=== PATIENT | male | born 1965 | race African-American/Black ===

== ENCOUNTER 2017-11-06 08:54 | Inpatient (IN) | payer OTHER ==
[2017-11-06 09:41] VITALS: BMI 40.0
--- NOTE | 2017-11-06 10:19 | HP ---
CIWA Score - CIWA Score Nausea/Vomitin Muscle Tremors: 3 Anxiety: 3 Agitation: 3 Paroxysmal Sweats: 2 Orientation: 0-Oriented Tacttile Disturbances: 2-Mild Itch/Numbness/Burn Auditory Disturbances: 2-Mild Harshness/Frighten Visual Disturbances: 2-Mild Sensitivity Headache: 2-Mild CIWA-Ar Total Score: 22 Admission ROS BHS - HPI Chief Complaint: I NEED HELP FROM ALCOHOL ,MARIJUANA SEEN AT [place] LAST NIGHT Allergies/Adverse Reactions: Allergies Allergy/AdvReac Type Severity Reaction Status Date / Time No Known Allergies Allergy Verified 02/28/14 16:31 History of Present Illness: THIS 52 YEARS OLD BLACK MALE WITH ALCOHOL AND MARIJUANA DEPENDENCE,WITHDRAWAL SYMPTOM,SEEKING DETOX,LAST DETOX [facility] 02/28/14 TO 03/02/14 ASTHMA,HTN,GLAUCOMA RIGHT 1 YEAR FINGER COUNT LONGEST PERIOD OF SOBRIETY 1 YEAR Exam Limitations: No Limitations - Ebola screening Have you traveled outside of the country in the last 21 days: No Have you been sick,other than usual withdrawal symptoms: No - Review of Systems Constitutional: Loss of Appetite, Malaise, Night Sweats, Changes in sleep, Weakness EENT: reports: Nose Congestion (GLAUCOMA RIGHT EYE FINGER COUNT), Other ( GLAUCOMA RIGHT EYE FINGER COUNT) Respiratory: reports: No Symptoms reported (ASTHMA), Other Cardiac: reports: No Symptoms Reported GI: reports: Nausea, Vomiting, Abdominal cramping : reports: No Symptoms Reported Musculoskeletal: reports: Back Pain, Muscle Pain Integumentary: reports: Dryness Neuro: reports: Headache, Tremors Endocrine: reports: No Symptoms Reported Hematology: reports: No Symptoms Reported Psychiatric: reports: No Sypmtoms Reported Patient History - Patient Medical History Hx Anemia: No Hx Asthma: Yes (ON ALBUREOL INHALER AND ADVAIR 250/50) Hx Chronic Obstructive Pulmonary Disease (COPD): No Hx Cancer: No Hx Cardiac Disorders: No Hx Congestive Heart Failure: No Hx Hypertension: Yes (on meds.HYDROCHOLROTHIAZIDE 25 MGS) Hx Hypercholesterolemia: No Hx Pacemaker: No HX Cerebrovascular Accident: No Hx Seizures: No Hx Dementia: No Hx Diabetes: No Hx Gastrointestinal Disorders: No Hx Liver Disease: No Hx Genitourinary Disorders: No Hx Sexually Transmitted Disorders: No Hx Renal Disease (ESRD): No Hx Thyroid Disease: No Hx Human Immunodeficiency Virus (HIV): No (LAST 2016 NEGATIVE) Hx Hepatitis C: No Hx Depression: No Hx Suicide Attempt: No Hx Bipolar Disorder: No Hx Schizophrenia: No Other Medical History: NO SUICIDAL,NO HOMICIDAL - Patient Surgical History Past Surgical History: Yes Hx Neurologic Surgery: No Hx Cataract Extraction: No Hx Cardiac Surgery: No Hx Lung Surgery: No Hx Breast Surgery: No Hx Breast Biopsy: No Hx Abdominal Surgery: Yes (UMBILICAL HERNIA REPAIR 04/2013) Hx Appendectomy: No Hx Cholecystectomy: No Hx Genitourinary Surgery: No Hx Section: No Hx Orthopedic Surgery: Yes (fx of both legs at age of 12 years) Other Surgical History: fx of both legs at age of 12 years Anesthesia Reaction: No - PPD History Previous Implant?: Yes Documented Results: Positive w/proof Date: 04/10/12 Results: 0mm - Smoking Cessation Smoking history: Former smoker Have you smoked in the past 12 months: No Aproximately how many cigarettes per day: 0 If you are a former smoker, when did you quit?: 2016 Cigars Per Day: 0 Hx Chewing Tobacco Use: No Initiated information on smoking cessation: Yes 'Breaking Loose' booklet given: 11/07/17 - Substance & Tx. History Hx Alcohol Use: Yes Hx Substance Use: Yes Substance Use Type: Alcohol, Marijuana ([facility] ) Hx Substance Use Treatment: Yes ([facility] 02/28/14 TO 03/02/14) - Substances Abused Alcohol Route: Oral Frequency: Daily Amount used: LIQUOR- 3 PINTS VODKA, BEER- 3 SIX PACK OF 16 OZS Age of first use: 12 Date of Last Use: 11/05/17 Marijuana/Hashish Route: Smoking Frequency: Daily Amount used: 10$ Age of first use: 12 Date of Last Use: 11/05/17 Family Disease History - Family Disease History Family Disease History: Other: Father (ALCOHOLIC,), Mother (), Brother (alcohol and dsa), Sister (alcohol) Admission Physical Exam S - Vital Signs Vital Signs: Vital Signs - 24 hr 11/06/17 09:38 Temperature 97.8 F Pulse Rate 99 H Respiratory 18 Rate Blood Pressure 119/83 - Physical General Appearance: Yes: Moderate Distress, Tremorous, Irritable, Sweating, Anxious HEENTM: Yes: Pharynx Normal, Other (GLAUCOMA RIGH TEYE FINGER COUNT) Respiratory: Yes: Lungs Clear, Normal Breath Sounds, No Respiratory Distress ( ASTHMA HISTORY) Neck: Yes: Within Normal Limits, Supple, Trachea in good position Breast: Yes: Within Normal Limits Cardiology: Yes: Within Normal Limits, Regular Rhythm, Regular Rate, S1, S2 Abdominal: Yes: Normal Bowel Sounds, Non Tender, Flat, Soft, Surgical Scar (S/ PUMBILICAL HERNIA REPAIR) Genitourinary: Yes: Within Normal Limits Back: Yes: Muscle Spasm Musculoskeletal: Yes: Back pain, Muscle Pain Extremities: Yes: Tremors Neurological: Yes: skin toggler II-XII NML intact, Fully Oriented, Alert, Motor Strength 5/5 Integumentary: Yes: Dry Lymphatic: Yes: Within Normal Limits - Diagnostic (1) Alcohol dependence with uncomplicated withdrawal Current Visit: Yes Status: Acute (2) Cannabis dependence Current Visit: Yes Status: Acute (3) Glaucoma, right eye Current Visit: Yes Status: Acute (4) Asthma Current Visit: Yes Status: Acute (5) Essential hypertension Current Visit: No Status: Active (6) Nicotine dependence Current Visit: No Status: Acute Cleared for Admission [facility] - Detox or Rehab [facility] Level of Care: Medically Managed Detox Regimen/Protocol: Librium [facility] Breath Alcohol Content Breath Alcohol Content: 0 Urine Drug Screen - Results Drug Screen Negative: No Urine Drug Screen Results: BZO-Benzodiazepines
[2017-11-06] MEDS ORDERED: ALBUTEROL SO4 18 GM HFA INHALER IH PRN (10:40)
[2017-11-06] MEDS ORDERED: hydrOXYzine PAMOATE 50 MG CAPSULE (FP) PO PRN (12:27)
[2017-11-06] MEDS ORDERED: LOPERAMIDE HCL 2 MG CAPSULE PO PRN (12:27)
[2017-11-06] MEDS ORDERED: P-EPHED 60MG/TRIPROLIDI 2.5MG TABLET PO PRN (12:27)
[2017-11-06] MEDS ORDERED: MAGNESIUM HYDROX 2400MG/30ML ORAL SUSPENSION 30 ML CUP PO PRN (12:27)
[2017-11-06] MEDS ORDERED: IBUPROFEN 400 MG TABLET (FP) PO PRN (12:27)
[2017-11-06] MEDS ORDERED: guaiFENesin/D-METHORPHAN HB 10 ML UNIT-DOSE CUPS PO PRN (12:27)
[2017-11-06] MEDS ORDERED: MAG HYDROX/AL HYDROX/SIMETH 30 ML UNIT-DOSE CUP PO PRN (12:27)
[2017-11-06] MEDS ORDERED: MENTHOL/PHENOL 1 EACH UD MM PRN (12:27)
[2017-11-06] MEDS ORDERED: chlordiazePOXIDE HCL 25 MG CAPSULE PO ONE (12:27)
[2017-11-06] MEDS ORDERED: ACETAMINOPHEN 325 MG TABLET (FP) PO PRN (12:27)
[2017-11-06] MEDS ORDERED: chlordiazePOXIDE HCL 25 MG CAPSULE PO PRN (12:27)
[2017-11-06] MEDS ORDERED: MAGNESIUM CITRATE 300 ML BOTTLE PO PRN (12:27)
[2017-11-06] MEDS: BUDESONIDE/FORMETEROL FUMARATE 80/4.5 mcg INHALER IH SCH ×2 (13:37→22:39)
[2017-11-06] MEDS: chlordiazePOXIDE HCL 25 MG CAPSULE PO SCH ×2 (18:00→22:41)
[2017-11-06 19:05] LABS: URINE APPEARANCE TURBID; URINE BILIRUBIN NEGATIVE (NEGATIVE); URINE BLOOD NEGATIVE (NEGATIVE); URINE GLUCOSE (UA) NEGATIVE (NEGATIVE); URINE KETONE TRACE (NEGATIVE); URINE LEUK ESTERASE NEGATIVE (NEGATIVE); URINE NITRITE NEGATIVE (NEGATIVE); URINE PROTEIN NEGATIVE (NEGATIVE)
[2017-11-06 19:36] LABS: URINE COLOR YELLOW
[2017-11-06] MEDS ORDERED: LATANOPROST 0.005% OPHTH SOLN 2.5ML BOTTLE OU SCH (22:00)
[2017-11-06] MEDS ORDERED: TIMOLOL 0.5% OPHTHALMIC SOL 5 ML BOTTLE OU SCH (22:00)
[2017-11-06] MEDS ORDERED: PATIENT'S OWN MEDICATION (NON-FORMULARY) (Salmeterol/Fluticasone [Advair 250mcg/50mcg -] 1 PO SCH (22:00)
[2017-11-06] MEDS: THIAMINE HCL 100 MG TABLET (FP) PO SCH (22:39)
[2017-11-06] MEDS: LATANOPROST 0.005% OPHTH SOLN 2.5ML BOTTLE OU SCH (22:40)
[2017-11-06] MEDS: TIMOLOL 0.5% OPHTHALMIC SOL 5 ML BOTTLE OU SCH (22:40)
[2017-11-07] MEDS: chlordiazePOXIDE HCL 25 MG CAPSULE PO SCH ×4 (05:28→22:42)
[2017-11-07] MEDS: BUDESONIDE/FORMETEROL FUMARATE 80/4.5 mcg INHALER IH SCH ×2 (09:15→22:42)
[2017-11-07] MEDS: TIMOLOL 0.5% OPHTHALMIC SOL 5 ML BOTTLE OU SCH ×2 (09:15→22:43)
[2017-11-07] MEDS ORDERED: HYDROCHLOROTHIAZIDE 25 MG TABLET (FP) PO SCH (10:00)
[2017-11-07] MEDS ORDERED: PRENATAL VITAMINS W/ FOLIC ACID TABLET (FP) PO SCH (10:00)
[2017-11-07 10:09] LABS: HEMATOCRIT 40.8 % (35.4-49); MCH 28.2 pg (25.7-33.7); MCHC 31.7 g/dl (32.0-35.9); MEAN CELL VOLUME 88.9 fl (80-96); MEAN PLT VOLUME 8.9 fl (7.5-11.1); PLATELET COUNT 260 K/MM3 (134-434); RBC 4.59 M/mm3 (4.00-5.60); RDW 14.6 % (11.9-15.9); WHITE BLOOD COUNT 7.5 K/mm3 (4.0-10.0)
[2017-11-07 10:20] LABS: CHLORIDE 101 mmol/L (98-107); POTASSIUM 3.5 mmol/L (3.5-5.1); SODIUM 138 mmol/L (136-145)
[2017-11-07] MEDS: TOLNAFTATE 1% CREAM 15 GM TUBE TP SCH ×2 (10:31→22:43)
[2017-11-07 10:34] LABS: ALBUMIN 4.2 g/dl (3.4-5.0); ALK PHOS 64 U/L (45-117); ANION GAP 6 (8-16); BILIRUBIN,TOTAL 1.6 mg/dL (0.2-1.0); BLOOD UREA NITROGEN 12 mg/dL (7-18); CALCIUM 8.8 mg/dL (8.5-10.1); CO2 31 mmol/L (21-32); CREATININE 0.9 mg/dL (0.7-1.3); GLUCOSE,RANDOM 105 mg/dL (74-106); SGOT/AST 17 U/L (15-37); SGPT/ALT 32 U/L (12-78); TOT PROT 7.3 g/dl (6.4-8.2)
--- NOTE | 2017-11-07 12:00 | CONSULT ---
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 Substance Abuse History: Confirmed by patient in this interview. Smoking history : Former smoker. Have you smoked in the past 12 months: No. Aproximately how many cigarettes per day: 0. If you are a former smoker, when did you quit?: 2017. Cigars Per Day: 0. Hx Chewing Tobacco Use: No. Initiated information on smoking cessation: Yes. 'Breaking Loose' booklet given: 11/07/17. - Substance & Tx. History. Hx Alcohol Use: Yes. Hx Substance Use: Yes. Substance Use Type: Alcohol, Marijuana ([facility] ). Hx Substance Use Treatment: Yes ([facility] 02/28/14 TO 03/02/14). - Substances Abused. Alcohol. Route: Oral. Frequency: Daily. Amount used: LIQUOR- 3 PINTS VODKA, BEER- 3 SIX PACK OF 16 OZS. Age of first use: 12. Date of Last Use: 11/05/17. Marijuana/ Hashish. Route: Smoking. Frequency: Daily. Amount used: 10$. Age of first use: 12. Date of Last Use: 11/05/17 Medical History: Hypertension,bronchial asthma,GERD,glaucoma (right eye) and a remote history of orthosurgery (fracture of both legs at age 12). Psychiatric History: Patient denies. Physical/Sexual Abuse/Trauma History: No reported history of abuse. Additional Comment: Urine Drug Screen Results: BZO-Benzodiazepines.Noted. Mental Status Exam - Mental Status Exam Alert and Oriented to: Time, Place, Person Cognitive Function: Good Patient Appearance: Well Groomed (obese) Mood: Hopeful Affect: Appropriate, Normal Range Patient Behavior: Appropriate, Cooperative Speech Pattern: Clear, Appropriate Voice Loudness: Normal Thought Process: Intact, Goal Oriented Thought Disorder: Not Present Hallucinations: Denies Suicidal Ideation: Denies Homicidal Ideation: Denies Insight/Judgement: Poor Sleep: Poorly, Difficulty falling asleep Appetite: Good Muscle strength/Tone: Normal Gait/Station: Normal Psychiatric Findings - Problem List (Delta 1, 2,3) (1) Alcohol dependence with uncomplicated withdrawal Current Visit: Yes Status: Acute (2) Cannabis dependence Current Visit: Yes Status: Acute (3) Insomnia Current Visit: Yes Status: Acute - Initial Treatment Plan Initial Treatment Plan: Psychoeducation and support provided in this session.Sleep hygiene discussed.Detoxification protocol in effect.Patient is encouraged to attend / participate in daily therapy groups,recreational activities and community meetings.He agrees.Ambien 10 mg po hs prn.Patient is informed of potential for parasomnias.Mr Banegas consents (verbally) to this careplan.Observation.
--- NOTE | 2017-11-07 12:25 | PN ---
[facility] CIWA - CIWA Score Nausea/Vomitin-No Nausea/No Vomiting Muscle Tremors: 4-Moderate,w/Arms Extend Anxiety: 4-Mod. Anxious/Guarded Agitation: 4-Moderately Restless Paroxysmal Sweats: 1-Minimal Palms Moist Orientation: 0-Oriented Tacttile Disturbances: 3-Moderate Itch/Numb/Burn Auditory Disturbances: 0-None Visual Disturbances: 0-None Headache: 0-None Present CIWA-Ar Total Score: 16 S Progress Note (SOAP) Subjective: ANXIETY,SWEATS,INTERMITTENT SLEEP-TO F/U WITH PSYCH TODAY. Objective: 11/07/17 12:24 Vital Signs Temperature 97.5 F L 11/07/17 09:44 Pulse Rate 69 11/07/17 09:44 Respiratory Rate 18 11/07/17 09:44 Blood Pressure 122/81 11/07/17 09:44 O2 Sat by Pulse Oximetry (%) Laboratory Last Values WBC 7.5 K/mm3 (4.0-10.0) 11/07/17 07:00 RBC 4.59 M/mm3 (4.00-5.60) 11/07/17 07:00 Hgb 13.0 GM/dL (11.7-16.9) 11/07/17 07:00 Hct 40.8 % (35.4-49) 11/07/17 07:00 MCV 88.9 fl (80-96) 11/07/17 07:00 MCH 28.2 pg (25.7-33.7) 11/07/17 07:00 MCHC 31.7 g/dl (32.0-35.9) L 11/07/17 07:00 RDW 14.6 % (11.9-15.9) 11/07/17 07:00 Plt Count 260 K/MM3 (134-434) 11/07/17 07:00 MPV 8.9 fl (7.5-11.1) 11/07/17 07:00 Sodium 138 mmol/L (136-145) 11/07/17 07:00 Potassium 3.5 mmol/L (3.5-5.1) D 11/07/17 07:00 Chloride 101 mmol/L (98-107) 11/07/17 07:00 Carbon Dioxide 31 mmol/L (21-32) D 11/07/17 07:00 Anion Gap 6 (8-16) L 11/07/17 07:00 BUN 12 mg/dL (7-18) D 11/07/17 07:00 Creatinine 0.9 mg/dL (0.7-1.3) D 11/07/17 07:00 Creat Clearance w eGFR > 60 (>60) 11/07/17 07:00 Random Glucose 105 mg/dL (74-106) D 11/07/17 07:00 Calcium 8.8 mg/dL (8.5-10.1) 11/07/17 07:00 Total Bilirubin 1.6 mg/dL (0.2-1.0) H D 11/07/17 07:00 AST 17 U/L (15-37) 11/07/17 07:00 ALT 32 U/L (12-78) D 11/07/17 07:00 Alkaline Phosphatase 64 U/L (45-117) D 11/07/17 07:00 Total Protein 7.3 g/dl (6.4-8.2) 11/07/17 07:00 Albumin 4.2 g/dl (3.4-5.0) 11/07/17 07:00 Urine Color Yellow 11/06/17 12:45 Urine Appearance Turbid 11/06/17 12:45 Urine pH 5.0 (5.0-8.0) 11/06/17 12:45 Ur Specific [place] 1.024 (1.001-1.035) 11/06/17 12:45 Urine Protein Negative (NEGATIVE) 11/06/17 12:45 Urine Glucose (UA) Negative (NEGATIVE) 11/06/17 12:45 Urine Ketones Trace (NEGATIVE) H 11/06/17 12:45 Urine Blood Negative (NEGATIVE) 11/06/17 12:45 Urine Nitrite Negative (NEGATIVE) 11/06/17 12:45 Urine Bilirubin Negative (NEGATIVE) 11/06/17 12:45 Urine Urobilinogen 2.0 mg/dL (0.2-1.0) 11/06/17 12:45 Ur Leukocyte Esterase Negative (NEGATIVE) 11/06/17 12:45 RPR Titer Nonreactive (NONREACTIVE) 11/07/17 07:00 HIV 1&2 Antibody Screen Negative 11/07/17 07:00 HIV P24 Antigen Negative 11/07/17 07:00 Assessment: 02/12/18 12:24 WITHDRAWAL SX Plan: CONTINUE DETOX
[2017-11-07 18:00] VITALS: TEMP 97.6
[2017-11-07] MEDS ORDERED: ZOLPIDEM TARTRATE 10 MG TABLET (PARK CARE ONLY) PO PRN (22:00)
[2017-11-07] MEDS: THIAMINE HCL 100 MG TABLET (FP) PO SCH (22:42)
[2017-11-07] MEDS: LATANOPROST 0.005% OPHTH SOLN 2.5ML BOTTLE OU SCH (22:42)
--- NOTE | 2017-11-07 23:34 | EKG ---
Test Reason : Blood Pressure : / mmHG Vent. Rate : 082 BPM Atrial Rate : 082 BPM P-R Int : 144 ms QRS Dur : 108 ms QT Int : 374 ms P-R-T Axes : 053 -35 033 degrees QTc Int : 436 ms NORMAL SINUS RHYTHM LEFT AXIS DEVIATION NONSPECIFIC T WAVE ABNORMALITY ABNORMAL ECG NO PREVIOUS ECGS AVAILABLE Confirmed by DIPAK PEREZ, GARCÍA ([id number]) on 11/07/2017 11:33:38 PM Referred By: Daniel Copeland Confirmed By:GARCÍA QUESADA MD
[2017-11-08] MEDS: chlordiazePOXIDE HCL 25 MG CAPSULE PO SCH (05:48)
[2017-11-08 05:54] VITALS: BP 107/67; PULSE 64
--- NOTE | 2017-11-08 06:31 | DS ---
[facility] Detox Discharge Summary Admission Date: 11/06/17 Discharge Date: 11/08/17 - History Present History: Alcohol Dependence, Cannabis Dependence Additional Comments: Pt. stated he did not need refills of his medications sent to the pharmacy. Pertinent Past History: Last Vital Signs Temp Pulse Resp BP Pulse Ox 97.6 F 64 19 107/67 11/07/17 18:00 11/08/17 05:52 11/08/17 05:52 11/08/17 05:52 Laboratory Last Values - Physical Exam Results Vital Signs: Vital Signs Temperature 97.6 F 11/07/17 18:00 Pulse Rate 64 11/08/17 05:52 Respiratory Rate 19 11/08/17 05:52 Blood Pressure 107/67 11/08/17 05:52 O2 Sat by Pulse Oximetry (%) Pertinent Admission Physical Exam Findings: Laboratory Last Values WBC 7.5 K/mm3 (4.0-10.0) 11/07/17 07:00 RBC 4.59 M/mm3 (4.00-5.60) 11/07/17 07:00 Hgb 13.0 GM/dL (11.7-16.9) 11/07/17 07:00 Hct 40.8 % (35.4-49) 11/07/17 07:00 MCV 88.9 fl (80-96) 11/07/17 07:00 MCH 28.2 pg (25.7-33.7) 11/07/17 07:00 MCHC 31.7 g/dl (32.0-35.9) L 11/07/17 07:00 RDW 14.6 % (11.9-15.9) 11/07/17 07:00 Plt Count 260 K/MM3 (134-434) 11/07/17 07:00 MPV 8.9 fl (7.5-11.1) 11/07/17 07:00 Sodium 138 mmol/L (136-145) 11/07/17 07:00 Potassium 3.5 mmol/L (3.5-5.1) D 11/07/17 07:00 Chloride 101 mmol/L (98-107) 11/07/17 07:00 Carbon Dioxide 31 mmol/L (21-32) D 11/07/17 07:00 Anion Gap 6 (8-16) L 11/07/17 07:00 BUN 12 mg/dL (7-18) D 11/07/17 07:00 Creatinine 0.9 mg/dL (0.7-1.3) D 11/07/17 07:00 Creat Clearance w eGFR > 60 (>60) 11/07/17 07:00 Random Glucose 105 mg/dL (74-106) D 11/07/17 07:00 Calcium 8.8 mg/dL (8.5-10.1) 11/07/17 07:00 Total Bilirubin 1.6 mg/dL (0.2-1.0) H D 11/07/17 07:00 AST 17 U/L (15-37) 11/07/17 07:00 ALT 32 U/L (12-78) D 11/07/17 07:00 Alkaline Phosphatase 64 U/L (45-117) D 11/07/17 07:00 Total Protein 7.3 g/dl (6.4-8.2) 11/07/17 07:00 Albumin 4.2 g/dl (3.4-5.0) 11/07/17 07:00 Urine Color Yellow 11/06/17 12:45 Urine Appearance Turbid 11/06/17 12:45 Urine pH 5.0 (5.0-8.0) 11/06/17 12:45 Ur Specific [place] 1.024 (1.001-1.035) 11/06/17 12:45 Urine Protein Negative (NEGATIVE) 11/06/17 12:45 Urine Glucose (UA) Negative (NEGATIVE) 11/06/17 12:45 Urine Ketones Trace (NEGATIVE) H 11/06/17 12:45 Urine Blood Negative (NEGATIVE) 11/06/17 12:45 Urine Nitrite Negative (NEGATIVE) 11/06/17 12:45 Urine Bilirubin Negative (NEGATIVE) 11/06/17 12:45 Urine Urobilinogen 2.0 mg/dL (0.2-1.0) 11/06/17 12:45 Ur Leukocyte Esterase Negative (NEGATIVE) 11/06/17 12:45 RPR Titer Nonreactive (NONREACTIVE) 11/07/17 07:00 HIV 1&2 Antibody Screen Negative 11/07/17 07:00 HIV P24 Antigen Negative 11/07/17 07:00 - Medication Discharge Medications: Ambulatory Orders Albuterol Sulfate Inhaler - [Ventolin HFA Inhaler -] 2 inh PO Q4H PRN 02/28/14 Aspirin [Aspirin EC] 81 mg PO DAILY 02/28/14 Brimonidine Tartrate [Alphagan 0.2% -] 1 drop OU TID 02/28/14 Budesonide/Formeterol Fumarate [SYMBICORT 80/4.5mcg -] 1 inh PO DAILY PRN Hydrochlorothiazide [Hctz -] 25 mg PO DAILY 02/28/14 Latanoprost 0.005% Eye Drops [Xalatan 0.005% Eye Drops -] 1 drop OU HS 02/28/14 Salmeterol/Fluticasone [Advair 250Mcg/50Mcg] 1 inh PO BID 02/28/14 Timolol 0.5% [Timoptic 0.5%] 1 drop OU BID 02/28/14 - Diagnosis (1) Essential hypertension Current Visit: Yes Status: Chronic (2) Alcohol dependence with uncomplicated withdrawal Current Visit: Yes Status: Chronic (3) Asthma Current Visit: Yes Status: Chronic Qualifiers: Asthma severity: mild Asthma complication type: uncomplicated (4) Cannabis dependence Current Visit: Yes Status: Chronic (5) Nicotine dependence Current Visit: Yes Status: Chronic Qualifiers: Nicotine product type: cigarettes Substance use status: in withdrawal Qualified Code(s): F17.213 - Nicotine dependence, cigarettes, with withdrawal - AMA Did Patient Leave Against Medical Advice: Yes (Pt. did not give reason as to why he wanted to leave. )
[2017-11-08] MEDS ORDERED: chlordiazePOXIDE 5 MG CAPSULE PO SCH (17:00)
[2017-11-09] MEDS ORDERED: chlordiazePOXIDE HCL 10 MG CAPSULE PO SCH (17:00)
== END 2017-11-08 06:29 | disposition left against medical advice (07) | DRG 770 ==
LOC: YASAS 08:54 → Y3N 10:41
PROVIDERS: ADMIT Internal Medicine; ATTEND Internal Medicine
PROC: HZ2ZZZZ Detoxification Services for Substance Abuse Treatment (ICD-10-PCS; principal; 2017-11-06)
DX: F10.230 Alcohol dependence with withdrawal, uncomplicated (principal); F12.20 Cannabis dependence, uncomplicated; F17.213 Nicotine dependence, cigarettes, with withdrawal; I10 Essential (primary) hypertension; J45.909 Unspecified asthma, uncomplicated; B35.3 Tinea pedis; H40.9 Unspecified glaucoma; K21.9 Gastro-esophageal reflux disease without esophagitis; G47.00 Insomnia, unspecified
CPT/HCPCS: 36415; 71045-TC-FY; 80053; 81003; 85027; 86593; 87389; 93005; 93010

== ENCOUNTER 2018-07-17 08:47 | Inpatient (IN) | payer OTHER ==
[2018-07-17 09:24] VITALS: BMI 40.1
--- NOTE | 2018-07-17 10:43 | HP ---
CIWA Score - CIWA Score Nausea/Vomitin Muscle Tremors: 2 Anxiety: 2 Agitation: 2 Paroxysmal Sweats: 1-Minimal Palms Moist Orientation: 0-Oriented Tacttile Disturbances: 1-Very Mild Itch/Numbness Auditory Disturbances: 1-Very Mild Visual Disturbances: 0-None Headache: 2-Mild CIWA-Ar Total Score: 13 Admission ROS BHS - HPI Chief Complaint: i need help to stop drinking alcohol Allergies/Adverse Reactions: Allergies Allergy/AdvReac Type Severity Reaction Status Date / Time No Known Allergies Allergy Verified 07/17/18 10:02 History of Present Illness: this 53 years old male with alcohol dependence,seeking detox,seen in [place] last night,withdrawal symptom, extensive history of alcohol dependence since the age of 12 years,multiple admissions but relapsing,non compliance history of hypertension,glaucoma,asthma nicotine dependence positive ppd treated longest period of sobriety 1 year Exam Limitations: No Limitations - Ebola screening Have you traveled outside of the country in the last 21 days: No Have you had contact with anyone from an Ebola affected area: No Have you been sick,other than usual withdrawal symptoms: No Do you have a fever: No - Review of Systems Constitutional: Loss of Appetite, Malaise, Night Sweats, Changes in sleep EENT: reports: Nose Congestion, Other (glaucoma) Respiratory: reports: No Symptoms reported, Other (asthma) Cardiac: reports: No Symptoms Reported GI: reports: Nausea, Indigestion, Abdominal cramping : reports: No Symptoms Reported Musculoskeletal: reports: Back Pain, Muscle Pain Integumentary: reports: Dryness Neuro: reports: Headache, Tremors Endocrine: reports: No Symptoms Reported Hematology: reports: No Symptoms Reported Psychiatric: reports: No Sypmtoms Reported, Judgement Intact, Mood/Affect Appropiate, Orientated x3 Patient History - Patient Medical History Hx Anemia: No Hx Asthma: Yes (on albuterol and symbicort) Hx Chronic Obstructive Pulmonary Disease (COPD): No Hx Cancer: No Hx Cardiac Disorders: No Hx Congestive Heart Failure: No Hx Hypertension: Yes (on med) Hx Hypercholesterolemia: No Hx Pacemaker: No HX Cerebrovascular Accident: No Hx Seizures: No Hx Dementia: No Hx Diabetes: No Hx Gastrointestinal Disorders: Yes (acid reflux) Hx Liver Disease: No Hx Genitourinary Disorders: No Hx Sexually Transmitted Disorders: No Hx Renal Disease (ESRD): No Hx Thyroid Disease: No Hx Human Immunodeficiency Virus (HIV): No (last 2018 negative) Hx Hepatitis C: No Hx Depression: No Hx Suicide Attempt: No Hx Bipolar Disorder: No Hx Schizophrenia: No Other Medical History: no suicidal,no homicidal - Patient Surgical History Past Surgical History: Yes Hx Neurologic Surgery: No Hx Cataract Extraction: No Hx Cardiac Surgery: No Hx Lung Surgery: No Hx Breast Surgery: No Hx Breast Biopsy: No Hx Abdominal Surgery: Yes (UMBILICAL HERNIA REPAIR 04/2013) Hx Appendectomy: No Hx Cholecystectomy: No Hx Genitourinary Surgery: No Hx Section: No Hx Orthopedic Surgery: Yes (fx of both legs at age of 12 years) Other Surgical History: fx of both legs at age of 12 years Anesthesia Reaction: No - PPD History Documented Results: Positive w/proof Date: 04/10/12 Results: CXR(-)11/07/17 PPD to be Administered?: No - Smoking Cessation Smoking history: Current some day smoker Have you smoked in the past 12 months: Yes Aproximately how many cigarettes per day: 1 If you are a former smoker, when did you quit?: 2017 Cigars Per Day: 0 Hx Chewing Tobacco Use: No Initiated information on smoking cessation: Yes 'Breaking Loose' booklet given: 07/17/18 - Substance & Tx. History Hx Alcohol Use: Yes Hx Substance Use: No Substance Use Type: Alcohol Hx Substance Use Treatment: Yes ([facility]11/06/17 to 11/08/17) - Substances Abused Alcohol-vodka/beer Route: Oral Frequency: Daily Amount used: 3 pts./2-6 pks. Age of first use: 12 Date of Last Use: 07/16/18 Family Disease History - Family Disease History Family Disease History: Other: Father (ALCOHOLIC,), Mother (), Brother (alcohol and dsa), Sister (alcohol) Admission Physical Exam BHS - Vital Signs Vital Signs: Vital Signs - 24 hr 07/17/18 09:15 Temperature 97.6 F Pulse Rate 76 Respiratory 19 Rate Blood Pressure 153/99 - Physical General Appearance: Yes: Moderate Distress, Tremorous, Irritable, Sweating, Anxious HEENTM: Yes: Normal ENT Inspection, Pharynx Normal, Other (glaucoma both eyes seen own ophthalmogist) Respiratory: Yes: Within Normal Limits, Lungs Clear (hsitory of asthma) Neck: Yes: Within Normal Limits, Supple, Trachea in good position Breast: Yes: Within Normal Limits Cardiology: Yes: Within Normal Limits, Regular Rhythm, Regular Rate, S1, S2 Abdominal: Yes: Within Normal Limits, Normal Bowel Sounds, Soft Genitourinary: Yes: Within Normal Limits Back: Yes: Muscle Spasm Musculoskeletal: Yes: Back pain, Muscle Pain Extremities: Yes: Normal Range of Motion, Tremors Neurological: Yes: prune washer II-XII NML intact, Fully Oriented, Alert, Motor Strength 5/5 Integumentary: Yes: Dry Lymphatic: Yes: Within Normal Limits - Diagnostic (1) Alcohol dependence with uncomplicated withdrawal Current Visit: Yes Status: Chronic (2) Asthma Current Visit: No Status: Chronic Qualifiers: Asthma severity: mild Asthma complication type: uncomplicated (3) Essential hypertension Current Visit: No Status: Chronic (4) Nicotine dependence Current Visit: No Status: Chronic Qualifiers: Nicotine product type: cigarettes Substance use status: in withdrawal Qualified Code(s): F17.213 - Nicotine dependence, cigarettes, with withdrawal (5) Glaucoma, both eyes Current Visit: Yes Status: Acute Qualifiers: Glaucoma type: unspecified Qualified Code(s): H40.9 - Unspecified glaucoma (6) Tinea pedis Current Visit: Yes Status: Acute Qualifiers: Laterality: right Qualified Code(s): B35.3 - Tinea pedis (7) Nail deformity Current Visit: Yes Status: Acute (8) Syncope Current Visit: No Status: Active (9) Positive PPD, treated Current Visit: Yes Status: Acute Cleared for Admission [facility] - Detox or Rehab [facility] Level of Care: Medically Managed Detox Regimen/Protocol: Librium [facility] Breath Alcohol Content Breath Alcohol Content: 0 Urine Drug Screen - Results Drug Screen Negative: No Urine Drug Screen Results: BZO-Benzodiazepines
[2018-07-17] MEDS ORDERED: hydrOXYzine PAMOATE 50 MG CAPSULE (FP) PO PRN (11:03)
[2018-07-17] MEDS ORDERED: LOPERAMIDE HCL 2 MG CAPSULE PO PRN (11:03)
[2018-07-17] MEDS ORDERED: MAGNESIUM HYDROX 2400MG/30ML ORAL SUSPENSION 30 ML CUP PO PRN (11:03)
[2018-07-17] MEDS ORDERED: MAG HYDROX/AL HYDROX/SIMETH 30 ML UNIT-DOSE CUP PO PRN (11:03)
[2018-07-17] MEDS ORDERED: P-EPHED 60MG/TRIPROLIDI 2.5MG TABLET PO PRN (11:03)
[2018-07-17] MEDS ORDERED: chlordiazePOXIDE HCL 25 MG CAPSULE PO PRN (11:03)
[2018-07-17] MEDS ORDERED: IBUPROFEN 400 MG TABLET (FP) PO PRN (11:03)
[2018-07-17] MEDS ORDERED: MAGNESIUM CITRATE 300 ML BOTTLE PO PRN (11:03)
[2018-07-17] MEDS ORDERED: MENTHOL/PHENOL 1 EACH UD MM PRN (11:03)
[2018-07-17] MEDS ORDERED: ACETAMINOPHEN 325 MG TABLET (FP) PO PRN (11:03)
[2018-07-17] MEDS ORDERED: guaiFENesin/D-METHORPHAN HB 10 ML UNIT-DOSE CUPS PO PRN (11:03)
[2018-07-17] MEDS ORDERED: ALBUTEROL SO4 8 GM HFA INHALER IH PRN (11:05)
[2018-07-17] MEDS: chlordiazePOXIDE HCL 25 MG CAPSULE PO SCH ×2 (17:11→22:15)
[2018-07-17] MEDS ORDERED: MELATONIN 5 MG TABLETS PO PRN (22:00)
[2018-07-17] MEDS: TIMOLOL 0.5% OPHTHALMIC SOL 5 ML BOTTLE OU SCH (22:15)
[2018-07-17] MEDS: LATANOPROST 0.005% OPHTH SOLN 2.5ML BOTTLE OU SCH (22:15)
[2018-07-17] MEDS: THIAMINE HCL 100 MG TABLET (FP) PO SCH (22:15)
[2018-07-17] MEDS: BUDESONIDE/FORMETEROL FUMARATE 80/4.5 mcg INHALER IH SCH (22:16)
[2018-07-18] MEDS: chlordiazePOXIDE HCL 25 MG CAPSULE PO SCH ×4 (05:49→22:25)
[2018-07-18] MEDS: BRIMONIDINE TARTRATE 0.2% OPHTHALMIC 5 ML BOTTLE OU SCH ×2 (05:50→14:33)
[2018-07-18] MEDS ORDERED: HYDROCHLOROTHIAZIDE 50 MG TABLET PO SCH (10:00)
[2018-07-18 10:21] LABS: HEMATOCRIT 43.5 % (35.4-49); HEMOGLOBIN 14.2 GM/dL (11.7-16.9); MCH 29.7 pg (25.7-33.7); MCHC 32.8 g/dl (32.0-35.9); MEAN CELL VOLUME 90.6 fl (80-96); PLATELET COUNT 262 K/MM3 (134-434); RDW 13.9 % (11.9-15.9); WHITE BLOOD COUNT 7.5 K/mm3 (4.0-10.0)
[2018-07-18] MEDS: PRENATAL VITAMINS W/ FOLIC ACID TABLET (FP) PO SCH (10:46)
[2018-07-18] MEDS: HYDROCHLOROTHIAZIDE 25 MG TABLET (FP) PO SCH (10:47)
[2018-07-18] MEDS: BUDESONIDE/FORMETEROL FUMARATE 80/4.5 mcg INHALER IH SCH ×2 (10:47→22:25)
[2018-07-18] MEDS: TIMOLOL 0.5% OPHTHALMIC SOL 5 ML BOTTLE OU SCH ×2 (10:51→22:23)
[2018-07-18] MEDS: ARTIFICIAL TEARS (POLYVINYL ALCOHOL) OPTH DROPS OU SCH (10:51)
[2018-07-18 10:54] LABS: ALBUMIN 4.6 g/dl (3.4-5.0); ALK PHOS 57 U/L (45-117); ANION GAP 7 MMOL/L (8-16); BLOOD UREA NITROGEN 12 mg/dL (7-18); CALCIUM 9.4 mg/dL (8.5-10.1); CHLORIDE 104 mmol/L (98-107); CO2 28 mmol/L (21-32); GLUCOSE,RANDOM 103 mg/dL (74-106); POTASSIUM 3.5 mmol/L (3.5-5.1); SGOT/AST 19 U/L (15-37); SGPT/ALT 34 U/L (13-61); SODIUM 139 mmol/L (136-145); TOT PROT 7.9 g/dl (6.4-8.2)
[2018-07-18] MEDS: TOLNAFTATE 1% CREAM 15 GM TUBE TP SCH ×2 (10:54→22:24)
--- NOTE | 2018-07-18 12:48 | PN ---
S CIWA - CIWA Score Nausea/Vomitin Muscle Tremors: None Anxiety: 3 Agitation: 1-Slight > Activity Paroxysmal Sweats: No Perspiration Orientation: 0-Oriented Tacttile Disturbances: 3-Moderate Itch/Numb/Burn Auditory Disturbances: 0-None Visual Disturbances: 0-None Headache: 0-None Present CIWA-Ar Total Score: 9 BHS Progress Note (SOAP) Subjective: PATIENT C/O BURNING SENSATION TO FEET AND RIGHT FOOT PAIN-LEVEL 4/10, DIARRHEA AND ANXIETY Objective: 07/18/18 12:44 Laboratory Tests 07/17/18 07/18/18 07/18/18 10:30 05:30 05:30 WBC 7.5 RBC 4.80 Hgb 14.2 Hct 43.5 MCV 90.6 MCH 29.7 MCHC 32.8 RDW 13.9 Plt Count 262 MPV 10.0 D Sodium 139 Potassium 3.5 Chloride 104 Carbon Dioxide 28 Anion Gap 7 L BUN 12 Creatinine 1.0 Creat Clearance w eGFR > 60 Random Glucose 103 Calcium 9.4 Total Bilirubin 1.0 AST 19 ALT 34 Alkaline Phosphatase 57 Total Protein 7.9 Albumin 4.6 RPR Titer HIV 1&2 Antibody Screen Negative HIV P24 Antigen Negative 07/18/18 05:30 WBC RBC Hgb Hct MCV MCH MCHC RDW Plt Count MPV Sodium Potassium Chloride Carbon Dioxide Anion Gap BUN Creatinine Creat Clearance w eGFR Random Glucose Calcium Total Bilirubin AST ALT Alkaline Phosphatase Total Protein Albumin RPR Titer Nonreactive HIV 1&2 Antibody Screen HIV P24 Antigen Vital Signs Temperature 98.2 F 07/18/18 09:35 Pulse Rate 73 07/18/18 09:35 Respiratory Rate 19 07/18/18 09:35 Blood Pressure 109/60 07/18/18 09:35 O2 Sat by Pulse Oximetry (%) SKIN WARM AND DRY CAR S1S2 RESP CTA BL EXT +1 RIGHT FOOT EDEMA, NO REDNESS, +TENDERNESS. +ONCHOMYCOTIC NAILS AND CRACKING OF SKIN IN BETWEEN TOES 07/18/18 12:46 Assessment: 07/18/18 12:46 RIGHT FOOT PAIN ATHLETES FOOT WITHDRAWAL SX Plan: CONTINUE DETOX ORDERED CONTINUE TO MONITOR CLINICALLY RIGHT FOOT XRAY ORDERED TINACTIN CREAM FOR ATHLETES FOOT
--- NOTE | 2018-07-18 13:01 | EKG ---
Test Reason : Blood Pressure : / mmHG Vent. Rate : 078 BPM Atrial Rate : 078 BPM P-R Int : 156 ms QRS Dur : 106 ms QT Int : 360 ms P-R-T Axes : 051 -37 028 degrees QTc Int : 410 ms NORMAL SINUS RHYTHM LEFT AXIS DEVIATION NONSPECIFIC T WAVE ABNORMALITY ABNORMAL ECG Confirmed by MD FREDDIE, MARY ANNE ([id number]) on 07/18/2018 1:00:49 PM Referred By: Confirmed By:MARY ANNE FRAZIER MD
[2018-07-18 16:35] LABS: URINE APPEARANCE CLEAR; URINE BILIRUBIN NEGATIVE (<2.0 mg/dL); URINE COLOR YELLOW; URINE GLUCOSE (UA) NEGATIVE (NEGATIVE); URINE KETONE NEGATIVE (NEGATIVE); URINE LEUK ESTERASE NEGATIVE (NEGATIVE); URINE NITRITE NEGATIVE (NEGATIVE); URINE PROTEIN NEGATIVE (NEGATIVE); URINE UROBILINOGEN NEGATIVE mg/dL (0.2-1.0)
[2018-07-18] MEDS: THIAMINE HCL 100 MG TABLET (FP) PO SCH (22:23)
[2018-07-18] MEDS: LATANOPROST 0.005% OPHTH SOLN 2.5ML BOTTLE OU SCH (22:24)
[2018-07-19] MEDS: chlordiazePOXIDE HCL 25 MG CAPSULE PO SCH ×2 (06:18→10:03)
[2018-07-19] MEDS: BRIMONIDINE TARTRATE 0.2% OPHTHALMIC 5 ML BOTTLE OU SCH ×4 (06:19→22:49)
--- NOTE | 2018-07-19 09:07 | PN ---
S CIWA - CIWA Score Nausea/Vomitin-Mild Nausea/No Vomiting Muscle Tremors: 2 Anxiety: 1-Mildly Anxious Agitation: 1-Slight > Activity Paroxysmal Sweats: 3 Orientation: 0-Oriented Tacttile Disturbances: 1-Very Mild Itch/Numbness Auditory Disturbances: 0-None Visual Disturbances: 0-None Headache: 0-None Present CIWA-Ar Total Score: 9 BHS Progress Note (SOAP) Subjective: I feel better but having sweats and trouble sleeping , foot pain is improved Objective: 07/19/18 09:03 Vital Signs Temperature 98.6 F 07/19/18 07:30 Pulse Rate 76 07/19/18 07:30 Respiratory Rate 20 07/19/18 07:30 Blood Pressure 134/92 07/19/18 07:30 O2 Sat by Pulse Oximetry (%) Laboratory Tests 07/17/18 07/18/18 07/18/18 10:30 05:30 05:30 WBC 7.5 RBC 4.80 Hgb 14.2 Hct 43.5 MCV 90.6 MCH 29.7 MCHC 32.8 RDW 13.9 Plt Count 262 MPV 10.0 D Sodium 139 Potassium 3.5 Chloride 104 Carbon Dioxide 28 Anion Gap 7 L BUN 12 Creatinine 1.0 Creat Clearance w eGFR > 60 Random Glucose 103 Calcium 9.4 Total Bilirubin 1.0 AST 19 ALT 34 Alkaline Phosphatase 57 Total Protein 7.9 Albumin 4.6 Urine Color Urine Appearance Urine pH Ur Specific [place] Urine Protein Urine Glucose (UA) Urine Ketones Urine Blood Urine Nitrite Urine Bilirubin Urine Urobilinogen Ur Leukocyte Esterase RPR Titer HIV 1&2 Antibody Screen Negative HIV P24 Antigen Negative 07/18/18 07/18/18 05:30 10:45 WBC RBC Hgb Hct MCV MCH MCHC RDW Plt Count MPV Sodium Potassium Chloride Carbon Dioxide Anion Gap BUN Creatinine Creat Clearance w eGFR Random Glucose Calcium Total Bilirubin AST ALT Alkaline Phosphatase Total Protein Albumin Urine Color Yellow Urine Appearance Clear Urine pH 5.0 Ur Specific [place] 1.024 Urine Protein Negative Urine Glucose (UA) Negative Urine Ketones Negative Urine Blood Negative Urine Nitrite Negative Urine Bilirubin Negative Urine Urobilinogen Negative Ur Leukocyte Esterase Negative RPR Titer Nonreactive HIV 1&2 Antibody Screen HIV P24 Antigen pt aox3 in nad ambulating foot x-ray - + athritic changes, calcaneal spur, 1st mt bunion , no sts or fx 07/19/18 09:03 Assessment: 07/19/18 09:07 withdrawal sx's- improved left foot bunion - improved Plan: cont. detox increase fluids motrin prn
[2018-07-19] MEDS: HYDROCHLOROTHIAZIDE 25 MG TABLET (FP) PO SCH (10:03)
[2018-07-19] MEDS: PRENATAL VITAMINS W/ FOLIC ACID TABLET (FP) PO SCH (10:03)
[2018-07-19] MEDS: ARTIFICIAL TEARS (POLYVINYL ALCOHOL) OPTH DROPS OU SCH (10:03)
[2018-07-19] MEDS: BUDESONIDE/FORMETEROL FUMARATE 80/4.5 mcg INHALER IH SCH ×2 (10:04→22:49)
[2018-07-19] MEDS: TOLNAFTATE 1% CREAM 15 GM TUBE TP SCH ×2 (10:04→22:49)
[2018-07-19] MEDS: TIMOLOL 0.5% OPHTHALMIC SOL 5 ML BOTTLE OU SCH ×2 (10:05→22:49)
[2018-07-19] MEDS: chlordiazePOXIDE 5 MG CAPSULE PO SCH ×2 (17:30→22:34)
[2018-07-19] MEDS: THIAMINE HCL 100 MG TABLET (FP) PO SCH (22:34)
[2018-07-19] MEDS: LATANOPROST 0.005% OPHTH SOLN 2.5ML BOTTLE OU SCH (22:49)
[2018-07-20] MEDS: chlordiazePOXIDE 5 MG CAPSULE PO SCH ×2 (06:22→10:25)
[2018-07-20] MEDS: HYDROCHLOROTHIAZIDE 25 MG TABLET (FP) PO SCH (10:25)
[2018-07-20] MEDS: PRENATAL VITAMINS W/ FOLIC ACID TABLET (FP) PO SCH (10:25)
[2018-07-20] MEDS: BUDESONIDE/FORMETEROL FUMARATE 80/4.5 mcg INHALER IH SCH ×2 (10:27→21:58)
[2018-07-20] MEDS: ARTIFICIAL TEARS (POLYVINYL ALCOHOL) OPTH DROPS OU SCH (10:28)
[2018-07-20] MEDS: TOLNAFTATE 1% CREAM 15 GM TUBE TP SCH ×2 (10:29→22:00)
[2018-07-20] MEDS: TIMOLOL 0.5% OPHTHALMIC SOL 5 ML BOTTLE OU SCH ×2 (10:29→21:59)
--- NOTE | 2018-07-20 13:54 | PN ---
BHS Progress Note (SOAP) Subjective: feeling better no tremor less sweat no gi distress sleep better at night Objective: 07/20/18 13:53 Vital Signs Temperature 97.0 F L 07/20/18 13:38 Pulse Rate 70 07/20/18 13:38 Respiratory Rate 18 07/20/18 13:38 Blood Pressure 145/98 07/20/18 13:38 O2 Sat by Pulse Oximetry (%) Laboratory Last Values WBC 7.5 K/mm3 (4.0-10.0) 07/18/18 05:30 RBC 4.80 M/mm3 (4.00-5.60) 07/18/18 05:30 Hgb 14.2 GM/dL (11.7-16.9) 07/18/18 05:30 Hct 43.5 % (35.4-49) 07/18/18 05:30 MCV 90.6 fl (80-96) 07/18/18 05:30 MCH 29.7 pg (25.7-33.7) 07/18/18 05:30 MCHC 32.8 g/dl (32.0-35.9) 07/18/18 05:30 RDW 13.9 % (11.9-15.9) 07/18/18 05:30 Plt Count 262 K/MM3 (134-434) 07/18/18 05:30 MPV 10.0 fl (7.5-11.1) D 07/18/18 05:30 Sodium 139 mmol/L (136-145) 07/18/18 05:30 Potassium 3.5 mmol/L (3.5-5.1) 07/18/18 05:30 Chloride 104 mmol/L (98-107) 07/18/18 05:30 Carbon Dioxide 28 mmol/L (21-32) 07/18/18 05:30 Anion Gap 7 MMOL/L (8-16) L 07/18/18 05:30 BUN 12 mg/dL (7-18) 07/18/18 05:30 Creatinine 1.0 mg/dL (0.55-1.3) 07/18/18 05:30 Creat Clearance w eGFR > 60 (>60) 07/18/18 05:30 Random Glucose 103 mg/dL (74-106) 07/18/18 05:30 Calcium 9.4 mg/dL (8.5-10.1) 07/18/18 05:30 Total Bilirubin 1.0 mg/dL (0.2-1) 07/18/18 05:30 AST 19 U/L (15-37) 07/18/18 05:30 ALT 34 U/L (13-61) 07/18/18 05:30 Alkaline Phosphatase 57 U/L (45-117) 07/18/18 05:30 Total Protein 7.9 g/dl (6.4-8.2) 07/18/18 05:30 Albumin 4.6 g/dl (3.4-5.0) 07/18/18 05:30 Urine Color Yellow 07/18/18 10:45 Urine Appearance Clear 07/18/18 10:45 Urine pH 5.0 (5.0-8.0) 07/18/18 10:45 Ur Specific [place] 1.024 (1.010-1.035) 07/18/18 10:45 Urine Protein Negative (NEGATIVE) 07/18/18 10:45 Urine Glucose (UA) Negative (NEGATIVE) 07/18/18 10:45 Urine Ketones Negative (NEGATIVE) 07/18/18 10:45 Urine Blood Negative (NEGATIVE) 07/18/18 10:45 Urine Nitrite Negative (NEGATIVE) 07/18/18 10:45 Urine Bilirubin Negative (<2.0 mg/dL) 07/18/18 10:45 Urine Urobilinogen Negative mg/dL (0.2-1.0) 07/18/18 10:45 Ur Leukocyte Esterase Negative (NEGATIVE) 07/18/18 10:45 RPR Titer Nonreactive (NONREACTIVE) 07/18/18 05:30 HIV 1&2 Antibody Screen Negative 07/17/18 10:30 HIV P24 Antigen Negative 07/17/18 10:30 lab noted Assessment: 07/20/18 13:53 mild withdrawal sx Plan: medically supervised detox
[2018-07-20] MEDS: chlordiazePOXIDE HCL 10 MG CAPSULE PO SCH ×2 (17:10→21:59)
[2018-07-20] MEDS: THIAMINE HCL 100 MG TABLET (FP) PO SCH (21:58)
[2018-07-20] MEDS: LATANOPROST 0.005% OPHTH SOLN 2.5ML BOTTLE OU SCH (21:58)
[2018-07-21] MEDS: BRIMONIDINE TARTRATE 0.2% OPHTHALMIC 5 ML BOTTLE OU SCH (06:40)
[2018-07-21] MEDS: chlordiazePOXIDE HCL 10 MG CAPSULE PO SCH ×2 (06:46→10:17)
--- NOTE | 2018-07-21 09:14 | DS ---
[facility] Detox Discharge Summary Admission Date: 07/17/18 Discharge Date: 07/21/18 - History Present History: Alcohol Dependence - Physical Exam Results Vital Signs: Vital Signs Temperature 98.9 F 07/20/18 22:04 Pulse Rate 73 07/21/18 06:00 Respiratory Rate 18 07/21/18 06:00 Blood Pressure 137/91 07/21/18 06:00 O2 Sat by Pulse Oximetry (%) - Treatment Hospital Course: Detox Protocol Followed, Detoxed Safely, Responded well, Discharged Condition Good, Rehab Referral Accepted - Medication Discharge Medications: Ambulatory Orders Latanoprost 0.005% Eye Drops [Xalatan 0.005% Eye Drops -] 1 drop OU HS 02/28/14 Polyvinyl Alcohol [Liquitears] 1 drop OP DAILY 07/17/18 Thiamine HCl [Vitamin B1 -] 100 mg PO DAILY 07/17/18 Albuterol Sulfate Inhaler - [Ventolin HFA Inhaler -] 2 inh PO Q4H PRN #1 inhaler 07/20/18 Brimonidine Tartrate [Alphagan 0.2% -] 1 drop OU TID #1 drops 07/20/18 Budesonide/Formeterol Fumarate [SYMBICORT 80/4.5mcg -] 1 inh PO BID #1 inhaler 07/20/18 Budesonide/Formeterol Fumarate [SYMBICORT 80/4.5mcg -] 1 inh PO DAILY PRN #1 inhaler 07/20/18 Hydrochlorothiazide [Hctz -] 25 mg PO DAILY #1 tablet 07/20/18 Timolol 0.5% [Timoptic 0.5%] 1 drop OU BID #1 drops 07/20/18 - Diagnosis (1) Glaucoma, both eyes Current Visit: Yes Status: Chronic Qualifiers: Glaucoma type: unspecified Qualified Code(s): H40.9 - Unspecified glaucoma (2) Nail deformity Current Visit: Yes Status: Acute (3) Positive PPD, treated Current Visit: No Status: Chronic (4) Right foot pain Current Visit: Yes Status: Acute (5) Tinea pedis Current Visit: Yes Status: Acute Qualifiers: Laterality: right Qualified Code(s): B35.3 - Tinea pedis (6) Alcohol dependence with uncomplicated withdrawal Current Visit: Yes Status: Chronic (7) Essential (primary) hypertension Current Visit: Yes Status: Chronic (8) Asthma Current Visit: No Status: Active (9) Syncope Current Visit: No Status: Active (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 Current Visit: No Status: Acute (11) Insomnia Current Visit: No Status: Acute (12) mood disorder nos Current Visit: No Status: Acute (13) Asthma Current Visit: No Status: Chronic Qualifiers: Asthma severity: mild Asthma complication type: uncomplicated (14) Cannabis dependence Current Visit: No Status: Chronic (15) Nicotine dependence Current Visit: Yes Status: Chronic Qualifiers: Nicotine product type: cigarettes Substance use status: uncomplicated Qualified Code(s): F17.210 - Nicotine dependence, cigarettes, uncomplicated - AMA Did Patient Leave Against Medical Advice: No (referred to inpatient rehab)
[2018-07-21 09:20] VITALS: BP 141/93; PULSE 68; TEMP 98.2
[2018-07-21] MEDS: PRENATAL VITAMINS W/ FOLIC ACID TABLET (FP) PO SCH (10:17)
[2018-07-21] MEDS: ARTIFICIAL TEARS (POLYVINYL ALCOHOL) OPTH DROPS OU SCH (10:17)
[2018-07-21] MEDS: HYDROCHLOROTHIAZIDE 25 MG TABLET (FP) PO SCH (10:17)
[2018-07-21] MEDS: TOLNAFTATE 1% CREAM 15 GM TUBE TP SCH (10:18)
[2018-07-21] MEDS: TIMOLOL 0.5% OPHTHALMIC SOL 5 ML BOTTLE OU SCH (10:18)
[2018-07-21] MEDS: BUDESONIDE/FORMETEROL FUMARATE 80/4.5 mcg INHALER IH SCH (10:18)
== END 2018-07-21 09:54 | disposition other institution (70) | DRG 775 ==
LOC: YASAS 08:47 → Y6N 11:04
PROC: HZ2ZZZZ Detoxification Services for Substance Abuse Treatment (ICD-10-PCS; principal; 2018-07-17)
DX: F10.230 Alcohol dependence with withdrawal, uncomplicated (principal); F12.20 Cannabis dependence, uncomplicated; F17.210 Nicotine dependence, cigarettes, uncomplicated; F10.280 Alcohol dependence with alcohol-induced anxiety disorder; F39 Unspecified mood [affective] disorder; I10 Essential (primary) hypertension; G47.00 Insomnia, unspecified; L60.8 Other nail disorders; H40.9 Unspecified glaucoma; B35.3 Tinea pedis; M25.571 Pain in right ankle and joints of right foot; M21.611 Bunion of right foot; Z59.0 Homelessness
CPT/HCPCS: 36415; 73630-TC-RT-FY; 80053; 81003; 85027; 86593; 87389; 93005; 93010

== ENCOUNTER 2018-07-21 11:02 | Inpatient (IN) | payer OTHER ==
[2018-07-21 11:32] VITALS: BMI 41.9
[2018-07-21] MEDS ORDERED: MAGNESIUM HYDROX 2400MG/30ML ORAL SUSPENSION 30 ML CUP PO PRN (11:46)
[2018-07-21] MEDS ORDERED: hydrOXYzine PAMOATE 25 MG CAPSULE (FP) PO PRN (11:46)
[2018-07-21] MEDS ORDERED: ACETAMINOPHEN 325 MG TABLET (FP) PO PRN (11:46)
[2018-07-21] MEDS ORDERED: LOPERAMIDE HCL 2 MG CAPSULE PO PRN (11:46)
[2018-07-21] MEDS ORDERED: P-EPHED 60MG/TRIPROLIDI 2.5MG TABLET PO PRN (11:46)
[2018-07-21] MEDS ORDERED: MENTHOL/PHENOL 1 EACH UD MM PRN (11:46)
[2018-07-21] MEDS ORDERED: MAGNESIUM CITRATE 300 ML BOTTLE PO PRN (11:46)
[2018-07-21] MEDS ORDERED: guaiFENesin/D-METHORPHAN HB 10 ML UNIT-DOSE CUPS PO PRN (11:46)
[2018-07-21] MEDS ORDERED: ALBUTEROL SO4 8 GM HFA INHALER IH PRN (11:47)
--- NOTE | 2018-07-21 11:51 | HP ---
DIMITRY PEREZ Rehab Assess/Revision - Admission History Admitted to Rehab from: [facility] - Vital signs Vital Signs: Vital Signs Period Temp Pulse Resp BP Sys/Mccormick Pulse Ox Last 24 Hr 97.8 F 75 18 149/90 - Findings Detox History & Physical reviewed: Yes Concur with findings: Yes
--- NOTE | 2018-07-21 11:52 | HP ---
DIMITRY PEREZ Rehab Assess/Revision - Vital signs Vital Signs: Vital Signs Period Temp Pulse Resp BP Sys/Mccormick Pulse Ox Last 24 Hr 97.8 F 75 18 149/90 Inpatient Rehab Admission - Initial Determination Are CD services needed?: Yes Free of communicable disease: Yes Not in need of hospitalization: Yes - Rehab Admission Criteria Previous failed treatment: Yes Poor recovery environment: Yes Comorbidities: Yes Lacks judgement: Yes Patient is meeting Inpatient Rehab admission criteria:: Yes
--- NOTE | 2018-07-21 14:07 | HP ---
Psychiatrist Admission - Data Date of interview: 07/21/18 Admission source: 6N Identifying data: This is one of the multiple [facility] admission for this 53 years old Black male, father of 2 children, unemployed, homeless Medical History: Significant for hypertension, bronchial asthma, GERD, glaucoma (right eye), history of treatment for PPD+ and orthosurgery (fracture of both legs at age 12). smokes 1 cigarette daily Psychiatric History: Patient reports no history of previous psychiatric treatment to the exception of 2 ED admissions overnight at [facility] for disorganided behavior under the influence of marijuana laced with another substance. At present, reports doing well but sleeping poorly Physical/Sexual Abuse/Trauma History: Denies history of emotional, physical or sexual abuse. Served in the [employer] from age 18 for three years. Received dishonorable discharge due to drinking. Additional Comment: Reports one previous arrests for shoplifting. Told life underwriter that he went up to 9th grade in school. However in previous admission, He reported gaduating HS and had 2 years of college with an associate in electrical engineering Vital Signs: Vital Signs - 24 hr 07/21/18 11:19 Temperature 97.8 F Pulse Rate 75 Respiratory 18 Rate Blood Pressure 149/90 Allergies/Adverse Reactions: Allergies Allergy/AdvReac Type Severity Reaction Status Date / Time No Known Allergies Allergy Verified 07/21/18 11:11 Date of last physical exam: 07/17/18 Concur with the findings of this exam: Yes - Substance Abuse/Tx History Hx Alcohol Use: Yes Hx Substance Use: No Substance Use Type: Alcohol (Started drinking alcohol at ager 12, consumes 3 pints of vodka & 2x 6pk of beer daily. Last drank on 07/16/18) Hx Substance Use Treatment: Yes (Multiple(11) previous inpt detox & 4 inpt rehab admissions @ [facility]) Mental Status Exam - Mental Status Exam Alert and Oriented to: Time (does not knpw date, month and year), Place ([place]) , Person Cognitive Function: Fair Patient Appearance: Well Groomed Mood: Hopeful, Euthymic Patient Behavior: Cooperative Speech Pattern: Clear Voice Loudness: Normal Thought Process: Intact, Goal Oriented Thought Disorder: Not Present Hallucinations: Denies Suicidal Ideation: Denies Homicidal Ideation: Denies Insight/Judgement: Fair Sleep: Poorly Appetite: Good Muscle strength/Tone: Normal Gait/Station: Normal Psychiatric Findings - Problem List ([place] 1, 2,3) (1) Alcohol dependence Current Visit: Yes Status: Acute (2) Nicotine dependence Current Visit: No Status: Chronic Qualifiers: Nicotine product type: cigarettes Substance use status: uncomplicated Qualified Code(s): F17.210 - Nicotine dependence, cigarettes, uncomplicated (3) Alcohol-induced sleep disorder Current Visit: Yes Status: Acute (4) Asthma Current Visit: No Status: Acute (5) Essential (primary) hypertension Current Visit: No Status: Chronic (6) Glaucoma, both eyes Current Visit: No Status: Chronic Qualifiers: Glaucoma type: unspecified Qualified Code(s): H40.9 - Unspecified glaucoma (7) Positive PPD, treated Current Visit: No Status: Chronic (8) GERD (gastroesophageal reflux disease) Current Visit: Yes Status: Chronic - Initial Treatment Plan Initial Treatment Plan: 1) Belsomra 10 mg po HS prn for insomnia. 2) Monitor progress
[2018-07-21] MEDS: BRIMONIDINE TARTRATE 0.2% OPHTHALMIC 5 ML BOTTLE OU SCH ×2 (17:42→22:00)
[2018-07-21] MEDS ORDERED: BUDESONIDE/FORMETEROL FUMARATE 80/4.5 mcg INHALER IH SCH (22:00)
[2018-07-21] MEDS ORDERED: SUVOREXANT 10 MG TABLET PO PRN (22:00)
[2018-07-21] MEDS ORDERED: MELATONIN 5 MG TABLETS PO PRN (22:00)
[2018-07-21] MEDS: BUDESONIDE/FORMETEROL FUMARATE 80/4.5 mcg INHALER IH SCH (22:04)
[2018-07-21] MEDS: THIAMINE HCL 100 MG TABLET (FP) PO SCH (22:05)
[2018-07-21] MEDS: TIMOLOL 0.5% OPHTHALMIC SOL 5 ML BOTTLE OU SCH (22:05)
[2018-07-21] MEDS: LATANOPROST 0.005% OPHTH SOLN 2.5ML BOTTLE OU SCH (22:06)
[2018-07-22] MEDS: BRIMONIDINE TARTRATE 0.2% OPHTHALMIC 5 ML BOTTLE OU SCH ×3 (06:19→22:06)
[2018-07-22] MEDS: PRENATAL VITAMINS W/ FOLIC ACID TABLET (FP) PO SCH (10:58)
[2018-07-22] MEDS: ARTIFICIAL TEARS (POLYVINYL ALCOHOL) OPTH DROPS OU SCH (10:58)
[2018-07-22] MEDS: HYDROCHLOROTHIAZIDE 25 MG TABLET (FP) PO SCH (10:58)
[2018-07-22] MEDS: TIMOLOL 0.5% OPHTHALMIC SOL 5 ML BOTTLE OU SCH ×2 (10:59→21:56)
[2018-07-22] MEDS: BUDESONIDE/FORMETEROL FUMARATE 80/4.5 mcg INHALER IH SCH ×2 (10:59→21:57)
[2018-07-22] MEDS: IBUPROFEN 400 MG TABLET (FP) PO PRN (14:21)
[2018-07-22] MEDS: THIAMINE HCL 100 MG TABLET (FP) PO SCH (21:55)
[2018-07-22] MEDS: LATANOPROST 0.005% OPHTH SOLN 2.5ML BOTTLE OU SCH (21:56)
[2018-07-23] MEDS: MAG HYDROX/AL HYDROX/SIMETH 30 ML UNIT-DOSE CUP PO PRN (04:17)
[2018-07-23] MEDS: BRIMONIDINE TARTRATE 0.2% OPHTHALMIC 5 ML BOTTLE OU SCH ×3 (05:58→21:41)
[2018-07-23] MEDS: PRENATAL VITAMINS W/ FOLIC ACID TABLET (FP) PO SCH (09:39)
[2018-07-23] MEDS: HYDROCHLOROTHIAZIDE 25 MG TABLET (FP) PO SCH (09:39)
[2018-07-23] MEDS: TIMOLOL 0.5% OPHTHALMIC SOL 5 ML BOTTLE OU SCH ×2 (09:40→21:41)
[2018-07-23] MEDS: ARTIFICIAL TEARS (POLYVINYL ALCOHOL) OPTH DROPS OU SCH (09:41)
[2018-07-23] MEDS: BUDESONIDE/FORMETEROL FUMARATE 80/4.5 mcg INHALER IH SCH ×2 (09:41→21:39)
[2018-07-23] MEDS: TOLNAFTATE 1% CREAM 15 GM TUBE TP SCH ×2 (09:42→22:02)
[2018-07-23] MEDS: THIAMINE HCL 100 MG TABLET (FP) PO SCH (21:39)
[2018-07-23] MEDS: LATANOPROST 0.005% OPHTH SOLN 2.5ML BOTTLE OU SCH (21:41)
[2018-07-24] MEDS: BRIMONIDINE TARTRATE 0.2% OPHTHALMIC 5 ML BOTTLE OU SCH ×3 (07:08→21:15)
[2018-07-24] MEDS: BUDESONIDE/FORMETEROL FUMARATE 80/4.5 mcg INHALER IH SCH ×2 (10:23→21:16)
[2018-07-24] MEDS: HYDROCHLOROTHIAZIDE 25 MG TABLET (FP) PO SCH (10:24)
[2018-07-24] MEDS: ARTIFICIAL TEARS (POLYVINYL ALCOHOL) OPTH DROPS OU SCH (10:24)
[2018-07-24] MEDS: TIMOLOL 0.5% OPHTHALMIC SOL 5 ML BOTTLE OU SCH ×2 (10:24→21:15)
[2018-07-24] MEDS: PRENATAL VITAMINS W/ FOLIC ACID TABLET (FP) PO SCH (10:24)
[2018-07-24] MEDS: TOLNAFTATE 1% CREAM 15 GM TUBE TP SCH ×2 (10:24→21:16)
[2018-07-24] MEDS ORDERED: PT OWN MED DRAWER 7, Y5N ONE ×2 (14:20→19:40)
[2018-07-24] MEDS: LATANOPROST 0.005% OPHTH SOLN 2.5ML BOTTLE OU SCH (21:15)
[2018-07-24] MEDS: THIAMINE HCL 100 MG TABLET (FP) PO SCH (21:17)
[2018-07-24] MEDS ORDERED: ZOLPIDEM TARTRATE 10 MG TABLET (PARK CARE ONLY) PO PRN (22:00)
[2018-07-24] MEDS ORDERED: SUVOREXANT 10 MG TABLET PO PRN (22:00)
[2018-07-25] MEDS: MAG HYDROX/AL HYDROX/SIMETH 30 ML UNIT-DOSE CUP PO PRN (05:43)
[2018-07-25] MEDS: BRIMONIDINE TARTRATE 0.2% OPHTHALMIC 5 ML BOTTLE OU SCH ×3 (05:44→21:54)
[2018-07-25] MEDS: HYDROCHLOROTHIAZIDE 25 MG TABLET (FP) PO SCH (10:08)
[2018-07-25] MEDS: PRENATAL VITAMINS W/ FOLIC ACID TABLET (FP) PO SCH (10:08)
[2018-07-25] MEDS: ARTIFICIAL TEARS (POLYVINYL ALCOHOL) OPTH DROPS OU SCH (10:08)
[2018-07-25] MEDS: BUDESONIDE/FORMETEROL FUMARATE 80/4.5 mcg INHALER IH SCH ×2 (10:08→21:55)
[2018-07-25] MEDS: TIMOLOL 0.5% OPHTHALMIC SOL 5 ML BOTTLE OU SCH ×2 (10:09→21:55)
[2018-07-25] MEDS: TOLNAFTATE 1% CREAM 15 GM TUBE TP SCH ×2 (10:09→21:55)
[2018-07-25] MEDS: IBUPROFEN 400 MG TABLET (FP) PO PRN (10:31)
[2018-07-25] MEDS ORDERED: PT OWN MED DRAWER 7, Y5N ONE (21:54)
[2018-07-25] MEDS: LATANOPROST 0.005% OPHTH SOLN 2.5ML BOTTLE OU SCH (21:55)
[2018-07-25] MEDS: THIAMINE HCL 100 MG TABLET (FP) PO SCH (21:55)
[2018-07-26] MEDS: BRIMONIDINE TARTRATE 0.2% OPHTHALMIC 5 ML BOTTLE OU SCH ×3 (06:34→21:28)
[2018-07-26] MEDS: IBUPROFEN 400 MG TABLET (FP) PO PRN (06:57)
[2018-07-26] MEDS: HYDROCHLOROTHIAZIDE 25 MG TABLET (FP) PO SCH (10:08)
[2018-07-26] MEDS: PRENATAL VITAMINS W/ FOLIC ACID TABLET (FP) PO SCH (10:08)
[2018-07-26] MEDS: ARTIFICIAL TEARS (POLYVINYL ALCOHOL) OPTH DROPS OU SCH (10:09)
[2018-07-26] MEDS: TOLNAFTATE 1% CREAM 15 GM TUBE TP SCH ×2 (10:09→21:33)
[2018-07-26] MEDS: BUDESONIDE/FORMETEROL FUMARATE 80/4.5 mcg INHALER IH SCH ×2 (10:09→21:32)
[2018-07-26] MEDS: TIMOLOL 0.5% OPHTHALMIC SOL 5 ML BOTTLE OU SCH ×2 (10:09→21:27)
[2018-07-26] MEDS: LATANOPROST 0.005% OPHTH SOLN 2.5ML BOTTLE OU SCH (21:30)
[2018-07-26] MEDS ORDERED: PT OWN MED DRAWER 7, Y5N ONE (21:32)
[2018-07-26] MEDS: THIAMINE HCL 100 MG TABLET (FP) PO SCH (21:33)
[2018-07-27] MEDS: BRIMONIDINE TARTRATE 0.2% OPHTHALMIC 5 ML BOTTLE OU SCH ×3 (06:32→22:19)
[2018-07-27] MEDS: HYDROCHLOROTHIAZIDE 25 MG TABLET (FP) PO SCH (09:57)
[2018-07-27] MEDS: PRENATAL VITAMINS W/ FOLIC ACID TABLET (FP) PO SCH (09:57)
[2018-07-27] MEDS: BUDESONIDE/FORMETEROL FUMARATE 80/4.5 mcg INHALER IH SCH ×2 (09:58→22:19)
[2018-07-27] MEDS: TIMOLOL 0.5% OPHTHALMIC SOL 5 ML BOTTLE OU SCH ×2 (09:58→22:19)
[2018-07-27] MEDS: TOLNAFTATE 1% CREAM 15 GM TUBE TP SCH ×2 (09:59→22:19)
[2018-07-27] MEDS: ARTIFICIAL TEARS (POLYVINYL ALCOHOL) OPTH DROPS OU SCH (10:00)
[2018-07-27] MEDS: MAG HYDROX/AL HYDROX/SIMETH 30 ML UNIT-DOSE CUP PO PRN (10:40)
[2018-07-27] MEDS ORDERED: PT OWN MED DRAWER 7, Y5N ONE ×2 (14:31→22:18)
[2018-07-27] MEDS ORDERED: SUVOREXANT 10 MG TABLET PO PRN (22:00)
[2018-07-27] MEDS: THIAMINE HCL 100 MG TABLET (FP) PO SCH (22:19)
[2018-07-27] MEDS: LATANOPROST 0.005% OPHTH SOLN 2.5ML BOTTLE OU SCH (22:19)
[2018-07-28] MEDS: BRIMONIDINE TARTRATE 0.2% OPHTHALMIC 5 ML BOTTLE OU SCH ×3 (06:05→21:27)
[2018-07-28] MEDS ORDERED: PT OWN MED DRAWER 7, Y5N ONE ×2 (08:44→21:26)
[2018-07-28] MEDS: PRENATAL VITAMINS W/ FOLIC ACID TABLET (FP) PO SCH (10:33)
[2018-07-28] MEDS: HYDROCHLOROTHIAZIDE 25 MG TABLET (FP) PO SCH (10:33)
[2018-07-28] MEDS: BUDESONIDE/FORMETEROL FUMARATE 80/4.5 mcg INHALER IH SCH ×2 (10:33→21:25)
[2018-07-28] MEDS: ARTIFICIAL TEARS (POLYVINYL ALCOHOL) OPTH DROPS OU SCH (10:33)
[2018-07-28] MEDS: TIMOLOL 0.5% OPHTHALMIC SOL 5 ML BOTTLE OU SCH ×2 (10:34→21:27)
[2018-07-28] MEDS: TOLNAFTATE 1% CREAM 15 GM TUBE TP SCH ×2 (10:35→21:27)
[2018-07-28] MEDS: THIAMINE HCL 100 MG TABLET (FP) PO SCH (21:28)
[2018-07-28] MEDS: LATANOPROST 0.005% OPHTH SOLN 2.5ML BOTTLE OU SCH (21:28)
[2018-07-29] MEDS: MAG HYDROX/AL HYDROX/SIMETH 30 ML UNIT-DOSE CUP PO PRN (04:57)
[2018-07-29] MEDS: BRIMONIDINE TARTRATE 0.2% OPHTHALMIC 5 ML BOTTLE OU SCH ×3 (06:08→21:41)
[2018-07-29] MEDS: PRENATAL VITAMINS W/ FOLIC ACID TABLET (FP) PO SCH (10:09)
[2018-07-29] MEDS: ARTIFICIAL TEARS (POLYVINYL ALCOHOL) OPTH DROPS OU SCH (10:09)
[2018-07-29] MEDS: TOLNAFTATE 1% CREAM 15 GM TUBE TP SCH ×2 (10:10→21:42)
[2018-07-29] MEDS: HYDROCHLOROTHIAZIDE 25 MG TABLET (FP) PO SCH (10:10)
[2018-07-29] MEDS: BUDESONIDE/FORMETEROL FUMARATE 80/4.5 mcg INHALER IH SCH ×2 (10:10→21:41)
[2018-07-29] MEDS: TIMOLOL 0.5% OPHTHALMIC SOL 5 ML BOTTLE OU SCH ×2 (10:11→21:41)
[2018-07-29] MEDS: PANTOPRAZOLE 40 MG TABLET (FP) PO SCH (17:22)
[2018-07-29] MEDS ORDERED: PT OWN MED DRAWER 7, Y5N ONE (19:21)
[2018-07-29] MEDS: THIAMINE HCL 100 MG TABLET (FP) PO SCH (21:40)
[2018-07-29] MEDS: LATANOPROST 0.005% OPHTH SOLN 2.5ML BOTTLE OU SCH (21:43)
[2018-07-30] MEDS ORDERED: PT OWN MED DRAWER 7, Y5N ONE ×7 (04:25→21:52)
[2018-07-30] MEDS: BRIMONIDINE TARTRATE 0.2% OPHTHALMIC 5 ML BOTTLE OU SCH ×3 (06:50→21:51)
[2018-07-30] MEDS: ARTIFICIAL TEARS (POLYVINYL ALCOHOL) OPTH DROPS OU SCH (10:14)
[2018-07-30] MEDS: PRENATAL VITAMINS W/ FOLIC ACID TABLET (FP) PO SCH (10:14)
[2018-07-30] MEDS: PANTOPRAZOLE 40 MG TABLET (FP) PO SCH (10:15)
[2018-07-30] MEDS: HYDROCHLOROTHIAZIDE 25 MG TABLET (FP) PO SCH (10:15)
[2018-07-30] MEDS: TIMOLOL 0.5% OPHTHALMIC SOL 5 ML BOTTLE OU SCH ×2 (10:15→21:54)
[2018-07-30] MEDS: BUDESONIDE/FORMETEROL FUMARATE 80/4.5 mcg INHALER IH SCH ×2 (10:15→21:54)
[2018-07-30] MEDS: TOLNAFTATE 1% CREAM 15 GM TUBE TP SCH ×2 (10:16→21:56)
[2018-07-30] MEDS ORDERED: COLLOIDAL OATMEAL 1 BAR EACH TP PRN (19:05)
[2018-07-30] MEDS: LATANOPROST 0.005% OPHTH SOLN 2.5ML BOTTLE OU SCH (21:54)
[2018-07-30] MEDS: THIAMINE HCL 100 MG TABLET (FP) PO SCH (21:55)
[2018-07-31] MEDS: BRIMONIDINE TARTRATE 0.2% OPHTHALMIC 5 ML BOTTLE OU SCH (06:20)
[2018-07-31 07:14] VITALS: TEMP 97.2
--- NOTE | 2018-07-31 08:53 | PN ---
Psychiatric Progress Note Vital Signs: Vital Signs Period Temp Pulse Resp BP Sys/Mccormick Pulse Ox Last 24 Hr 97.2 F 83-90 18-20 132-149/93-98 Date of Session: 07/31/18 Chief Complaint:: Discharge visit Current Medications: Active Medications Generic Name Dose Route Start Last Admin Trade Name Freq PRN Reason Stop Dose Admin Acetaminophen 650 mg 07/21/18 11:46 Tylenol - PO Q4H PRN FEVER Al Hydroxide/Mg Hydroxide 30 ml 07/21/18 11:46 07/29/18 04:57 Mylanta Oral Suspension - PO 30 ml Q6H PRN Administration DYSPEPSIA Albuterol Sulfate 2 puff 07/21/18 11:47 Ventolin Hfa Inhaler - IH Q4H PRN ASTHMA Artificial Tears 1 drop 07/22/18 10:00 07/30/18 10:14 Artificial Tears OU 1 drop DAILY CHEMA Administration Brimonidine Tartrate 1 drop 07/21/18 14:00 07/31/18 06:20 Alphagan 0.2% - OU 1 drop TID CHEMA Administration Budesonide/Formoterol Fumarate 2 puff 07/21/18 22:00 07/30/18 21:54 Symbicort 80/4.5mcg - IH 2 puff BID CHEMA Administration Colloidal Oatmeal 1 applic 07/30/18 19:05 07/30/18 19:10 Aveeno Soap - TP 1 bar DAILY PRN Administration HYGEINE Eucalyptus/Menthol/Phenol/Sorbitol 1 each 07/21/18 11:46 Cepastat Lozenge - MM Q4H PRN SORE THROAT Guaifenesin 10 ml 07/21/18 11:46 Robitussin Dm - PO Q6H PRN COUGH Hydrochlorothiazide 25 mg 07/22/18 10:00 07/30/18 10:15 Hctz - PO 25 mg DAILY CHEMA Administration Hydroxyzine Pamoate 25 mg 07/21/18 11:46 Vistaril - PO Q4H PRN AGITATION Ibuprofen 400 mg 07/21/18 11:46 07/26/18 06:57 Motrin - PO 400 mg Q6H PRN Administration Pain Level 4-6 Latanoprost 1 drop 07/21/18 22:00 07/30/18 21:54 Xalatan 0.005% Eye Drops - OU 1 drop HS CHEMA Administration Loperamide HCl 4 mg 07/21/18 11:46 Imodium - PO Q6H PRN DIARRHEA Magnesium Citrate 300 ml 07/21/18 11:46 Citroma - PO Q48H PRN CONSTIPATION Magnesium Hydroxide 30 ml 07/21/18 11:46 Milk Of Magnesia - PO DAILY PRN CONSTIPATION Melatonin 5 mg 07/21/18 22:00 07/23/18 21:40 Melatonin PO 5 mg HS PRN Administration INSOMNIA Pantoprazole Sodium 40 mg 07/29/18 16:30 07/30/18 10:15 Protonix - PO 40 mg DAILY CHEMA Administration Multivit/Folic Acid/Iron 1 tab 07/22/18 10:00 07/30/18 10:14 Vitamins ([facility]) - PO 1 tab DAILY CHEMA Administration Pseudoephedrine/Triprolidine 1 combo 07/21/18 11:46 Actifed - PO TID PRN NASAL CONGESTION Thiamine HCl 100 mg 07/21/18 22:00 07/30/18 21:55 Vitamin B1 - PO Not Given HS CHEMA Timolol Maleate 1 drop 07/21/18 22:00 07/30/18 21:54 Timoptic 0.5% OU Not Given BID CHEMA Tolnaftate 1 applic 07/23/18 10:00 07/30/18 21:56 Tinactin 1% Cream - TP 1 applic BID CHEMA Administration Current Side Effect: No Lab tests ordered: No Lab tests reviewed: Yes Provider note:: [facility] Total face to face time:: 30 Psychiatric Treatment Plan - Problem List (1) Alcohol dependence Current Visit: Yes (2) Alcohol-induced sleep disorder Current Visit: Yes (3) GERD (gastroesophageal reflux disease) Current Visit: Yes (4) Alcohol-induced anxiety disorder Current Visit: No (5) Asthma Current Visit: No (6) Glaucoma Current Visit: Yes (7) Cannabis dependence Current Visit: No (8) Glaucoma, both eyes Current Visit: Yes Qualifiers: Glaucoma type: unspecified Qualified Code(s): H40.9 - Unspecified glaucoma (9) Nicotine dependence Current Visit: Yes Qualifiers: Nicotine product type: cigarettes Substance use status: uncomplicated Qualified Code(s): F17.210 - Nicotine dependence, cigarettes, uncomplicated (10) Positive PPD, treated Current Visit: Yes
[2018-07-31] MEDS: PANTOPRAZOLE 40 MG TABLET (FP) PO SCH (09:51)
[2018-07-31] MEDS: HYDROCHLOROTHIAZIDE 25 MG TABLET (FP) PO SCH (09:51)
[2018-07-31] MEDS: PRENATAL VITAMINS W/ FOLIC ACID TABLET (FP) PO SCH (09:51)
[2018-07-31 09:52] VITALS: BP 143/83; PULSE 78
== END 2018-07-31 10:00 | disposition home or self-care (01) | DRG 772 ==
LOC: YASAS 11:02 → Y3W 11:06
PROVIDERS: ADMIT Psychiatry & Neurology Psychiatry; ATTEND Psychiatry & Neurology Psychiatry
PROC: HZ42ZZZ Group Counseling for Substance Abuse Treatment, Cognitive-Behavioral (ICD-10-PCS; principal; 2018-07-21)
DX: F10.280 Alcohol dependence with alcohol-induced anxiety disorder (principal); F10.282 Alcohol dependence with alcohol-induced sleep disorder; F12.20 Cannabis dependence, uncomplicated; F17.210 Nicotine dependence, cigarettes, uncomplicated; I10 Essential (primary) hypertension; K21.9 Gastro-esophageal reflux disease without esophagitis; J45.909 Unspecified asthma, uncomplicated; H40.9 Unspecified glaucoma; R76.11 Nonspecific reaction to tuberculin skin test without active tuberculosis; Z59.0 Homelessness

== ENCOUNTER 2018-08-29 08:01 | Inpatient (IN) | payer OTHER ==
--- NOTE | 2018-08-29 09:58 | HP ---
CIWA Score Nausea/Vomitin Muscle Tremors: 2 Anxiety: 2 Agitation: 2 Paroxysmal Sweats: 1-Minimal Palms Moist Orientation: 0-Oriented Tacttile Disturbances: 1-Very Mild Itch/Numbness Auditory Disturbances: 1-Very Mild Visual Disturbances: 0-None Headache: 2-Mild CIWA-Ar Total Score: 13 - Admission Criteria [facility] Guidelines: Admission for Medically Managed Detox: Requires at least one of the followin. CIWA greater than 12 2. Seizures within the past 24 hours 3. Delirium tremens within the past 24 hours 4. Hallucinations within the past 24 hours 5. Acute intervention needed for co occurring medical disorder 6. Acute intervention needed for co occurring psychiatric disorder 7. Severe withdrawal that cannot be handled at a lower level of care (continued vomiting, continued diarrhea, abnormal vital signs) requiring intravenous medication and/or fluids 8. Patient presents the following: CIWA greater than 12 Admission Criteria Met: Admission criteria met Admission ROS BHS - HPI Chief Complaint: i need help to stop drinking alcohol,marijuana Allergies/Adverse Reactions: Allergies Allergy/AdvReac Type Severity Reaction Status Date / Time peanut Allergy Severe Itching Verified 08/29/18 09:49 No Known Drug Allergies Allergy Unknown Verified 08/29/18 10:25 NKDA Allergy Uncoded 08/29/18 09:49 History of Present Illness: this 53 years old with alcohol and marijuana dependence,seeking detox, withdrawal symptom,seen in [place] last night receiving medication and iv at [facility] to come in for detox,extensive history of alcohol dependence since age of [age] years old\multiple admissions in detox and rehab,last admission in detox [facility] 07/17/18 to 07/21/18,rehab 07/21/18 to 07/31/18 syncope alcohol related hypertension,asthma,glaucoma both eyes nicotine dependence longest period of sobriety 1 year Exam Limitations: No Limitations - Ebola screening Have you traveled outside of the country in the last 21 days: No Have you had contact with anyone from an Ebola affected area: No Do you have a fever: No - Review of Systems Constitutional: Loss of Appetite, Malaise, Night Sweats, Changes in sleep, Weakness EENT: reports: Nose Congestion, Other (glaucoma both eyes) Respiratory: reports: No Symptoms reported, Other (history of asthma) Cardiac: reports: No Symptoms Reported GI: reports: Nausea, Poor Appetite, Abdominal cramping Musculoskeletal: reports: Back Pain, Muscle Pain Integumentary: reports: Dryness Neuro: reports: Headache, Tremors Endocrine: reports: No Symptoms Reported Hematology: reports: No Symptoms Reported Psychiatric: reports: No Sypmtoms Reported, Judgement Intact, Mood/Affect Appropiate, Orientated x3 Patient History - Patient Medical History Hx Anemia: No Hx Asthma: Yes (on albuterol and symbicort) Hx Chronic Obstructive Pulmonary Disease (COPD): No Hx Cancer: No Hx Cardiac Disorders: No Hx Congestive Heart Failure: No Hx Hypertension: Yes (on HCTZ) Hx Hypercholesterolemia: No Hx Pacemaker: No HX Cerebrovascular Accident: No Hx Seizures: No Hx Dementia: No Hx Diabetes: No Hx Gastrointestinal Disorders: Yes (acid reflux) Hx Liver Disease: No Hx Genitourinary Disorders: No Hx Sexually Transmitted Disorders: No Hx Renal Disease (ESRD): No Hx Thyroid Disease: No Hx Human Immunodeficiency Virus (HIV): No (last 2018 negative) Hx Hepatitis C: No Hx Depression: No Hx Suicide Attempt: No Hx Bipolar Disorder: No Hx Schizophrenia: No Other Medical History: no suicidal,no homicidal - Patient Surgical History Past Surgical History: Yes Hx Neurologic Surgery: No Hx Cataract Extraction: No Hx Cardiac Surgery: No Hx Lung Surgery: No Hx Breast Surgery: No Hx Breast Biopsy: No Hx Abdominal Surgery: Yes (UMBILICAL HERNIA REPAIR 04/2013) Hx Appendectomy: No Hx Cholecystectomy: No Hx Genitourinary Surgery: No Hx Section: No Hx Orthopedic Surgery: Yes (fx of both legs at age of 7 years) Other Surgical History: fx of both legs at age of 7 years Anesthesia Reaction: No - PPD History Previous Implant?: Yes Documented Results: Positive w/proof Implanted On Prior [facility] Admission?: No Date: 04/10/12 Results: CXR(-)11/07/17 PPD to be Administered?: No - Smoking Cessation Smoking history: Current some day smoker Have you smoked in the past 12 months: Yes Aproximately how many cigarettes per day: 1 If you are a former smoker, when did you quit?: 2017 Cigars Per Day: 0 Hx Chewing Tobacco Use: No Initiated information on smoking cessation: Yes 'Breaking Loose' booklet given: 08/29/18 - Substance & Tx. History Hx Alcohol Use: Yes Hx Substance Use: Yes Substance Use Type: Alcohol, Marijuana - Substances Abused Alcohol-vodka/beer Route: Oral Frequency: Daily Amount used: 3 pts./3-6 pks. Age of first use: 12 Date of Last Use: 08/29/18 Family Disease History - Family Disease History Family Disease History: Other: Father (ALCOHOLIC,), Mother (), Brother (alcohol and dsa), Sister (alcohol) Admission Physical Exam [facility] - Physical General Appearance: Yes: Moderate Distress, Tremorous, Irritable, Sweating, Anxious HEENTM: Yes: Normal ENT Inspection, BLANCA, Pharynx Normal, Other (history of glaucoma) Respiratory: Yes: Lungs Clear, Normal Breath Sounds, No Respiratory Distress Neck: Yes: Within Normal Limits, Supple, Trachea in good position Breast: Yes: Within Normal Limits Cardiology: Yes: Within Normal Limits, Regular Rhythm, Regular Rate, S1, S2 Abdominal: Yes: Within Normal Limits, Normal Bowel Sounds, Non Tender, Soft, Surgical Scar Genitourinary: Yes: Within Normal Limits Back: Yes: Normal Inspection, CVA Tenderness (R), Muscle Spasm Musculoskeletal: Yes: full range of Motion, Back pain, Muscle Pain Extremities: Yes: Within Normal Limits, Normal Range of Motion, Tremors Neurological: Yes: captain's assistant II-XII NML intact, Alert, Motor Strength 5/5 Integumentary: Yes: Dry Lymphatic: Yes: Within Normal Limits - Diagnostic (1) Glaucoma Current Visit: No Status: Acute (2) Alcohol dependence with uncomplicated withdrawal Current Visit: Yes Status: Acute (3) Asthma Current Visit: Yes Status: Chronic Qualifiers: Asthma severity: mild Asthma complication type: uncomplicated (4) Cannabis dependence Current Visit: Yes Status: Chronic (5) Essential (primary) hypertension Current Visit: Yes Status: Chronic (6) GERD (gastroesophageal reflux disease) Current Visit: Yes Status: Chronic (7) Glaucoma, both eyes Current Visit: Yes Status: Chronic Qualifiers: Glaucoma type: unspecified Qualified Code(s): H40.9 - Unspecified glaucoma (8) Nicotine dependence Current Visit: Yes Status: Chronic Qualifiers: Nicotine product type: cigarettes Substance use status: uncomplicated Qualified Code(s): F17.210 - Nicotine dependence, cigarettes, uncomplicated (9) Positive PPD, treated Current Visit: Yes Status: Chronic Cleared for Admission [facility] - Detox or Rehab [facility] Level of Care: Medically Managed Detox Regimen/Protocol: Librium BHS Breath Alcohol Content Breath Alcohol Content: 0
[2018-08-29] MEDS ORDERED: P-EPHED 60MG/TRIPROLIDI 2.5MG TABLET PO PRN (10:10)
[2018-08-29] MEDS ORDERED: hydrOXYzine PAMOATE 50 MG CAPSULE (FP) PO PRN (10:10)
[2018-08-29] MEDS ORDERED: MAGNESIUM HYDROX 2400MG/30ML ORAL SUSPENSION 30 ML CUP PO PRN (10:10)
[2018-08-29] MEDS ORDERED: LOPERAMIDE HCL 2 MG CAPSULE PO PRN (10:10)
[2018-08-29] MEDS ORDERED: guaiFENesin/D-METHORPHAN HB 10 ML UNIT-DOSE CUPS PO PRN (10:10)
[2018-08-29] MEDS ORDERED: IBUPROFEN 400 MG TABLET (FP) PO PRN (10:10)
[2018-08-29] MEDS ORDERED: chlordiazePOXIDE HCL 25 MG CAPSULE PO PRN (10:10)
[2018-08-29] MEDS ORDERED: MAGNESIUM CITRATE 300 ML BOTTLE PO PRN (10:10)
[2018-08-29] MEDS ORDERED: ACETAMINOPHEN 325 MG TABLET (FP) PO PRN (10:10)
[2018-08-29] MEDS ORDERED: MENTHOL/PHENOL 1 EACH UD MM PRN (10:10)
[2018-08-29 10:16] VITALS: BMI 42.9
[2018-08-29] MEDS: chlordiazePOXIDE HCL 25 MG CAPSULE PO SCH ×3 (11:18→22:28)
[2018-08-29] MEDS ORDERED: BRIMONIDINE TARTRATE OU SCH (14:00)
[2018-08-29] MEDS: ARTIFICIAL TEARS (POLYVINYL ALCOHOL) OPTH DROPS OU SCH ×2 (14:21→22:41)
[2018-08-29] MEDS: BRIMONIDINE TARTRATE 0.15% OPHTHALMIC 5 ML BOTTLE OU SCH ×2 (14:49→22:31)
[2018-08-29] MEDS: ALBUTEROL SO4 8 GM HFA INHALER IH PRN ×2 (14:50→20:49)
[2018-08-29 17:24] LABS: URINE APPEARANCE CLEAR; URINE BILIRUBIN NEGATIVE (<2.0 mg/dL); URINE COLOR YELLOW; URINE GLUCOSE (UA) NEGATIVE (NEGATIVE); URINE KETONE NEGATIVE (NEGATIVE); URINE LEUK ESTERASE NEGATIVE (NEGATIVE); URINE NITRITE NEGATIVE (NEGATIVE); URINE PROTEIN NEGATIVE (NEGATIVE); URINE UROBILINOGEN NEGATIVE mg/dL (0.2-1.0)
[2018-08-29 21:29] VITALS: TEMP 97.1
[2018-08-29] MEDS ORDERED: MELATONIN 5 MG TABLETS PO PRN (22:00)
[2018-08-29] MEDS: THIAMINE HCL 100 MG TABLET (FP) PO SCH (22:28)
[2018-08-29] MEDS: DORZOLAMIDE HCL OU SCH (22:31)
[2018-08-29] MEDS: LATANOPROST 0.005% OPHTH SOLN 2.5ML BOTTLE OU SCH (22:33)
[2018-08-29] MEDS: BUDESONIDE/FORMETEROL FUMARATE 80/4.5 mcg INHALER IH SCH (22:35)
[2018-08-30] MEDS: chlordiazePOXIDE HCL 25 MG CAPSULE PO SCH ×4 (04:55→22:30)
[2018-08-30] MEDS: MAG HYDROX/AL HYDROX/SIMETH 30 ML UNIT-DOSE CUP PO PRN (04:56)
[2018-08-30] MEDS: BRIMONIDINE TARTRATE 0.15% OPHTHALMIC 5 ML BOTTLE OU SCH ×3 (07:07→22:32)
[2018-08-30] MEDS: ARTIFICIAL TEARS (POLYVINYL ALCOHOL) OPTH DROPS OU SCH ×3 (07:07→22:30)
[2018-08-30] MEDS ORDERED: AMMONIUM LACTATE 12% LOTION 225 GM BOTTLE TP PRN (10:17)
[2018-08-30] MEDS ORDERED: COLLOIDAL OATMEAL 1 BAR EACH TP PRN (10:17)
[2018-08-30] MEDS: HYDROCHLOROTHIAZIDE 25 MG TABLET (FP) PO SCH (10:38)
[2018-08-30] MEDS: PRENATAL VITAMINS W/ FOLIC ACID TABLET (FP) PO SCH (10:38)
[2018-08-30] MEDS: BUDESONIDE/FORMETEROL FUMARATE 80/4.5 mcg INHALER IH SCH ×2 (10:39→22:30)
[2018-08-30] MEDS: DORZOLAMIDE HCL OU SCH ×2 (10:40→22:32)
[2018-08-30 11:00] LABS: ALBUMIN 4.4 g/dl (3.4-5.0); ALK PHOS 56 U/L (45-117); ANION GAP 9 MMOL/L (8-16); BILIRUBIN,TOTAL 0.9 mg/dL (0.2-1); BLOOD UREA NITROGEN 20 mg/dL (7-18); CALCIUM 8.8 mg/dL (8.5-10.1); CHLORIDE 108 mmol/L (98-107); CO2 24 mmol/L (21-32); CREATININE 1.1 mg/dL (0.55-1.3); GLUCOSE,RANDOM 90 mg/dL (74-106); POTASSIUM 4.5 mmol/L (3.5-5.1); SGOT/AST 21 U/L (15-37); SGPT/ALT 30 U/L (13-61); SODIUM 140 mmol/L (136-145); TOT PROT 7.6 g/dl (6.4-8.2)
[2018-08-30 11:27] LABS: HEMATOCRIT 39.4 % (35.4-49); HEMOGLOBIN 13.7 GM/dL (11.7-16.9); MCH 31.2 pg (25.7-33.7); MCHC 34.7 g/dl (32.0-35.9); MEAN CELL VOLUME 89.9 fl (80-96); MEAN PLT VOLUME 9.7 fl (7.5-11.1); PLATELET COUNT 279 K/MM3 (134-434); RBC 4.38 M/mm3 (4.00-5.60); RDW 14.2 % (11.9-15.9)
--- NOTE | 2018-08-30 14:52 | PN ---
S CIWA - CIWA Score Nausea/Vomitin Muscle Tremors: 4-Moderate,w/Arms Extend Anxiety: 4-Mod. Anxious/Guarded Agitation: 1-Slight > Activity Paroxysmal Sweats: 3 Orientation: 0-Oriented Tacttile Disturbances: 1-Very Mild Itch/Numbness Auditory Disturbances: 0-None Visual Disturbances: 0-None Headache: 1-Very Mild CIWA-Ar Total Score: 16 BHS Progress Note (SOAP) Subjective: Tremor, diarrhea, interrupted sleep. C/O dry skin and itching from using soap to shower, therefore, requesting lac hydrin lotion and aveeno soap. Objective: 08/30/18 14:50 Last Vital Signs Temp Pulse Resp BP Pulse Ox 97.1 F L 77 18 139/75 08/29/18 21:29 08/30/18 13:49 08/30/18 13:49 08/30/18 13:49 Laboratory Tests 08/29/18 08/30/18 08/30/18 16:45 05:00 05:00 WBC 6.0 RBC 4.38 Hgb 13.7 Hct 39.4 MCV 89.9 MCH 31.2 MCHC 34.7 RDW 14.2 Plt Count 279 MPV 9.7 Sodium 140 Potassium 4.5 Chloride 108 H Carbon Dioxide 24 Anion Gap 9 BUN 20 H Creatinine 1.1 Creat Clearance w eGFR > 60 Random Glucose 90 Calcium 8.8 Total Bilirubin 0.9 AST 21 ALT 30 Alkaline Phosphatase 56 Total Protein 7.6 Albumin 4.4 Urine Color Yellow Urine Appearance Clear Urine pH 5.0 Ur Specific [place] 1.020 Urine Protein Negative Urine Glucose (UA) Negative Urine Ketones Negative Urine Blood Negative Urine Nitrite Negative Urine Bilirubin Negative Urine Urobilinogen Negative Ur Leukocyte Esterase Negative Labs reviewed: bun 20 Assessment: 08/30/18 14:51 Withdrawal symptoms Noted with azotemia Plan: Continue detox Azotemia: encouraged PO water hydration
[2018-08-30] MEDS: LATANOPROST 0.005% OPHTH SOLN 2.5ML BOTTLE OU SCH (22:28)
[2018-08-30] MEDS: THIAMINE HCL 100 MG TABLET (FP) PO SCH (22:33)
[2018-08-31] MEDS: MAG HYDROX/AL HYDROX/SIMETH 30 ML UNIT-DOSE CUP PO PRN (03:12)
[2018-08-31] MEDS: ALBUTEROL SO4 8 GM HFA INHALER IH PRN (04:42)
[2018-08-31] MEDS: BRIMONIDINE TARTRATE 0.15% OPHTHALMIC 5 ML BOTTLE OU SCH (04:59)
[2018-08-31] MEDS: chlordiazePOXIDE HCL 25 MG CAPSULE PO SCH (04:59)
[2018-08-31] MEDS: ARTIFICIAL TEARS (POLYVINYL ALCOHOL) OPTH DROPS OU SCH (05:49)
[2018-08-31 09:17] VITALS: BP 135/89; PULSE 86
[2018-08-31] MEDS: DORZOLAMIDE HCL OU SCH (10:30)
[2018-08-31] MEDS: HYDROCHLOROTHIAZIDE 25 MG TABLET (FP) PO SCH (10:30)
[2018-08-31] MEDS: PRENATAL VITAMINS W/ FOLIC ACID TABLET (FP) PO SCH (10:30)
[2018-08-31] MEDS: BUDESONIDE/FORMETEROL FUMARATE 80/4.5 mcg INHALER IH SCH (10:31)
[2018-08-31] MEDS ORDERED: chlordiazePOXIDE 5 MG CAPSULE PO SCH (11:00)
--- NOTE | 2018-08-31 12:46 | DS ---
[facility] Detox Discharge Summary Admission Date: 08/29/18 Discharge Date: 08/31/18 - History Present History: Alcohol Dependence Additional Comments: 53 years old male admitted on 08/29/18 for alcohol withdrawal sx insists to leave the detox unit that "do thing I want to do" patient is alert oriented x 3 no acute distress reported "no need to follow the unit rules and regulations" Pertinent Past History: discuss alcohol related negative consequences strong recommend [facility] threatening the staff "I have gun I do hard" - Physical Exam Results Vital Signs: Vital Signs Temperature 97.1 F L 08/29/18 21:29 Pulse Rate 86 08/31/18 09:16 Respiratory Rate 18 08/31/18 09:16 Blood Pressure 135/89 08/31/18 09:16 O2 Sat by Pulse Oximetry (%) Pertinent Admission Physical Exam Findings: alcohol withdrawal sx Vital Signs Temperature 97.1 F L 08/29/18 21:29 Pulse Rate 86 08/31/18 09:16 Respiratory Rate 18 08/31/18 09:16 Blood Pressure 135/89 08/31/18 09:16 O2 Sat by Pulse Oximetry (%) Laboratory Last Values WBC 6.0 K/mm3 (4.0-10.0) 08/30/18 05:00 RBC 4.38 M/mm3 (4.00-5.60) 08/30/18 05:00 Hgb 13.7 GM/dL (11.7-16.9) 08/30/18 05:00 Hct 39.4 % (35.4-49) 08/30/18 05:00 MCV 89.9 fl (80-96) 08/30/18 05:00 MCH 31.2 pg (25.7-33.7) 08/30/18 05:00 MCHC 34.7 g/dl (32.0-35.9) 08/30/18 05:00 RDW 14.2 % (11.9-15.9) 08/30/18 05:00 Plt Count 279 K/MM3 (134-434) 08/30/18 05:00 MPV 9.7 fl (7.5-11.1) 08/30/18 05:00 Sodium 140 mmol/L (136-145) 08/30/18 05:00 Potassium 4.5 mmol/L (3.5-5.1) 08/30/18 05:00 Chloride 108 mmol/L (98-107) H 08/30/18 05:00 Carbon Dioxide 24 mmol/L (21-32) 08/30/18 05:00 Anion Gap 9 MMOL/L (8-16) 08/30/18 05:00 BUN 20 mg/dL (7-18) H 08/30/18 05:00 Creatinine 1.1 mg/dL (0.55-1.3) 08/30/18 05:00 Creat Clearance w eGFR > 60 (>60) 08/30/18 05:00 Random Glucose 90 mg/dL (74-106) 08/30/18 05:00 Calcium 8.8 mg/dL (8.5-10.1) 08/30/18 05:00 Total Bilirubin 0.9 mg/dL (0.2-1) 08/30/18 05:00 AST 21 U/L (15-37) 08/30/18 05:00 ALT 30 U/L (13-61) 08/30/18 05:00 Alkaline Phosphatase 56 U/L (45-117) 08/30/18 05:00 Total Protein 7.6 g/dl (6.4-8.2) 08/30/18 05:00 Albumin 4.4 g/dl (3.4-5.0) 08/30/18 05:00 Urine Color Yellow 08/29/18 16:45 Urine Appearance Clear 08/29/18 16:45 Urine pH 5.0 (5.0-8.0) 08/29/18 16:45 Ur Specific [place] 1.020 (1.010-1.035) 08/29/18 16:45 Urine Protein Negative (NEGATIVE) 08/29/18 16:45 Urine Glucose (UA) Negative (NEGATIVE) 08/29/18 16:45 Urine Ketones Negative (NEGATIVE) 08/29/18 16:45 Urine Blood Negative (NEGATIVE) 08/29/18 16:45 Urine Nitrite Negative (NEGATIVE) 08/29/18 16:45 Urine Bilirubin Negative (<2.0 mg/dL) 08/29/18 16:45 Urine Urobilinogen Negative mg/dL (0.2-1.0) 08/29/18 16:45 Ur Leukocyte Esterase Negative (NEGATIVE) 08/29/18 16:45 RPR Titer Nonreactive (NONREACTIVE) 08/30/18 05:00 lab noted - Treatment Hospital Course: Detox Protocol Followed, Responded well Patient has Accepted a Rehab Referral to: [facility] - Medication Discharge Medications: Ambulatory Orders Latanoprost 0.005% Eye Drops [Xalatan 0.005% Eye Drops -] 1 drop OU HS 02/28/14 Polyvinyl Alcohol [Liquitears] 1 drop OP DAILY 07/17/18 Albuterol Sulfate Inhaler - [Ventolin HFA Inhaler -] 2 inh PO Q4H PRN #1 inhaler 07/20/18 Brimonidine Tartrate [Alphagan 0.2% -] 1 drop OU TID #1 drops 07/20/18 Budesonide/Formeterol Fumarate [SYMBICORT 80/4.5mcg -] 1 inh PO BID #1 inhaler 07/20/18 Hydrochlorothiazide [Hctz -] 25 mg PO DAILY #1 tablet 07/20/18 Dorzolamide HCl [Trusopt 2% -] 1 drop OD BID 08/29/18 Thiamine HCl [Vitamin B-1] 100 mg PO DAILY 08/29/18 Timolol 0.25% [Timoptic 0.25%] 1 drop OU BID 08/29/18 - Diagnosis (1) Alcohol dependence with uncomplicated withdrawal Current Visit: Yes Status: Acute (2) Essential (primary) hypertension Current Visit: Yes Status: Chronic (3) GERD (gastroesophageal reflux disease) Current Visit: Yes Status: Chronic Qualifiers: Esophagitis presence: without esophagitis Qualified Code(s): K21.9 - Gastro -esophageal reflux disease without esophagitis (4) Glaucoma, both eyes Current Visit: Yes Status: Chronic Qualifiers: Glaucoma type: unspecified Qualified Code(s): H40.9 - Unspecified glaucoma (5) Nicotine dependence Current Visit: Yes Status: Acute Qualifiers: Nicotine product type: cigarettes Substance use status: in withdrawal Qualified Code(s): F17.213 - Nicotine dependence, cigarettes, with withdrawal (6) Positive PPD, treated Current Visit: Yes Status: Resolved (7) Asthma Current Visit: Yes Status: Chronic - AMA Did Patient Leave Against Medical Advice: Yes
--- NOTE | 2018-08-31 16:49 | DS ---
[facility] Detox Discharge Summary Admission Date: 08/29/18 Discharge Date: 08/31/18 - History Present History: Alcohol Dependence, Cannabis Dependence Additional Comments: Patient decided to leave AMA. Patient stated he has things to do. Patient instructed to call 911 if feeling sick or any withdrawal symptoms and to see his PCP within 3 days. Pertinent Past History: Alcohol dependence Glaucoma Asthma Cannabis dependence HTN GERD Nicotine dependence PPD positive - Physical Exam Results Vital Signs: Vital Signs Temperature 97.1 F L 08/29/18 21:29 Pulse Rate 86 08/31/18 09:16 Respiratory Rate 18 08/31/18 09:16 Blood Pressure 135/89 08/31/18 09:16 O2 Sat by Pulse Oximetry (%) Pertinent Admission Physical Exam Findings: Withdrawal symptoms Laboratory Tests 08/29/18 08/30/18 08/30/18 16:45 05:00 05:00 WBC 6.0 RBC 4.38 Hgb 13.7 Hct 39.4 MCV 89.9 MCH 31.2 MCHC 34.7 RDW 14.2 Plt Count 279 MPV 9.7 Sodium 140 Potassium 4.5 Chloride 108 H Carbon Dioxide 24 Anion Gap 9 BUN 20 H Creatinine 1.1 Creat Clearance w eGFR > 60 Random Glucose 90 Calcium 8.8 Total Bilirubin 0.9 AST 21 ALT 30 Alkaline Phosphatase 56 Total Protein 7.6 Albumin 4.4 Urine Color Yellow Urine Appearance Clear Urine pH 5.0 Ur Specific [place] 1.020 Urine Protein Negative Urine Glucose (UA) Negative Urine Ketones Negative Urine Blood Negative Urine Nitrite Negative Urine Bilirubin Negative Urine Urobilinogen Negative Ur Leukocyte Esterase Negative RPR Titer 08/30/18 05:00 WBC RBC Hgb Hct MCV MCH MCHC RDW Plt Count MPV Sodium Potassium Chloride Carbon Dioxide Anion Gap BUN Creatinine Creat Clearance w eGFR Random Glucose Calcium Total Bilirubin AST ALT Alkaline Phosphatase Total Protein Albumin Urine Color Urine Appearance Urine pH Ur Specific [place] Urine Protein Urine Glucose (UA) Urine Ketones Urine Blood Urine Nitrite Urine Bilirubin Urine Urobilinogen Ur Leukocyte Esterase RPR Titer Nonreactive Labs reviewed - Treatment Hospital Course: Detox Protocol Followed, Responded well - Medication Discharge Medications: Ambulatory Orders Latanoprost 0.005% Eye Drops [Xalatan 0.005% Eye Drops -] 1 drop OU HS 02/28/14 Polyvinyl Alcohol [Liquitears] 1 drop OP DAILY 07/17/18 Albuterol Sulfate Inhaler - [Ventolin HFA Inhaler -] 2 inh PO Q4H PRN #1 inhaler 07/20/18 Brimonidine Tartrate [Alphagan 0.2% -] 1 drop OU TID #1 drops 07/20/18 Budesonide/Formeterol Fumarate [SYMBICORT 80/4.5mcg -] 1 inh PO BID #1 inhaler 07/20/18 Hydrochlorothiazide [Hctz -] 25 mg PO DAILY #1 tablet 07/20/18 Dorzolamide HCl [Trusopt 2% -] 1 drop OD BID 08/29/18 Thiamine HCl [Vitamin B-1] 100 mg PO DAILY 08/29/18 Timolol 0.25% [Timoptic 0.25%] 1 drop OU BID 08/29/18 - Diagnosis (1) Azotemia Status: Acute (2) Alcohol dependence with uncomplicated withdrawal Status: Acute (3) Cannabis dependence Status: Chronic (4) Essential (primary) hypertension Status: Chronic (5) GERD (gastroesophageal reflux disease) Status: Chronic Qualifiers: Esophagitis presence: without esophagitis Qualified Code(s): K21.9 - Gastro -esophageal reflux disease without esophagitis (6) Glaucoma, both eyes Status: Chronic Qualifiers: Glaucoma type: unspecified Qualified Code(s): H40.9 - Unspecified glaucoma (7) Nicotine dependence Status: Acute Qualifiers: Nicotine product type: cigarettes Substance use status: in withdrawal Qualified Code(s): F17.213 - Nicotine dependence, cigarettes, with withdrawal - AMA Did Patient Leave Against Medical Advice: Yes (Instructed to call 911 if feeling sick or any withdrawal symptoms)
[2018-09-01] MEDS ORDERED: chlordiazePOXIDE HCL 10 MG CAPSULE PO SCH (11:00)
== END 2018-08-31 12:53 | disposition left against medical advice (07) | DRG 770 ==
LOC: YASAS 08:01 → Y3N 10:16
DX: F10.230 Alcohol dependence with withdrawal, uncomplicated (principal); F12.20 Cannabis dependence, uncomplicated; F17.213 Nicotine dependence, cigarettes, with withdrawal; I10 Essential (primary) hypertension; J45.909 Unspecified asthma, uncomplicated; K21.9 Gastro-esophageal reflux disease without esophagitis; H40.9 Unspecified glaucoma; R76.11 Nonspecific reaction to tuberculin skin test without active tuberculosis; R79.89 Other specified abnormal findings of blood chemistry; R55 Syncope and collapse; Z98.890 Other specified postprocedural states; Z59.0 Homelessness
CPT/HCPCS: 36415; 80053; 81003; 85027; 86593

== ENCOUNTER 2019-01-16 11:32 | Inpatient (IN) | payer OTHER ==
[2019-01-16 14:37] VITALS: BMI 35.5
--- NOTE | 2019-01-16 14:54 | HP ---
CIWA Score Nausea/Vomitin Muscle Tremors: 2 Anxiety: 2 Agitation: 2 Paroxysmal Sweats: 1-Minimal Palms Moist Orientation: 0-Oriented Tacttile Disturbances: 1-Very Mild Itch/Numbness Auditory Disturbances: 1-Very Mild Visual Disturbances: 0-None Headache: 2-Mild CIWA-Ar Total Score: 13 - Admission Criteria OASAS Guidelines: Admission for Medically Managed Detox: Requires at least one of the followin. CIWA greater than 12 2. Seizures within the past 24 hours 3. Delirium tremens within the past 24 hours 4. Hallucinations within the past 24 hours 5. Acute intervention needed for co occurring medical disorder 6. Acute intervention needed for co occurring psychiatric disorder 7. Severe withdrawal that cannot be handled at a lower level of care (continued vomiting, continued diarrhea, abnormal vital signs) requiring intravenous medication and/or fluids 8. Admission ROS S - HPI Chief Complaint: i need help to stop drinking alcohol and marijuana Allergies/Adverse Reactions: Allergies Allergy/AdvReac Type Severity Reaction Status Date / Time peanut Allergy Severe Itching Verified 01/16/19 14:27 No Known Drug Allergies Allergy Unknown Verified 01/16/19 14:27 NKDA Allergy Uncoded 01/16/19 14:27 History of Present Illness: this 53 years old male with alcohol dependence and marijuana dependence,seking detox,withdrawal symptom, [facility] in detox before,last detox [facility] 08/29/18 to 08/31/18 keep relapsing syncope alcohol related nicotine dependence 2 cigarette,does not want nicotine replacment glaucoma right eye on eye drop longest period of sobriety 1 year plan to go to rehab after detox history of asthma,hypertension,acid reflux Exam Limitations: No Limitations - Ebola screening Have you traveled outside of the country in the last 21 days: No Have you had contact with anyone from an Ebola affected area: No - Review of Systems Constitutional: Loss of Appetite, Malaise, Night Sweats, Changes in sleep, Weakness EENT: reports: Nose Congestion, Other (glaucoma right eye) Respiratory: reports: No Symptoms reported, Other (asthma) Cardiac: reports: No Symptoms Reported GI: reports: Diarrhea, Nausea, Vomiting, Other (gerd) : reports: No Symptoms Reported Musculoskeletal: reports: Back Pain, Muscle Pain Integumentary: reports: Dryness Neuro: reports: Headache, Tremors Endocrine: reports: No Symptoms Reported Hematology: reports: No Symptoms Reported Psychiatric: reports: No Sypmtoms Reported, Judgement Intact, Mood/Affect Appropiate, Orientated x3 Other Systems: Reviewed and Negative Patient History - Patient Medical History Hx Anemia: No Hx Asthma: Yes (on albuterol and symbicort) Hx Chronic Obstructive Pulmonary Disease (COPD): No Hx Cancer: No Hx Cardiac Disorders: No Hx Congestive Heart Failure: No Hx Hypertension: Yes (on HCTZ) Hx Hypercholesterolemia: No Hx Pacemaker: No HX Cerebrovascular Accident: No Hx Seizures: No Hx Dementia: No Hx Diabetes: No Hx Gastrointestinal Disorders: Yes (acid reflux) Hx Liver Disease: No Hx Genitourinary Disorders: No Hx Sexually Transmitted Disorders: No Hx Renal Disease (ESRD): No Hx Thyroid Disease: No Hx Human Immunodeficiency Virus (HIV): No (last 2018 negative) Hx Hepatitis C: No Hx Depression: No Hx Suicide Attempt: No Hx Bipolar Disorder: No Hx Schizophrenia: No Other Medical History: no suicidal,no homicidal - Patient Surgical History Past Surgical History: Yes Hx Neurologic Surgery: No Hx Cataract Extraction: No Hx Cardiac Surgery: No Hx Lung Surgery: No Hx Breast Surgery: No Hx Breast Biopsy: No Hx Abdominal Surgery: Yes (UMBILICAL HERNIA REPAIR 04/2013) Hx Appendectomy: No Hx Cholecystectomy: No Hx Genitourinary Surgery: No Hx Section: No Hx Orthopedic Surgery: Yes (fx of both legs at age of 7 years) Other Surgical History: fx of both legs at age of 7 years Anesthesia Reaction: No - PPD History Previous Implant?: Yes Documented Results: Positive w/o proof Implanted On Prior [facility] Admission?: No Date: 04/10/12 Results: CXR(-)11/07/17 PPD to be Administered?: No - Smoking Cessation Smoking history: Current some day smoker Have you smoked in the past 12 months: Yes Aproximately how many cigarettes per day: 1 If you are a former smoker, when did you quit?: 2017 Cigars Per Day: 0 Hx Chewing Tobacco Use: No Initiated information on smoking cessation: Yes 'Breaking Loose' booklet given: 01/16/19 - Substance & Tx. History Hx Alcohol Use: Yes Hx Substance Use: Yes Substance Use Type: Alcohol, Marijuana Hx Substance Use Treatment: Yes ([facility] 08/29/18 08/31/18 not completed) - Substances abused Alcohol Substance route: Oral Frequency: Daily Amount used: 3 pt. vodka, 3 six pks beer (64 oz cans) Age of first use: 12 Date of last use: 01/16/19 Marijuana/Hashish Substance route: Smoking Frequency: Daily Amount used: 10$ Age of first use: 12 Date of last use: 01/16/19 Family Disease History - Family Disease History Family Disease History: Other: Father (ALCOHOLIC,), Mother (), Brother (alcohol and dsa), Sister (alcohol) Admission Physical Exam [facility] - Vital Signs Vital Signs: Vital Signs - 24 hr 01/16/19 01/16/19 14:29 14:43 Temperature 98 F 98 F Pulse Rate 82 82 Respiratory 18 18 Rate Blood Pressure 103/70 103/70 - Physical General Appearance: Yes: Moderate Distress, Tremorous, Irritable, Sweating, Anxious HEENTM: Yes: Pharynx Normal, Other (glaucoma right eye) Respiratory: Yes: Lungs Clear, Normal Breath Sounds, No Respiratory Distress Neck: Yes: Within Normal Limits, Supple, Trachea in good position Breast: Yes: Within Normal Limits Cardiology: Yes: Within Normal Limits, Regular Rhythm, Regular Rate, S1, S2 Abdominal: Yes: Within Normal Limits, Normal Bowel Sounds, Non Tender, Soft Genitourinary: Yes: Within Normal Limits Back: Yes: Muscle Spasm Musculoskeletal: Yes: full range of Motion, Back pain, Muscle Pain Extremities: Yes: Within Normal Limits, Tremors Neurological: Yes: applications engineering manager II-XII NML intact, Fully Oriented, Alert, Motor Strength 5/5 Integumentary: Yes: Dry Lymphatic: Yes: Within Normal Limits - Diagnostic (1) Alcohol dependence with uncomplicated withdrawal Current Visit: No Status: Acute (2) History of umbilical hernia repair Current Visit: No Status: Acute (3) Nicotine dependence Current Visit: No Status: Acute Qualifiers: Nicotine product type: cigarettes Substance use status: in withdrawal Qualified Code(s): F17.213 - Nicotine dependence, cigarettes, with withdrawal (4) Tinea pedis Current Visit: No Status: Acute Qualifiers: Laterality: right Qualified Code(s): B35.3 - Tinea pedis (5) Asthma Current Visit: No Status: Chronic (6) Essential (primary) hypertension Current Visit: No Status: Chronic (7) GERD (gastroesophageal reflux disease) Current Visit: No Status: Chronic Qualifiers: Esophagitis presence: without esophagitis Qualified Code(s): K21.9 - Gastro -esophageal reflux disease without esophagitis (8) Positive PPD, treated Current Visit: No Status: Resolved (9) Glaucoma, right eye Current Visit: Yes Status: Acute Cleared for Admission S - Detox or Rehab [facility] Level of Care: Medically Managed Detox Regimen/Protocol: Librium Breathalyzer - Breathalyzer Breathalyzer: 0 Urine Drug Screen - Test Device Lot number: [id number] Expiration date: 08/25/20 - Control Is test valid?: Yes - Results Drug screen NEGATIVE: No Urine drug screen results: BZO-Benzodiazepines Inpatient Rehab Admission - Rehab Decision to Admit Inpatient rehab admission?: No
[2019-01-16] MEDS ORDERED: chlordiazePOXIDE HCL 25 MG CAPSULE PO PRN (15:08)
[2019-01-16] MEDS ORDERED: MAGNESIUM HYDROX 2400MG/30ML ORAL SUSPENSION 30 ML CUP PO PRN (15:08)
[2019-01-16] MEDS ORDERED: MENTHOL/PHENOL 1 EACH UD MM PRN (15:08)
[2019-01-16] MEDS ORDERED: MAGNESIUM CITRATE 300 ML BOTTLE PO PRN (15:08)
[2019-01-16] MEDS ORDERED: METHOCARBAMOL 500 MG TABLET PO PRN (15:08)
[2019-01-16] MEDS ORDERED: MAG HYDROX/AL HYDROX/SIMETH 30 ML UNIT-DOSE CUP PO PRN (15:08)
[2019-01-16] MEDS ORDERED: hydrOXYzine PAMOATE 25 MG CAPSULE (FP) PO PRN (15:08)
[2019-01-16] MEDS ORDERED: IBUPROFEN 400 MG TABLET (FP) PO PRN (15:08)
[2019-01-16] MEDS ORDERED: BISMUTH SUBSALICYLATE 524 MG/30 ML UD PO PRN (15:08)
[2019-01-16] MEDS ORDERED: ACETAMINOPHEN 325 MG TABLET (FP) PO PRN ×2 (15:08)
[2019-01-16] MEDS ORDERED: MELATONIN 5 MG TABLETS PO PRN (15:08)
[2019-01-16] MEDS ORDERED: ALBUTEROL SO4 8 GM HFA INHALER IH PRN (15:11)
[2019-01-16] MEDS: chlordiazePOXIDE HCL 25 MG CAPSULE PO SCH ×2 (17:03→22:18)
[2019-01-16] MEDS: THIAMINE HCL 100 MG TABLET (FP) PO SCH (22:18)
[2019-01-16] MEDS: LATANOPROST 0.005% OPHTH SOLN 2.5ML BOTTLE OU SCH (22:18)
[2019-01-16] MEDS: DORZOLAMIDE 2% HCL OPHTHALMIC SOLUTION 10 ML BOTTLE OU SCH (22:19)
[2019-01-16] MEDS: TIMOLOL 0.25% OPHTHALMIC SOL 5 ML BOTTLE OU SCH (22:19)
[2019-01-16] MEDS: BRIMONIDINE TARTRATE 0.2% OPHTHALMIC 5 ML BOTTLE OU SCH (22:22)
[2019-01-16] MEDS: CLOTRIMAZOLE/BETAMET DIPROP 15 GM TUBE TP SCH (22:22)
[2019-01-16] MEDS: BUDESONIDE/FORMETEROL FUMARATE 80/4.5 mcg INHALER IH SCH (22:22)
[2019-01-16 23:35] LABS: HEMATOCRIT 43.3 % (35.4-49); HEMOGLOBIN 14.6 GM/dL (11.7-16.9); MCH 30.3 pg (25.7-33.7); MCHC 33.7 g/dl (32.0-35.9); MEAN CELL VOLUME 89.8 fl (80-96); MEAN PLT VOLUME 9.6 fl (7.5-11.1); PLATELET COUNT 248 K/MM3 (134-434); RBC 4.83 M/mm3 (4.00-5.60); RDW 13.8 % (11.9-15.9); WHITE BLOOD COUNT 9.6 K/mm3 (4.0-10.0)
[2019-01-17 00:05] LABS: ALBUMIN 4.6 g/dl (3.4-5.0); ALK PHOS 54 U/L (45-117); ANION GAP 9 MMOL/L (8-16); BILIRUBIN,TOTAL 1.1 mg/dL (0.2-1); BLOOD UREA NITROGEN 16 mg/dL (7-18); CALCIUM 9.7 mg/dL (8.5-10.1); CHLORIDE 100 mmol/L (98-107); CO2 26 mmol/L (21-32); CREATININE 0.9 mg/dL (0.55-1.3); GLUCOSE,RANDOM 75 mg/dL (74-106); POTASSIUM 3.9 mmol/L (3.5-5.1); SGOT/AST 18 U/L (15-37); SGPT/ALT 31 U/L (13-61); SODIUM 135 mmol/L (136-145); TOT PROT 8.2 g/dl (6.4-8.2)
[2019-01-17] MEDS: BRIMONIDINE TARTRATE 0.2% OPHTHALMIC 5 ML BOTTLE OU SCH ×3 (05:42→22:28)
[2019-01-17] MEDS: chlordiazePOXIDE HCL 25 MG CAPSULE PO SCH ×4 (05:42→22:32)
[2019-01-17] MEDS ORDERED: HYDROCHLOROTHIAZIDE 25 MG TABLET (FP) PO SCH (10:00)
[2019-01-17] MEDS ORDERED: PRENATAL VITAMINS W/ FOLIC ACID TABLET (FP) PO SCH (10:00)
[2019-01-17] MEDS: DORZOLAMIDE 2% HCL OPHTHALMIC SOLUTION 10 ML BOTTLE OU SCH ×2 (10:37→22:28)
[2019-01-17] MEDS: TIMOLOL 0.25% OPHTHALMIC SOL 5 ML BOTTLE OU SCH ×2 (10:37→22:30)
[2019-01-17] MEDS: BUDESONIDE/FORMETEROL FUMARATE 80/4.5 mcg INHALER IH SCH ×2 (10:38→22:30)
[2019-01-17] MEDS: CLOTRIMAZOLE/BETAMET DIPROP 15 GM TUBE TP SCH ×2 (10:42→22:28)
[2019-01-17] MEDS ORDERED: SIMETHICONE 80 MG TAB.CHEW (FP) PO PRN (11:27)
--- NOTE | 2019-01-17 11:27 | PN ---
[facility] CIWA - CIWA Score Nausea/Vomitin-No Nausea/No Vomiting Muscle Tremors: 3 Anxiety: 3 Agitation: 4-Moderately Restless Paroxysmal Sweats: 3 Orientation: 0-Oriented Tacttile Disturbances: 0-None Auditory Disturbances: 0-None Visual Disturbances: 0-None Headache: 0-None Present CIWA-Ar Total Score: 13 S Progress Note (SOAP) Subjective: irritable agitation interrupted sleep gas Objective: 01/17/19 11:26 Vital Signs Temperature 97.6 F 01/17/19 10:31 Pulse Rate 87 01/17/19 10:31 Respiratory Rate 18 01/17/19 10:31 Blood Pressure 110/73 01/17/19 10:31 O2 Sat by Pulse Oximetry (%) Laboratory Tests 01/16/19 01/16/19 01/16/19 14:55 14:55 14:55 WBC 9.6 RBC 4.83 Hgb 14.6 Hct 43.3 MCV 89.8 MCH 30.3 MCHC 33.7 RDW 13.8 Plt Count 248 MPV 9.6 Sodium 135 L Potassium 3.9 Chloride 100 Carbon Dioxide 26 Anion Gap 9 BUN 16 Creatinine 0.9 Creat Clearance w eGFR 87.61 Random Glucose 75 Calcium 9.7 Total Bilirubin 1.1 H AST 18 ALT 31 Alkaline Phosphatase 54 Total Protein 8.2 Albumin 4.6 RPR Titer Nonreactive aaox3 ambulating no acute distress Assessment: 01/17/19 11:26 withdrawal sx Plan: continue detox increase fluids gas x
[2019-01-17] MEDS ORDERED: COLLOIDAL OATMEAL 1 BAR EACH TP PRN (18:34)
[2019-01-17 21:53] VITALS: TEMP 98.2
[2019-01-17] MEDS: THIAMINE HCL 100 MG TABLET (FP) PO SCH (22:29)
[2019-01-17] MEDS: LATANOPROST 0.005% OPHTH SOLN 2.5ML BOTTLE OU SCH (22:29)
[2019-01-18] MEDS: chlordiazePOXIDE HCL 25 MG CAPSULE PO SCH (05:40)
[2019-01-18] MEDS: BRIMONIDINE TARTRATE 0.2% OPHTHALMIC 5 ML BOTTLE OU SCH (05:41)
[2019-01-18 06:15] VITALS: BP 138/90; PULSE 87
--- NOTE | 2019-01-18 07:25 | DS ---
[facility] Detox Discharge Summary Admission Date: 01/16/19 Discharge Date: 01/18/19 - History Additional Comments: Patient reports that he wants to leave but was unable to give a reason. Patient said that it is none of my business to know why he is leaving against medical advice Pertinent Past History: Asthma, right eye glaucoma, hypertension, GERD, positive PPD, alcohol dependence , cannabis dependence - Physical Exam Results Vital Signs: Vital Signs Temperature 98.2 F 01/17/19 21:52 Pulse Rate 87 01/18/19 06:15 Respiratory Rate 18 01/18/19 06:15 Blood Pressure 138/90 01/18/19 06:15 O2 Sat by Pulse Oximetry (%) Laboratory Last Values WBC 9.6 K/mm3 (4.0-10.0) 01/16/19 14:55 RBC 4.83 M/mm3 (4.00-5.60) 01/16/19 14:55 Hgb 14.6 GM/dL (11.7-16.9) 01/16/19 14:55 Hct 43.3 % (35.4-49) 01/16/19 14:55 MCV 89.8 fl (80-96) 01/16/19 14:55 MCH 30.3 pg (25.7-33.7) 01/16/19 14:55 MCHC 33.7 g/dl (32.0-35.9) 01/16/19 14:55 RDW 13.8 % (11.9-15.9) 01/16/19 14:55 Plt Count 248 K/MM3 (134-434) 01/16/19 14:55 MPV 9.6 fl (7.5-11.1) 01/16/19 14:55 Sodium 135 mmol/L (136-145) L 01/16/19 14:55 Potassium 3.9 mmol/L (3.5-5.1) 01/16/19 14:55 Chloride 100 mmol/L (98-107) 01/16/19 14:55 Carbon Dioxide 26 mmol/L (21-32) 01/16/19 14:55 Anion Gap 9 MMOL/L (8-16) 01/16/19 14:55 BUN 16 mg/dL (7-18) 01/16/19 14:55 Creatinine 0.9 mg/dL (0.55-1.3) 01/16/19 14:55 Creat Clearance w eGFR 87.61 (>60) 01/16/19 14:55 Random Glucose 75 mg/dL (74-106) 01/16/19 14:55 Calcium 9.7 mg/dL (8.5-10.1) 01/16/19 14:55 Total Bilirubin 1.1 mg/dL (0.2-1) H 01/16/19 14:55 AST 18 U/L (15-37) 01/16/19 14:55 ALT 31 U/L (13-61) 01/16/19 14:55 Alkaline Phosphatase 54 U/L (45-117) 01/16/19 14:55 Total Protein 8.2 g/dl (6.4-8.2) 01/16/19 14:55 Albumin 4.6 g/dl (3.4-5.0) 01/16/19 14:55 RPR Titer Nonreactive (NONREACTIVE) 01/16/19 14:55 HIV 1&2 Antibody Screen Negative 01/16/19 14:55 HIV P24 Antigen Negative 01/16/19 14:55 Pertinent Admission Physical Exam Findings: Withdrawal symptoms - Medication Discharge Medications: Ambulatory Orders Latanoprost 0.005% Eye Drops [Xalatan 0.005% Eye Drops -] 1 drop OU HS 02/28/14 Polyvinyl Alcohol [Liquitears] 1 drop OP DAILY 07/17/18 Albuterol Sulfate Inhaler - [Ventolin HFA Inhaler -] 2 inh PO Q4H PRN #1 inhaler 07/20/18 Brimonidine Tartrate [Alphagan 0.2% -] 1 drop OU TID #1 drops 07/20/18 Budesonide/Formeterol Fumarate [SYMBICORT 80/4.5mcg -] 1 inh PO BID #1 inhaler 07/20/18 Hydrochlorothiazide [Hctz -] 25 mg PO DAILY #1 tablet 07/20/18 Dorzolamide HCl [Trusopt 2% -] 1 drop OU BID 08/29/18 Thiamine HCl [Vitamin B-1] 100 mg PO DAILY 08/29/18 Timolol 0.25% [Timoptic 0.25%] 1 drop OU BID 08/29/18 Clotrimazole/Betamethasone Dip [Clotrimazole-Betamethasone Crm] 45 gm TP BID - Diagnosis (1) Glaucoma, right eye Current Visit: Yes Status: Chronic (2) Alcohol dependence Current Visit: No Status: Chronic Qualifiers: Substance use status: uncomplicated Qualified Code(s): F10.20 - Alcohol dependence, uncomplicated (3) Glaucoma Current Visit: No Status: Acute (4) Nicotine dependence Current Visit: Yes Status: Chronic Qualifiers: Nicotine product type: cigarettes Substance use status: uncomplicated Qualified Code(s): F17.210 - Nicotine dependence, cigarettes, uncomplicated (5) Right foot pain Current Visit: Yes Status: Chronic (6) Tinea pedis Current Visit: Yes Status: Chronic Qualifiers: Laterality: right Qualified Code(s): B35.3 - Tinea pedis (7) Asthma Current Visit: No Status: Chronic (8) Cannabis dependence Current Visit: Yes Status: Chronic (9) Essential (primary) hypertension Current Visit: Yes Status: Chronic (10) GERD (gastroesophageal reflux disease) Current Visit: No Status: Chronic Qualifiers: Esophagitis presence: without esophagitis Qualified Code(s): K21.9 - Gastro -esophageal reflux disease without esophagitis (11) Glaucoma, both eyes Current Visit: Yes Status: Chronic Qualifiers: Glaucoma type: unspecified Qualified Code(s): H40.9 - Unspecified glaucoma (12) Positive PPD, treated Current Visit: No Status: Resolved - AMA Did Patient Leave Against Medical Advice: Yes
[2019-01-18] MEDS ORDERED: chlordiazePOXIDE HCL 10 MG CAPSULE PO PRN (17:00)
[2019-01-18] MEDS ORDERED: chlordiazePOXIDE HCL 10 MG CAPSULE PO SCH (17:00)
[2019-01-19] MEDS ORDERED: chlordiazePOXIDE HCL 10 MG CAPSULE PO SCH (17:00)
== END 2019-01-18 07:44 | disposition left against medical advice (07) | DRG 770 ==
LOC: YASAS 11:32 → Y6N 14:59
PROVIDERS: ADMIT Surgery; ATTEND Surgery
PROC: HZ2ZZZZ Detoxification Services for Substance Abuse Treatment (ICD-10-PCS; principal; 2019-01-16)
DX: F10.230 Alcohol dependence with withdrawal, uncomplicated (principal); F12.20 Cannabis dependence, uncomplicated; F17.210 Nicotine dependence, cigarettes, uncomplicated; I10 Essential (primary) hypertension; H40.9 Unspecified glaucoma; M79.671 Pain in right foot; G89.29 Other chronic pain; B35.3 Tinea pedis; J45.909 Unspecified asthma, uncomplicated; K21.9 Gastro-esophageal reflux disease without esophagitis; R76.11 Nonspecific reaction to tuberculin skin test without active tuberculosis; Z91.010 Allergy to peanuts; Z59.0 Homelessness
CPT/HCPCS: 36415; 71046-TC-FY; 80053; 85027; 86593; 87389

== ENCOUNTER 2019-05-30 14:43 | Inpatient (IN) | payer OTHER ==
[2019-05-30 15:46] VITALS: BMI 42.6
--- NOTE | 2019-05-30 16:43 | HP ---
CIWA Score Nausea/Vomitin Muscle Tremors: 2 Anxiety: 2 Agitation: 2 Paroxysmal Sweats: 1-Minimal Palms Moist Orientation: 1-Uncertain about Date Tacttile Disturbances: 1-Very Mild Itch/Numbness Auditory Disturbances: 0-None Visual Disturbances: 2-Mild Sensitivity Headache: 1-Very Mild CIWA-Ar Total Score: 14 - Admission Criteria OASAS Guidelines: Admission for Medically Managed Detox: Requires at least one of the followin. CIWA greater than 12 2. Seizures within the past 24 hours 3. Delirium tremens within the past 24 hours 4. Hallucinations within the past 24 hours 5. Acute intervention needed for co occurring medical disorder 6. Acute intervention needed for co occurring psychiatric disorder 7. Severe withdrawal that cannot be handled at a lower level of care (continued vomiting, continued diarrhea, abnormal vital signs) requiring intravenous medication and/or fluids 8. Admission ROS S - [facility] Chief Complaint: Withdrawal symptoms Allergies/Adverse Reactions: Allergies Allergy/AdvReac Type Severity Reaction Status Date / Time peanut Allergy Severe Itching Verified 05/30/19 15:26 No Known Drug Allergies Allergy Unknown Verified 05/30/19 15:26 NKDA Allergy Uncoded 05/30/19 15:26 History of Present Illness: 53 y.o. man with an extensive history of alcohol dependence is here seeking detox services. He was last here in December, but left AMA after 2 days. Does not have a significant period of sobriety. Exam Limitations: No Limitations - Ebola screening Have you traveled outside of the country in the last 21 days: No (N) Have you had contact with anyone from an Ebola affected area: No Do you have a fever: No - Review of Systems Constitutional: Chills, Diaphoresis, Night Sweats EENT: reports: Blurred Vision Respiratory: reports: Shortness of Breath Cardiac: reports: No Symptoms Reported GI: reports: Diarrhea, Abdominal cramping : reports: No Symptoms Reported Musculoskeletal: reports: No Symptoms Reported Integumentary: reports: No Symptoms Reported Neuro: reports: Headache, Tremors Endocrine: reports: No Symptoms Reported Hematology: reports: No Symptoms Reported Psychiatric: reports: Mood/Affect Appropiate Other Systems: Reviewed and Negative Patient History - Patient Medical History Hx Anemia: No Hx Asthma: Yes (on albuterol and symbicort) Hx Chronic Obstructive Pulmonary Disease (COPD): No Hx Cancer: No Hx Cardiac Disorders: No Hx Congestive Heart Failure: No Hx Hypertension: Yes (on HCTZ) Hx Hypercholesterolemia: No Hx Pacemaker: No HX Cerebrovascular Accident: No Hx Seizures: No Hx Dementia: No Hx Diabetes: No Hx Gastrointestinal Disorders: Yes (acid reflux) Hx Liver Disease: No Hx Genitourinary Disorders: No Hx Sexually Transmitted Disorders: No Hx Renal Disease (ESRD): No Hx Thyroid Disease: No Hx Human Immunodeficiency Virus (HIV): No (last 2018 negative) Hx Hepatitis C: No Hx Depression: No Hx Suicide Attempt: No Hx Bipolar Disorder: No Hx Schizophrenia: No - Patient Surgical History Past Surgical History: Yes Hx Neurologic Surgery: No Hx Cataract Extraction: No Hx Cardiac Surgery: No Hx Lung Surgery: No Hx Breast Surgery: No Hx Breast Biopsy: No Hx Abdominal Surgery: Yes (UMBILICAL HERNIA REPAIR 04/2013) Hx Appendectomy: No Hx Cholecystectomy: No Hx Genitourinary Surgery: No Hx Section: No Hx Orthopedic Surgery: Yes (fx of both legs at age of 7 years) Other Surgical History: fx of both legs at age of 7 years Anesthesia Reaction: No - PPD History Previous Implant?: No Date: 04/10/12 Results: CXR(-) PPD to be Administered?: No - Reproductive History Patient is a Female of Child Bearing Age (11 -55 yrs old): No - Smoking Cessation Smoking history: Current some day smoker Have you smoked in the past 12 months: Yes Aproximately how many cigarettes per day: 2 If you are a former smoker, when did you quit?: 2017 Cigars Per Day: 0 Hx Chewing Tobacco Use: No Initiated information on smoking cessation: Yes 'Breaking Loose' booklet given: 05/30/19 - Substance & Tx. History Hx Alcohol Use: Yes Hx Substance Use: Yes Substance Use Type: Alcohol, Marijuana Hx Substance Use Treatment: Yes (Detox: 12/2018) - Substances abused Alcohol Substance route: Oral Frequency: Daily Amount used: 3 pt. vodka, 3 six pks beer (64 oz cans) Age of first use: 12 Date of last use: 05/30/19 Marijuana/Hashish Substance route: Smoking Frequency: Daily Amount used: $20 Age of first use: 12 Date of last use: 05/29/19 Family Disease History - Family Disease History Family Disease History: Other: Father (ALCOHOLIC,), Mother (), Brother (alcohol and dsa), Sister (alcohol) Admission Physical Exam [facility] - Vital Signs Vital Signs: Vital Signs - 24 hr 05/30/19 15:25 Temperature 97.4 F L Pulse Rate 100 H Respiratory 20 Rate Blood Pressure 130/86 - Physical General Appearance: Yes: Obese, Tremorous, Sweating, Anxious HEENTM: Yes: Hearing grossly Normal, Normal ENT Inspection, Normocephalic, Normal Voice Respiratory: Yes: Chest Non-Tender, Lungs Clear, Normal Breath Sounds, No Respiratory Distress Neck: Yes: No masses,lesions,Nodules Breast: Yes: Breast Exam Deferred Cardiology: Yes: Regular Rhythm, Regular Rate Abdominal: Yes: Normal Bowel Sounds, Non Tender, Soft Genitourinary: Yes: Other (No complaints reported) Back: Yes: Normal Inspection Musculoskeletal: Yes: full range of Motion, Gait Steady, Pelvis Stable Extremities: Yes: Normal Inspection, Normal Range of Motion, Non-Tender Neurological: Yes: Alert, Normal Mood/Affect, Normal Response Integumentary: Yes: Normal Color, Dry, Warm Lymphatic: Yes: Within Normal Limits - Diagnostic (1) Glaucoma Current Visit: Yes Status: Chronic (2) Alcohol dependence with uncomplicated withdrawal Current Visit: Yes Status: Chronic (3) Asthma Current Visit: Yes Status: Chronic (4) Cannabis dependence Current Visit: Yes Status: Chronic (5) Essential (primary) hypertension Current Visit: Yes Status: Chronic (6) GERD (gastroesophageal reflux disease) Current Visit: Yes Status: Chronic Qualifiers: Esophagitis presence: without esophagitis Qualified Code(s): K21.9 - Gastro -esophageal reflux disease without esophagitis (7) Glaucoma, right eye Current Visit: Yes Status: Chronic (8) Nicotine dependence Current Visit: Yes Status: Chronic Qualifiers: Nicotine product type: cigarettes Substance use status: uncomplicated Qualified Code(s): F17.210 - Nicotine dependence, cigarettes, uncomplicated (9) Tinea pedis Current Visit: Yes Status: Acute Qualifiers: Laterality: right Qualified Code(s): B35.3 - Tinea pedis (10) Positive PPD, treated Current Visit: No Status: Resolved (11) Obese Current Visit: Yes Status: Chronic Qualifiers: Body mass index: BMI 40.0-44.9 Cleared for Admission [facility] - Detox or Rehab [facility] Level of Care: Medically Managed Detox Regimen/Protocol: Librium Breathalyzer - Breathalyzer Breathalyzer: 0 Urine Drug Screen - Test Device Lot number: [id number] Expiration date: 08/25/20 - Control Is test valid?: Yes - Results Drug screen NEGATIVE: No Urine drug screen results: BZO-Benzodiazepines Inpatient Rehab Admission - Rehab Decision to Admit Inpatient rehab admission?: No
[2019-05-30] MEDS ORDERED: METHOCARBAMOL 500 MG TABLET PO PRN (16:47)
[2019-05-30] MEDS ORDERED: ACETAMINOPHEN 325 MG TABLET (FP) PO PRN ×2 (16:47)
[2019-05-30] MEDS ORDERED: MAG HYDROX/AL HYDROX/SIMETH 30 ML UNIT-DOSE CUP PO PRN (16:47)
[2019-05-30] MEDS ORDERED: MAGNESIUM HYDROX 2400MG/30ML ORAL SUSPENSION 30 ML CUP PO PRN (16:47)
[2019-05-30] MEDS ORDERED: hydrOXYzine PAMOATE 25 MG CAPSULE (FP) PO PRN (16:47)
[2019-05-30] MEDS ORDERED: IBUPROFEN 400 MG TABLET (FP) PO PRN (16:47)
[2019-05-30] MEDS ORDERED: BISMUTH SUBSALICYLATE 524 MG/30 ML UD PO PRN (16:47)
[2019-05-30] MEDS ORDERED: MELATONIN 5 MG TABLETS PO PRN (16:47)
[2019-05-30] MEDS ORDERED: MAGNESIUM CITRATE 300 ML BOTTLE PO PRN (16:47)
[2019-05-30] MEDS ORDERED: chlordiazePOXIDE HCL 10 MG CAPSULE PO PRN (16:47)
[2019-05-30] MEDS ORDERED: MENTHOL/PHENOL 1 EACH UD MM PRN (16:47)
[2019-05-30] MEDS ORDERED: diphenhydrAMINE HCL 50 MG CAPSULE PO PRN (16:48)
[2019-05-30] MEDS: chlordiazePOXIDE HCL 25 MG CAPSULE PO SCH (21:18)
[2019-05-30] MEDS: THIAMINE HCL 100 MG TABLET (FP) PO SCH (22:18)
[2019-05-30] MEDS: BRIMONIDINE TARTRATE 0.2% OPHTHALMIC 5 ML BOTTLE OU SCH (22:19)
[2019-05-30] MEDS: DORZOLAMIDE 2% HCL OPHTHALMIC SOLUTION 10 ML BOTTLE OU SCH (22:20)
[2019-05-30] MEDS: TIMOLOL 0.25% OPHTHALMIC SOL 5 ML BOTTLE OU SCH (22:20)
[2019-05-30] MEDS: TOLNAFTATE 1% CREAM 15 GM TUBE TP SCH (22:22)
[2019-05-30] MEDS: CLOTRIMAZOLE/BETAMET DIPROP 15 GM TUBE TP SCH (22:22)
[2019-05-30] MEDS: LATANOPROST 0.005% OPHTH SOLN 2.5ML BOTTLE OU SCH (22:53)
[2019-05-31] MEDS: chlordiazePOXIDE HCL 25 MG CAPSULE PO SCH ×3 (06:25→21:21)
[2019-05-31] MEDS: DORZOLAMIDE 2% HCL OPHTHALMIC SOLUTION 10 ML BOTTLE OU SCH ×3 (06:30→22:22)
--- NOTE | 2019-05-31 10:22 | PN ---
S CIWA - CIWA Score Nausea/Vomitin-No Nausea/No Vomiting Muscle Tremors: 3 Anxiety: 3 Agitation: 3 Paroxysmal Sweats: 3 Orientation: 0-Oriented Tacttile Disturbances: 0-None Auditory Disturbances: 0-None Visual Disturbances: 0-None Headache: 0-None Present CIWA-Ar Total Score: 12 [facility] Progress Note (SOAP) Subjective: sweats shakes interrupted sleep body aches diarrhea Objective: 05/31/19 10:20 Vital Signs Temperature 96.8 F L 05/31/19 09:21 Pulse Rate 94 H 05/31/19 09:21 Respiratory Rate 18 05/31/19 09:21 Blood Pressure 112/76 05/31/19 09:21 O2 Sat by Pulse Oximetry (%) labs pending aaox3 ambulating no acute distress Assessment: 05/31/19 10:21 withdrawal sx Plan: continue detox increase fluids pepto prn
[2019-05-31] MEDS: PRENATAL VITAMINS W/ FOLIC ACID TABLET (FP) PO SCH (10:27)
[2019-05-31] MEDS: HYDROCHLOROTHIAZIDE 50 MG TABLET PO SCH (10:28)
[2019-05-31] MEDS: BRIMONIDINE TARTRATE 0.2% OPHTHALMIC 5 ML BOTTLE OU SCH ×2 (10:29→22:22)
[2019-05-31] MEDS: TIMOLOL 0.25% OPHTHALMIC SOL 5 ML BOTTLE OU SCH ×2 (10:30→22:22)
[2019-05-31] MEDS: CLOTRIMAZOLE/BETAMET DIPROP 15 GM TUBE TP SCH ×2 (10:30→22:22)
[2019-05-31] MEDS: TOLNAFTATE 1% CREAM 15 GM TUBE TP SCH ×2 (11:29→22:22)
[2019-05-31 12:13] LABS: HEMATOCRIT 43.9 % (35.4-49); HEMOGLOBIN 14.3 GM/dL (11.7-16.9); MCH 29.5 pg (25.7-33.7); MCHC 32.6 g/dl (32.0-35.9); MEAN CELL VOLUME 90.4 fl (80-96); MEAN PLT VOLUME 9.5 fl (7.5-11.1); PLATELET COUNT 252 K/MM3 (134-434); RBC 4.85 M/mm3 (4.00-5.60); WHITE BLOOD COUNT 6.6 K/mm3 (4.0-10.0)
[2019-05-31 12:21] LABS: ALBUMIN 4.3 g/dl (3.4-5.0); BILIRUBIN,TOTAL 1.2 mg/dL (0.2-1); BLOOD UREA NITROGEN 14.6 mg/dL (7-18); CALCIUM 9.5 mg/dL (8.5-10.1); CREATININE 1.1 mg/dL (0.55-1.3); TOT PROT 7.4 g/dl (6.4-8.2)
[2019-05-31] MEDS: THIAMINE HCL 100 MG TABLET (FP) PO SCH ×2 (14:35→22:22)
[2019-05-31] MEDS: ALBUTEROL SO4 8 GM HFA INHALER IH PRN (21:00)
[2019-05-31] MEDS: LATANOPROST 0.005% OPHTH SOLN 2.5ML BOTTLE OU SCH (22:21)
[2019-06-01] MEDS: chlordiazePOXIDE 5 MG CAPSULE PO SCH ×3 (06:53→21:14)
[2019-06-01] MEDS: DORZOLAMIDE 2% HCL OPHTHALMIC SOLUTION 10 ML BOTTLE OU SCH ×3 (06:55→22:15)
[2019-06-01] MEDS: ALBUTEROL SO4 8 GM HFA INHALER IH PRN ×2 (06:57→19:38)
[2019-06-01] MEDS: PRENATAL VITAMINS W/ FOLIC ACID TABLET (FP) PO SCH (10:04)
[2019-06-01] MEDS: HYDROCHLOROTHIAZIDE 50 MG TABLET PO SCH (10:04)
[2019-06-01] MEDS: TOLNAFTATE 1% CREAM 15 GM TUBE TP SCH ×2 (10:05→22:15)
[2019-06-01] MEDS: THIAMINE HCL 100 MG TABLET (FP) PO SCH ×2 (10:05→22:15)
[2019-06-01] MEDS: CLOTRIMAZOLE/BETAMET DIPROP 15 GM TUBE TP SCH ×2 (10:06→22:16)
[2019-06-01] MEDS: BRIMONIDINE TARTRATE 0.2% OPHTHALMIC 5 ML BOTTLE OU SCH ×2 (10:07→22:16)
[2019-06-01] MEDS: TIMOLOL 0.25% OPHTHALMIC SOL 5 ML BOTTLE OU SCH ×2 (10:08→22:15)
--- NOTE | 2019-06-01 12:14 | PN ---
S CIWA - CIWA Score Nausea/Vomitin-No Nausea/No Vomiting Muscle Tremors: 3 Anxiety: 2 Agitation: 2 Paroxysmal Sweats: 1-Minimal Palms Moist Orientation: 0-Oriented Tacttile Disturbances: 0-None Auditory Disturbances: 0-None Visual Disturbances: 0-None Headache: 0-None Present CIWA-Ar Total Score: 8 B[facility] Progress Note (SOAP) Subjective: sweats chills interrupted sleep Objective: 06/01/19 12:14 Vital Signs Temperature 99.0 F 06/01/19 09:31 Pulse Rate 95 H 06/01/19 09:31 Respiratory Rate 20 06/01/19 09:31 Blood Pressure 122/72 06/01/19 09:31 O2 Sat by Pulse Oximetry (%) Laboratory Tests 05/31/19 05/31/19 05/31/19 09:00 09:00 09:00 WBC 6.6 RBC 4.85 Hgb 14.3 Hct 43.9 MCV 90.4 MCH 29.5 MCHC 32.6 RDW 14.0 Plt Count 252 MPV 9.5 Sodium 139 Potassium 4.0 Chloride 104 Carbon Dioxide 27 Anion Gap 8 BUN 14.6 Creatinine 1.1 Est GFR (CKD-EPI)AfAm 87.13 Est GFR (CKD-EPI)NonAf 75.17 Random Glucose 142 H Calcium 9.5 Total Bilirubin 1.2 H AST 27 ALT 35 Alkaline Phosphatase 60 Total Protein 7.4 Albumin 4.3 RPR Titer Nonreactive labs noted aaox3 ambulating no acute distress Assessment: 06/01/19 12:14 withdrawal sx Plan: continue detox increase fluids
[2019-06-01] MEDS ORDERED: MELATONIN 5 MG TABLETS PO PRN (20:27)
[2019-06-01] MEDS: LATANOPROST 0.005% OPHTH SOLN 2.5ML BOTTLE OU SCH (22:15)
[2019-06-02] MEDS ORDERED: chlordiazePOXIDE HCL 10 MG CAPSULE PO PRN
[2019-06-02] MEDS: chlordiazePOXIDE HCL 10 MG CAPSULE PO SCH ×3 (05:19→22:29)
[2019-06-02] MEDS: DORZOLAMIDE 2% HCL OPHTHALMIC SOLUTION 10 ML BOTTLE OU SCH ×3 (05:19→22:30)
[2019-06-02] MEDS: BRIMONIDINE TARTRATE 0.2% OPHTHALMIC 5 ML BOTTLE OU SCH ×2 (10:45→22:28)
[2019-06-02] MEDS: TIMOLOL 0.25% OPHTHALMIC SOL 5 ML BOTTLE OU SCH ×2 (10:46→22:29)
[2019-06-02] MEDS: HYDROCHLOROTHIAZIDE 25 MG TABLET (FP) PO SCH (10:46)
[2019-06-02] MEDS: THIAMINE HCL 100 MG TABLET (FP) PO SCH ×2 (10:46→22:30)
[2019-06-02] MEDS: HYDROCHLOROTHIAZIDE 50 MG TABLET PO SCH (10:46)
[2019-06-02] MEDS: CLOTRIMAZOLE/BETAMET DIPROP 15 GM TUBE TP SCH ×2 (10:46→22:29)
[2019-06-02] MEDS: PRENATAL VITAMINS W/ FOLIC ACID TABLET (FP) PO SCH (10:46)
[2019-06-02] MEDS: TOLNAFTATE 1% CREAM 15 GM TUBE TP SCH ×2 (10:46→22:30)
--- NOTE | 2019-06-02 11:40 | PN ---
S CIWA - CIWA Score Nausea/Vomitin-No Nausea/No Vomiting Muscle Tremors: None Anxiety: 2 Agitation: 0-Normal Activity Paroxysmal Sweats: 2 Orientation: 0-Oriented Tacttile Disturbances: 0-None Auditory Disturbances: 0-None Visual Disturbances: 0-None Headache: 0-None Present CIWA-Ar Total Score: 4 BHS Progress Note (SOAP) Subjective: c/o sweats and anxiety. Objective: 06/02/19 11:38 Vital Signs 06/02/19 06/02/19 06:00 09:14 Pulse Rate 75 84 Respiratory 18 18 Rate Blood Pressure 137/87 133/85 Lab Results WBC 6.6 K/mm3 (4.0-10.0) 05/31/19 09:00 RBC 4.85 M/mm3 (4.00-5.60) 05/31/19 09:00 Hgb 14.3 GM/dL (11.7-16.9) 05/31/19 09:00 Hct 43.9 % (35.4-49) 05/31/19 09:00 MCV 90.4 fl (80-96) 05/31/19 09:00 MCHC 32.6 g/dl (32.0-35.9) 05/31/19 09:00 RDW 14.0 % (11.9-15.9) 05/31/19 09:00 Plt Count 252 K/MM3 (134-434) 05/31/19 09:00 Sodium 139 mmol/L (136-145) 05/31/19 09:00 Potassium 4.0 mmol/L (3.5-5.1) 05/31/19 09:00 Chloride 104 mmol/L (98-107) 05/31/19 09:00 Carbon Dioxide 27 mmol/L (21-32) 05/31/19 09:00 Anion Gap 8 MMOL/L (8-16) 05/31/19 09:00 BUN 14.6 mg/dL (7-18) 05/31/19 09:00 Creatinine 1.1 mg/dL (0.55-1.3) 05/31/19 09:00 Random Glucose 142 mg/dL (74-106) H 05/31/19 09:00 Calcium 9.5 mg/dL (8.5-10.1) 05/31/19 09:00 Labs noted. Assessment: 06/02/19 11:38 AOX3, in no acute respiratory distress. Full ROM, ambulating in the unit. mild withdrawal symptoms. 06/02/19 11:39 Plan: continue detox.
[2019-06-02] MEDS: ALBUTEROL SO4 8 GM HFA INHALER IH PRN (17:48)
[2019-06-02] MEDS: LATANOPROST 0.005% OPHTH SOLN 2.5ML BOTTLE OU SCH (22:30)
[2019-06-03] MEDS ORDERED: chlordiazePOXIDE HCL 10 MG CAPSULE PO ONE (05:00)
[2019-06-03] MEDS: DORZOLAMIDE 2% HCL OPHTHALMIC SOLUTION 10 ML BOTTLE OU SCH (05:17)
[2019-06-03 09:37] VITALS: TEMP 97
[2019-06-03] MEDS: HYDROCHLOROTHIAZIDE 25 MG TABLET (FP) PO SCH (10:06)
[2019-06-03] MEDS: PRENATAL VITAMINS W/ FOLIC ACID TABLET (FP) PO SCH (10:06)
[2019-06-03] MEDS: BRIMONIDINE TARTRATE 0.2% OPHTHALMIC 5 ML BOTTLE OU SCH (10:07)
[2019-06-03] MEDS: TIMOLOL 0.25% OPHTHALMIC SOL 5 ML BOTTLE OU SCH (10:07)
[2019-06-03] MEDS: HYDROCHLOROTHIAZIDE 50 MG TABLET PO SCH (10:07)
[2019-06-03] MEDS: CLOTRIMAZOLE/BETAMET DIPROP 15 GM TUBE TP SCH (10:07)
[2019-06-03] MEDS: TOLNAFTATE 1% CREAM 15 GM TUBE TP SCH (10:07)
[2019-06-03] MEDS: THIAMINE HCL 100 MG TABLET (FP) PO SCH (10:08)
[2019-06-03] MEDS ORDERED: PANTOPRAZOLE 40 MG TABLET (FP) PO SCH (11:00)
--- NOTE | 2019-06-03 12:22 | DS ---
[facility] Detox Discharge Summary Admission Date: 05/30/19 Discharge Date: 06/03/19 - History Present History: Alcohol Dependence, Cannabis Dependence Additional Comments: Patient completed detox successfully. Patient is stable for discharge to [facility] inpatient rehab today. Patient c/o history of GERD and started on protonix 40mg PO daily. Pertinent Past History: Asthma GERD HTN Morbid obesity Alcohol dependence Cannabis dependence Nicotine dependence - Physical Exam Results Vital Signs: Vital Signs Temperature 97 F L 06/03/19 09:36 Pulse Rate 71 06/03/19 09:36 Respiratory Rate 18 06/03/19 09:36 Blood Pressure 140/90 06/03/19 09:36 O2 Sat by Pulse Oximetry (%) Pertinent Admission Physical Exam Findings: Withdrawal sxs Laboratory Tests 05/31/19 05/31/19 05/31/19 09:00 09:00 09:00 WBC 6.6 RBC 4.85 Hgb 14.3 Hct 43.9 MCV 90.4 MCH 29.5 MCHC 32.6 RDW 14.0 Plt Count 252 MPV 9.5 Sodium 139 Potassium 4.0 Chloride 104 Carbon Dioxide 27 Anion Gap 8 BUN 14.6 Creatinine 1.1 Est GFR (CKD-EPI)AfAm 87.13 Est GFR (CKD-EPI)NonAf 75.17 Random Glucose 142 H Fasting Glucose Calcium 9.5 Total Bilirubin 1.2 H AST 27 ALT 35 Alkaline Phosphatase 60 Total Protein 7.4 Albumin 4.3 RPR Titer Nonreactive 06/02/19 08:00 WBC RBC Hgb Hct MCV MCH MCHC RDW Plt Count MPV Sodium Potassium Chloride Carbon Dioxide Anion Gap BUN Creatinine Est GFR (CKD-EPI)AfAm Est GFR (CKD-EPI)NonAf Random Glucose Fasting Glucose 104 Calcium Total Bilirubin AST ALT Alkaline Phosphatase Total Protein Albumin RPR Titer Labs reviewed - Treatment Hospital Course: Detox Protocol Followed, Detoxed Safely, Responded well, Discharged Condition Good, Rehab Referral Accepted - Medication Discharge Medications: Ambulatory Orders Latanoprost 0.005% Eye Drops [Xalatan 0.005% Eye Drops -] 1 drop OU HS 02/28/14 Hydrochlorothiazide [Hctz -] 25 mg PO DAILY #1 tablet 07/20/18 Dorzolamide HCl [Trusopt 2% -] 1 drop OU TID 08/29/18 Thiamine HCl [Vitamin B-1] 100 mg PO DAILY 08/29/18 Timolol 0.25% [Timoptic 0.25%] 1 drop OU BID 08/29/18 Clotrimazole/Betamethasone Dip [Clotrimazole-Betamethasone Crm] 45 gm TP BID Albuterol Sulfate Inhaler - [Ventolin HFA Inhaler -] 2 inh PO Q6H PRN 05/30/19 Brimonidine Tartrate [Alphagan 0.2% -] 1 drop OU BID 05/30/19 - Diagnosis (1) Morbid obesity Current Visit: Yes Status: Chronic (2) Alcohol dependence with uncomplicated withdrawal Current Visit: Yes Status: Acute (3) Asthma Current Visit: Yes Status: Chronic (4) Cannabis dependence Current Visit: Yes Status: Chronic (5) Essential (primary) hypertension Current Visit: Yes Status: Chronic (6) GERD (gastroesophageal reflux disease) Current Visit: Yes Status: Chronic Qualifiers: Esophagitis presence: without esophagitis Qualified Code(s): K21.9 - Gastro -esophageal reflux disease without esophagitis (7) Nicotine dependence Current Visit: Yes Status: Chronic Qualifiers: Nicotine product type: cigarettes Substance use status: uncomplicated Qualified Code(s): F17.210 - Nicotine dependence, cigarettes, uncomplicated - AMA Did Patient Leave Against Medical Advice: No (Patient accepted admission to [facility])
[2019-06-03 13:12] VITALS: BP 156/96; PULSE 85
== END 2019-06-03 13:26 | disposition other institution (70) | DRG 775 ==
LOC: YASAS 14:43 → Y6N 17:46
PROVIDERS: ADMIT Surgery; ATTEND Surgery
PROC: HZ2ZZZZ Detoxification Services for Substance Abuse Treatment (ICD-10-PCS; principal; 2019-05-30)
DX: F10.230 Alcohol dependence with withdrawal, uncomplicated (principal); F12.20 Cannabis dependence, uncomplicated; F17.210 Nicotine dependence, cigarettes, uncomplicated; I10 Essential (primary) hypertension; J45.909 Unspecified asthma, uncomplicated; K21.9 Gastro-esophageal reflux disease without esophagitis; H40.9 Unspecified glaucoma; B35.3 Tinea pedis; R76.11 Nonspecific reaction to tuberculin skin test without active tuberculosis; E66.01 Morbid (severe) obesity due to excess calories; Z68.41 Body mass index [BMI] 40.0-44.9, adult; Z91.010 Allergy to peanuts
CPT/HCPCS: 36415; 80053; 82947; 85027; 86593

== ENCOUNTER 2019-06-03 14:50 | Inpatient (IN) | payer OTHER ==
[2019-06-03] MEDS ORDERED: guaiFENesin 200 MG/10 ML 10 ML UNIT-DOSE CUPS PO PRN (15:37)
[2019-06-03] MEDS ORDERED: LOPERAMIDE HCL 2 MG CAPSULE PO PRN (15:37)
[2019-06-03] MEDS ORDERED: NICOTINE POLACRILEX 2 MG GUM BUC PRN (15:37)
[2019-06-03] MEDS ORDERED: P-EPHED 60MG/TRIPROLIDI 2.5MG TABLET PO PRN (15:37)
[2019-06-03] MEDS ORDERED: ACETAMINOPHEN 325 MG TABLET (FP) PO PRN (15:37)
[2019-06-03] MEDS ORDERED: hydrOXYzine PAMOATE 50 MG CAPSULE (FP) PO PRN (15:37)
[2019-06-03] MEDS ORDERED: MENTHOL/PHENOL 1 EACH UD MM PRN (15:37)
[2019-06-03] MEDS ORDERED: MAG HYDROX/AL HYDROX/SIMETH 30 ML UNIT-DOSE CUP PO PRN (15:37)
[2019-06-03] MEDS ORDERED: IBUPROFEN 400 MG TABLET (FP) PO PRN (15:37)
[2019-06-03] MEDS ORDERED: MAGNESIUM HYDROX 2400MG/30ML ORAL SUSPENSION 30 ML CUP PO PRN (15:37)
[2019-06-03] MEDS ORDERED: MAGNESIUM CITRATE 300 ML BOTTLE PO PRN (15:37)
--- NOTE | 2019-06-03 15:52 | HP ---
[facility] Rehab Assess/Revision - Admission History Admitted to Rehab from: [facility] Date of Admission to Rehab: 06/03/19 - Findings Detox History & Physical reviewed: Yes Concur with findings: Yes Inpatient Rehab Admission - Rehab Decision to Admit Inpatient rehab admission?: Yes - Initial Determination Are CD services needed?: No Free of communicable disease: Yes Not in need of hospitalization: Yes - Rehab Admission Criteria Previous failed treatment: Yes Poor recovery environment: Yes Comorbidities: Yes Lacks judgement: Yes Patient is meeting Inpatient Rehab admission criteria:: Yes
[2019-06-03 15:58] VITALS: TEMP 98
[2019-06-03] MEDS: BRIMONIDINE TARTRATE 0.2% OPHTHALMIC 5 ML BOTTLE OU SCH (21:21)
[2019-06-03] MEDS: LATANOPROST 0.005% OPHTH SOLN 2.5ML BOTTLE OU SCH (21:22)
[2019-06-03] MEDS: CLOTRIMAZOLE/BETAMET DIPROP TOPICAL CREAM 45 GM TUBE TP SCH (21:22)
[2019-06-03] MEDS: THIAMINE HCL 100 MG TABLET (FP) PO SCH (21:23)
[2019-06-03] MEDS: TOLNAFTATE 1% CREAM 15 GM TUBE TP SCH (21:23)
[2019-06-03] MEDS: TIMOLOL 0.25% OPHTHALMIC SOL 5 ML BOTTLE OU SCH (21:23)
[2019-06-03] MEDS: DORZOLAMIDE 2% HCL OPHTHALMIC SOLUTION 10 ML BOTTLE OU SCH (21:24)
[2019-06-03] MEDS ORDERED: MELATONIN 5 MG TABLETS PO PRN (22:00)
[2019-06-04] MEDS: DORZOLAMIDE 2% HCL OPHTHALMIC SOLUTION 10 ML BOTTLE OU SCH ×3 (05:55→21:15)
[2019-06-04] MEDS: HYDROCHLOROTHIAZIDE 25 MG TABLET (FP) PO SCH (10:26)
[2019-06-04] MEDS: PANTOPRAZOLE SOD 40 MG SUSPENSION PACKET PO SCH (10:27)
[2019-06-04] MEDS: PRENATAL VITAMINS W/ FOLIC ACID TABLET (FP) PO SCH (10:27)
[2019-06-04] MEDS: TIMOLOL 0.25% OPHTHALMIC SOL 5 ML BOTTLE OU SCH ×2 (10:27→21:15)
[2019-06-04] MEDS: BRIMONIDINE TARTRATE 0.2% OPHTHALMIC 5 ML BOTTLE OU SCH ×2 (10:28→21:14)
[2019-06-04] MEDS: TOLNAFTATE 1% CREAM 15 GM TUBE TP SCH ×2 (10:29→21:17)
[2019-06-04] MEDS: CLOTRIMAZOLE/BETAMET DIPROP TOPICAL CREAM 45 GM TUBE TP SCH ×2 (10:29→21:18)
[2019-06-04] MEDS: THIAMINE HCL 100 MG TABLET (FP) PO SCH (21:16)
[2019-06-04] MEDS: LATANOPROST 0.005% OPHTH SOLN 2.5ML BOTTLE OU SCH (21:16)
[2019-06-04] MEDS: ALBUTEROL SO4 8 GM HFA INHALER IH PRN (21:19)
[2019-06-05] MEDS: DORZOLAMIDE 2% HCL OPHTHALMIC SOLUTION 10 ML BOTTLE OU SCH ×3 (06:17→21:27)
[2019-06-05] MEDS: PRENATAL VITAMINS W/ FOLIC ACID TABLET (FP) PO SCH (10:14)
[2019-06-05] MEDS: TIMOLOL 0.25% OPHTHALMIC SOL 5 ML BOTTLE OU SCH ×2 (10:14→21:25)
[2019-06-05] MEDS: HYDROCHLOROTHIAZIDE 25 MG TABLET (FP) PO SCH (10:14)
[2019-06-05] MEDS: PANTOPRAZOLE SOD 40 MG SUSPENSION PACKET PO SCH (10:15)
[2019-06-05] MEDS: CLOTRIMAZOLE/BETAMET DIPROP TOPICAL CREAM 45 GM TUBE TP SCH ×2 (10:15→21:23)
[2019-06-05] MEDS: TOLNAFTATE 1% CREAM 15 GM TUBE TP SCH ×2 (10:17→21:26)
[2019-06-05] MEDS: BRIMONIDINE TARTRATE 0.2% OPHTHALMIC 5 ML BOTTLE OU SCH ×2 (10:55→21:23)
[2019-06-05] MEDS: ALBUTEROL SO4 8 GM HFA INHALER IH PRN (13:10)
[2019-06-05] MEDS: BUDESONIDE/FORMETEROL FUMARATE 160/4.5 mcg INHALER IH SCH (21:24)
[2019-06-05] MEDS: THIAMINE HCL 100 MG TABLET (FP) PO SCH (21:27)
[2019-06-05] MEDS: LATANOPROST 0.005% OPHTH SOLN 2.5ML BOTTLE OU SCH (21:28)
[2019-06-06] MEDS: DORZOLAMIDE 2% HCL OPHTHALMIC SOLUTION 10 ML BOTTLE OU SCH ×3 (07:05→21:16)
[2019-06-06] MEDS: HYDROCHLOROTHIAZIDE 25 MG TABLET (FP) PO SCH (10:12)
[2019-06-06] MEDS: PRENATAL VITAMINS W/ FOLIC ACID TABLET (FP) PO SCH (10:12)
[2019-06-06] MEDS: PANTOPRAZOLE 40 MG TABLET (FP) PO SCH (10:13)
[2019-06-06] MEDS: TOLNAFTATE 1% CREAM 15 GM TUBE TP SCH ×2 (10:13→21:16)
[2019-06-06] MEDS: BRIMONIDINE TARTRATE 0.2% OPHTHALMIC 5 ML BOTTLE OU SCH ×2 (10:15→21:14)
[2019-06-06] MEDS: TIMOLOL 0.25% OPHTHALMIC SOL 5 ML BOTTLE OU SCH ×2 (10:16→21:15)
[2019-06-06] MEDS: CLOTRIMAZOLE/BETAMET DIPROP TOPICAL CREAM 45 GM TUBE TP SCH ×2 (10:17→21:16)
[2019-06-06] MEDS: BUDESONIDE/FORMETEROL FUMARATE 160/4.5 mcg INHALER IH SCH ×2 (12:46→21:15)
[2019-06-06] MEDS: LATANOPROST 0.005% OPHTH SOLN 2.5ML BOTTLE OU SCH (21:16)
[2019-06-06] MEDS: THIAMINE HCL 100 MG TABLET (FP) PO SCH (21:17)
[2019-06-07] MEDS: DORZOLAMIDE 2% HCL OPHTHALMIC SOLUTION 10 ML BOTTLE OU SCH (06:12)
[2019-06-07 07:12] VITALS: BP 159/91; PULSE 84
[2019-06-07] MEDS: HYDROCHLOROTHIAZIDE 25 MG TABLET (FP) PO SCH (09:43)
[2019-06-07] MEDS: BUDESONIDE/FORMETEROL FUMARATE 160/4.5 mcg INHALER IH SCH (09:43)
[2019-06-07] MEDS: PRENATAL VITAMINS W/ FOLIC ACID TABLET (FP) PO SCH (09:43)
[2019-06-07] MEDS: PANTOPRAZOLE 40 MG TABLET (FP) PO SCH (09:43)
[2019-06-07] MEDS: CLOTRIMAZOLE/BETAMET DIPROP TOPICAL CREAM 45 GM TUBE TP SCH (09:44)
[2019-06-07] MEDS: TIMOLOL 0.25% OPHTHALMIC SOL 5 ML BOTTLE OU SCH (09:44)
[2019-06-07] MEDS: BRIMONIDINE TARTRATE 0.2% OPHTHALMIC 5 ML BOTTLE OU SCH (09:44)
[2019-06-07] MEDS: TOLNAFTATE 1% CREAM 15 GM TUBE TP SCH (09:44)
--- NOTE | 2019-06-07 09:46 | PN ---
[facility] Progress Note Note: Pt approached the commercial underwriter to talk about his BGM result this morning. Pt was previously seen by the [facility] and evaluated for hyperglycemia(Random Glc of 142 mg/dl on 05/31/19). Pt's diet recommendation was ordered while on the unit as NEHA/NCS diet and BGM monitoring x 3 days. Early this morning at the begining of this shift, pt was very loud and confrontational about his blood sugar and demanding why someome told him that he has "diabetic". This commercial underwriter explained to patient the disease process and how diet and exercise is crucial for circumventing progression. Pt would verbalize for a minute and walks off and then comes back again loudly abrasive. Pt goes off saying "you are a woman and i am a man, i can take anything. What are you hiding behind that computer that you don't show me my blood work". Pt has difficulty with engaging in a calm communication and unable to sit still without walking off. Explained to pt i'll be glad to review his lab results if he allows that process. Vital Signs - 24 hr 06/07/19 06/07/19 03:30 07:12 Pulse Rate 84 Respiratory 18 18 Rate Blood Pressure 159/91 Laboratory Tests BGM x 3 days result: 06/05/19 06/06/19 06/07/19 06:27 07:04 06:10 POC Glucometer 119 124 118 Pt was spoken to with counselor Ms Edgar Rodriguez about refocusing on his behavior and appropriate communication/language. This commercial underwriter reviewed a printed copy of pt's lab results with him and instructed him to take it to his doctors appointment after discharge.
--- NOTE | 2019-06-07 09:49 | DS ---
[facility] Rehab Discharge Summary - [facility] Rehab Discharge Summary Admission Date: 06/03/19 Discharge Date: 06/08/19 - History Present History: Alcohol dependence Additional Comments: Pt requesting early discharge today. Pt appears to be very distracted with minimal focus on treatment goals. Pt becomes very loud and irritable on the unit and refuses to be redirected and encouraged. Pt stated to nurse "I need a vacation..." as one reason he is leaving. However, pt reports he wants to follow up with his primary care provider at [facility] for medical management of elevated blood sugar. Pt has been referred to [facility] for CD aftercare. Pertinent Past History: htn asthma Glaucoma gerd morbid obesity - Discharge Physical Exam Vital Signs: Vital Signs Temperature 98 F 06/03/19 14:00 Pulse Rate 84 06/07/19 07:12 Respiratory Rate 18 06/07/19 07:12 Blood Pressure 159/91 06/07/19 07:12 O2 Sat by Pulse Oximetry (%) Alert o x 3 Nad Heent:Normocephalic, hearing grossly normal Extremities:No edema, ambulating with steady gait. Pertinent Admission Physical Exam Findings: Laboratory Tests 06/05/19 06/06/19 06/07/19 06:27 07:04 06:10 POC Glucometer 119 124 118 [place] Hyperglycemia - Treatment Discharge Condition: Discharge condition good Hospital Course: safe rehab stay. Poor impulse control and difficulty with treatment engagement. - Medication Discharge Medications: Ambulatory Orders Latanoprost 0.005% Eye Drops [Xalatan 0.005% Eye Drops -] 1 drop OU HS 02/28/14 Dorzolamide HCl [Trusopt 2% -] 1 drop OU TID 08/29/18 Thiamine HCl [Vitamin B-1] 100 mg PO DAILY 08/29/18 Timolol 0.25% [Timoptic 0.25%] 1 drop OU BID 08/29/18 Clotrimazole/Betamethasone Dip [Clotrimazole-Betamethasone Crm] 1 applic TP BID 01/16/19 Albuterol Sulfate Inhaler - [Ventolin HFA Inhaler -] 2 inh PO Q6H PRN 05/30/19 Brimonidine Tartrate [Alphagan 0.2% -] 1 drop OU BID 05/30/19 Hydrochlorothiazide [Hctz -] 50 mg PO DAILY 06/03/19 Budesonide/Formeterol Fumarate [SYMBICORT 160/4.5mcg -] 1 inh PO BID 06/05/19 - Medication-Assisted Treatment (MAT) Medication-Assisted Treatment (MAT): No - Discharge Instructions Diet, activity, other medical instructions: Diet:NEHA/NCS diet Activity: OOB,Ad Raquel Other medical instructions:Follow up with CD aftercare with [facility] as recommended. Follow up with [facility] for medical management within 1 week after discharge. D/w pt about diet and exercise management and hyperglycemia. - Diagnosis (1) Hyperglycemia Status: Acute (2) Asthma Status: Chronic (3) Nicotine dependence Status: Chronic Qualifiers: Nicotine product type: cigarettes Substance use status: uncomplicated Qualified Code(s): F17.210 - Nicotine dependence, cigarettes, uncomplicated (4) mood disorder nos Status: Chronic (5) Glaucoma, both eyes Status: Chronic Qualifiers: Glaucoma type: unspecified Qualified Code(s): H40.9 - Unspecified glaucoma (6) Essential (primary) hypertension Status: Chronic (7) Alcohol dependence Status: Chronic Qualifiers: Substance use status: uncomplicated Qualified Code(s): F10.20 - Alcohol dependence, uncomplicated (8) GERD (gastroesophageal reflux disease) Status: Chronic Qualifiers: Esophagitis presence: without esophagitis Qualified Code(s): K21.9 - Gastro -esophageal reflux disease without esophagitis (9) Glaucoma Status: Chronic (10) Morbid obesity Status: Chronic - Follow-up Referral Minutes to complete discharge: 20 - AMA Did Patient Leave Against Medical Advice: No
== END 2019-06-07 10:15 | disposition home or self-care (01) | DRG 772 ==
LOC: YASAS 14:50 → Y5N 14:52
PROVIDERS: ADMIT Neuromusculoskeletal Medicine & OMM; ATTEND Neuromusculoskeletal Medicine & OMM
PROC: HZ42ZZZ Group Counseling for Substance Abuse Treatment, Cognitive-Behavioral (ICD-10-PCS; principal; 2019-06-03)
DX: F10.20 Alcohol dependence, uncomplicated (principal); F17.210 Nicotine dependence, cigarettes, uncomplicated; F39 Unspecified mood [affective] disorder; I10 Essential (primary) hypertension; E73.9 Lactose intolerance, unspecified; J45.909 Unspecified asthma, uncomplicated; H40.9 Unspecified glaucoma; K21.9 Gastro-esophageal reflux disease without esophagitis; E66.01 Morbid (severe) obesity due to excess calories; Z68.41 Body mass index [BMI] 40.0-44.9, adult; Z59.0 Homelessness
CPT/HCPCS: 82962

== ENCOUNTER 2019-07-13 16:19 | Inpatient (IN) | payer OTHER ==
[2019-07-13 20:41] VITALS: BMI 26.9
--- NOTE | 2019-07-13 22:18 | HP ---
CIWA Score Nausea/Vomitin Muscle Tremors: 1-None Visible, but [place] Anxiety: 1-Mildly Anxious Agitation: 1-Slight > Activity Paroxysmal Sweats: 4-Forehead w/Sweat Beads Orientation: 3-Disoriented Date>2 days Tacttile Disturbances: 0-None Auditory Disturbances: 0-None Visual Disturbances: 0-None Headache: 3-Moderate CIWA-Ar Total Score: 16 - Admission Criteria OASAS Guidelines: Admission for Medically Managed Detox: Requires at least one of the followin. CIWA greater than 12 2. Seizures within the past 24 hours 3. Delirium tremens within the past 24 hours 4. Hallucinations within the past 24 hours 5. Acute intervention needed for co occurring medical disorder 6. Acute intervention needed for co occurring psychiatric disorder 7. Severe withdrawal that cannot be handled at a lower level of care (continued vomiting, continued diarrhea, abnormal vital signs) requiring intravenous medication and/or fluids 8. Patient presents the following: CIWA greater than 12 Admission Criteria Met: Admission criteria met Admitting History and Physical - Smoking History Smoking history: Current some day smoker Have you smoked in the past 12 months: Yes Aproximately how many cigarettes per day: 2 If you are a former smoker, when did you quit?: 2017 - Alcohol/Substance Use Hx Alcohol Use: Yes Admission ROS S - HPI Chief Complaint: seeking detox Allergies/Adverse Reactions: Allergies Allergy/AdvReac Type Severity Reaction Status Date / Time peanut Allergy Severe Itching Verified 07/13/19 20:18 No Known Drug Allergies Allergy Unknown Verified 07/13/19 20:18 History of Present Illness: HERE FOR ALCOHOL DETOX. CLIENT IS SELF REFERRED. PRESENT WITH C/O WORSENING WITHDRAWAL SX'S. HE IS KNOWN TO THIS PROGRAM. HERE LAST MONTH WHERE COMPLETED DETOX/REHAB. CLIENT REPORTS IMMEDIATELY RELAPSING AFTER DC. NOW SEEKING DET/ REHAB AND HOPES TO BE CONNECTED TO AN OUTPATIENT UPON DC. HE REPORTS DAILY ALCOHOL INTAKE, + EYE WORK STATION SUPPORT SPECIALIST, + BLACK OUTS. DENIES SEIZURES, AVH, SI/HI. DENIES ANY SIGNIFICANT PERIOD OF CLEAN TIME. HOMELESS-NURSING HOME, EMPLOYED, DENIES LEGALS. Exam Limitations: No Limitations - Ebola screening Have you traveled outside of the country in the last 21 days: No (N) Have you had contact with anyone from an Ebola affected area: No Do you have a fever: No - Review of Systems Constitutional: Chills, Night Sweats, Changes in sleep (CANT STAY ASLEEP) EENT: reports: Blurred Vision (WITH SENSITIVITY TO LIGHT) Respiratory: reports: No Symptoms reported Cardiac: reports: Chest Tightness (ASTHMATIC) GI: reports: Nausea, Poor Fluid Intake, Vomiting, Abdominal cramping : reports: No Symptoms Reported Musculoskeletal: reports: No Symptoms Reported Integumentary: reports: Sweating Neuro: reports: Tremors Endocrine: reports: No Symptoms Reported Hematology: reports: No Symptoms Reported Psychiatric: reports: Anxious, Disorientated (TO DATE) Other Systems: Reviewed and Negative Patient History - Patient Medical History Hx Anemia: No Hx Asthma: Yes Hx Chronic Obstructive Pulmonary Disease (COPD): No Hx Cancer: No Hx Cardiac Disorders: No Hx Congestive Heart Failure: No Hx Hypertension: Yes (With Tx HCTZ) Hx Hypercholesterolemia: No Hx Pacemaker: No HX Cerebrovascular Accident: No Hx Seizures: No Hx Dementia: No Hx Diabetes: No Hx Gastrointestinal Disorders: No Hx Liver Disease: No Hx Genitourinary Disorders: No Hx Sexually Transmitted Disorders: No Hx Renal Disease (ESRD): No Hx Thyroid Disease: No Hx Human Immunodeficiency Virus (HIV): No Hx Hepatitis C: No Hx Depression: No Hx Suicide Attempt: No Hx Bipolar Disorder: No Hx Schizophrenia: No Other Medical History: DENIES - Patient Surgical History Past Surgical History: Yes Hx Neurologic Surgery: No Hx Cataract Extraction: No Hx Cardiac Surgery: No Hx Lung Surgery: No Hx Breast Surgery: No Hx Breast Biopsy: No Hx Abdominal Surgery: Yes (UMBILICAL HERNIA REPAIR 04/2013) Hx Appendectomy: No Hx Cholecystectomy: No Hx Genitourinary Surgery: No Hx Section: No Hx Orthopedic Surgery: Yes (fx of both legs at age of 7 years) Other Surgical History: fx of both legs at age of 7 years Anesthesia Reaction: No - PPD History Previous Implant?: Yes Documented Results: Positive w/o proof Implanted On Prior [facility] Admission?: No Date: 04/10/12 Results: CXR(-)01/17/19 PPD to be Administered?: No - Smoking Cessation Smoking history: Current some day smoker Have you smoked in the past 12 months: Yes Aproximately how many cigarettes per day: 2 If you are a former smoker, when did you quit?: 2017 Cigars Per Day: 0 Hx Chewing Tobacco Use: No Initiated information on smoking cessation: Yes 'Breaking Loose' booklet given: 07/13/19 - Substance & Tx. History Hx Alcohol Use: Yes Hx Substance Use: Yes Substance Use Type: Alcohol Hx Substance Use Treatment: Yes ([facility]) - Substances abused Alcohol Substance route: Oral Frequency: Daily Amount used: 3 pt. vodka, 3 six pks beer (64 oz cans) Age of first use: 12 Date of last use: 07/13/19 Marijuana/Hashish Substance route: Smoking Frequency: Daily Amount used: $20 Age of first use: 12 Date of last use: 07/13/19 Admission Physical Exam S - Vital Signs Vital Signs: Vital Signs - 24 hr 07/13/19 20:18 Temperature 97.3 F L Pulse Rate 97 H Respiratory 18 Rate Blood Pressure 134/83 - Physical General Appearance: Yes: Mild Distress, Obese, Tremorous, Anxious HEENTM: Yes: EOMI, Normocephalic, Normal Voice, BLANCA, Pharynx Normal, Other ( DISCOLORED TEETH) Respiratory: Yes: Chest Non-Tender, Lungs Clear, Normal Breath Sounds, No Accessory Muscle Use Neck: Yes: No masses,lesions,Nodules, Supple, Trachea in good position Breast: Yes: Breasts Symetrical, No Discharge Cardiology: Yes: Regular Rhythm, Regular Rate, S1, S2 Abdominal: Yes: Non Tender, Soft, Increased Bowel Sounds, Protuberent Genitourinary: Yes: Within Normal Limits Back: Yes: Normal Inspection Musculoskeletal: Yes: full range of Motion, Gait Steady Extremities: Yes: Normal Inspection, Normal Range of Motion, Non-Tender Neurological: Yes: Fully Oriented, Alert, Confused (ABOUT DATE) Integumentary: Yes: Warm, Moist Lymphatic: Yes: Within Normal Limits - Diagnostic (1) Alcohol dependence with uncomplicated withdrawal Status: Acute (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 (4) Insomnia Status: Acute (5) Asthma Status: Chronic (6) GERD (gastroesophageal reflux disease) Status: Chronic Qualifiers: Esophagitis presence: without esophagitis Qualified Code(s): K21.9 - Gastro -esophageal reflux disease without esophagitis (7) Glaucoma, both eyes Status: Chronic Qualifiers: Glaucoma type: unspecified Qualified Code(s): H40.9 - Unspecified glaucoma (8) Morbid obesity Status: Chronic (9) Nicotine dependence Status: Chronic Qualifiers: Nicotine product type: cigarettes Substance use status: uncomplicated Qualified Code(s): F17.210 - Nicotine dependence, cigarettes, uncomplicated (10) Obese Status: Chronic Qualifiers: Body mass index: BMI 40.0-44.9 (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
[2019-07-13] MEDS ORDERED: ALBUTEROL SO4 8 GM HFA INHALER IH PRN (22:23)
[2019-07-13] MEDS ORDERED: P-EPHED 60MG/TRIPROLIDI 2.5MG TABLET PO PRN (22:25)
[2019-07-13] MEDS ORDERED: METHOCARBAMOL 500 MG TABLET PO PRN (22:25)
[2019-07-13] MEDS ORDERED: IBUPROFEN 400 MG TABLET (FP) PO PRN (22:25)
[2019-07-13] MEDS ORDERED: chlordiazePOXIDE HCL 25 MG CAPSULE PO PRN ×2 (22:25→23:39)
[2019-07-13] MEDS ORDERED: PROCHLORPERAZINE MALEATE 5 MG TABLET PO PRN (22:25)
[2019-07-13] MEDS ORDERED: ACETAMINOPHEN 325 MG TABLET (FP) PO PRN ×2 (22:25)
[2019-07-13] MEDS ORDERED: NICOTINE POLACRILEX 2 MG GUM BUC PRN (22:25)
[2019-07-13] MEDS ORDERED: DICYCLOMINE HCL 10 MG CAPSULE PO PRN (22:25)
[2019-07-13] MEDS ORDERED: MENTHOL/PHENOL 1 EACH UD MM PRN (22:25)
[2019-07-13] MEDS ORDERED: BISMUTH SUBSALICYLATE 524 MG/30 ML UD PO PRN (22:25)
[2019-07-13] MEDS ORDERED: MAGNESIUM HYDROX 2400MG/30ML ORAL SUSPENSION 30 ML CUP PO PRN (22:25)
[2019-07-13] MEDS ORDERED: MELATONIN 5 MG TABLETS PO PRN (22:25)
[2019-07-13] MEDS ORDERED: MAGNESIUM CITRATE 300 ML BOTTLE PO PRN (22:25)
[2019-07-13] MEDS ORDERED: hydrOXYzine PAMOATE 25 MG CAPSULE (FP) PO PRN (22:25)
[2019-07-13] MEDS ORDERED: guaiFENesin 200 MG/10 ML 10 ML UNIT-DOSE CUPS PO PRN (22:25)
[2019-07-13] MEDS ORDERED: MAG HYDROX/AL HYDROX/SIMETH 30 ML UNIT-DOSE CUP PO PRN (22:25)
[2019-07-13] MEDS: chlordiazePOXIDE HCL 25 MG CAPSULE PO SCH ×3 (23:42→23:59)
[2019-07-14] MEDS ORDERED: chlordiazePOXIDE HCL 25 MG CAPSULE PO SCH (05:00)
[2019-07-14] MEDS: DORZOLAMIDE 2% HCL OPHTHALMIC SOLUTION 10 ML BOTTLE OU SCH ×3 (05:37→22:28)
[2019-07-14] MEDS: chlordiazePOXIDE HCL 25 MG CAPSULE PO SCH ×4 (05:37→22:25)
[2019-07-14] MEDS ORDERED: ARTIFICIAL TEARS (POLYVINYL ALCOHOL) OPTH DROPS OU SCH (10:00)
[2019-07-14] MEDS: BRIMONIDINE TARTRATE 0.2% OPHTHALMIC 5 ML BOTTLE OU SCH ×2 (10:08→22:29)
[2019-07-14 10:10] LABS: ALBUMIN 4.3 g/dl (3.4-5.0); CALCIUM 9.7 mg/dL (8.5-10.1); POTASSIUM 4.1 mmol/L (3.5-5.1); TOT PROT 7.3 g/dl (6.4-8.2)
[2019-07-14] MEDS: CLOTRIMAZOLE/BETAMET DIPROP 15 GM TUBE TP SCH ×2 (10:11→22:29)
[2019-07-14] MEDS: PANTOPRAZOLE 40 MG TABLET (FP) PO SCH (10:12)
[2019-07-14] MEDS: TIMOLOL 0.25% OPHTHALMIC SOL 5 ML BOTTLE OU SCH ×2 (10:12→22:29)
[2019-07-14] MEDS: PRENATAL VITAMINS W/ FOLIC ACID TABLET (FP) PO SCH (10:12)
[2019-07-14] MEDS: NICOTINE 7 MG/24 HOURS TOPICAL PATCH TD SCH (10:12)
[2019-07-14] MEDS: HYDROCHLOROTHIAZIDE 25 MG TABLET (FP) PO SCH (10:16)
[2019-07-14] MEDS: BUDESONIDE/FORMETEROL FUMARATE 160/4.5 mcg INHALER IH SCH ×2 (10:16→22:26)
[2019-07-14 10:45] LABS: HEMATOCRIT 40.3 % (35.4-49); HEMOGLOBIN 13.5 GM/dL (11.7-16.9); MCH 29.6 pg (25.7-33.7); MCHC 33.5 g/dl (32.0-35.9); MEAN CELL VOLUME 88.5 fl (80-96); MEAN PLT VOLUME 9.7 fl (7.5-11.1); PLATELET COUNT 231 K/MM3 (134-434); RBC 4.56 M/mm3 (4.00-5.60); RDW 14.3 % (11.9-15.9); WHITE BLOOD COUNT 8.3 K/mm3 (4.0-10.0)
--- NOTE | 2019-07-14 10:54 | CONSULT ---
[facility] Psychiatric Consult - Data Date of interview: 07/14/19 Admission source: [facility] Identifying data: This is one of multiple admissions to [facility] for this 54 y/ o AA male self-referred for detoxification. ELSA issues : alcohol, cannabis, nicotine. 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 Substance Abuse History: Discussed with the patient. Details in current [facility] report as follows : Smoking history: Current some day smoker. Have you smoked in the past 12 months: Yes. Aproximately how many cigarettes per day: 2. If you are a former smoker, when did you quit?: 2017. Cigars Per Day: 0. Hx Chewing Tobacco Use: No. Initiated information on smoking cessation: Yes. ' Breaking Loose' booklet given: 07/13/19. - Substance & Tx. History. Hx Alcohol Use: Yes. Hx Substance Use: Yes. Substance Use Type: Alcohol. Hx Substance Use Treatment: Yes ([facility]). - Substances abused. Alcohol. Substance route: Oral. Frequency: Daily. Amount used: 3 pt. vodka, 3 six pks beer (64 oz cans). Age of first use: 12. Date of last use: 07/13/19. Marijuana/Hashish. Substance route: Smoking. Frequency: Daily. Amount used: $ 20. Age of first use: 12. Date of last use: 07/13/19 Medical History: Medical profile is remarkable for obesity, positive PPD ( treated), hypertension, bronchial asthma, GERD, glaucoma (right eye) and a remote history of orthosurgery (fracture of both legs at age [age]). Psychiatric History: Patient endorses a distant history of one psychiatric hospitalization at [facility] years ago (retained for two days due to bizarre behavior in the context of intoxication with THC + PCP, as per self- report). No subsequent history of OPD care. Mr Banegas denies hisory of suicide attempts. Physical/Sexual Abuse/Trauma History: Patient denies. Additional Comment: Urine drug screen results: BZO-Benzodiazepines. Noted. Mental Status Exam - Mental Status Exam Alert and Oriented to: Time, Place, Person Cognitive Function: Good Patient Appearance: Well Groomed Mood: Hopeful, Euthymic Affect: Appropriate, Normal Range Patient Behavior: Appropriate, Cooperative Speech Pattern: Clear Voice Loudness: Normal Thought Process: Intact, Goal Oriented Thought Disorder: Not Present Hallucinations: Denies Suicidal Ideation: Denies Homicidal Ideation: Denies Insight/Judgement: Poor Sleep: Well Appetite: Good Muscle strength/Tone: Normal Gait/Station: Normal Psychiatric Findings - Problem List ([place] 1, 2,3) (1) Alcohol dependence with uncomplicated withdrawal Current Visit: Yes Status: Acute (2) Cannabis dependence Current Visit: Yes Status: Chronic (3) Nicotine dependence Current Visit: Yes Status: Chronic Qualifiers: Nicotine product type: cigarettes Substance use status: uncomplicated Qualified Code(s): F17.210 - Nicotine dependence, cigarettes, uncomplicated - Initial Treatment Plan Initial Treatment Plan: Psychoeducation. Sleep hygiene. Detoxification. AA meetings. Observation.
[2019-07-14] MEDS ORDERED: ARTIFICIAL TEARS (POLYVINYL ALCOHOL) OPTH DROPS OU PRN (12:30)
--- NOTE | 2019-07-14 12:33 | PN ---
[facility] CIWA - CIWA Score Nausea/Vomitin-Mild Nausea/No Vomiting Muscle Tremors: 2 Anxiety: 2 Agitation: 3 Paroxysmal Sweats: 1-Minimal Palms Moist Orientation: 0-Oriented Tacttile Disturbances: 0-None Auditory Disturbances: 0-None Visual Disturbances: 0-None Headache: 0-None Present CIWA-Ar Total Score: 9 [facility] Progress Note (SOAP) Subjective: Pt here for alcohol detox. Came in yesterday. No complaints. Vital Signs - 24 hr 07/13/19 07/13/19 07/14/19 20:18 23:51 03:30 Temperature 97.3 F L 98.1 F Pulse Rate 97 H 86 Respiratory 18 18 18 Rate Blood Pressure 134/83 137/83 07/14/19 07/14/19 06:06 09:48 Temperature 97.0 F L Pulse Rate 65 77 Respiratory 18 18 Rate Blood Pressure 106/64 144/91 Laboratory Tests 07/14/19 07/14/19 07/14/19 08:00 08:00 08:00 WBC 8.3 RBC 4.56 Hgb 13.5 Hct 40.3 MCV 88.5 MCH 29.6 MCHC 33.5 RDW 14.3 Plt Count 231 MPV 9.7 Sodium 140 Potassium 4.1 Chloride 104 Carbon Dioxide 27 Anion Gap 10 BUN 17.0 Creatinine 1.0 Est GFR (CKD-EPI)AfAm 97.08 Est GFR (CKD-EPI)NonAf 83.76 Random Glucose 98 Calcium 9.7 Total Bilirubin 1.0 AST 21 ALT 38 Alkaline Phosphatase 55 Total Protein 7.3 Albumin 4.3 RPR Titer Nonreactive a/p: continue alcohol detox protocol: doing well, labs WNL
[2019-07-14 18:38] LABS: URINE APPEARANCE CLEAR; URINE BILIRUBIN NEGATIVE (NEGATIVE); URINE COLOR YELLOW; URINE GLUCOSE (UA) NEGATIVE (NEGATIVE); URINE KETONE NEGATIVE (NEGATIVE); URINE LEUK ESTERASE NEGATIVE (NEGATIVE); URINE NITRITE NEGATIVE (NEGATIVE); URINE PROTEIN NEGATIVE (NEGATIVE); URINE UROBILINOGEN 0.2 mg/dL (0.2-1.0)
[2019-07-14] MEDS: THIAMINE HCL 100 MG TABLET (FP) PO SCH (22:25)
[2019-07-14] MEDS: MONTELUKAST NA 10 MG TABLET PO SCH (22:25)
[2019-07-15] MEDS ORDERED: chlordiazePOXIDE HCL 10 MG CAPSULE PO PRN
[2019-07-15] MEDS ORDERED: chlordiazePOXIDE HCL 10 MG CAPSULE PO SCH (05:00)
[2019-07-15] MEDS: DORZOLAMIDE 2% HCL OPHTHALMIC SOLUTION 10 ML BOTTLE OU SCH ×3 (06:18→22:29)
[2019-07-15] MEDS: chlordiazePOXIDE HCL 25 MG CAPSULE PO SCH ×4 (06:18→22:30)
[2019-07-15] MEDS: HYDROCHLOROTHIAZIDE 25 MG TABLET (FP) PO SCH (10:19)
[2019-07-15] MEDS: PRENATAL VITAMINS W/ FOLIC ACID TABLET (FP) PO SCH (10:19)
[2019-07-15] MEDS: TIMOLOL 0.25% OPHTHALMIC SOL 5 ML BOTTLE OU SCH ×2 (10:20→22:30)
[2019-07-15] MEDS: BRIMONIDINE TARTRATE 0.2% OPHTHALMIC 5 ML BOTTLE OU SCH ×2 (10:20→22:30)
[2019-07-15] MEDS: BUDESONIDE/FORMETEROL FUMARATE 160/4.5 mcg INHALER IH SCH ×2 (10:22→22:29)
[2019-07-15] MEDS: NICOTINE 7 MG/24 HOURS TOPICAL PATCH TD SCH (10:22)
[2019-07-15] MEDS: CLOTRIMAZOLE/BETAMET DIPROP 15 GM TUBE TP SCH ×2 (10:22→22:29)
[2019-07-15] MEDS: PANTOPRAZOLE 40 MG TABLET (FP) PO SCH (10:23)
[2019-07-15] MEDS ORDERED: MELATONIN 5 MG TABLETS PO PRN (13:35)
--- NOTE | 2019-07-15 13:37 | PN ---
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 Objective: 07/15/19 13:39 Vital Signs Temperature 97.2 F L 07/15/19 09:31 Pulse Rate 74 07/15/19 09:31 Respiratory Rate 18 07/15/19 09:31 Blood Pressure 122/74 07/15/19 09:31 O2 Sat by Pulse Oximetry (%) Laboratory Last Values WBC 8.3 K/mm3 (4.0-10.0) 07/14/19 08:00 RBC 4.56 M/mm3 (4.00-5.60) 07/14/19 08:00 Hgb 13.5 GM/dL (11.7-16.9) 07/14/19 08:00 Hct 40.3 % (35.4-49) 07/14/19 08:00 MCV 88.5 fl (80-96) 07/14/19 08:00 MCH 29.6 pg (25.7-33.7) 07/14/19 08:00 MCHC 33.5 g/dl (32.0-35.9) 07/14/19 08:00 RDW 14.3 % (11.9-15.9) 07/14/19 08:00 Plt Count 231 K/MM3 (134-434) 07/14/19 08:00 MPV 9.7 fl (7.5-11.1) 07/14/19 08:00 Sodium 140 mmol/L (136-145) 07/14/19 08:00 Potassium 4.1 mmol/L (3.5-5.1) 07/14/19 08:00 Chloride 104 mmol/L (98-107) 07/14/19 08:00 Carbon Dioxide 27 mmol/L (21-32) 07/14/19 08:00 Anion Gap 10 MMOL/L (8-16) 07/14/19 08:00 BUN 17.0 mg/dL (7-18) 07/14/19 08:00 Creatinine 1.0 mg/dL (0.55-1.3) 07/14/19 08:00 Est GFR (CKD-EPI)AfAm 97.08 07/14/19 08:00 Est GFR (CKD-EPI)NonAf 83.76 07/14/19 08:00 Random Glucose 98 mg/dL (74-106) 07/14/19 08:00 Calcium 9.7 mg/dL (8.5-10.1) 07/14/19 08:00 Total Bilirubin 1.0 mg/dL (0.2-1) 07/14/19 08:00 AST 21 U/L (15-37) 07/14/19 08:00 ALT 38 U/L (13-61) 07/14/19 08:00 Alkaline Phosphatase 55 U/L (45-117) 07/14/19 08:00 Total Protein 7.3 g/dl (6.4-8.2) 07/14/19 08:00 Albumin 4.3 g/dl (3.4-5.0) 07/14/19 08:00 Urine Color Yellow 07/14/19 16:30 Urine Appearance Clear 07/14/19 16:30 Urine pH 8.0 (5.0-8.0) D 07/14/19 16:30 Ur Specific [place] 1.015 (1.010-1.035) 07/14/19 16:30 Urine Protein Negative (NEGATIVE) 07/14/19 16:30 Urine Glucose (UA) Negative (NEGATIVE) 07/14/19 16:30 Urine Ketones Negative (NEGATIVE) 07/14/19 16:30 Urine Blood Negative (NEGATIVE) 07/14/19 16:30 Urine Nitrite Negative (NEGATIVE) 07/14/19 16:30 Urine Bilirubin Negative (NEGATIVE) 07/14/19 16:30 Urine Urobilinogen 0.2 mg/dL (0.2-1.0) 07/14/19 16:30 Ur Leukocyte Esterase Negative (NEGATIVE) 07/14/19 16:30 RPR Titer Nonreactive (NONREACTIVE) 07/14/19 08:00 lab noted Assessment: 07/15/19 13:40 alcohol withdrawal sx Plan: continue librium detox regimen
[2019-07-15] MEDS: MONTELUKAST NA 10 MG TABLET PO SCH (22:27)
[2019-07-15] MEDS: THIAMINE HCL 100 MG TABLET (FP) PO SCH (22:27)
[2019-07-16] MEDS ORDERED: chlordiazePOXIDE HCL 10 MG CAPSULE PO PRN
[2019-07-16] MEDS ORDERED: chlordiazePOXIDE HCL 10 MG CAPSULE PO SCH (05:00)
[2019-07-16] MEDS: chlordiazePOXIDE HCL 10 MG CAPSULE PO SCH ×2 (05:56→10:10)
[2019-07-16] MEDS: DORZOLAMIDE 2% HCL OPHTHALMIC SOLUTION 10 ML BOTTLE OU SCH (05:56)
[2019-07-16 09:13] VITALS: BP 127/85; PULSE 87; TEMP 98.2
[2019-07-16] MEDS: BUDESONIDE/FORMETEROL FUMARATE 160/4.5 mcg INHALER IH SCH (10:09)
[2019-07-16] MEDS: HYDROCHLOROTHIAZIDE 25 MG TABLET (FP) PO SCH (10:10)
[2019-07-16] MEDS: PANTOPRAZOLE 40 MG TABLET (FP) PO SCH (10:10)
[2019-07-16] MEDS: PRENATAL VITAMINS W/ FOLIC ACID TABLET (FP) PO SCH (10:10)
[2019-07-16] MEDS: BRIMONIDINE TARTRATE 0.2% OPHTHALMIC 5 ML BOTTLE OU SCH (10:10)
[2019-07-16] MEDS: TIMOLOL 0.25% OPHTHALMIC SOL 5 ML BOTTLE OU SCH (10:10)
[2019-07-16] MEDS: NICOTINE 7 MG/24 HOURS TOPICAL PATCH TD SCH (10:11)
[2019-07-16] MEDS: CLOTRIMAZOLE/BETAMET DIPROP 15 GM TUBE TP SCH (10:13)
--- NOTE | 2019-07-16 14:47 | DS ---
[facility] Detox Discharge Summary Admission Date: 07/13/19 Discharge Date: 07/16/19 - History Present History: Alcohol Dependence Additional Comments: 54 years old male admitted on 07/13/19 for alcohol withdrawal sx management did well with librium detox regimen no complication through out the detox stay alert oriente x 3 Cardiac S1S2 regular rate rhythm respiratory clear lung bilaterally on auscultation abdomen soft obese round no rebound tenderness - Physical Exam Results Vital Signs: Vital Signs Temperature 98.2 F 07/16/19 09:13 Pulse Rate 87 07/16/19 09:13 Respiratory Rate 18 07/16/19 09:13 Blood Pressure 127/85 07/16/19 09:13 O2 Sat by Pulse Oximetry (%) Pertinent Admission Physical Exam Findings: alcohol withdrawal sx Laboratory Last Values WBC 8.3 K/mm3 (4.0-10.0) 07/14/19 08:00 RBC 4.56 M/mm3 (4.00-5.60) 07/14/19 08:00 Hgb 13.5 GM/dL (11.7-16.9) 07/14/19 08:00 Hct 40.3 % (35.4-49) 07/14/19 08:00 MCV 88.5 fl (80-96) 07/14/19 08:00 MCH 29.6 pg (25.7-33.7) 07/14/19 08:00 MCHC 33.5 g/dl (32.0-35.9) 07/14/19 08:00 RDW 14.3 % (11.9-15.9) 07/14/19 08:00 Plt Count 231 K/MM3 (134-434) 07/14/19 08:00 MPV 9.7 fl (7.5-11.1) 07/14/19 08:00 Sodium 140 mmol/L (136-145) 07/14/19 08:00 Potassium 4.1 mmol/L (3.5-5.1) 07/14/19 08:00 Chloride 104 mmol/L (98-107) 07/14/19 08:00 Carbon Dioxide 27 mmol/L (21-32) 07/14/19 08:00 Anion Gap 10 MMOL/L (8-16) 07/14/19 08:00 BUN 17.0 mg/dL (7-18) 07/14/19 08:00 Creatinine 1.0 mg/dL (0.55-1.3) 07/14/19 08:00 Est GFR (CKD-EPI)AfAm 97.08 07/14/19 08:00 Est GFR (CKD-EPI)NonAf 83.76 07/14/19 08:00 Random Glucose 98 mg/dL (74-106) 07/14/19 08:00 Calcium 9.7 mg/dL (8.5-10.1) 07/14/19 08:00 Total Bilirubin 1.0 mg/dL (0.2-1) 07/14/19 08:00 AST 21 U/L (15-37) 07/14/19 08:00 ALT 38 U/L (13-61) 07/14/19 08:00 Alkaline Phosphatase 55 U/L (45-117) 07/14/19 08:00 Total Protein 7.3 g/dl (6.4-8.2) 07/14/19 08:00 Albumin 4.3 g/dl (3.4-5.0) 07/14/19 08:00 Urine Color Yellow 07/14/19 16:30 Urine Appearance Clear 07/14/19 16:30 Urine pH 8.0 (5.0-8.0) D 07/14/19 16:30 Ur Specific [place] 1.015 (1.010-1.035) 07/14/19 16:30 Urine Protein Negative (NEGATIVE) 07/14/19 16:30 Urine Glucose (UA) Negative (NEGATIVE) 07/14/19 16:30 Urine Ketones Negative (NEGATIVE) 07/14/19 16:30 Urine Blood Negative (NEGATIVE) 07/14/19 16:30 Urine Nitrite Negative (NEGATIVE) 07/14/19 16:30 Urine Bilirubin Negative (NEGATIVE) 07/14/19 16:30 Urine Urobilinogen 0.2 mg/dL (0.2-1.0) 07/14/19 16:30 Ur Leukocyte Esterase Negative (NEGATIVE) 07/14/19 16:30 RPR Titer Nonreactive (NONREACTIVE) 07/14/19 08:00 lab noted - Treatment Hospital Course: Detox Protocol Followed, Detoxed Safely, Responded well, Discharged Condition Good, Rehab Referral Accepted Patient has Accepted a Rehab Referral to: community support approach - Medication Discharge Medications: Ambulatory Orders Latanoprost 0.005% Eye Drops [Xalatan 0.005% Eye Drops -] 1 drop OU HS 02/28/14 Dorzolamide HCl [Trusopt 2% -] 1 drop OU TID 08/29/18 Thiamine HCl [Vitamin B-1] 100 mg PO DAILY 08/29/18 Timolol 0.25% [Timoptic 0.25%] 1 drop OU BID 08/29/18 Clotrimazole/Betamethasone Dip [Clotrimazole-Betamethasone Crm] 1 applic TP BID 01/16/19 Albuterol Sulfate Inhaler - [Ventolin HFA Inhaler -] 2 inh PO Q6H PRN 05/30/19 Brimonidine Tartrate [Alphagan 0.2% -] 1 drop OU BID 05/30/19 Hydrochlorothiazide [Hctz -] 25 mg PO DAILY 06/03/19 Budesonide/Formeterol Fumarate [SYMBICORT 160/4.5mcg -] 1 inh PO BID 06/05/19 Artificial Tears Eye Drops 1 drop OU BID 07/13/19 Folic Acid 1 mg PO DAILY 07/13/19 Montelukast Sodium [Singulair] 10 mg PO HS 07/13/19 Multivitamins [Multivit ([facility] Formulary)] 1 tablet PO DAILY 07/13/19 Pantoprazole Sodium 40 mg PO DAILY 07/13/19 - Diagnosis (1) Alcohol dependence with uncomplicated withdrawal Status: Acute (2) Asthma Status: Chronic (3) Essential (primary) hypertension Status: Chronic (4) GERD (gastroesophageal reflux disease) Status: Chronic Qualifiers: Esophagitis presence: without esophagitis Qualified Code(s): K21.9 - Gastro -esophageal reflux disease without esophagitis (5) Glaucoma Status: Chronic Qualifiers: Glaucoma type: unspecified Laterality: bilateral Qualified Code(s): H40.9 - Unspecified glaucoma (6) Nicotine dependence Status: Acute Qualifiers: Nicotine product type: cigarettes Substance use status: in withdrawal Qualified Code(s): F17.213 - Nicotine dependence, cigarettes, with withdrawal (7) Obese Status: Chronic Qualifiers: Obesity type: unspecified obesity type Serious obesity comorbidity presence : unspecified whether serious comorbidity present Body mass index: BMI 40.0- 44.9 (8) Positive PPD, treated Status: Resolved - AMA Did Patient Leave Against Medical Advice: No CIWA Score - CIWA Score Nausea/Vomitin-Mild Nausea/No Vomiting Muscle Tremors: 1-None Visible, but [place] Anxiety: 0-No Anxiety, at Ease Agitation: 0-Normal Activity Paroxysmal Sweats: 4-Forehead w/Sweat Beads Orientation: 3-Disoriented Date>2 days Tacttile Disturbances: 0-None Auditory Disturbances: 0-None Visual Disturbances: 0-None Headache: 3-Moderate CIWA-Ar Total Score: 12
[2019-07-17] MEDS ORDERED: chlordiazePOXIDE HCL 10 MG CAPSULE PO SCH (05:00)
[2019-07-17] MEDS ORDERED: chlordiazePOXIDE HCL 10 MG CAPSULE PO ONE (05:00)
[2019-07-18] MEDS ORDERED: chlordiazePOXIDE HCL 10 MG CAPSULE PO ONE (05:00)
== END 2019-07-16 11:13 | disposition home or self-care (01) | DRG 775 ==
LOC: YASAS 16:19 → Y3N 22:27
PROVIDERS: ADMIT Allergy & Immunology; ATTEND Allergy & Immunology
PROC: HZ2ZZZZ Detoxification Services for Substance Abuse Treatment (ICD-10-PCS; principal; 2019-07-13)
DX: F10.230 Alcohol dependence with withdrawal, uncomplicated (principal); F12.20 Cannabis dependence, uncomplicated; F17.213 Nicotine dependence, cigarettes, with withdrawal; F10.280 Alcohol dependence with alcohol-induced anxiety disorder; F10.282 Alcohol dependence with alcohol-induced sleep disorder; G47.00 Insomnia, unspecified; H40.9 Unspecified glaucoma; I10 Essential (primary) hypertension; J45.909 Unspecified asthma, uncomplicated; K21.9 Gastro-esophageal reflux disease without esophagitis; E66.9 Obesity, unspecified; Z68.35 Body mass index [BMI] 35.0-35.9, adult; R76.11 Nonspecific reaction to tuberculin skin test without active tuberculosis; Z91.010 Allergy to peanuts; Z59.0 Homelessness
CPT/HCPCS: 36415; 80053; 81003; 85027; 86593

== ENCOUNTER 2019-08-12 12:32 | Inpatient (IN) | payer OTHER ==
[2019-08-12 13:48] VITALS: BMI 41.6
--- NOTE | 2019-08-12 14:30 | HP ---
CIWA Score Nausea/Vomitin Muscle Tremors: 2 Anxiety: 3 Agitation: 2 Paroxysmal Sweats: 2 Orientation: 0-Oriented Tacttile Disturbances: 2-Mild Itch/Numbness/Burn Auditory Disturbances: 1-Very Mild Visual Disturbances: 3-Moderate Sensitivity Headache: 1-Very Mild CIWA-Ar Total Score: 18 - Admission Criteria OASAS Guidelines: Admission for Medically Managed Detox: Requires at least one of the followin. CIWA greater than 12 2. Seizures within the past 24 hours 3. Delirium tremens within the past 24 hours 4. Hallucinations within the past 24 hours 5. Acute intervention needed for co occurring medical disorder 6. Acute intervention needed for co occurring psychiatric disorder 7. Severe withdrawal that cannot be handled at a lower level of care (continued vomiting, continued diarrhea, abnormal vital signs) requiring intravenous medication and/or fluids 8. Patient presents the following: CIWA greater than 12 Admission Criteria Met: Admission criteria met Admitting History and Physical - Smoking History Smoking history: Current some day smoker Have you smoked in the past 12 months: Yes Aproximately how many cigarettes per day: 2 If you are a former smoker, when did you quit?: 2017 - Alcohol/Substance Use Hx Alcohol Use: Yes Admission ROS [facility] Chief Complaint: " I was drinking and I got tired so I figured I need some help, don't keep drinking," Allergies/Adverse Reactions: Allergies Allergy/AdvReac Type Severity Reaction Status Date / Time peanut Allergy Severe Itching Verified 07/13/19 20:18 No Known Drug Allergies Allergy Unknown Verified 07/13/19 20:18 History of Present Illness: 54 year old man with alcohol dependence presents for detox. He reports blackouts, denies alcohol related seizures. His last admission at [facility] was from 07/13-07/16/19 Exam Limitations: No Limitations - Ebola screening Have you traveled outside of the country in the last 21 days: No ([place]) Have you had contact with anyone from an Ebola affected area: No Have you been sick,other than usual withdrawal symptoms: No Do you have a fever: No - Review of Systems Constitutional: Changes in sleep, Weight Stable EENT: reports: No Symptoms Reported Respiratory: reports: No Symptoms reported Cardiac: reports: No Symptoms Reported GI: reports: Diarrhea, Nausea, Poor Appetite, Abdominal cramping : reports: No Symptoms Reported Musculoskeletal: reports: Back Pain, Joint Pain, Muscle Pain, Muscle Weakness Integumentary: reports: Other (dry feet) Neuro: reports: Headache, Numbness, Tingling, Tremors Endocrine: reports: No Symptoms Reported Hematology: reports: No Symptoms Reported Psychiatric: reports: No Sypmtoms Reported Other Systems: Reviewed and Negative Patient History - Patient Medical History Hx Anemia: No Hx Asthma: Yes Hx Chronic Obstructive Pulmonary Disease (COPD): No Hx Cancer: No Hx Cardiac Disorders: No Hx Congestive Heart Failure: No Hx Hypertension: Yes Hx Hypercholesterolemia: No Hx Pacemaker: No HX Cerebrovascular Accident: No Hx Seizures: No Hx Dementia: No Hx Diabetes: No Hx Gastrointestinal Disorders: Yes (GERD) Hx Liver Disease: No Hx Genitourinary Disorders: No Hx Sexually Transmitted Disorders: No Hx Renal Disease (ESRD): No Hx Thyroid Disease: No Hx Human Immunodeficiency Virus (HIV): No Hx Hepatitis C: No Hx Depression: No Hx Suicide Attempt: No Hx Bipolar Disorder: No Hx Schizophrenia: No Other Medical History: Glaucoma - Patient Surgical History Past Surgical History: Yes Hx Neurologic Surgery: No Hx Cataract Extraction: No Hx Cardiac Surgery: No Hx Lung Surgery: No Hx Breast Surgery: No Hx Breast Biopsy: No Hx Abdominal Surgery: Yes (UMBILICAL HERNIA REPAIR 04/2013) Hx Appendectomy: No Hx Cholecystectomy: No Hx Genitourinary Surgery: No Hx Orthopedic Surgery: Yes (fx of both legs as a young child) Anesthesia Reaction: No - PPD History Date: 04/10/12 Results: CXR(-)01/17/19 PPD to be Administered?: No - Smoking Cessation Smoking history: Current every day smoker Have you smoked in the past 12 months: Yes Aproximately how many cigarettes per day: 2 Cigars Per Day: 0 Hx Chewing Tobacco Use: No Initiated information on smoking cessation: Yes 'Breaking Loose' booklet given: 08/12/19 - Substances abused Alcohol Substance route: Oral Frequency: Daily Amount used: 3 pt. vodka, 3 six pks beer (64 oz cans) Age of first use: 12 Date of last use: 08/12/19 Marijuana/Hashish Substance route: Smoking Frequency: Daily Amount used: $20 Age of first use: 12 Date of last use: 08/12/19 Admission Physical Exam BHS - Vital Signs Vital Signs: Vital Signs - 24 hr 08/12/19 13:40 Temperature 97.6 F Pulse Rate 89 Respiratory 18 Rate Blood Pressure 160/88 - Physical General Appearance: Yes: No Apparent Distress HEENTM: Yes: Hearing grossly Normal, Normocephalic, Normal Voice, Pharynx Normal Respiratory: Yes: Chest Non-Tender, Lungs Clear, Normal Breath Sounds, No Respiratory Distress, No Accessory Muscle Use Neck: Yes: No masses,lesions,Nodules, Supple Breast: Yes: Breast Exam Deferred Cardiology: Yes: Regular Rhythm, Regular Rate, S1, S2 Abdominal: Yes: Normal Bowel Sounds, Non Tender, Soft Genitourinary: Yes: Within Normal Limits Back: Yes: Normal Inspection Musculoskeletal: Yes: Gait Steady, Back pain, Muscle Pain, Muscle weakness Extremities: Yes: Normal Range of Motion, Non-Tender Neurological: Yes: customer care representative II-XII NML intact, Fully Oriented, Alert, Motor Strength 5/5, Normal Mood/Affect, Normal Response Integumentary: Yes: Dry (feet) Lymphatic: Yes: Within Normal Limits - Diagnostic (1) Alcohol dependence with uncomplicated withdrawal Current Visit: Yes Status: Acute (2) Glaucoma, both eyes Current Visit: Yes Status: Chronic Qualifiers: Glaucoma type: unspecified Qualified Code(s): H40.9 - Unspecified glaucoma (3) Asthma Current Visit: Yes Status: Chronic (4) Essential (primary) hypertension Current Visit: Yes Status: Chronic (5) GERD (gastroesophageal reflux disease) Current Visit: Yes Status: Chronic Qualifiers: Esophagitis presence: without esophagitis Qualified Code(s): K21.9 - Gastro -esophageal reflux disease without esophagitis Cleared for Admission S - Detox or Rehab [facility] Level of Care: Medically Managed Detox Regimen/Protocol: Librium Claeared for Rehab Admission: No Breathalyzer - Breathalyzer Breathalyzer: 0.015 Urine Drug Screen - Test Device Lot number: [id number] Expiration date: 04/25/21 - Control Is test valid?: Yes - Results Drug screen NEGATIVE: No Urine drug screen results: BZO-Benzodiazepines Inpatient Rehab Admission - Rehab Decision to Admit Inpatient rehab admission?: No
[2019-08-12] MEDS ORDERED: chlordiazePOXIDE HCL 10 MG CAPSULE PO PRN (14:37)
[2019-08-12] MEDS ORDERED: METHOCARBAMOL 500 MG TABLET PO PRN (14:37)
[2019-08-12] MEDS ORDERED: MELATONIN 5 MG TABLETS PO PRN (14:37)
[2019-08-12] MEDS ORDERED: MENTHOL/PHENOL 1 EACH UD MM PRN (14:37)
[2019-08-12] MEDS ORDERED: BISMUTH SUBSALICYLATE 524 MG/30 ML UD PO PRN (14:37)
[2019-08-12] MEDS ORDERED: ACETAMINOPHEN 325 MG TABLET (FP) PO PRN ×2 (14:37)
[2019-08-12] MEDS ORDERED: MAGNESIUM CITRATE 300 ML BOTTLE PO PRN (14:37)
[2019-08-12] MEDS ORDERED: MAGNESIUM HYDROX 2400MG/30ML ORAL SUSPENSION 30 ML CUP PO PRN (14:37)
[2019-08-12] MEDS ORDERED: hydrOXYzine PAMOATE 50 MG CAPSULE (FP) PO PRN (14:37)
[2019-08-12] MEDS ORDERED: MAG HYDROX/AL HYDROX/SIMETH 30 ML UNIT-DOSE CUP PO PRN (14:37)
[2019-08-12] MEDS ORDERED: ALBUTEROL SO4 8 GM HFA INHALER IH PRN (14:39)
[2019-08-12] MEDS ORDERED: chlordiazePOXIDE HCL 25 MG CAPSULE PO ONE (15:00)
[2019-08-12] MEDS: PANTOPRAZOLE 40 MG TABLET (FP) PO SCH (15:35)
[2019-08-12] MEDS: chlordiazePOXIDE HCL 25 MG CAPSULE PO SCH (22:42)
[2019-08-12] MEDS: MONTELUKAST NA 10 MG TABLET PO SCH (22:42)
[2019-08-12] MEDS: BUDESONIDE/FORMETEROL FUMARATE 160/4.5 mcg INHALER IH SCH (22:42)
[2019-08-12] MEDS: THIAMINE HCL 100 MG TABLET (FP) PO SCH (22:42)
[2019-08-12] MEDS: BRIMONIDINE TARTRATE 0.2% OPHTHALMIC 5 ML BOTTLE OU SCH (22:46)
[2019-08-12] MEDS: ARTIFICIAL TEARS (POLYVINYL ALCOHOL) OPTH DROPS OU SCH (22:48)
[2019-08-12] MEDS: TIMOLOL 0.25% OPHTHALMIC SOL 5 ML BOTTLE OU SCH (22:48)
[2019-08-12] MEDS: DORZOLAMIDE 2% HCL OPHTHALMIC SOLUTION 10 ML BOTTLE OU SCH (23:19)
[2019-08-12] MEDS: LATANOPROST 0.005% OPHTH SOLN 2.5ML BOTTLE OU SCH (23:19)
[2019-08-13] MEDS: chlordiazePOXIDE HCL 25 MG CAPSULE PO SCH ×3 (05:55→22:28)
[2019-08-13] MEDS: DORZOLAMIDE 2% HCL OPHTHALMIC SOLUTION 10 ML BOTTLE OU SCH ×3 (05:56→22:27)
[2019-08-13] MEDS: HYDROCHLOROTHIAZIDE 25 MG TABLET (FP) PO SCH (10:19)
[2019-08-13] MEDS: BUDESONIDE/FORMETEROL FUMARATE 160/4.5 mcg INHALER IH SCH ×2 (10:19→22:28)
[2019-08-13] MEDS: PRENATAL VITAMINS W/ FOLIC ACID TABLET (FP) PO SCH (10:19)
[2019-08-13] MEDS: BRIMONIDINE TARTRATE 0.2% OPHTHALMIC 5 ML BOTTLE OU SCH ×2 (10:19→22:27)
[2019-08-13] MEDS: PANTOPRAZOLE 40 MG TABLET (FP) PO SCH (10:19)
[2019-08-13] MEDS: TIMOLOL 0.25% OPHTHALMIC SOL 5 ML BOTTLE OU SCH ×2 (10:20→22:27)
[2019-08-13] MEDS: ARTIFICIAL TEARS (POLYVINYL ALCOHOL) OPTH DROPS OU SCH ×2 (10:21→22:28)
--- NOTE | 2019-08-13 14:59 | PN ---
S CIWA - CIWA Score Nausea/Vomitin-Mild Nausea/No Vomiting Muscle Tremors: 4-Moderate,w/Arms Extend Anxiety: 3 Agitation: 3 Paroxysmal Sweats: 2 Orientation: 0-Oriented Tacttile Disturbances: 1-Very Mild Itch/Numbness Auditory Disturbances: 0-None Visual Disturbances: 0-None Headache: 0-None Present CIWA-Ar Total Score: 14 BHS Progress Note (SOAP) Subjective: 54 years old male admitted on 08/12/19 for alcohol withdrawal sx management treated with librium detox regimen patient is alert oriented x 3 speech clearly coherently ambulating on hallway Objective: 08/13/19 14:58 Vital Signs Temperature 97.3 F L 08/13/19 13:12 Pulse Rate 61 08/13/19 13:12 Respiratory Rate 18 08/13/19 13:12 Blood Pressure 143/80 08/13/19 13:12 O2 Sat by Pulse Oximetry (%) 08/13/19 14:59 lab see 06/2019 report Assessment: 08/13/19 14:59 alcohol withdrawal sx Plan: continue librium detox regimen
[2019-08-13] MEDS: IBUPROFEN 400 MG TABLET (FP) PO PRN (18:46)
[2019-08-13] MEDS: LATANOPROST 0.005% OPHTH SOLN 2.5ML BOTTLE OU SCH (22:27)
[2019-08-13] MEDS: MONTELUKAST NA 10 MG TABLET PO SCH (22:28)
[2019-08-13] MEDS: THIAMINE HCL 100 MG TABLET (FP) PO SCH (22:28)
[2019-08-14] MEDS: DORZOLAMIDE 2% HCL OPHTHALMIC SOLUTION 10 ML BOTTLE OU SCH ×3 (05:15→21:09)
[2019-08-14] MEDS: chlordiazePOXIDE 5 MG CAPSULE PO SCH ×3 (06:00→21:10)
[2019-08-14] MEDS: PRENATAL VITAMINS W/ FOLIC ACID TABLET (FP) PO SCH (10:37)
[2019-08-14] MEDS: HYDROCHLOROTHIAZIDE 25 MG TABLET (FP) PO SCH (10:37)
[2019-08-14] MEDS: PANTOPRAZOLE 40 MG TABLET (FP) PO SCH (10:37)
[2019-08-14] MEDS: BRIMONIDINE TARTRATE 0.2% OPHTHALMIC 5 ML BOTTLE OU SCH ×2 (10:38→21:04)
[2019-08-14] MEDS: BUDESONIDE/FORMETEROL FUMARATE 160/4.5 mcg INHALER IH SCH ×2 (10:38→21:05)
[2019-08-14] MEDS: TIMOLOL 0.25% OPHTHALMIC SOL 5 ML BOTTLE OU SCH ×2 (10:39→21:08)
[2019-08-14] MEDS: ARTIFICIAL TEARS (POLYVINYL ALCOHOL) OPTH DROPS OU SCH ×2 (10:41→21:08)
[2019-08-14] MEDS: TOLNAFTATE 1% CREAM 15 GM TUBE TP SCH ×2 (12:00→21:09)
--- NOTE | 2019-08-14 14:44 | PN ---
S CIWA - CIWA Score Nausea/Vomitin-Mild Nausea/No Vomiting Muscle Tremors: 4-Moderate,w/Arms Extend Anxiety: 3 Agitation: 1-Slight > Activity Paroxysmal Sweats: 2 Orientation: 0-Oriented Tacttile Disturbances: 0-None Auditory Disturbances: 0-None Visual Disturbances: 0-None Headache: 2-Mild CIWA-Ar Total Score: 13 BHS Progress Note (SOAP) Subjective: 54 years old male admitted on 08/12/19 for alcohol withdrawal sx management treated with librium detox regimen ate breakfast social with peers less tremor Objective: 08/14/19 14:43 Vital Signs Temperature 96.5 F L 08/14/19 13:03 Pulse Rate 70 08/14/19 13:03 Respiratory Rate 18 08/14/19 13:03 Blood Pressure 139/81 08/14/19 13:03 O2 Sat by Pulse Oximetry (%) 08/14/19 14:44 lab see 07/14/19 for report Assessment: 08/14/19 14:44 alcohol withdrawal sx Plan: continue librium detox regimen
[2019-08-14] MEDS: LATANOPROST 0.005% OPHTH SOLN 2.5ML BOTTLE OU SCH (21:09)
[2019-08-14] MEDS: THIAMINE HCL 100 MG TABLET (FP) PO SCH (21:10)
[2019-08-14] MEDS: MONTELUKAST NA 10 MG TABLET PO SCH (21:10)
[2019-08-15] MEDS ORDERED: chlordiazePOXIDE HCL 10 MG CAPSULE PO PRN
[2019-08-15] MEDS: chlordiazePOXIDE HCL 10 MG CAPSULE PO SCH ×3 (06:18→22:06)
[2019-08-15] MEDS: DORZOLAMIDE 2% HCL OPHTHALMIC SOLUTION 10 ML BOTTLE OU SCH ×3 (06:18→22:04)
--- NOTE | 2019-08-15 10:24 | PN ---
S CIWA - CIWA Score Nausea/Vomitin-No Nausea/No Vomiting Muscle Tremors: 2 Anxiety: 2 Agitation: 2 Paroxysmal Sweats: 1-Minimal Palms Moist Orientation: 0-Oriented Tacttile Disturbances: 0-None Auditory Disturbances: 0-None Visual Disturbances: 0-None Headache: 1-Very Mild CIWA-Ar Total Score: 8 BHS Progress Note (SOAP) Subjective: 54 years old male admitted on 08/12/19 for alcohol withdrawal sx management treated with librium detox regimen patient is alert speech clearly coherently feeling better discuss aftercare with staff Objective: 08/15/19 10:23 Vital Signs Temperature 96.6 F L 08/15/19 09:08 Pulse Rate 82 08/15/19 09:08 Respiratory Rate 18 08/15/19 09:08 Blood Pressure 148/89 08/15/19 09:08 O2 Sat by Pulse Oximetry (%) 08/15/19 10:24 lab see 07/14/19 report 08/15/19 10:25 patient agrees to return to his primary care provider for bp medication adjustment Assessment: 08/15/19 10:25 alcohol withdrawal sx Plan: continue librium detox regimen
[2019-08-15] MEDS: ARTIFICIAL TEARS (POLYVINYL ALCOHOL) OPTH DROPS OU SCH ×2 (10:42→22:03)
[2019-08-15] MEDS: TIMOLOL 0.25% OPHTHALMIC SOL 5 ML BOTTLE OU SCH ×2 (10:43→22:02)
[2019-08-15] MEDS: BRIMONIDINE TARTRATE 0.2% OPHTHALMIC 5 ML BOTTLE OU SCH ×2 (10:43→22:03)
[2019-08-15] MEDS: PRENATAL VITAMINS W/ FOLIC ACID TABLET (FP) PO SCH (10:44)
[2019-08-15] MEDS: BUDESONIDE/FORMETEROL FUMARATE 160/4.5 mcg INHALER IH SCH ×2 (10:44→22:04)
[2019-08-15] MEDS: PANTOPRAZOLE 40 MG TABLET (FP) PO SCH (10:44)
[2019-08-15] MEDS: HYDROCHLOROTHIAZIDE 25 MG TABLET (FP) PO SCH (10:45)
[2019-08-15] MEDS: TOLNAFTATE 1% CREAM 15 GM TUBE TP SCH ×2 (10:47→22:06)
[2019-08-15] MEDS: LATANOPROST 0.005% OPHTH SOLN 2.5ML BOTTLE OU SCH (22:03)
[2019-08-15] MEDS: THIAMINE HCL 100 MG TABLET (FP) PO SCH (22:06)
[2019-08-15] MEDS: MONTELUKAST NA 10 MG TABLET PO SCH (22:06)
[2019-08-16] MEDS: chlordiazePOXIDE HCL 10 MG CAPSULE PO ONE ×2 (05:11→05:14)
[2019-08-16] MEDS: DORZOLAMIDE 2% HCL OPHTHALMIC SOLUTION 10 ML BOTTLE OU SCH (05:12)
[2019-08-16] MEDS: IBUPROFEN 400 MG TABLET (FP) PO PRN (05:45)
[2019-08-16 06:01] VITALS: BP 154/92; PULSE 93; TEMP 98
--- NOTE | 2019-08-16 10:04 | DS ---
[facility] Detox Discharge Summary Admission Date: 08/12/19 Discharge Date: 08/16/19 - History Present History: Alcohol Dependence Additional Comments: 54 years old male admitted on 08/12/19 for alcohol withdrawal sx management treated with librium detox regimen patient is alert oriented x 3 respiratory clear lung bilaterally on auscultation abdomen soft round obese no rebound tenderness skin warm and dry - Physical Exam Results Vital Signs: Vital Signs Temperature 98 F 08/16/19 06:01 Pulse Rate 93 H 08/16/19 06:01 Respiratory Rate 18 08/16/19 06:01 Blood Pressure 154/92 08/16/19 06:01 O2 Sat by Pulse Oximetry (%) Pertinent Admission Physical Exam Findings: alcohol withdrawal sx lab see 06/2019 report - Treatment Hospital Course: Detox Protocol Followed, Detoxed Safely, Responded well, Discharged Condition Good, Rehab Referral Accepted Patient has Accepted a Rehab Referral to: community support approach - Medication Discharge Medications: Ambulatory Orders Latanoprost 0.005% Eye Drops [Xalatan 0.005% Eye Drops -] 1 drop OU HS 02/28/14 Dorzolamide HCl [Trusopt 2% -] 1 drop OU TID 08/29/18 Timolol 0.25% [Timoptic 0.25%] 1 drop OU BID 08/29/18 Clotrimazole/Betamethasone Dip [Clotrimazole-Betamethasone Crm] 1 applic TP BID 01/16/19 Albuterol Sulfate Inhaler - [Ventolin HFA Inhaler -] 2 inh PO Q6H PRN 05/30/19 Brimonidine Tartrate [Alphagan 0.2% -] 1 drop OU BID 05/30/19 Hydrochlorothiazide [Hctz -] 25 mg PO DAILY 06/03/19 Budesonide/Formeterol Fumarate [SYMBICORT 160/4.5mcg -] 1 inh PO BID 06/05/19 Artificial Tears Eye Drops 1 drop OU BID 07/13/19 Montelukast Sodium [Singulair] 10 mg PO HS 07/13/19 Pantoprazole Sodium 40 mg PO DAILY 07/13/19 - Diagnosis (1) Substance induced mood disorder Status: Suspected (2) Alcohol dependence with uncomplicated withdrawal Status: Acute (3) Nicotine dependence Status: Acute Qualifiers: Nicotine product type: cigarettes Substance use status: in withdrawal Qualified Code(s): F17.213 - Nicotine dependence, cigarettes, with withdrawal (4) Asthma Status: Chronic (5) Essential (primary) hypertension Status: Chronic (6) GERD (gastroesophageal reflux disease) Status: Chronic Qualifiers: Esophagitis presence: without esophagitis Qualified Code(s): K21.9 - Gastro -esophageal reflux disease without esophagitis (7) Glaucoma Status: Chronic Qualifiers: Glaucoma type: unspecified Laterality: bilateral Qualified Code(s): H40.9 - Unspecified glaucoma (8) Morbid obesity Status: Chronic (9) Positive PPD, treated Status: Resolved - AMA Did Patient Leave Against Medical Advice: No CIWA Score - CIWA Score Nausea/Vomitin-No Nausea/No Vomiting Muscle Tremors: 1-None Visible, but [place] Anxiety: 1-Mildly Anxious Agitation: 1-Slight > Activity Paroxysmal Sweats: No Perspiration Orientation: 0-Oriented Tacttile Disturbances: 0-None Auditory Disturbances: 0-None Visual Disturbances: 0-None Headache: 1-Very Mild CIWA-Ar Total Score: 4
== END 2019-08-16 09:15 | disposition home or self-care (01) | DRG 775 ==
LOC: YASAS 12:32 → Y3N 14:50
PROVIDERS: ADMIT Allergy & Immunology; ATTEND Allergy & Immunology
PROC: HZ2ZZZZ Detoxification Services for Substance Abuse Treatment (ICD-10-PCS; principal; 2019-08-12)
DX: F10.230 Alcohol dependence with withdrawal, uncomplicated (principal); F12.20 Cannabis dependence, uncomplicated; F17.213 Nicotine dependence, cigarettes, with withdrawal; F19.24 Other psychoactive substance dependence with psychoactive substance-induced mood disorder; H40.9 Unspecified glaucoma; I10 Essential (primary) hypertension; J45.998 Other asthma; K21.9 Gastro-esophageal reflux disease without esophagitis; R76.11 Nonspecific reaction to tuberculin skin test without active tuberculosis; E66.01 Morbid (severe) obesity due to excess calories; Z68.41 Body mass index [BMI] 40.0-44.9, adult; Z91.010 Allergy to peanuts; Z59.0 Homelessness

== ENCOUNTER 2019-08-28 11:14 | Inpatient (IN) | payer OTHER ==
[2019-08-28 12:05] VITALS: BMI 41.3
--- NOTE | 2019-08-28 14:29 | HP ---
CIWA Score - Admission Criteria OASAS Guidelines: Admission for Medically Managed Detox: Requires at least one of the followin. CIWA greater than 12 2. Seizures within the past 24 hours 3. Delirium tremens within the past 24 hours 4. Hallucinations within the past 24 hours 5. Acute intervention needed for co occurring medical disorder 6. Acute intervention needed for co occurring psychiatric disorder 7. Severe withdrawal that cannot be handled at a lower level of care (continued vomiting, continued diarrhea, abnormal vital signs) requiring intravenous medication and/or fluids 8. Admitting History and Physical - Admission Chief Complaint: Rehab from alcohol History of Present Illness: Pt is a 54 yo M with PMHx of HTN, asthma, glaucoma, known alcohol abuse here for alcohol rehab after mid July 2019 detox. Has been here monthly since May, last visit -july- [facility] detox then rehab. Pt feels he is part of healing process and is trying to know who he is. He lost his apartment in past which made him drink also as he is getting older wants to change. Alcohol Last drink in July 2019 Started at 12 years, father was a heavy drinking, up to 4 pints vodka and beer Became a problem at 18 after he could buy his own drink Never had seizures, black outs+, 2017, had alcohol,poisoning THC Smoked weed until July Up to 5-6 joints everyday Benzo Benzos in urine; Denies using any benzos, possibly from last detox SHX;Umbilical hernia-, 2 fractures b/l knee caps at age 7 years Fhx: Has 8 sisters, 9 brothers lost 2 to drinking and drugs 18 kids same mother and father [place], [place] scattered including [facility] Lives with girlfriend for past 2 years Girlfriend is aware of his alcohol use, she doesn't drink No kids Worked in [employer] and [employer] until 3-4 years ago, lost job to drinking Been in penitentiary for stealing beers in stores, last 3 years ago Gets money through brothers and sisters Pt uses [facility], [address] [facility] [address], ([phone]) History Source: Patient, Medical Record Limitations to Obtaining History: No Limitations - Past Medical History [employer]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: Other (glaucoma) Cardiovascular: Yes: HTN Pulmonary: Yes: Asthma Psych: Yes: Addictions - Smoking History Smoking history: Current every day smoker Have you smoked in the past 12 months: Yes Aproximately how many cigarettes per day: 2 - Alcohol/Substance Use Hx Alcohol Use: Yes History of Substance Use: reports: None - Social History Usual Living Arrangement: Yes: With Significant Other Do you think of yourself as: Straight/Heterosexual ADL: Independent History of Recent Travel: Yes Admission [facility] Allergies/Adverse Reactions: Allergies Allergy/AdvReac Type Severity Reaction Status Date / Time peanut Allergy Severe Itching Verified 08/28/19 11:53 No Known Drug Allergies Allergy Unknown Verified 08/28/19 11:53 - Ebola screening Have you traveled outside of the country in the last 21 days: No ([place]) Have you had contact with anyone from an Ebola affected area: No Do you have a fever: No - Review of Systems Constitutional: No Symptoms Reported EENT: reports: No Symptoms Reported Respiratory: reports: No Symptoms reported Cardiac: reports: No Symptoms Reported GI: reports: Other (GERD) : reports: No Symptoms Reported Musculoskeletal: reports: No Symptoms Reported Integumentary: reports: No Symptoms Reported Neuro: reports: No Symptoms reported Endocrine: reports: No Symptoms Reported Hematology: reports: No Symptoms Reported Psychiatric: reports: No Sypmtoms Reported Patient History - Patient Medical History Hx Anemia: No Hx Asthma: Yes Hx Chronic Obstructive Pulmonary Disease (COPD): No Hx Cancer: No Hx Cardiac Disorders: No Hx Congestive Heart Failure: No Hx Hypertension: Yes Hx Hypercholesterolemia: No Hx Pacemaker: No HX Cerebrovascular Accident: No Hx Seizures: No Hx Dementia: No Hx Diabetes: No Hx Gastrointestinal Disorders: Yes (GERD) Hx Liver Disease: No Hx Genitourinary Disorders: No Hx Sexually Transmitted Disorders: No Hx Renal Disease (ESRD): No Hx Thyroid Disease: No Hx Human Immunodeficiency Virus (HIV): No Hx Hepatitis C: No Hx Depression: No Hx Suicide Attempt: No Hx Bipolar Disorder: No Hx Schizophrenia: No - Patient Surgical History Past Surgical History: Yes Hx Neurologic Surgery: No Hx Cataract Extraction: No Hx Cardiac Surgery: No Hx Lung Surgery: No Hx Breast Surgery: No Hx Breast Biopsy: No Hx Abdominal Surgery: Yes (UMBILICAL HERNIA REPAIR 04/2013) Hx Appendectomy: No Hx Cholecystectomy: No Hx Genitourinary Surgery: No Hx Section: No Hx Orthopedic Surgery: Yes (fx of both legs as a young child) Other Surgical History: fx of both legs at age of 7 years Anesthesia Reaction: No - PPD History Date: 04/10/12 Results: CXR(-)01/17/19 - Reproductive History Patient is a Female of Child Bearing Age (11 -55 yrs old): No - Smoking Cessation Smoking history: Current every day smoker Have you smoked in the past 12 months: Yes Aproximately how many cigarettes per day: 2 If you are a former smoker, when did you quit?: 2017 Cigars Per Day: 0 Hx Chewing Tobacco Use: No Initiated information on smoking cessation: Yes 'Breaking Loose' booklet given: 08/28/19 - Substance & Tx. History Hx Alcohol Use: Yes Hx Substance Use: Yes - Substances abused Alcohol Substance route: Oral Frequency: Daily Amount used: 3- 4 6pk beers Age of first use: 12 Date of last use: 08/12/19 Marijuana/Hashish Substance route: Smoking Frequency: Daily Amount used: $20 Age of first use: 12 Date of last use: 08/12/19 Admission Physical Exam S - Vital Signs Vital Signs: Vital Signs - 24 hr 08/28/19 11:52 Temperature 98.0 F Pulse Rate 69 Respiratory 18 Rate Blood Pressure 143/91 - Physical General Appearance: Yes: No Apparent Distress, Appropriately Dressed HEENTM: Yes: Other (Slowly reactive Right pupil) Respiratory: Yes: Chest Non-Tender, Lungs Clear, No Accessory Muscle Use Neck: Yes: Within Normal Limits Breast: Yes: Breast Exam Deferred Cardiology: Yes: Regular Rate, S1, S2 Abdominal: Yes: Normal Bowel Sounds, Soft, Other (obese) Genitourinary: Yes: Within Normal Limits Back: Yes: Within Normal Limits Musculoskeletal: Yes: full range of Motion Extremities: Yes: Within Normal Limits Neurological: Yes: Alert, Motor Strength 5/5 Integumentary: Yes: Within Normal Limits, Other (tinea unguum., b/l hardened toe nails) Lymphatic: Yes: Within Normal Limits Breathalyzer - Breathalyzer Breathalyzer: 0 Urine Drug Screen - Test Device Lot number: [id number] Expiration date: 04/25/21 - Control Is test valid?: Yes - Results Drug screen NEGATIVE: No Urine drug screen results: BZO-Benzodiazepines Inpatient Rehab Admission - Rehab Decision to Admit Inpatient rehab admission?: Yes - Initial Determination Are CD services needed?: Yes Free of communicable disease: Yes Not in need of hospitalization: Yes - Rehab Admission Criteria Previous failed treatment: Yes Poor recovery environment: Yes Comorbidities: Yes Lacks judgement: Yes Patient is meeting Inpatient Rehab admission criteria:: Yes
[2019-08-28] MEDS ORDERED: MAG HYDROX/AL HYDROX/SIMETH 30 ML UNIT-DOSE CUP PO PRN (15:17)
[2019-08-28] MEDS ORDERED: P-EPHED 60MG/TRIPROLIDI 2.5MG TABLET PO PRN (15:17)
[2019-08-28] MEDS ORDERED: guaiFENesin 200 MG/10 ML 10 ML UNIT-DOSE CUPS PO PRN (15:17)
[2019-08-28] MEDS ORDERED: MAGNESIUM CITRATE 300 ML BOTTLE PO PRN (15:17)
[2019-08-28] MEDS ORDERED: NICOTINE POLACRILEX 2 MG GUM BC PRN (15:17)
[2019-08-28] MEDS ORDERED: LOPERAMIDE HCL 2 MG CAPSULE PO PRN (15:17)
[2019-08-28] MEDS ORDERED: MAGNESIUM HYDROX 2400MG/30ML ORAL SUSPENSION 30 ML CUP PO PRN (15:17)
--- NOTE | 2019-08-28 15:33 | PN ---
"Teaching Attending Note Name of Resident: Selin Cerrato ATTENDING PHYSICIAN STATEMENT I saw and evaluated the patient. I reviewed the resident's note and discussed the case with the resident. I agree with the resident's findings and plan as documented. SUBJECTIVE:pt here requesting rehab from etoh use , completed detox at this facility Aug 16 2019 , denies etoh use since . OBJECTIVE: wnwd , agitated , obese Vital Signs - 24 hr 08/28/19 11:52 Temperature 98.0 F Pulse Rate 69 Respiratory 18 Rate Blood Pressure 143/91 This report was requested by: Yoselin King | Reference #: [id number] Others' Prescriptions Patient Name: Merlin Banegas Date: 1965 Address: [address] [place] [address] Sex: Male Rx Written Rx Dispensed Drug Quantity Days Supply Prescriber Name 04/22/2019 04/23/2019 chlordiazepoxide 10 mg capsule 27 3 Kimberli Babcock NP 04/22/2019 04/22/2019 chlordiazepoxide 10 mg capsule 27 3 Kimberli Babcock PATIENT CARE 01/01/2019 01/01/2019 chlordiazepoxide 10 mg capsule 27 3 Kimberli Babcock PATIENT CARE 11/02/2018 11/02/2018 chlordiazepoxide 10 mg capsule 27 3 Analy Celis * - Drugs marked with an asterisk are compound drugs. If the compound drug is made up of more than one controlled substance, then each controlled substance will be a separate row in the ASSESSMENT AND PLAN: AUD - rehab"
[2019-08-28] MEDS: HYDROCHLOROTHIAZIDE 25 MG TABLET (FP) PO SCH (17:24)
[2019-08-28] MEDS: NYSTATIN 100,000 UNIT/GM TOPICAL CREAM 15 GM TUBE TP SCH (17:24)
[2019-08-28] MEDS: PANTOPRAZOLE 40 MG TABLET (FP) PO SCH (17:24)
[2019-08-28] MEDS: ACETAMINOPHEN 325 MG TABLET (FP) PO PRN (17:47)
[2019-08-28] MEDS: TIMOLOL 0.25% OPHTHALMIC SOL 5 ML BOTTLE OU SCH (21:43)
[2019-08-28] MEDS: BRIMONIDINE TARTRATE 0.2% OPHTHALMIC 5 ML BOTTLE OU SCH (21:44)
[2019-08-28] MEDS: THIAMINE HCL 100 MG TABLET (FP) PO SCH (21:45)
[2019-08-28] MEDS: MELATONIN 5 MG TABLETS PO PRN (21:47)
[2019-08-28] MEDS: BUDESONIDE/FORMETEROL FUMARATE 160/4.5 mcg INHALER IH SCH (21:48)
[2019-08-28] MEDS: LATANOPROST 0.005% OPHTH SOLN 2.5ML BOTTLE OU SCH (22:21)
[2019-08-28] MEDS: DORZOLAMIDE 2% HCL OPHTHALMIC SOLUTION 10 ML BOTTLE OU SCH (22:22)
[2019-08-29] MEDS: DORZOLAMIDE 2% HCL OPHTHALMIC SOLUTION 10 ML BOTTLE OU SCH ×3 (06:47→21:28)
[2019-08-29] MEDS: HYDROCHLOROTHIAZIDE 25 MG TABLET (FP) PO SCH (10:43)
[2019-08-29] MEDS: TIMOLOL 0.25% OPHTHALMIC SOL 5 ML BOTTLE OU SCH ×2 (10:43→21:27)
[2019-08-29] MEDS: PRENATAL VITAMINS W/ FOLIC ACID TABLET (FP) PO SCH (10:43)
[2019-08-29] MEDS: PANTOPRAZOLE 40 MG TABLET (FP) PO SCH (10:43)
[2019-08-29] MEDS: NYSTATIN 100,000 UNIT/GM TOPICAL CREAM 15 GM TUBE TP SCH (10:44)
[2019-08-29] MEDS: BRIMONIDINE TARTRATE 0.2% OPHTHALMIC 5 ML BOTTLE OU SCH ×2 (10:44→21:28)
[2019-08-29] MEDS: BUDESONIDE/FORMETEROL FUMARATE 160/4.5 mcg INHALER IH SCH ×2 (10:45→21:27)
[2019-08-29] MEDS: NICOTINE 7 MG/24 HOURS TOPICAL PATCH TD SCH (10:45)
[2019-08-29] MEDS: IBUPROFEN 400 MG TABLET (FP) PO PRN (12:34)
--- NOTE | 2019-08-29 15:01 | PN ---
[facility] Progress Note Note: Pt is a 54 y/o male with a hx of alcohol dependence admitted to rehab from [facility]. Pt has a PMHx of Glaucoma coral., HTN,Asthma,GERD,. PShX of Umbilical Herna repair. Pt reports he has a primary care doctor at [facility] outpatient clinic. Vital Signs - 24 hr 08/28/19 08/29/19 08/29/19 16:51 00:30 03:30 Temperature 97.6 F Pulse Rate 67 Respiratory 18 18 18 Rate Blood Pressure 133/91 08/29/19 07:10 Temperature 97.8 F Pulse Rate 71 Respiratory 18 Rate Blood Pressure 129/90 Lab results pending. A/P New pt to rehab Maintain safety.
[2019-08-29 17:43] LABS: HEMATOCRIT 45.5 % (35.4-49); HEMOGLOBIN 14.6 GM/dL (11.7-16.9); MEAN CELL VOLUME 90.5 fl (80-96); MEAN PLT VOLUME 9.4 fl (7.5-11.1); PLATELET COUNT 253 K/MM3 (134-434); RBC 5.02 M/mm3 (4.00-5.60); WHITE BLOOD COUNT 6.3 K/mm3 (4.0-10.0)
[2019-08-29 18:02] LABS: ALBUMIN 4.4 g/dl (3.4-5.0); BILIRUBIN,TOTAL 1.1 mg/dL (0.2-1); BLOOD UREA NITROGEN 8.7 mg/dL (7-18); CALCIUM 10.2 mg/dL (8.5-10.1); POTASSIUM 3.8 mmol/L (3.5-5.1); TOT PROT 7.6 g/dl (6.4-8.2)
[2019-08-29] MEDS: THIAMINE HCL 100 MG TABLET (FP) PO SCH (21:27)
[2019-08-29] MEDS: LATANOPROST 0.005% OPHTH SOLN 2.5ML BOTTLE OU SCH (21:30)
[2019-08-29] MEDS: MONTELUKAST NA 10 MG TABLET PO SCH (21:30)
[2019-08-30] MEDS: DORZOLAMIDE 2% HCL OPHTHALMIC SOLUTION 10 ML BOTTLE OU SCH ×3 (06:17→22:12)
[2019-08-30] MEDS: BRIMONIDINE TARTRATE 0.2% OPHTHALMIC 5 ML BOTTLE OU SCH ×2 (10:19→22:11)
[2019-08-30] MEDS: HYDROCHLOROTHIAZIDE 25 MG TABLET (FP) PO SCH (10:20)
[2019-08-30] MEDS: PRENATAL VITAMINS W/ FOLIC ACID TABLET (FP) PO SCH (10:20)
[2019-08-30] MEDS: PANTOPRAZOLE 40 MG TABLET (FP) PO SCH (10:20)
[2019-08-30] MEDS: NICOTINE 7 MG/24 HOURS TOPICAL PATCH TD SCH (10:21)
[2019-08-30] MEDS: TIMOLOL 0.25% OPHTHALMIC SOL 5 ML BOTTLE OU SCH ×2 (10:21→22:13)
[2019-08-30] MEDS: BUDESONIDE/FORMETEROL FUMARATE 160/4.5 mcg INHALER IH SCH ×2 (10:21→21:34)
[2019-08-30] MEDS: NYSTATIN 100,000 UNIT/GM TOPICAL CREAM 15 GM TUBE TP SCH (10:22)
[2019-08-30] MEDS: ALBUTEROL SO4 8 GM HFA INHALER IH PRN (16:56)
[2019-08-30] MEDS: MENTHOL/PHENOL 1 EACH UD MM PRN (16:57)
[2019-08-30] MEDS: MONTELUKAST NA 10 MG TABLET PO SCH (21:33)
[2019-08-30] MEDS: LATANOPROST 0.005% OPHTH SOLN 2.5ML BOTTLE OU SCH (21:34)
[2019-08-30] MEDS: THIAMINE HCL 100 MG TABLET (FP) PO SCH (21:35)
[2019-08-31] MEDS: DORZOLAMIDE 2% HCL OPHTHALMIC SOLUTION 10 ML BOTTLE OU SCH ×3 (06:49→21:26)
[2019-08-31] MEDS: MENTHOL/PHENOL 1 EACH UD MM PRN ×2 (06:56→14:23)
[2019-08-31] MEDS: PRENATAL VITAMINS W/ FOLIC ACID TABLET (FP) PO SCH (10:46)
[2019-08-31] MEDS: TIMOLOL 0.25% OPHTHALMIC SOL 5 ML BOTTLE OU SCH ×2 (10:47→21:26)
[2019-08-31] MEDS: HYDROCHLOROTHIAZIDE 25 MG TABLET (FP) PO SCH (10:47)
[2019-08-31] MEDS: PANTOPRAZOLE 40 MG TABLET (FP) PO SCH (10:47)
[2019-08-31] MEDS: BUDESONIDE/FORMETEROL FUMARATE 160/4.5 mcg INHALER IH SCH ×2 (10:47→21:29)
[2019-08-31] MEDS: NICOTINE 7 MG/24 HOURS TOPICAL PATCH TD SCH (10:48)
[2019-08-31] MEDS: BRIMONIDINE TARTRATE 0.2% OPHTHALMIC 5 ML BOTTLE OU SCH ×2 (10:48→21:25)
[2019-08-31] MEDS: NYSTATIN 100,000 UNIT/GM TOPICAL CREAM 15 GM TUBE TP SCH (10:49)
[2019-08-31] MEDS: IBUPROFEN 400 MG TABLET (FP) PO PRN (14:21)
[2019-08-31] MEDS: THIAMINE HCL 100 MG TABLET (FP) PO SCH (21:24)
[2019-08-31] MEDS: MONTELUKAST NA 10 MG TABLET PO SCH (21:24)
[2019-08-31] MEDS: LATANOPROST 0.005% OPHTH SOLN 2.5ML BOTTLE OU SCH (21:28)
[2019-09-01] MEDS: DORZOLAMIDE 2% HCL OPHTHALMIC SOLUTION 10 ML BOTTLE OU SCH ×3 (06:19→21:15)
[2019-09-01] MEDS: PRENATAL VITAMINS W/ FOLIC ACID TABLET (FP) PO SCH (10:15)
[2019-09-01] MEDS: NICOTINE 7 MG/24 HOURS TOPICAL PATCH TD SCH (10:15)
[2019-09-01] MEDS: HYDROCHLOROTHIAZIDE 25 MG TABLET (FP) PO SCH (10:15)
[2019-09-01] MEDS: PANTOPRAZOLE 40 MG TABLET (FP) PO SCH (10:15)
[2019-09-01] MEDS: BUDESONIDE/FORMETEROL FUMARATE 160/4.5 mcg INHALER IH SCH ×2 (10:16→21:17)
[2019-09-01] MEDS: BRIMONIDINE TARTRATE 0.2% OPHTHALMIC 5 ML BOTTLE OU SCH ×2 (10:16→21:16)
[2019-09-01] MEDS: NYSTATIN 100,000 UNIT/GM TOPICAL CREAM 15 GM TUBE TP SCH (10:17)
[2019-09-01] MEDS: TIMOLOL 0.25% OPHTHALMIC SOL 5 ML BOTTLE OU SCH ×2 (10:17→21:15)
[2019-09-01] MEDS: IBUPROFEN 400 MG TABLET (FP) PO PRN ×2 (12:19→17:54)
[2019-09-01] MEDS: MENTHOL/PHENOL 1 EACH UD MM PRN (14:39)
[2019-09-01] MEDS: MONTELUKAST NA 10 MG TABLET PO SCH (21:16)
[2019-09-01] MEDS: THIAMINE HCL 100 MG TABLET (FP) PO SCH (21:16)
[2019-09-01] MEDS: LATANOPROST 0.005% OPHTH SOLN 2.5ML BOTTLE OU SCH (21:19)
[2019-09-02] MEDS: MENTHOL/PHENOL 1 EACH UD MM PRN ×2 (01:25→10:21)
[2019-09-02] MEDS: ALBUTEROL SO4 8 GM HFA INHALER IH PRN (06:40)
[2019-09-02] MEDS: DORZOLAMIDE 2% HCL OPHTHALMIC SOLUTION 10 ML BOTTLE OU SCH ×3 (06:49→21:11)
[2019-09-02] MEDS: PRENATAL VITAMINS W/ FOLIC ACID TABLET (FP) PO SCH (10:16)
[2019-09-02] MEDS: HYDROCHLOROTHIAZIDE 25 MG TABLET (FP) PO SCH (10:17)
[2019-09-02] MEDS: NICOTINE 7 MG/24 HOURS TOPICAL PATCH TD SCH (10:17)
[2019-09-02] MEDS: BUDESONIDE/FORMETEROL FUMARATE 160/4.5 mcg INHALER IH SCH ×2 (10:17→21:12)
[2019-09-02] MEDS: PANTOPRAZOLE 40 MG TABLET (FP) PO SCH (10:17)
[2019-09-02] MEDS: BRIMONIDINE TARTRATE 0.2% OPHTHALMIC 5 ML BOTTLE OU SCH ×2 (10:18→21:11)
[2019-09-02] MEDS: NYSTATIN 100,000 UNIT/GM TOPICAL CREAM 15 GM TUBE TP SCH (10:18)
[2019-09-02] MEDS: TIMOLOL 0.25% OPHTHALMIC SOL 5 ML BOTTLE OU SCH ×2 (10:19→21:11)
[2019-09-02] MEDS: IBUPROFEN 400 MG TABLET (FP) PO PRN (14:24)
[2019-09-02] MEDS: LATANOPROST 0.005% OPHTH SOLN 2.5ML BOTTLE OU SCH (21:12)
[2019-09-02] MEDS: MONTELUKAST NA 10 MG TABLET PO SCH (21:13)
[2019-09-02] MEDS: THIAMINE HCL 100 MG TABLET (FP) PO SCH (21:13)
[2019-09-03] MEDS: DORZOLAMIDE 2% HCL OPHTHALMIC SOLUTION 10 ML BOTTLE OU SCH ×3 (06:18→21:19)
[2019-09-03] MEDS: HYDROCHLOROTHIAZIDE 25 MG TABLET (FP) PO SCH (10:48)
[2019-09-03] MEDS: PANTOPRAZOLE 40 MG TABLET (FP) PO SCH (10:48)
[2019-09-03] MEDS: BUDESONIDE/FORMETEROL FUMARATE 160/4.5 mcg INHALER IH SCH ×2 (10:49→21:19)
[2019-09-03] MEDS: PRENATAL VITAMINS W/ FOLIC ACID TABLET (FP) PO SCH (10:50)
[2019-09-03] MEDS: NYSTATIN 100,000 UNIT/GM TOPICAL CREAM 15 GM TUBE TP SCH (10:50)
[2019-09-03] MEDS: NICOTINE 7 MG/24 HOURS TOPICAL PATCH TD SCH (10:51)
[2019-09-03] MEDS: TIMOLOL 0.25% OPHTHALMIC SOL 5 ML BOTTLE OU SCH ×2 (10:51→21:20)
[2019-09-03] MEDS: BRIMONIDINE TARTRATE 0.2% OPHTHALMIC 5 ML BOTTLE OU SCH ×2 (10:52→21:20)
--- NOTE | 2019-09-03 11:24 | PN ---
[facility] Progress Note Note: Pt c/o pain and swelling to left foot great toe area stating several version of reason--initially said he might have fractured it after "drinking a while ago". I had a shoe long time ago and i jumped on the curb". Also states later "i popped it. i hit it against my bed 2 days ago. then, yesterday". Pt states he did not report incident to nursing staff. Pt is requesting xray of left foot. Pt also c/o of hx cyst and arthritis to left hand which is painful. Took motrin but did not help much. Vital Signs - 24 hr 09/03/19 09/03/19 09/03/19 00:30 03:30 07:14 Pulse Rate 75 Respiratory 18 18 18 Rate Blood Pressure 126/79 09/03/19 09:35 Pulse Rate 69 Respiratory Rate Blood Pressure 122/69 Left/right Foot:great toes with a slightly bony prominence at the metatarsal phalangeal joints , no redness or swelling. Pain to side of left great toe. left wrist: cyst about 10cm on dorsal wrist area. A/P Hx Arthritis Ganglion Cyst-left wrist Xray left foot r/o fx Change motrin to Naprosyn RONAL bandage to left wrist as needed.
[2019-09-03] MEDS: ACETAMINOPHEN 325 MG TABLET (FP) PO PRN (19:40)
[2019-09-03] MEDS: MONTELUKAST NA 10 MG TABLET PO SCH (21:18)
[2019-09-03] MEDS: THIAMINE HCL 100 MG TABLET (FP) PO SCH (21:18)
[2019-09-03] MEDS: LATANOPROST 0.005% OPHTH SOLN 2.5ML BOTTLE OU SCH (21:19)
[2019-09-04] MEDS: DORZOLAMIDE 2% HCL OPHTHALMIC SOLUTION 10 ML BOTTLE OU SCH ×3 (06:12→21:13)
[2019-09-04 07:46] VITALS: TEMP 0
[2019-09-04] MEDS: TIMOLOL 0.25% OPHTHALMIC SOL 5 ML BOTTLE OU SCH ×2 (10:38→21:13)
[2019-09-04] MEDS: BUDESONIDE/FORMETEROL FUMARATE 160/4.5 mcg INHALER IH SCH ×2 (10:38→21:14)
[2019-09-04] MEDS: BRIMONIDINE TARTRATE 0.2% OPHTHALMIC 5 ML BOTTLE OU SCH ×2 (10:38→21:13)
[2019-09-04] MEDS: HYDROCHLOROTHIAZIDE 25 MG TABLET (FP) PO SCH (10:39)
[2019-09-04] MEDS: PANTOPRAZOLE 40 MG TABLET (FP) PO SCH (10:39)
[2019-09-04] MEDS: PRENATAL VITAMINS W/ FOLIC ACID TABLET (FP) PO SCH (10:39)
[2019-09-04] MEDS: NICOTINE 7 MG/24 HOURS TOPICAL PATCH TD SCH (10:41)
[2019-09-04] MEDS: NAPROXEN 500 MG TABLET (FP) PO PRN (14:03)
[2019-09-04] MEDS: NYSTATIN 100,000 UNIT/GM TOPICAL CREAM 15 GM TUBE TP SCH (14:27)
[2019-09-04] MEDS: LATANOPROST 0.005% OPHTH SOLN 2.5ML BOTTLE OU SCH (21:12)
[2019-09-04] MEDS: MELATONIN 5 MG TABLETS PO PRN (21:14)
[2019-09-04] MEDS: THIAMINE HCL 100 MG TABLET (FP) PO SCH (21:14)
[2019-09-04] MEDS: MONTELUKAST NA 10 MG TABLET PO SCH (21:16)
[2019-09-04] MEDS: ARTIFICIAL TEARS (POLYVINYL ALCOHOL) OPTH DROPS OU SCH (21:20)
[2019-09-05] MEDS: DORZOLAMIDE 2% HCL OPHTHALMIC SOLUTION 10 ML BOTTLE OU SCH ×3 (06:11→21:19)
[2019-09-05] MEDS: ARTIFICIAL TEARS (POLYVINYL ALCOHOL) OPTH DROPS OU SCH ×3 (06:11→21:20)
[2019-09-05] MEDS: NAPROXEN 500 MG TABLET (FP) PO PRN (08:44)
[2019-09-05] MEDS: HYDROCHLOROTHIAZIDE 25 MG TABLET (FP) PO SCH (10:33)
[2019-09-05] MEDS: PANTOPRAZOLE 40 MG TABLET (FP) PO SCH (10:33)
[2019-09-05] MEDS: BRIMONIDINE TARTRATE 0.2% OPHTHALMIC 5 ML BOTTLE OU SCH ×2 (10:34→21:19)
[2019-09-05] MEDS: PRENATAL VITAMINS W/ FOLIC ACID TABLET (FP) PO SCH (10:34)
[2019-09-05] MEDS: TIMOLOL 0.25% OPHTHALMIC SOL 5 ML BOTTLE OU SCH ×2 (10:35→21:18)
[2019-09-05] MEDS: NYSTATIN 100,000 UNIT/GM TOPICAL CREAM 15 GM TUBE TP SCH (10:37)
[2019-09-05] MEDS: BUDESONIDE/FORMETEROL FUMARATE 160/4.5 mcg INHALER IH SCH ×2 (10:37→21:20)
[2019-09-05] MEDS: NICOTINE 7 MG/24 HOURS TOPICAL PATCH TD SCH (13:46)
[2019-09-05] MEDS: ALBUTEROL SO4 8 GM HFA INHALER IH PRN (19:41)
[2019-09-05] MEDS: LATANOPROST 0.005% OPHTH SOLN 2.5ML BOTTLE OU SCH (21:18)
[2019-09-05] MEDS: MONTELUKAST NA 10 MG TABLET PO SCH (21:20)
[2019-09-05] MEDS: THIAMINE HCL 100 MG TABLET (FP) PO SCH (21:21)
[2019-09-06] MEDS: DORZOLAMIDE 2% HCL OPHTHALMIC SOLUTION 10 ML BOTTLE OU SCH ×3 (06:42→21:32)
[2019-09-06] MEDS: ARTIFICIAL TEARS (POLYVINYL ALCOHOL) OPTH DROPS OU SCH ×3 (06:43→21:33)
[2019-09-06] MEDS: HYDROCHLOROTHIAZIDE 25 MG TABLET (FP) PO SCH (10:48)
[2019-09-06] MEDS: PANTOPRAZOLE 40 MG TABLET (FP) PO SCH (10:48)
[2019-09-06] MEDS: BUDESONIDE/FORMETEROL FUMARATE 160/4.5 mcg INHALER IH SCH ×2 (10:48→21:32)
[2019-09-06] MEDS: NICOTINE 7 MG/24 HOURS TOPICAL PATCH TD SCH (10:48)
[2019-09-06] MEDS: PRENATAL VITAMINS W/ FOLIC ACID TABLET (FP) PO SCH (10:48)
[2019-09-06] MEDS: BRIMONIDINE TARTRATE 0.2% OPHTHALMIC 5 ML BOTTLE OU SCH ×2 (10:49→21:31)
[2019-09-06] MEDS: TIMOLOL 0.25% OPHTHALMIC SOL 5 ML BOTTLE OU SCH ×2 (10:49→21:31)
[2019-09-06] MEDS: NYSTATIN 100,000 UNIT/GM TOPICAL CREAM 15 GM TUBE TP SCH (10:50)
[2019-09-06] MEDS: LATANOPROST 0.005% OPHTH SOLN 2.5ML BOTTLE OU SCH (21:31)
[2019-09-06] MEDS: MONTELUKAST NA 10 MG TABLET PO SCH (21:32)
[2019-09-06] MEDS: THIAMINE HCL 100 MG TABLET (FP) PO SCH (21:47)
[2019-09-07] MEDS: DORZOLAMIDE 2% HCL OPHTHALMIC SOLUTION 10 ML BOTTLE OU SCH (06:43)
[2019-09-07] MEDS: ARTIFICIAL TEARS (POLYVINYL ALCOHOL) OPTH DROPS OU SCH (06:44)
[2019-09-07 06:50] VITALS: BP 153/102; PULSE 69
[2019-09-07] MEDS: NYSTATIN 100,000 UNIT/GM TOPICAL CREAM 15 GM TUBE TP SCH (09:11)
[2019-09-07] MEDS: PANTOPRAZOLE 40 MG TABLET (FP) PO SCH (09:11)
[2019-09-07] MEDS: BUDESONIDE/FORMETEROL FUMARATE 160/4.5 mcg INHALER IH SCH (09:11)
[2019-09-07] MEDS: ACETAMINOPHEN 325 MG TABLET (FP) PO PRN (09:11)
[2019-09-07] MEDS: HYDROCHLOROTHIAZIDE 25 MG TABLET (FP) PO SCH (09:11)
[2019-09-07] MEDS: PRENATAL VITAMINS W/ FOLIC ACID TABLET (FP) PO SCH (09:11)
[2019-09-07] MEDS: TIMOLOL 0.25% OPHTHALMIC SOL 5 ML BOTTLE OU SCH (09:12)
[2019-09-07] MEDS: BRIMONIDINE TARTRATE 0.2% OPHTHALMIC 5 ML BOTTLE OU SCH (09:14)
[2019-09-07] MEDS: NICOTINE 7 MG/24 HOURS TOPICAL PATCH TD SCH (09:14)
--- NOTE | 2019-09-07 11:52 | DS ---
[facility] Rehab Discharge Summary - [facility] Rehab Discharge Summary Admission Date: 08/28/19 Discharge Date: 09/07/19 - History Present History: Alcohol dependence Pertinent Past History: Pt is a 54 yo M with PMHx of HTN, asthma, glaucoma, known alcohol abuse here for alcohol rehab. Last drink in July 2019 Started at 12 years, became a problem at 18 after he could buy his own drink Never had seizures, black outs+, 2018, had alcohol,poisoning Family Hx + ETOH dependence, father. - Discharge Physical Exam Vital Signs: Vital Signs Temperature 0 F L 09/07/19 06:50 Pulse Rate 69 09/07/19 06:50 Respiratory Rate 18 09/07/19 06:50 Blood Pressure 153/102 H 09/07/19 06:50 O2 Sat by Pulse Oximetry (%) - Treatment Discharge Condition: Discharge condition good Hospital Course: Laboratory Tests 08/29/19 08/29/19 08/29/19 08:10 08:10 08:10 WBC 6.3 RBC 5.02 Hgb 14.6 Hct 45.5 MCV 90.5 MCH 29.0 MCHC 32.0 RDW 15.0 Plt Count 253 MPV 9.4 Sodium 137 Potassium 3.8 Chloride 102 Carbon Dioxide 26 Anion Gap 10 BUN 8.7 Creatinine 1.0 Est GFR (CKD-EPI)AfAm 97.08 Est GFR (CKD-EPI)NonAf 83.76 POC Glucometer Random Glucose 112 H Calcium 10.2 H Total Bilirubin 1.1 H AST 20 ALT 33 Alkaline Phosphatase 57 Total Protein 7.6 Albumin 4.4 RPR Titer Nonreactive 09/01/19 09/02/19 09/03/19 06:21 05:57 06:16 WBC RBC Hgb Hct MCV MCH MCHC RDW Plt Count MPV Sodium Potassium Chloride Carbon Dioxide Anion Gap BUN Creatinine Est GFR (CKD-EPI)AfAm Est GFR (CKD-EPI)NonAf POC Glucometer 122 110 115 Random Glucose Calcium Total Bilirubin AST ALT Alkaline Phosphatase Total Protein Albumin RPR Titer 09/04/19 09/05/19 09/06/19 06:14 06:10 06:41 WBC RBC Hgb Hct MCV MCH MCHC RDW Plt Count MPV Sodium Potassium Chloride Carbon Dioxide Anion Gap BUN Creatinine Est GFR (CKD-EPI)AfAm Est GFR (CKD-EPI)NonAf POC Glucometer 110 103 115 Random Glucose Calcium Total Bilirubin AST ALT Alkaline Phosphatase Total Protein Albumin RPR Titer 09/07/19 06:41 WBC RBC Hgb Hct MCV MCH MCHC RDW Plt Count MPV Sodium Potassium Chloride Carbon Dioxide Anion Gap BUN Creatinine Est GFR (CKD-EPI)AfAm Est GFR (CKD-EPI)NonAf POC Glucometer 116 Random Glucose Calcium Total Bilirubin AST ALT Alkaline Phosphatase Total Protein Albumin RPR Titer Vital Signs Temperature 0 F L 09/07/19 06:50 Pulse Rate 69 09/07/19 06:50 Respiratory Rate 18 09/07/19 06:50 Blood Pressure 153/102 H 09/07/19 06:50 O2 Sat by Pulse Oximetry (%) ROS: denies headache, alcohol cravings, chest pain, sob and shakes PE: alert and oriented x 3 skin warm and dry In NAD ext no tremors, full rom amb ad margarita with cane denies SI/HI A/P: ETOH dependence Medically stable for discharge Denies SI/HI Aftercare arranged for [facility]. Patient encouraged to attend group meetings/AA to prevent reoccurrence. Patient medically advised to followup with PCP as recommended. - Medication Discharge Medications: Ambulatory Orders Artificial Tears Eye Drops 1 drop OU BID 07/13/19 Nystatin Cream [Mycostatin Cream -] 1 applic TP DAILY 08/28/19 Trazodone HCl 150 mg PO HS 08/28/19 Albuterol Sulfate Inhaler - [Ventolin HFA Inhaler -] 2 inh PO Q6H PRN #1 inhaler 09/07/19 Brimonidine Tartrate [Alphagan 0.2% -] 1 drop OU BID #1 drops 09/07/19 Budesonide/Formeterol Fumarate [SYMBICORT 160/4.5mcg -] 1 inh PO BID #1 inhaler 09/07/19 Dorzolamide HCl [Trusopt 2% -] 1 drop OU TID #1 bottle 09/07/19 Hydrochlorothiazide [Hctz -] 25 mg PO DAILY #30 tablet 09/07/19 Latanoprost 0.005% Eye Drops [Xalatan 0.005% Eye Drops -] 1 drop OU HS #1 bottle 09/07/19 Montelukast Sodium [Singulair] 10 mg PO HS #30 tablet 09/07/19 Pantoprazole Sodium 40 mg PO DAILY #30 tablet. 09/07/19 Timolol 0.25% [Timoptic 0.25%] 1 drop OU BID #1 bottle 09/07/19 - Medication-Assisted Treatment (MAT) Medication-Assisted Treatment (MAT): No - Discharge Instructions Diet, activity, other medical instructions: Diet: NEHA as андрей Activity: as андрей Other medical instructions: follow up with pcp as recommended - Follow-up Referral Minutes to complete discharge: 30 - AMA Did Patient Leave Against Medical Advice: No
== END 2019-09-07 12:25 | disposition home or self-care (01) | DRG 772 ==
LOC: YASAS 11:14 → Y5N 15:34
PROVIDERS: ADMIT Neuromusculoskeletal Medicine & OMM; ATTEND Neuromusculoskeletal Medicine & OMM
PROC: HZ42ZZZ Group Counseling for Substance Abuse Treatment, Cognitive-Behavioral (ICD-10-PCS; principal; 2019-08-28)
DX: F10.20 Alcohol dependence, uncomplicated (principal); F12.20 Cannabis dependence, uncomplicated; F17.210 Nicotine dependence, cigarettes, uncomplicated; I10 Essential (primary) hypertension; J45.909 Unspecified asthma, uncomplicated; H40.9 Unspecified glaucoma; M67.432 Ganglion, left wrist; M19.90 Unspecified osteoarthritis, unspecified site; Z91.010 Allergy to peanuts; Z59.0 Homelessness
CPT/HCPCS: 36415; 73630-TC-LT; 80053; 82962; 85027; 86593

== ENCOUNTER 2019-09-28 10:47 | Inpatient (IN) | payer OTHER ==
[2019-09-28 11:34] VITALS: BMI 40.6
--- NOTE | 2019-09-28 11:59 | HP ---
CIWA Score Nausea/Vomitin Muscle Tremors: 3 Anxiety: 3 Agitation: 3 Paroxysmal Sweats: 1-Minimal Palms Moist Orientation: 0-Oriented Tacttile Disturbances: 1-Very Mild Itch/Numbness Auditory Disturbances: 0-None Visual Disturbances: 0-None Headache: 2-Mild CIWA-Ar Total Score: 15 - Admission Criteria OASAS Guidelines: Admission for Medically Managed Detox: Requires at least one of the followin. CIWA greater than 12 2. Seizures within the past 24 hours 3. Delirium tremens within the past 24 hours 4. Hallucinations within the past 24 hours 5. Acute intervention needed for co occurring medical disorder 6. Acute intervention needed for co occurring psychiatric disorder 7. Severe withdrawal that cannot be handled at a lower level of care (continued vomiting, continued diarrhea, abnormal vital signs) requiring intravenous medication and/or fluids 8. Admitting History and Physical - Admission Chief Complaint: i need help to stop drinking alcohol and marijuana History of Present Illness: this 54 years old male with alcohol and marijuana dependence,seeking detox, multiple admissions in detox and rehab History Source: Patient Limitations to Obtaining History: No Limitations - Past Medical History MARKETING OPERATIONS ASSISTANT: Yes: Other (glaucoma) Cardiovascular: Yes: HTN Pulmonary: Yes: Asthma Gastrointestinal: Yes: GERD Psych: Yes: Addictions - Smoking History Smoking history: Current every day smoker Have you smoked in the past 12 months: Yes Aproximately how many cigarettes per day: 2 If you are a former smoker, when did you quit?: 2017 - Alcohol/Substance Use Hx Alcohol Use: Yes History of Substance Use: reports: None - Social History Usual Living Arrangement: Yes: Other (homeless) ADL: Support Services Occupation: unemployed History of Recent Travel: Yes Admission [facility] Chief Complaint: i need help to stop drinking alcohol and marijuana Allergies/Adverse Reactions: Allergies Allergy/AdvReac Type Severity Reaction Status Date / Time peanut Allergy Severe Itching Verified 09/28/19 11:22 No Known Drug Allergies Allergy Unknown Verified 09/28/19 11:22 History of Present Illness: this 54 years old male with alcohol and marijuana dependence,seeking detox, withdrawal symptom, denied seizure denied syncope multiple admissions in detox and rehab but keep relapsing htn,asthma,glaucoma right no significant period of sobriety Exam Limitations: No Limitations - Ebola screening Have you traveled outside of the country in the last 21 days: No Have you had contact with anyone from an Ebola affected area: No - Review of Systems Constitutional: Loss of Appetite, Malaise, Night Sweats, Changes in sleep, Weakness EENT: reports: Nose Congestion, Other (glaucoma right eye) Respiratory: reports: Other (asthma) Cardiac: reports: No Symptoms Reported GI: reports: Nausea, Abdominal cramping : reports: No Symptoms Reported Musculoskeletal: reports: Back Pain, Muscle Pain Integumentary: reports: Dryness Neuro: reports: Headache, Tremors Endocrine: reports: No Symptoms Reported Hematology: reports: No Symptoms Reported Psychiatric: reports: No Sypmtoms Reported, Judgement Intact, Mood/Affect Appropiate, Orientated x3 Other Systems: Reviewed and Negative Patient History - Patient Medical History Hx Anemia: No Hx Asthma: Yes (on albuterolinhaler) Hx Chronic Obstructive Pulmonary Disease (COPD): No Hx Cancer: No Hx Cardiac Disorders: No Hx Congestive Heart Failure: No Hx Hypertension: Yes (on med) Hx Hypercholesterolemia: No Hx Pacemaker: No HX Cerebrovascular Accident: No Hx Seizures: No Hx Dementia: No Hx Diabetes: No Hx Gastrointestinal Disorders: Yes (GERD) Hx Liver Disease: No Hx Genitourinary Disorders: No Hx Sexually Transmitted Disorders: No Hx Renal Disease (ESRD): No Hx Thyroid Disease: No Hx Human Immunodeficiency Virus (HIV): No (last 2019 negative) Hx Hepatitis C: No Hx Depression: No Hx Suicide Attempt: No Hx Bipolar Disorder: No Hx Schizophrenia: No Other Medical History: no suicidal,no homicidal - Patient Surgical History Past Surgical History: Yes Hx Neurologic Surgery: No Hx Cataract Extraction: No Hx Cardiac Surgery: No Hx Lung Surgery: No Hx Breast Surgery: No Hx Breast Biopsy: No Hx Abdominal Surgery: Yes (UMBILICAL HERNIA REPAIR 04/2013) Hx Appendectomy: No Hx Cholecystectomy: No Hx Genitourinary Surgery: No Hx Section: No Hx Orthopedic Surgery: Yes (fx of both legs as a young child) Other Surgical History: fx of both legs at age of 7 years Anesthesia Reaction: No - PPD History Documented Results: Positive w/proof Implanted On Prior [facility] Admission?: No Date: 04/10/12 Results: CXR(-)01/17/19 PPD to be Administered?: No - Smoking Cessation Smoking history: Current every day smoker Have you smoked in the past 12 months: Yes Aproximately how many cigarettes per day: 2 If you are a former smoker, when did you quit?: 2017 Cigars Per Day: 0 Hx Chewing Tobacco Use: No Initiated information on smoking cessation: Yes 'Breaking Loose' booklet given: 09/28/19 - Substance & Tx. History Hx Alcohol Use: Yes Hx Substance Use: Yes Substance Use Type: Alcohol, Marijuana Hx Substance Use Treatment: Yes (last detox 08/12/19 to 08/16/19,rehab 08/28/19 to 09/07/19) - Substances abused Alcohol Substance route: Oral Frequency: Daily Amount used: 4 PINTS OF VODKA, (2) 6-PACK BEERS Age of first use: 12 Date of last use: 09/28/19 Marijuana/Hashish Substance route: Smoking Frequency: Daily Amount used: $20 Age of first use: 12 Date of last use: 09/27/19 Admission Physical Exam [facility] - Vital Signs Vital Signs: Vital Signs - 24 hr 09/28/19 11:21 Temperature 97.8 F Pulse Rate 80 Respiratory 18 Rate Blood Pressure 136/81 - Physical General Appearance: Yes: Moderate Distress, Tremorous, Irritable, Sweating, Anxious HEENTM: Yes: Normal ENT Inspection, BLANCA, Pharynx Normal, Other (glaucma right eye) Respiratory: Yes: Lungs Clear, Normal Breath Sounds, No Respiratory Distress Neck: Yes: Within Normal Limits, Supple, Trachea in good position Breast: Yes: Within Normal Limits Cardiology: Yes: Within Normal Limits, Regular Rhythm, Regular Rate, S1, S2 Abdominal: Yes: Within Normal Limits, Normal Bowel Sounds, Non Tender, Flat, Soft Genitourinary: Yes: Within Normal Limits Back: Yes: Muscle Spasm Musculoskeletal: Yes: Back pain, Muscle Pain Extremities: Yes: Within Normal Limits, Normal Range of Motion, Tremors Neurological: Yes: nutritional health coach II-XII NML intact, Alert, Motor Strength 5/5 Integumentary: Yes: Dry Lymphatic: Yes: Within Normal Limits - Diagnostic (1) Alcohol dependence with uncomplicated withdrawal Current Visit: No Status: Acute (2) History of umbilical hernia repair Current Visit: No Status: Acute (3) Cannabis dependence Current Visit: No Status: Chronic (4) Glaucoma, right eye Current Visit: No Status: Chronic (5) Homeless Current Visit: No Status: Suspected (6) Positive PPD, treated Current Visit: No Status: Resolved (7) Hypertension Current Visit: Yes Status: Acute (8) Asthma Current Visit: No Status: Chronic Cleared for Admission [facility] - Detox or Rehab [facility] Level of Care: Medically Managed Detox Regimen/Protocol: Librium Breathalyzer - Breathalyzer Breathalyzer: 0.028 Urine Drug Screen - Test Device Lot number: [id number] Expiration date: 06/25/21 - Control Is test valid?: Yes - Results Drug screen NEGATIVE: Yes Urine drug screen results: BZO-Benzodiazepines Inpatient Rehab Admission - Rehab Decision to Admit Inpatient rehab admission?: No
[2019-09-28] MEDS ORDERED: MELATONIN 5 MG TABLETS PO PRN (12:08)
[2019-09-28] MEDS ORDERED: IBUPROFEN 400 MG TABLET (FP) PO PRN (12:08)
[2019-09-28] MEDS ORDERED: chlordiazePOXIDE HCL 25 MG CAPSULE PO PRN (12:08)
[2019-09-28] MEDS ORDERED: MAGNESIUM HYDROX 2400MG/30ML ORAL SUSPENSION 30 ML CUP PO PRN (12:08)
[2019-09-28] MEDS ORDERED: MAG HYDROX/AL HYDROX/SIMETH 30 ML UNIT-DOSE CUP PO PRN (12:08)
[2019-09-28] MEDS ORDERED: hydrOXYzine PAMOATE 25 MG CAPSULE (FP) PO PRN (12:08)
[2019-09-28] MEDS ORDERED: ACETAMINOPHEN 325 MG TABLET (FP) PO PRN ×2 (12:08)
[2019-09-28] MEDS ORDERED: BISMUTH SUBSALICYLATE 262 MG/15 ML BTL PO PRN (12:08)
[2019-09-28] MEDS ORDERED: MAGNESIUM CITRATE 300 ML BOTTLE PO PRN (12:08)
[2019-09-28] MEDS ORDERED: MENTHOL/PHENOL 1 EACH UD MM PRN (12:08)
[2019-09-28] MEDS ORDERED: METHOCARBAMOL 500 MG TABLET PO PRN (12:08)
[2019-09-28] MEDS: FAMOTIDINE 20 MG TABLET PO SCH (12:45)
[2019-09-28] MEDS: ARTIFICIAL TEARS (POLYVINYL ALCOHOL) OPTH DROPS OU SCH ×2 (14:42→22:26)
[2019-09-28] MEDS: DORZOLAMIDE 2% HCL OPHTHALMIC SOLUTION 10 ML BOTTLE OU SCH ×2 (14:42→22:27)
[2019-09-28 15:38] LABS: HEMATOCRIT 41.7 % (35.4-49); HEMOGLOBIN 13.6 GM/dL (11.7-16.9); MCH 28.9 pg (25.7-33.7); MCHC 32.7 g/dl (32.0-35.9); MEAN CELL VOLUME 88.6 fl (80-96); MEAN PLT VOLUME 9.7 fl (7.5-11.1); PLATELET COUNT 256 K/MM3 (134-434); RDW 13.4 % (11.9-15.9); WHITE BLOOD COUNT 7.9 K/mm3 (4.0-10.0)
[2019-09-28 15:40] LABS: ALBUMIN 4.4 g/dl (3.4-5.0); BILIRUBIN,TOTAL 1.4 mg/dL (0.2-1); BLOOD UREA NITROGEN 11.3 mg/dL (7-18); CALCIUM 9.3 mg/dL (8.5-10.1); CREATININE 0.9 mg/dL (0.55-1.3); TOT PROT 7.5 g/dl (6.4-8.2)
[2019-09-28] MEDS: chlordiazePOXIDE HCL 25 MG CAPSULE PO SCH ×2 (17:33→22:25)
[2019-09-28] MEDS: THIAMINE HCL 100 MG TABLET (FP) PO SCH (22:25)
[2019-09-28] MEDS: BRIMONIDINE TARTRATE 0.2% OPHTHALMIC 5 ML BOTTLE OU SCH (22:26)
[2019-09-28] MEDS: LATANOPROST 0.005% OPHTH SOLN 2.5ML BOTTLE OU SCH (22:27)
[2019-09-28] MEDS: ALBUTEROL SO4 8 GM HFA INHALER IH PRN (22:32)
[2019-09-29] MEDS: chlordiazePOXIDE HCL 25 MG CAPSULE PO SCH ×4 (05:26→22:04)
[2019-09-29] MEDS: DORZOLAMIDE 2% HCL OPHTHALMIC SOLUTION 10 ML BOTTLE OU SCH ×3 (05:27→21:34)
[2019-09-29] MEDS ORDERED: PRENATAL VITAMINS W/ FOLIC ACID TABLET (FP) PO SCH (10:00)
[2019-09-29] MEDS: FAMOTIDINE 20 MG TABLET PO SCH (10:24)
[2019-09-29] MEDS: BRIMONIDINE TARTRATE 0.2% OPHTHALMIC 5 ML BOTTLE OU SCH ×2 (10:24→21:35)
[2019-09-29] MEDS: ARTIFICIAL TEARS (POLYVINYL ALCOHOL) OPTH DROPS OU SCH ×2 (10:24→21:36)
--- NOTE | 2019-09-29 11:54 | PN ---
S CIWA - CIWA Score Nausea/Vomitin-No Nausea/No Vomiting Muscle Tremors: 2 Anxiety: 3 Agitation: 1-Slight > Activity Paroxysmal Sweats: 3 Orientation: 0-Oriented Tacttile Disturbances: 0-None Auditory Disturbances: 0-None Visual Disturbances: 0-None Headache: 2-Mild CIWA-Ar Total Score: 11 S Progress Note (SOAP) Subjective: c/o sweats, anxiety, and headache. Objective: 09/29/19 11:51 Vital Signs 09/29/19 09/29/19 06:22 09:13 Temperature 98.3 F 97.9 F Pulse Rate 74 72 Respiratory 18 18 Rate Blood Pressure 122/82 128/82 Lab Results WBC 7.9 K/mm3 (4.0-10.0) 09/28/19 12:50 RBC 4.70 M/mm3 (4.00-5.60) 09/28/19 12:50 Hgb 13.6 GM/dL (11.7-16.9) 09/28/19 12:50 Hct 41.7 % (35.4-49) 09/28/19 12:50 MCV 88.6 fl (80-96) 09/28/19 12:50 MCHC 32.7 g/dl (32.0-35.9) 09/28/19 12:50 RDW 13.4 % (11.9-15.9) D 09/28/19 12:50 Plt Count 256 K/MM3 (134-434) 09/28/19 12:50 Sodium 139 mmol/L (136-145) 09/28/19 12:50 Potassium 4.0 mmol/L (3.5-5.1) 09/28/19 12:50 Chloride 108 mmol/L (98-107) H 09/28/19 12:50 Carbon Dioxide 24 mmol/L (21-32) 09/28/19 12:50 Anion Gap 6 MMOL/L (8-16) L 09/28/19 12:50 BUN 11.3 mg/dL (7-18) 09/28/19 12:50 Creatinine 0.9 mg/dL (0.55-1.3) 09/28/19 12:50 Random Glucose 103 mg/dL (74-106) 09/28/19 12:50 Calcium 9.3 mg/dL (8.5-10.1) 09/28/19 12:50 Labs noted. Assessment: 09/29/19 11:52 AOX3, in no acute respiratory distress. Full ROM, ambulating in the unit. Withdrawal symptoms. Plan: continue detox.
[2019-09-29] MEDS: LATANOPROST 0.005% OPHTH SOLN 2.5ML BOTTLE OU SCH (21:39)
[2019-09-29] MEDS: THIAMINE HCL 100 MG TABLET (FP) PO SCH (21:44)
[2019-09-30] MEDS ORDERED: chlordiazePOXIDE HCL 25 MG CAPSULE PO SCH (05:00)
[2019-09-30] MEDS: ALBUTEROL SO4 8 GM HFA INHALER IH PRN (05:09)
[2019-09-30] MEDS: DORZOLAMIDE 2% HCL OPHTHALMIC SOLUTION 10 ML BOTTLE OU SCH (05:09)
[2019-09-30 06:27] VITALS: BP 132/82; PULSE 82; TEMP 97
--- NOTE | 2019-09-30 14:53 | DS ---
[facility] Detox Discharge Summary Admission Date: 09/28/19 Discharge Date: 09/30/19 - History Present History: Alcohol Dependence Additional Comments: 54 years old male admitted on 09/28/19 for alcohol withdrawal sx management treated with librium detox regimen patient tolerated well alert oriented x 3 ambulating steady gait speech clearly coherently patient insists to leave the detox unit that family member is in the hospital " I have to go to the hospital" patient is aware of his obligation as well as agrees to attend community self help support meeting for chemical dependent recovery Pertinent Past History: case discussed with the nurse against medical advice is appropriated - Physical Exam Results Vital Signs: Vital Signs Temperature 97 F L 09/30/19 06:26 Pulse Rate 82 09/30/19 06:26 Respiratory Rate 18 09/30/19 06:26 Blood Pressure 132/82 09/30/19 06:26 O2 Sat by Pulse Oximetry (%) Pertinent Admission Physical Exam Findings: alcohol withdrawal Laboratory Last Values WBC 7.9 K/mm3 (4.0-10.0) 09/28/19 12:50 RBC 4.70 M/mm3 (4.00-5.60) 09/28/19 12:50 Hgb 13.6 GM/dL (11.7-16.9) 09/28/19 12:50 Hct 41.7 % (35.4-49) 09/28/19 12:50 MCV 88.6 fl (80-96) 09/28/19 12:50 MCH 28.9 pg (25.7-33.7) 09/28/19 12:50 MCHC 32.7 g/dl (32.0-35.9) 09/28/19 12:50 RDW 13.4 % (11.9-15.9) D 09/28/19 12:50 Plt Count 256 K/MM3 (134-434) 09/28/19 12:50 MPV 9.7 fl (7.5-11.1) 09/28/19 12:50 Sodium 139 mmol/L (136-145) 09/28/19 12:50 Potassium 4.0 mmol/L (3.5-5.1) 09/28/19 12:50 Chloride 108 mmol/L (98-107) H 09/28/19 12:50 Carbon Dioxide 24 mmol/L (21-32) 09/28/19 12:50 Anion Gap 6 MMOL/L (8-16) L 09/28/19 12:50 BUN 11.3 mg/dL (7-18) 09/28/19 12:50 Creatinine 0.9 mg/dL (0.55-1.3) 09/28/19 12:50 Est GFR (CKD-EPI)AfAm 110.27 09/28/19 12:50 Est GFR (CKD-EPI)NonAf 95.14 09/28/19 12:50 Random Glucose 103 mg/dL (74-106) 09/28/19 12:50 Calcium 9.3 mg/dL (8.5-10.1) 09/28/19 12:50 Total Bilirubin 1.4 mg/dL (0.2-1) H 09/28/19 12:50 AST 16 U/L (15-37) 09/28/19 12:50 ALT 31 U/L (13-61) 09/28/19 12:50 Alkaline Phosphatase 59 U/L (45-117) 09/28/19 12:50 Total Protein 7.5 g/dl (6.4-8.2) 09/28/19 12:50 Albumin 4.4 g/dl (3.4-5.0) 09/28/19 12:50 RPR Titer Nonreactive (NONREACTIVE) 09/28/19 12:50 lab noted - Treatment Hospital Course: Detox Protocol Followed Patient has Accepted [facility] - Medication Discharge Medications: Ambulatory Orders Artificial Tears Eye Drops 1 drop OU BID 07/13/19 Nystatin Cream [Mycostatin Cream -] 1 applic TP DAILY 08/28/19 Albuterol Sulfate Inhaler - [Ventolin HFA Inhaler -] 2 inh PO Q6H PRN #1 inhaler 09/07/19 Brimonidine Tartrate [Alphagan 0.2% -] 1 drop OU BID #1 drops 09/07/19 Budesonide/Formeterol Fumarate [SYMBICORT 160/4.5mcg -] 1 inh PO BID #1 inhaler 09/07/19 Dorzolamide HCl [Trusopt 2% -] 1 drop OU TID #1 bottle 09/07/19 Hydrochlorothiazide [Hctz -] 25 mg PO DAILY #30 tablet 12/13/19 Latanoprost 0.005% Eye Drops [Xalatan 0.005% Eye Drops -] 1 drop OU HS #1 bottle 09/07/19 Pantoprazole Sodium 40 mg PO DAILY #30 tablet.dr 09/07/19 Timolol 0.25% [Timoptic 0.25%] 1 drop OU BID #1 bottle 09/07/19 - Diagnosis (1) Alcohol dependence with uncomplicated withdrawal Status: Acute (2) Hyperglycemia Status: Chronic (3) Hypertension Status: Chronic Qualifiers: Hypertension type: essential hypertension Qualified Code(s): I10 - Essential (primary) hypertension (4) Nicotine dependence Status: Acute Qualifiers: Nicotine product type: cigarettes Substance use status: in withdrawal Qualified Code(s): F17.213 - Nicotine dependence, cigarettes, with withdrawal (5) Asthma Status: Chronic (6) Essential (primary) hypertension Status: Chronic (7) GERD (gastroesophageal reflux disease) Status: Chronic Qualifiers: Esophagitis presence: without esophagitis Qualified Code(s): K21.9 - Gastro -esophageal reflux disease without esophagitis (8) Glaucoma, both eyes Status: Chronic Qualifiers: Glaucoma type: unspecified Qualified Code(s): H40.9 - Unspecified glaucoma (9) Morbid obesity Status: Chronic (10) Substance induced mood disorder Status: Suspected (11) Positive PPD, treated Status: Resolved - AMA Did Patient Leave Against Medical Advice: Yes
[2019-10-01] MEDS ORDERED: chlordiazePOXIDE HCL 10 MG CAPSULE PO PRN
[2019-10-01] MEDS ORDERED: chlordiazePOXIDE HCL 10 MG CAPSULE PO SCH (05:00)
[2019-10-02] MEDS ORDERED: chlordiazePOXIDE HCL 10 MG CAPSULE PO SCH (05:00)
[2019-10-03] MEDS ORDERED: chlordiazePOXIDE HCL 10 MG CAPSULE PO ONE (05:00)
== END 2019-09-30 08:50 | disposition left against medical advice (07) | DRG 770 ==
LOC: YASAS 10:47 → Y3N 12:10
PROVIDERS: ADMIT Allergy & Immunology; ATTEND Allergy & Immunology
PROC: HZ2ZZZZ Detoxification Services for Substance Abuse Treatment (ICD-10-PCS; principal; 2019-09-28)
DX: F10.230 Alcohol dependence with withdrawal, uncomplicated (principal); F12.20 Cannabis dependence, uncomplicated; F17.213 Nicotine dependence, cigarettes, with withdrawal; F19.24 Other psychoactive substance dependence with psychoactive substance-induced mood disorder; I10 Essential (primary) hypertension; R73.9 Hyperglycemia, unspecified; J45.909 Unspecified asthma, uncomplicated; K21.9 Gastro-esophageal reflux disease without esophagitis; H40.9 Unspecified glaucoma; R76.11 Nonspecific reaction to tuberculin skin test without active tuberculosis; E66.01 Morbid (severe) obesity due to excess calories; Z68.41 Body mass index [BMI] 40.0-44.9, adult; Z91.010 Allergy to peanuts; Z59.0 Homelessness
CPT/HCPCS: 36415; 80053; 85027; 86593

== ENCOUNTER 2019-11-20 09:30 | Inpatient (IN) | payer OTHER ==
--- NOTE | 2019-11-20 09:57 | BHS.RME ---
Substance Use & Tx History - Substance Use History Alcohol Substance amount: 3 pints vodka Frequency of use: Daily Substance route: Oral Date of Last Use: 11/19/19 (3 pm) Cannabis Substance amount: $20 Frequency of use: Daily Substance route: Smoking Date of Last Use: 11/19/19 CIWA Nausea/Vomitin-No Nausea/No Vomiting Muscle Tremors: None Anxiety: 0-No Anxiety, at Ease Agitation: 0-Normal Activity Paroxysmal Sweats: No Perspiration Orientation: 0-Oriented Tacttile Disturbances: 0-None Auditory Disturbances: 0-None Visual Disturbances: 0-None Headache: 0-None Present CIWA-Ar Total Score: 0 Treatment Recommendation - Level of Care Level of Care: Outpatient (patient again does not meet criteria and needs referral for rehab.)
[2019-11-20 10:01] VITALS: BMI 35.5
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
[2019-11-20] MEDS ORDERED: ACETAMINOPHEN 325 MG TABLET (FP) PO PRN ×2 (12:35)
[2019-11-20] MEDS ORDERED: MAGNESIUM CITRATE 300 ML BOTTLE PO PRN (12:35)
[2019-11-20] MEDS ORDERED: METHOCARBAMOL 500 MG TABLET PO PRN (12:35)
[2019-11-20] MEDS ORDERED: BISMUTH SUBSALICYLATE 524 MG/30 ML UD PO PRN (12:35)
[2019-11-20] MEDS ORDERED: MENTHOL/PHENOL 1 EACH UD MM PRN (12:35)
[2019-11-20] MEDS ORDERED: hydrOXYzine PAMOATE 25 MG CAPSULE (FP) PO PRN (12:35)
[2019-11-20] MEDS ORDERED: MAG HYDROX/AL HYDROX/SIMETH 30 ML UNIT-DOSE CUP PO PRN (12:35)
[2019-11-20] MEDS ORDERED: IBUPROFEN 400 MG TABLET (FP) PO PRN (12:35)
[2019-11-20] MEDS ORDERED: MELATONIN 5 MG TABLETS PO PRN (12:35)
[2019-11-20] MEDS ORDERED: MAGNESIUM HYDROX 2400MG/30ML ORAL SUSPENSION 30 ML CUP PO PRN (12:35)
[2019-11-20] MEDS ORDERED: chlordiazePOXIDE HCL 25 MG CAPSULE PO PRN (12:35)
[2019-11-20] MEDS ORDERED: ALBUTEROL SO4 HFA INHALER IH PRN (12:36)
[2019-11-20] MEDS ORDERED: HYDROCHLOROTHIAZIDE 50 MG TABLET PO SCH (14:00)
[2019-11-20] MEDS ORDERED: HYDROCHLOROTHIAZIDE 25 MG TABLET (FP) PO SCH (14:00)
[2019-11-20] MEDS ORDERED: ALBUTEROL SO4 2.5/IPRATROPIUM 0.5 INH SOL 3 ML VIAL.NEB. NEB PRN (14:14)
[2019-11-20] MEDS ORDERED: ALBUTEROL SO4 2.5/IPRATROPIUM 0.5 INH SOL 3 ML VIAL.NEB. NEB ONE (14:17)
--- NOTE | 2019-11-20 14:17 | PN ---
S Progress Note Note: Vital Signs Temperature 97.7 F 11/20/19 12:27 Pulse Rate 103 H 11/20/19 12:27 Respiratory Rate 19 11/20/19 12:27 Blood Pressure 161/94 11/20/19 12:27 O2 Sat by Pulse Oximetry (%) reports hx of asthma c/o of wheezing Patient Aox3 no acute distress FULL ROM ambulating in the unit + left lower lower expiratory wheezing - wheezing duo neb PRN advised on smoking cessation continue to monitor
[2019-11-20] MEDS: HYDROCHLOROTHIAZIDE 25 MG TABLET (FP) PO SCH (14:31)
[2019-11-20] MEDS: PANTOPRAZOLE 40 MG TABLET PO SCH (14:31)
[2019-11-20] MEDS: ARTIFICIAL TEARS (POLYVINYL ALCOHOL) OPTH DROPS OU SCH ×2 (14:32→22:38)
[2019-11-20] MEDS: BUDESONIDE/FORMETEROL FUMARATE 160/4.5 mcg INHALER IH SCH ×2 (14:32→22:38)
[2019-11-20] MEDS: NYSTATIN 100,000 UNIT/GM TOPICAL CREAM 15 GM TUBE TP SCH (14:58)
[2019-11-20] MEDS: TIMOLOL 0.25% OPHTHALMIC SOL 5 ML BOTTLE OU SCH ×2 (14:58→22:39)
[2019-11-20] MEDS: BRIMONIDINE TARTRATE 0.2% OPHTHALMIC 5 ML BOTTLE OU SCH ×2 (14:59→22:39)
[2019-11-20] MEDS: DORZOLAMIDE 2% HCL OPHTHALMIC SOLUTION 10 ML BOTTLE OU SCH ×2 (14:59→22:38)
[2019-11-20] MEDS: chlordiazePOXIDE HCL 25 MG CAPSULE PO SCH ×2 (17:10→22:16)
[2019-11-20] MEDS: THIAMINE HCL 100 MG TABLET (FP) PO SCH (22:17)
[2019-11-20] MEDS: LATANOPROST 0.005% OPHTH SOLN 2.5ML BOTTLE OU SCH (22:37)
[2019-11-21] MEDS: DORZOLAMIDE 2% HCL OPHTHALMIC SOLUTION 10 ML BOTTLE OU SCH ×3 (05:42→22:59)
[2019-11-21] MEDS: chlordiazePOXIDE HCL 25 MG CAPSULE PO SCH ×4 (05:43→22:36)
--- NOTE | 2019-11-21 09:57 | PN ---
[facility] CIWA - CIWA Score Nausea/Vomitin Muscle Tremors: 2 Anxiety: 1-Mildly Anxious Agitation: 1-Slight > Activity Paroxysmal Sweats: 2 Orientation: 0-Oriented Tacttile Disturbances: 1-Very Mild Itch/Numbness Auditory Disturbances: 0-None Visual Disturbances: 0-None Headache: 0-None Present CIWA-Ar Total Score: 9 [facility] Progress Note (SOAP) Subjective: interrupted sleep, sweats, nausea, [place] , wants increased sleeping meds . Objective: 11/21/19 09:54 Vital Signs Temperature 97.3 F L 11/21/19 06:02 Pulse Rate 67 11/21/19 06:02 Respiratory Rate 18 11/21/19 06:02 Blood Pressure 135/70 11/21/19 06:02 O2 Sat by Pulse Oximetry (%) pending labs 11/21/19 09:55 pt aox3 in nad eatting breakfast in day room Assessment: 11/21/19 09:55 withdrawal sx's gerd insomnia Plan: cont. detox increase fluids f/up pending labs increase fluids melatonin 10mg hs pepcid 20mg /day
[2019-11-21] MEDS ORDERED: FAMOTIDINE 20 MG TABLET PO SCH (10:00)
[2019-11-21] MEDS ORDERED: PRENATAL VITAMINS W/ FOLIC ACID TABLET (FP) PO SCH (10:00)
[2019-11-21] MEDS: NYSTATIN 100,000 UNIT/GM TOPICAL CREAM 15 GM TUBE TP SCH (10:15)
[2019-11-21] MEDS: BUDESONIDE/FORMETEROL FUMARATE 160/4.5 mcg INHALER IH SCH ×2 (10:15→23:00)
[2019-11-21] MEDS: HYDROCHLOROTHIAZIDE 25 MG TABLET (FP) PO SCH (10:16)
[2019-11-21] MEDS: PANTOPRAZOLE 40 MG TABLET PO SCH (10:16)
[2019-11-21] MEDS: ARTIFICIAL TEARS (POLYVINYL ALCOHOL) OPTH DROPS OU SCH ×2 (10:16→22:59)
[2019-11-21] MEDS: BRIMONIDINE TARTRATE 0.2% OPHTHALMIC 5 ML BOTTLE OU SCH ×2 (10:17→22:59)
[2019-11-21] MEDS: TIMOLOL 0.25% OPHTHALMIC SOL 5 ML BOTTLE OU SCH ×2 (10:17→22:59)
[2019-11-21 10:57] LABS: HEMOGLOBIN 14.3 GM/dL (11.7-16.9); MCH 29.5 pg (25.7-33.7); MCHC 33.2 g/dl (32.0-35.9); MEAN PLT VOLUME 9.6 fl (7.5-11.1); PLATELET COUNT 247 K/MM3 (134-434); RBC 4.83 M/mm3 (4.00-5.60); RDW 14.3 % (11.9-15.9); WHITE BLOOD COUNT 8.9 K/mm3 (4.0-10.0)
[2019-11-21 11:05] LABS: ALBUMIN 4.6 g/dl (3.4-5.0); BILIRUBIN,TOTAL 1.2 mg/dL (0.2-1); BLOOD UREA NITROGEN 14.5 mg/dL (7-18); CALCIUM 9.8 mg/dL (8.5-10.1); POTASSIUM 4.1 mmol/L (3.5-5.1)
[2019-11-21] MEDS ORDERED: MELATONIN 5 MG TABLETS PO PRN (22:00)
[2019-11-21] MEDS: THIAMINE HCL 100 MG TABLET (FP) PO SCH (22:36)
[2019-11-21 22:55] VITALS: TEMP 97.1
[2019-11-21] MEDS: LATANOPROST 0.005% OPHTH SOLN 2.5ML BOTTLE OU SCH (22:59)
[2019-11-22] MEDS ORDERED: chlordiazePOXIDE HCL 25 MG CAPSULE PO SCH (05:00)
[2019-11-22 07:10] VITALS: BP 122/85; PULSE 80
--- NOTE | 2019-11-22 07:44 | DS ---
[facility] Detox Discharge Summary Admission Date: 11/20/19 Discharge Date: 11/22/19 - History Present History: Alcohol Dependence, Cannabis Dependence Pertinent Past History: NICOTINE DEPENDENCE GLAUCOMA ASTHMA HTN GERD +PPD - Physical Exam Results Vital Signs: Vital Signs Temperature 97.1 F L 11/21/19 20:32 Pulse Rate 80 11/22/19 07:09 Respiratory Rate 18 11/22/19 07:09 Blood Pressure 122/85 11/22/19 07:09 O2 Sat by Pulse Oximetry (%) Pertinent Admission Physical Exam Findings: WITHDRAWAL SX'S Laboratory Tests 11/21/19 11/21/19 11/21/19 08:00 08:00 08:00 WBC 8.9 RBC 4.83 Hgb 14.3 Hct 43.0 MCV 89.0 MCH 29.5 MCHC 33.2 RDW 14.3 Plt Count 247 MPV 9.6 Sodium 136 Potassium 4.1 Chloride 100 Carbon Dioxide 30 Anion Gap 6 L BUN 14.5 Creatinine 1.0 Est GFR (CKD-EPI)AfAm 97.08 Est GFR (CKD-EPI)NonAf 83.76 Random Glucose 73 L Calcium 9.8 Total Bilirubin 1.2 H AST 18 ALT 33 Alkaline Phosphatase 64 Total Protein 8.0 Albumin 4.6 RPR Titer Nonreactive - Treatment Hospital Course: Discharged Condition Good - Medication Discharge Medications: Ambulatory Orders Albuterol Sulfate Inhaler - [Ventolin HFA Inhaler -] 2 inh PO Q6H PRN #1 inhaler 09/07/19 Brimonidine Tartrate [Alphagan 0.2% -] 1 drop OU BID #1 drops 09/07/19 Budesonide/Formeterol Fumarate [SYMBICORT 160/4.5mcg -] 1 inh PO BID #1 inhaler 09/07/19 Dorzolamide HCl [Trusopt 2% -] 1 drop OU TID #1 bottle 09/07/19 Hydrochlorothiazide [Hctz -] 25 mg PO DAILY #30 tablet 09/07/19 Latanoprost 0.005% Eye Drops [Xalatan 0.005% Eye Drops -] 1 drop OU HS #1 bottle 09/07/19 Pantoprazole Sodium 40 mg PO DAILY #30 tablet. 09/07/19 Timolol 0.25% [Timoptic 0.25%] 1 drop OU BID #1 bottle 09/07/19 - AMA Did Patient Leave Against Medical Advice: Yes ( 20 MIN DC- CLIENT REQUEST TO SIGN OUT AMA. DID NOT WANT TO DISCUSS WITH [facility])
[2019-11-23] MEDS ORDERED: chlordiazePOXIDE HCL 10 MG CAPSULE PO PRN
[2019-11-23] MEDS ORDERED: chlordiazePOXIDE HCL 10 MG CAPSULE PO SCH (05:00)
[2019-11-24] MEDS ORDERED: chlordiazePOXIDE HCL 10 MG CAPSULE PO SCH (05:00)
[2019-11-25] MEDS ORDERED: chlordiazePOXIDE HCL 10 MG CAPSULE PO ONE (05:00)
== END 2019-11-22 06:13 | disposition left against medical advice (07) | DRG 770 ==
LOC: YASAS 09:30 → Y6N 13:12
PROVIDERS: ADMIT Allergy & Immunology; ATTEND Allergy & Immunology
PROC: HZ2ZZZZ Detoxification Services for Substance Abuse Treatment (ICD-10-PCS; principal; 2019-11-20)
DX: F10.230 Alcohol dependence with withdrawal, uncomplicated (principal); F12.20 Cannabis dependence, uncomplicated; F17.210 Nicotine dependence, cigarettes, uncomplicated; I10 Essential (primary) hypertension; J45.909 Unspecified asthma, uncomplicated; G47.00 Insomnia, unspecified; H40.9 Unspecified glaucoma; K21.9 Gastro-esophageal reflux disease without esophagitis; R76.11 Nonspecific reaction to tuberculin skin test without active tuberculosis; Z91.010 Allergy to peanuts; Z59.0 Homelessness
CPT/HCPCS: 36415; 80053; 85027; 86593; 94640

== ENCOUNTER 2021-01-22 13:52 | Inpatient (IN) | payer OTHER ==
[2021-01-22 15:59] VITALS: BMI 40.3
[2021-01-22] MEDS ORDERED: MENTHOL/PHENOL 1 EACH UD MM PRN (16:33)
[2021-01-22] MEDS ORDERED: MAGNESIUM CITRATE 300 ML BOTTLE PO PRN (16:33)
[2021-01-22] MEDS ORDERED: BISMUTH SUBSALICYLATE 524 MG/30 ML UD PO PRN (16:33)
[2021-01-22] MEDS ORDERED: ONDANSETRON *ODT* 4 MG TABLET SL PRN (16:33)
[2021-01-22] MEDS ORDERED: NICOTINE POLACRILEX 2 MG GUM BUC PRN (16:33)
[2021-01-22] MEDS ORDERED: ACETAMINOPHEN 325 MG TABLET (FP) PO PRN ×2 (16:33)
[2021-01-22] MEDS ORDERED: METHOCARBAMOL 500 MG TABLET PO PRN (16:33)
[2021-01-22] MEDS ORDERED: IBUPROFEN 400 MG TABLET (FP) PO PRN (16:33)
[2021-01-22] MEDS ORDERED: MAG HYDROX/AL HYDROX/SIMETH 30 ML UNIT-DOSE CUP PO PRN (16:33)
[2021-01-22] MEDS ORDERED: chlordiazePOXIDE HCL 25 MG CAPSULE PO PRN (16:33)
[2021-01-22] MEDS ORDERED: MAGNESIUM HYDROX 2400MG/30ML ORAL SUSPENSION 30 ML CUP PO PRN (16:33)
[2021-01-22] MEDS ORDERED: diphenhydrAMINE HCL 25 MG CAPSULE (FP) PO PRN (16:37)
[2021-01-22] MEDS ORDERED: PRENATAL VITAMINS W/ FOLIC ACID TABLET (FP) PO SCH (16:45)
[2021-01-22] MEDS ORDERED: NICOTINE 7 MG/24 HOURS TOPICAL PATCH TD SCH (16:45)
[2021-01-22] MEDS ORDERED: ALBUTEROL SO4 HFA INHALER IH PRN (17:30)
[2021-01-22] MEDS ORDERED: chlordiazePOXIDE HCL 25 MG CAPSULE ONE (17:33)
[2021-01-22] MEDS: chlordiazePOXIDE HCL 25 MG CAPSULE PO SCH ×2 (17:35→22:52)
[2021-01-22] MEDS: hydrOXYzine PAMOATE 25 MG CAPSULE (FP) PO SCH ×2 (21:37→22:52)
[2021-01-22] MEDS ORDERED: TIMOLOL 0.25% OPHTHALMIC SOL 5 ML BOTTLE OU SCH (22:00)
[2021-01-22] MEDS ORDERED: BRIMONIDINE TARTRATE 0.2% OPHTHALMIC 5 ML BOTTLE OU SCH (22:00)
[2021-01-22] MEDS ORDERED: THIAMINE HCL 100 MG TABLET (FP) PO SCH (22:00)
[2021-01-22] MEDS ORDERED: MELATONIN 5 MG TABLETS PO SCH (22:00)
[2021-01-22] MEDS ORDERED: LATANOPROST 0.005% OPHTH SOLN 2.5ML BOTTLE OU SCH (22:00)
[2021-01-22] MEDS ORDERED: BUDESONIDE/FORMETEROL FUMARATE 160/4.5 mcg INHALER IH SCH (22:00)
[2021-01-22] MEDS: DORZOLAMIDE 2% HCL OPHTHALMIC SOLUTION 10 ML BOTTLE OU SCH (23:33)
[2021-01-23] MEDS: hydrOXYzine PAMOATE 25 MG CAPSULE (FP) PO SCH (06:28)
[2021-01-23] MEDS: chlordiazePOXIDE HCL 25 MG CAPSULE PO SCH (06:28)
[2021-01-23] MEDS: DORZOLAMIDE 2% HCL OPHTHALMIC SOLUTION 10 ML BOTTLE OU SCH (06:31)
[2021-01-23 09:08] VITALS: BP 151/81; PULSE 69; TEMP 97.2
[2021-01-23] MEDS ORDERED: PANTOPRAZOLE 40 MG TABLET PO SCH (10:00)
[2021-01-23] MEDS ORDERED: HYDROCHLOROTHIAZIDE 25 MG TABLET (FP) PO SCH (10:00)
[2021-01-23 10:39] LABS: HEMATOCRIT 39.3 % (35.4-49); HEMOGLOBIN 12.9 GM/dL (11.7-16.9); MCHC 32.9 g/dl (32.0-35.9); MEAN CELL VOLUME 91.2 fl (80-96); MEAN PLT VOLUME 9.5 fl (7.5-11.1); PLATELET COUNT 249 K/MM3 (134-434); RBC 4.31 M/mm3 (4.00-5.60); RDW 14.1 % (11.9-15.9); URINE APPEARANCE CLEAR; URINE BILIRUBIN NEGATIVE (NEGATIVE); URINE COLOR DK YELLOW; URINE GLUCOSE (UA) NEGATIVE (NEGATIVE); URINE KETONE TRACE (NEGATIVE); URINE LEUK ESTERASE NEGATIVE (NEGATIVE); URINE NITRITE NEGATIVE (NEGATIVE); URINE PROTEIN TRACE (NEGATIVE); URINE UROBILINOGEN 0.2 mg/dL (0.2-1.0); WHITE BLOOD COUNT 7.2 K/mm3 (4.0-10.0)
[2021-01-23 10:48] LABS: ALBUMIN 4.2 g/dl (3.4-5.0); BLOOD UREA NITROGEN 12.8 mg/dL (7-18); CALCIUM 9.3 mg/dL (8.5-10.1)
[2021-01-23 10:53] LABS: BILIRUBIN,TOTAL 0.9 mg/dL (0.2-1)
[2021-01-23 10:56] LABS: TOT PROT 7.2 g/dl (6.4-8.2)
[2021-01-24] MEDS ORDERED: chlordiazePOXIDE HCL 25 MG CAPSULE PO SCH (05:00)
[2021-01-25] MEDS ORDERED: chlordiazePOXIDE HCL 10 MG CAPSULE PO PRN
[2021-01-25] MEDS ORDERED: chlordiazePOXIDE HCL 10 MG CAPSULE PO SCH (05:00)
[2021-01-26] MEDS ORDERED: chlordiazePOXIDE HCL 10 MG CAPSULE PO SCH (05:00)
[2021-01-27] MEDS ORDERED: chlordiazePOXIDE HCL 10 MG CAPSULE PO ONE (05:00)
== END 2021-01-23 09:50 | disposition left against medical advice (07) | DRG 770 ==
LOC: YASAS 13:52 → Y6N 20:35
PROVIDERS: ADMIT Allergy & Immunology; ATTEND Allergy & Immunology
PROC: HZ2ZZZZ Detoxification Services for Substance Abuse Treatment (ICD-10-PCS; principal; 2021-01-19)
DX: F10.230 Alcohol dependence with withdrawal, uncomplicated (principal); F12.20 Cannabis dependence, uncomplicated; F17.210 Nicotine dependence, cigarettes, uncomplicated; H40.9 Unspecified glaucoma; I10 Essential (primary) hypertension; J45.909 Unspecified asthma, uncomplicated; K21.9 Gastro-esophageal reflux disease without esophagitis; K74.60 Unspecified cirrhosis of liver; K02.9 Dental caries, unspecified
CPT/HCPCS: 36415; 80053; 81003; 85027; 86780; 93005; 93010; C9803; U0003; U0005

== ENCOUNTER 2021-09-17 13:23 | Inpatient (IN) | payer OTHER ==
[2021-09-18] MEDS ORDERED: MAGNESIUM CITRATE 300 ML BOTTLE PO PRN (01:12)
[2021-09-18] MEDS ORDERED: LOPERAMIDE HCL 2 MG CAPSULE PO PRN (01:12)
[2021-09-18] MEDS ORDERED: ACETAMINOPHEN 325 MG TABLET (FP) PO PRN (01:12)
[2021-09-18] MEDS ORDERED: P-EPHED 60MG/TRIPROLIDI 2.5MG TABLET PO PRN (01:12)
[2021-09-18] MEDS ORDERED: IBUPROFEN 400 MG TABLET (FP) PO PRN (01:12)
[2021-09-18] MEDS ORDERED: MAGNESIUM HYDROX 2400MG/30ML ORAL SUSPENSION 30 ML CUP PO PRN (01:12)
[2021-09-18] MEDS ORDERED: guaiFENesin 200 MG/10 ML 10 ML UNIT-DOSE CUPS PO PRN (01:12)
[2021-09-18 02:29] VITALS: BMI 39.6
[2021-09-18] MEDS: PRENATAL VITAMINS W/ FOLIC ACID TABLET (FP) PO SCH (10:02)
[2021-09-18] MEDS: NICOTINE 21 MG/24 HOURS TOPICAL PATCH TD SCH (10:03)
[2021-09-18] MEDS: NICOTINE 7 MG/24 HOURS TOPICAL PATCH TD SCH (10:03)
[2021-09-18 12:26] LABS: ALBUMIN 3.8 g/dl (3.4-5.0); BLOOD UREA NITROGEN 13.2 mg/dL (7-18); CALCIUM 9.1 mg/dL (8.5-10.1)
[2021-09-18 12:28] LABS: HEMATOCRIT 39.4 % (35.4-49); HEMOGLOBIN 13.2 GM/dL (11.7-16.9); MCHC 33.4 g/dl (32.0-35.9); MEAN CELL VOLUME 89.8 fl (80-96); PLATELET COUNT 243 10^3/uL (134-434); RBC 4.39 M/mm3 (4.00-5.60); RDW 14.2 % (11.9-15.9); WHITE BLOOD COUNT 7.6 K/mm3 (4.0-10.0)
[2021-09-18 12:29] LABS: CREATININE 0.9 mg/dL (0.55-1.3)
[2021-09-18 12:31] LABS: BILIRUBIN,TOTAL 0.9 mg/dL (0.2-1); TOT PROT 7.2 g/dl (6.4-8.2)
[2021-09-18 12:55] LABS: SYPHILIS W/ RPR CONF NON-REACTIVE (NONREACTIVE)
[2021-09-18 13:26] LABS: HIV INTERPRETATION NEGATIVE (NEGATIVE)
[2021-09-18] MEDS: HYDROCHLOROTHIAZIDE 25 MG TABLET (FP) PO SCH (13:30)
[2021-09-18] MEDS: BUDESONIDE/FORMETEROL FUMARATE 160/4.5 mcg INHALER IH SCH ×2 (13:30→21:31)
[2021-09-18] MEDS ORDERED: TIMOLOL 0.25% OU SCH (15:45)
[2021-09-18 16:04] LABS: URINE APPEARANCE CLEAR; URINE BILIRUBIN NEGATIVE (NEGATIVE); URINE COLOR YELLOW; URINE GLUCOSE (UA) NEGATIVE (NEGATIVE); URINE KETONE NEGATIVE (NEGATIVE); URINE LEUK ESTERASE NEGATIVE (NEGATIVE); URINE NITRITE NEGATIVE (NEGATIVE); URINE PROTEIN NEGATIVE (NEGATIVE); URINE UROBILINOGEN 0.2 mg/dL (0.2-1.0)
[2021-09-18] MEDS: BRIMONIDINE TARTRATE OU SCH (18:38)
[2021-09-18] MEDS: DORZOLAMIDE HCL OU SCH (18:39)
[2021-09-18] MEDS: LATANOPROST 0.005% OPHTH SOLN 2.5ML BOTTLE OU SCH (21:29)
[2021-09-18] MEDS: THIAMINE HCL 100 MG TABLET (FP) PO SCH (21:30)
[2021-09-18] MEDS: MELATONIN 5 MG TABLETS PO SCH (21:31)
[2021-09-19] MEDS: ALBUTEROL SO4 HFA INHALER IH PRN (05:28)
[2021-09-19] MEDS: PRENATAL VITAMINS W/ FOLIC ACID TABLET (FP) PO SCH (10:39)
[2021-09-19] MEDS: HYDROCHLOROTHIAZIDE 25 MG TABLET (FP) PO SCH (10:39)
[2021-09-19] MEDS: BUDESONIDE/FORMETEROL FUMARATE 160/4.5 mcg INHALER IH SCH ×2 (11:41→21:36)
[2021-09-19] MEDS: NICOTINE 21 MG/24 HOURS TOPICAL PATCH TD SCH (11:41)
[2021-09-19] MEDS: NICOTINE 7 MG/24 HOURS TOPICAL PATCH TD SCH (11:41)
[2021-09-19] MEDS: ASPIRIN 81 MG CHEWABLE TABLETS PO SCH (14:33)
[2021-09-19] MEDS: LATANOPROST 0.005% OPHTH SOLN 2.5ML BOTTLE OU SCH (21:35)
[2021-09-19] MEDS: MELATONIN 5 MG TABLETS PO SCH (21:35)
[2021-09-19] MEDS: THIAMINE HCL 100 MG TABLET (FP) PO SCH (21:38)
[2021-09-19] MEDS: QUEtiapine FUMARATE 100 MG TABLET (FP) PO SCH (21:39)
[2021-09-19] MEDS ORDERED: SUVOREXANT 10 MG TABLET PO PRN (22:00)
[2021-09-20] MEDS ORDERED: PT OWN MED DRAWER 7, Y5N ONE (08:53)
[2021-09-20] MEDS: DORZOLAMIDE HCL OU SCH ×2 (10:16→15:26)
[2021-09-20] MEDS: BRIMONIDINE TARTRATE OU SCH ×2 (10:17→15:26)
[2021-09-20] MEDS: HYDROCHLOROTHIAZIDE 25 MG TABLET (FP) PO SCH (10:17)
[2021-09-20] MEDS: NICOTINE 7 MG/24 HOURS TOPICAL PATCH TD SCH (10:17)
[2021-09-20] MEDS: ASPIRIN 81 MG CHEWABLE TABLETS PO SCH (10:17)
[2021-09-20] MEDS: BUDESONIDE/FORMETEROL FUMARATE 160/4.5 mcg INHALER IH SCH ×2 (10:18→21:53)
[2021-09-20] MEDS: PRENATAL VITAMINS W/ FOLIC ACID TABLET (FP) PO SCH (10:18)
[2021-09-20] MEDS: NICOTINE 21 MG/24 HOURS TOPICAL PATCH TD SCH (10:18)
[2021-09-20] MEDS: LATANOPROST 0.005% OPHTH SOLN 2.5ML BOTTLE OU SCH (21:52)
[2021-09-20] MEDS: THIAMINE HCL 100 MG TABLET (FP) PO SCH (21:52)
[2021-09-20] MEDS: QUEtiapine FUMARATE 100 MG TABLET (FP) PO SCH (21:54)
[2021-09-20] MEDS: MELATONIN 5 MG TABLETS PO SCH (21:54)
[2021-09-21] MEDS: BUDESONIDE/FORMETEROL FUMARATE 160/4.5 mcg INHALER IH SCH ×2 (10:25→21:33)
[2021-09-21] MEDS: ASPIRIN 81 MG CHEWABLE TABLETS PO SCH (10:25)
[2021-09-21] MEDS: PRENATAL VITAMINS W/ FOLIC ACID TABLET (FP) PO SCH (10:25)
[2021-09-21] MEDS: HYDROCHLOROTHIAZIDE 25 MG TABLET (FP) PO SCH (10:26)
[2021-09-21] MEDS: NICOTINE 7 MG/24 HOURS TOPICAL PATCH TD SCH (10:26)
[2021-09-21] MEDS: NICOTINE 21 MG/24 HOURS TOPICAL PATCH TD SCH (10:26)
[2021-09-21] MEDS: BRIMONIDINE TARTRATE OU SCH ×2 (10:29→15:53)
[2021-09-21] MEDS: DORZOLAMIDE HCL OU SCH ×3 (10:29→15:53)
[2021-09-21] MEDS ORDERED: PT OWN MED DRAWER 7, Y5N ONE (14:46)
[2021-09-21] MEDS: LATANOPROST 0.005% OPHTH SOLN 2.5ML BOTTLE OU SCH (21:31)
[2021-09-22] MEDS: BRIMONIDINE TARTRATE OU SCH ×6 (08:02→15:23)
[2021-09-22] MEDS: DORZOLAMIDE HCL OU SCH ×6 (08:02→15:23)
[2021-09-22] MEDS: MELATONIN 5 MG TABLETS PO SCH ×2 (08:05→21:39)
[2021-09-22] MEDS: THIAMINE HCL 100 MG TABLET (FP) PO SCH ×2 (08:06→21:38)
[2021-09-22] MEDS: QUEtiapine FUMARATE 100 MG TABLET (FP) PO SCH ×2 (08:06→21:38)
[2021-09-22] MEDS: PRENATAL VITAMINS W/ FOLIC ACID TABLET (FP) PO SCH (10:14)
[2021-09-22] MEDS: NICOTINE 7 MG/24 HOURS TOPICAL PATCH TD SCH (10:14)
[2021-09-22] MEDS: NICOTINE 21 MG/24 HOURS TOPICAL PATCH TD SCH (10:14)
[2021-09-22] MEDS: TIMOLOL 0.5% OPHTHALMIC SOL 5 ML BOTTLE OU SCH (10:15)
[2021-09-22] MEDS: BUDESONIDE/FORMETEROL FUMARATE 160/4.5 mcg INHALER IH SCH ×2 (10:17→21:38)
[2021-09-22] MEDS: HYDROCHLOROTHIAZIDE 25 MG TABLET (FP) PO SCH (10:18)
[2021-09-22] MEDS: ASPIRIN 81 MG CHEWABLE TABLETS PO SCH (10:18)
[2021-09-22] MEDS: LIDOCAINE 5% TOPICAL PATCH TP SCH (14:35)
[2021-09-22] MEDS: LATANOPROST 0.005% OPHTH SOLN 2.5ML BOTTLE OU SCH (21:38)
[2021-09-22] MEDS: LIDOCAINE PATCH REMOVAL MC SCH (23:20)
[2021-09-23] MEDS: ALBUTEROL SO4 HFA INHALER IH PRN (10:15)
[2021-09-23] MEDS: ASPIRIN 81 MG CHEWABLE TABLETS PO SCH (10:16)
[2021-09-23] MEDS: BRIMONIDINE TARTRATE OU SCH ×3 (10:16→15:14)
[2021-09-23] MEDS: HYDROCHLOROTHIAZIDE 25 MG TABLET (FP) PO SCH (10:16)
[2021-09-23] MEDS: DORZOLAMIDE HCL OU SCH ×3 (10:16→15:14)
[2021-09-23] MEDS: PRENATAL VITAMINS W/ FOLIC ACID TABLET (FP) PO SCH (10:17)
[2021-09-23] MEDS: TIMOLOL 0.5% OPHTHALMIC SOL 5 ML BOTTLE OU SCH (10:18)
[2021-09-23] MEDS: BUDESONIDE/FORMETEROL FUMARATE 160/4.5 mcg INHALER IH SCH ×2 (10:18→21:39)
[2021-09-23] MEDS: LIDOCAINE 5% TOPICAL PATCH TP SCH (10:19)
[2021-09-23] MEDS: NICOTINE 7 MG/24 HOURS TOPICAL PATCH TD SCH (10:19)
[2021-09-23] MEDS: NICOTINE 21 MG/24 HOURS TOPICAL PATCH TD SCH (10:19)
[2021-09-23] MEDS: ARTIFICIAL TEARS (POLYVINYL ALCOHOL) OPTH DROPS OU PRN (14:42)
[2021-09-23] MEDS: MAG HYDROX/AL HYDROX/SIMETH 30 ML UNIT-DOSE CUP PO PRN (15:57)
[2021-09-23] MEDS: THIAMINE HCL 100 MG TABLET (FP) PO SCH (21:38)
[2021-09-23] MEDS: LIDOCAINE PATCH REMOVAL MC SCH (21:38)
[2021-09-23] MEDS: LATANOPROST 0.005% OPHTH SOLN 2.5ML BOTTLE OU SCH (21:38)
[2021-09-23] MEDS: QUEtiapine FUMARATE 100 MG TABLET (FP) PO SCH (21:39)
[2021-09-23] MEDS: MELATONIN 5 MG TABLETS PO SCH (21:39)
[2021-09-24] MEDS: ASPIRIN 81 MG CHEWABLE TABLETS PO SCH (10:08)
[2021-09-24] MEDS: DORZOLAMIDE HCL OU SCH ×3 (10:08→16:30)
[2021-09-24] MEDS: BRIMONIDINE TARTRATE OU SCH ×4 (10:10→23:24)
[2021-09-24] MEDS: PRENATAL VITAMINS W/ FOLIC ACID TABLET (FP) PO SCH (10:11)
[2021-09-24] MEDS: HYDROCHLOROTHIAZIDE 25 MG TABLET (FP) PO SCH (10:11)
[2021-09-24] MEDS: TIMOLOL 0.5% OPHTHALMIC SOL 5 ML BOTTLE OU SCH (10:15)
[2021-09-24] MEDS: NICOTINE 7 MG/24 HOURS TOPICAL PATCH TD SCH (11:18)
[2021-09-24] MEDS: BUDESONIDE/FORMETEROL FUMARATE 160/4.5 mcg INHALER IH SCH ×2 (11:18→21:16)
[2021-09-24] MEDS: NICOTINE 21 MG/24 HOURS TOPICAL PATCH TD SCH (11:18)
[2021-09-24] MEDS: LIDOCAINE 5% TOPICAL PATCH TP SCH (11:18)
[2021-09-24] MEDS: OMEGA-3 ACID ETHYL ESTERS (FATTY-ACIDS) 1 GM CAPSULE (FP) PO SCH ×2 (16:29→21:18)
[2021-09-24] MEDS: METHYL SALICYLATE/MENTHOL OINT 30 GM TUBE TP SCH ×2 (16:29→21:13)
[2021-09-24] MEDS: TOLNAFTATE 1% CREAM 15 GM TUBE TP SCH ×2 (16:30→22:45)
[2021-09-24] MEDS: LIDOCAINE PATCH REMOVAL MC SCH (21:14)
[2021-09-24] MEDS: THIAMINE HCL 100 MG TABLET (FP) PO SCH (21:15)
[2021-09-24] MEDS: LATANOPROST 0.005% OPHTH SOLN 2.5ML BOTTLE OU SCH (21:15)
[2021-09-24] MEDS: MELATONIN 5 MG TABLETS PO SCH (21:17)
[2021-09-24] MEDS: QUEtiapine FUMARATE 100 MG TABLET (FP) PO SCH (21:17)
[2021-09-24] MEDS ORDERED: PT OWN MED DRAWER 7, Y5N ONE (21:18)
[2021-09-25] MEDS: DORZOLAMIDE HCL OU SCH ×3 (06:52→15:58)
[2021-09-25] MEDS: ARTIFICIAL TEARS (POLYVINYL ALCOHOL) OPTH DROPS OU PRN (07:01)
[2021-09-25] MEDS: ASPIRIN 81 MG CHEWABLE TABLETS PO SCH (09:43)
[2021-09-25] MEDS: HYDROCHLOROTHIAZIDE 25 MG TABLET (FP) PO SCH (09:43)
[2021-09-25] MEDS: PRENATAL VITAMINS W/ FOLIC ACID TABLET (FP) PO SCH (09:43)
[2021-09-25] MEDS: LIDOCAINE 5% TOPICAL PATCH TP SCH (09:44)
[2021-09-25] MEDS: OMEGA-3 ACID ETHYL ESTERS (FATTY-ACIDS) 1 GM CAPSULE (FP) PO SCH ×2 (09:44→21:46)
[2021-09-25] MEDS: METHYL SALICYLATE/MENTHOL OINT 30 GM TUBE TP SCH ×2 (09:44→21:47)
[2021-09-25] MEDS: BUDESONIDE/FORMETEROL FUMARATE 160/4.5 mcg INHALER IH SCH ×2 (09:45→21:48)
[2021-09-25] MEDS: TOLNAFTATE 1% CREAM 15 GM TUBE TP SCH ×2 (09:45→23:11)
[2021-09-25] MEDS: TIMOLOL 0.5% OPHTHALMIC SOL 5 ML BOTTLE OU SCH (09:47)
[2021-09-25] MEDS: BRIMONIDINE TARTRATE OU SCH ×2 (09:48→15:58)
[2021-09-25] MEDS ORDERED: PT OWN MED DRAWER 7, Y5N ONE (09:49)
[2021-09-25] MEDS: ALBUTEROL SO4 HFA INHALER IH PRN (13:11)
[2021-09-25] MEDS: LATANOPROST 0.005% OPHTH SOLN 2.5ML BOTTLE OU SCH (21:43)
[2021-09-25] MEDS: LIDOCAINE PATCH REMOVAL MC SCH (21:44)
[2021-09-25] MEDS: MELATONIN 5 MG TABLETS PO SCH (21:48)
[2021-09-25] MEDS: THIAMINE HCL 100 MG TABLET (FP) PO SCH (21:48)
[2021-09-25] MEDS: QUEtiapine FUMARATE 100 MG TABLET (FP) PO SCH (21:48)
[2021-09-26] MEDS: DORZOLAMIDE HCL OU SCH ×3 (01:00→15:41)
[2021-09-26] MEDS: BRIMONIDINE TARTRATE OU SCH ×3 (01:00→15:41)
[2021-09-26] MEDS: PRENATAL VITAMINS W/ FOLIC ACID TABLET (FP) PO SCH (09:50)
[2021-09-26] MEDS: METHYL SALICYLATE/MENTHOL OINT 30 GM TUBE TP SCH ×2 (09:51→21:32)
[2021-09-26] MEDS: HYDROCHLOROTHIAZIDE 25 MG TABLET (FP) PO SCH (09:51)
[2021-09-26] MEDS: ASPIRIN 81 MG CHEWABLE TABLETS PO SCH (09:51)
[2021-09-26] MEDS: LIDOCAINE 5% TOPICAL PATCH TP SCH (09:52)
[2021-09-26] MEDS: OMEGA-3 ACID ETHYL ESTERS (FATTY-ACIDS) 1 GM CAPSULE (FP) PO SCH ×2 (09:52→21:31)
[2021-09-26] MEDS: TOLNAFTATE 1% CREAM 15 GM TUBE TP SCH ×2 (09:53→21:32)
[2021-09-26] MEDS: BUDESONIDE/FORMETEROL FUMARATE 160/4.5 mcg INHALER IH SCH ×2 (09:53→21:32)
[2021-09-26] MEDS: TIMOLOL 0.5% OPHTHALMIC SOL 5 ML BOTTLE OU SCH (09:54)
[2021-09-26] MEDS: ARTIFICIAL TEARS (POLYVINYL ALCOHOL) OPTH DROPS OU PRN (18:25)
[2021-09-26] MEDS: ALBUTEROL SO4 HFA INHALER IH PRN (19:51)
[2021-09-26] MEDS: LATANOPROST 0.005% OPHTH SOLN 2.5ML BOTTLE OU SCH (21:31)
[2021-09-26] MEDS: QUEtiapine FUMARATE 100 MG TABLET (FP) PO SCH (21:32)
[2021-09-26] MEDS: LIDOCAINE PATCH REMOVAL MC SCH (21:32)
[2021-09-26] MEDS: THIAMINE HCL 100 MG TABLET (FP) PO SCH (21:41)
[2021-09-26] MEDS: MELATONIN 5 MG TABLETS PO SCH (21:41)
[2021-09-27] MEDS: DORZOLAMIDE HCL OU SCH ×3 (06:10→15:13)
[2021-09-27] MEDS: BRIMONIDINE TARTRATE OU SCH ×3 (06:10→15:13)
[2021-09-27] MEDS: PRENATAL VITAMINS W/ FOLIC ACID TABLET (FP) PO SCH (09:47)
[2021-09-27] MEDS: OMEGA-3 ACID ETHYL ESTERS (FATTY-ACIDS) 1 GM CAPSULE (FP) PO SCH ×2 (09:48→21:21)
[2021-09-27] MEDS ORDERED: PT OWN MED DRAWER 7, Y5N ONE (09:48)
[2021-09-27] MEDS: HYDROCHLOROTHIAZIDE 25 MG TABLET (FP) PO SCH (09:48)
[2021-09-27] MEDS: ASPIRIN 81 MG CHEWABLE TABLETS PO SCH (09:48)
[2021-09-27] MEDS: LIDOCAINE 5% TOPICAL PATCH TP SCH (09:49)
[2021-09-27] MEDS: METHYL SALICYLATE/MENTHOL OINT 30 GM TUBE TP SCH ×2 (09:49→21:21)
[2021-09-27] MEDS: BUDESONIDE/FORMETEROL FUMARATE 160/4.5 mcg INHALER IH SCH ×2 (09:50→21:20)
[2021-09-27] MEDS: TOLNAFTATE 1% CREAM 15 GM TUBE TP SCH ×2 (09:50→21:20)
[2021-09-27] MEDS: TIMOLOL 0.5% OPHTHALMIC SOL 5 ML BOTTLE OU SCH (09:51)
[2021-09-27] MEDS: MAG HYDROX/AL HYDROX/SIMETH 30 ML UNIT-DOSE CUP PO PRN (20:03)
[2021-09-27] MEDS: LATANOPROST 0.005% OPHTH SOLN 2.5ML BOTTLE OU SCH (21:20)
[2021-09-27] MEDS: THIAMINE HCL 100 MG TABLET (FP) PO SCH (21:20)
[2021-09-27] MEDS: QUEtiapine FUMARATE 100 MG TABLET (FP) PO SCH (21:21)
[2021-09-27] MEDS: MELATONIN 5 MG TABLETS PO SCH (21:21)
[2021-09-27] MEDS: LIDOCAINE PATCH REMOVAL MC SCH (21:21)
[2021-09-28 06:39] VITALS: TEMP 97.7
[2021-09-28] MEDS: ASPIRIN 81 MG CHEWABLE TABLETS PO SCH (09:38)
[2021-09-28] MEDS: METHYL SALICYLATE/MENTHOL OINT 30 GM TUBE TP SCH (09:38)
[2021-09-28] MEDS: HYDROCHLOROTHIAZIDE 25 MG TABLET (FP) PO SCH (09:38)
[2021-09-28] MEDS: BRIMONIDINE TARTRATE OU SCH (09:38)
[2021-09-28] MEDS: TOLNAFTATE 1% CREAM 15 GM TUBE TP SCH (09:39)
[2021-09-28] MEDS: TIMOLOL 0.5% OPHTHALMIC SOL 5 ML BOTTLE OU SCH (09:39)
[2021-09-28] MEDS: DORZOLAMIDE HCL OU SCH (09:39)
[2021-09-28] MEDS: LIDOCAINE 5% TOPICAL PATCH TP SCH (09:39)
[2021-09-28] MEDS: PRENATAL VITAMINS W/ FOLIC ACID TABLET (FP) PO SCH (09:39)
[2021-09-28] MEDS: BUDESONIDE/FORMETEROL FUMARATE 160/4.5 mcg INHALER IH SCH (09:39)
[2021-09-28] MEDS: OMEGA-3 ACID ETHYL ESTERS (FATTY-ACIDS) 1 GM CAPSULE (FP) PO SCH (09:39)
[2021-09-28 10:24] VITALS: BP 116/67; PULSE 72
== END 2021-09-28 10:45 | disposition home or self-care (01) | DRG 772 ==
LOC: YASAS 13:23 → Y5N 09-18 00:07
PROVIDERS: ADMIT Allergy & Immunology; ATTEND Allergy & Immunology
PROC: HZ42ZZZ Group Counseling for Substance Abuse Treatment, Cognitive-Behavioral (ICD-10-PCS; principal; 2021-09-18)
DX: F10.20 Alcohol dependence, uncomplicated (principal); F10.280 Alcohol dependence with alcohol-induced anxiety disorder; F12.20 Cannabis dependence, uncomplicated; F17.210 Nicotine dependence, cigarettes, uncomplicated; F19.24 Other psychoactive substance dependence with psychoactive substance-induced mood disorder; F20.0 Paranoid schizophrenia; F39 Unspecified mood [affective] disorder; F60.2 Antisocial personality disorder; F10.282 Alcohol dependence with alcohol-induced sleep disorder; G47.00 Insomnia, unspecified; H40.9 Unspecified glaucoma; I10 Essential (primary) hypertension; J45.909 Unspecified asthma, uncomplicated; E78.5 Hyperlipidemia, unspecified; K21.9 Gastro-esophageal reflux disease without esophagitis; B35.3 Tinea pedis; R73.9 Hyperglycemia, unspecified; M54.50 Low back pain, unspecified; M25.512 Pain in left shoulder; E66.01 Morbid (severe) obesity due to excess calories; Z68.39 Body mass index [BMI] 39.0-39.9, adult; Z86.11 Personal history of tuberculosis; Z91.14 Patient's other noncompliance with medication regimen; Z91.010 Allergy to peanuts; Z59.01 Sheltered homelessness
CPT/HCPCS: 36415; 71046-TC-FY; 72100-TC-FY; 80053; 81003; 82550; 82553; 84484; 85027; 86780; 86803; 87389; 93005; 93010; C9803-CS; U0003; U0005

== ENCOUNTER 2023-01-02 14:37 | Inpatient (IN) | payer OTHER ==
[2023-01-02 15:41] VITALS: BMI 33.5
[2023-01-02] MEDS ORDERED: MAGNESIUM HYDROX 2400MG/30ML ORAL SUSPENSION 30 ML CUP PO PRN (17:48)
[2023-01-02] MEDS ORDERED: NALOXONE HCL (KLOXXADO) 8 MG SPRAY NS PRN (17:48)
[2023-01-02] MEDS ORDERED: ONDANSETRON *ODT* 4 MG TABLET SL PRN (17:48)
[2023-01-02] MEDS ORDERED: POLYETHYLENE GLYCOL (HEALTHYLAX) 3350 17 GM PACKET PO PRN (17:48)
[2023-01-02] MEDS ORDERED: METHOCARBAMOL 500 MG TABLET PO PRN (17:48)
[2023-01-02] MEDS ORDERED: IBUPROFEN 400 MG TABLET (FP) PO PRN (17:48)
[2023-01-02] MEDS ORDERED: chlordiazePOXIDE HCL 25 MG CAPSULE PO PRN (17:48)
[2023-01-02] MEDS ORDERED: NALOXONE HCL 0.4 MG/ML VIAL IM PRN (17:48)
[2023-01-02] MEDS ORDERED: MAG HYDROX/AL HYDROX/SIMETH 30 ML UNIT-DOSE CUP PO PRN (17:48)
[2023-01-02] MEDS ORDERED: NICOTINE 10 MG CARTRIDGE (INHALER) IH PRN (17:48)
[2023-01-02] MEDS ORDERED: DICYCLOMINE HCL 10 MG CAPSULE PO PRN (17:48)
[2023-01-02] MEDS ORDERED: guaiFENesin 600 MG TABLET.ER (FP) PO PRN (17:48)
[2023-01-02] MEDS ORDERED: IBUPROFEN 600 MG TABLET (FP) PO PRN (17:48)
[2023-01-02] MEDS ORDERED: hydrOXYzine PAMOATE 25 MG CAPSULE (FP) PO PRN (17:48)
[2023-01-02] MEDS ORDERED: LOPERAMIDE HCL 2 MG CAPSULE PO PRN (17:48)
[2023-01-02] MEDS ORDERED: BISMUTH SUBSALICYLATE 524 MG/30 ML PO PRN (17:48)
[2023-01-02] MEDS ORDERED: BENZONATATE 200 MG CAPSULE PO PRN (17:48)
[2023-01-02] MEDS ORDERED: ACETAMINOPHEN 325 MG TABLET (FP) PO PRN (17:48)
[2023-01-02] MEDS ORDERED: BENZOCAINE/MENTHOL (CHLORASEPTIC ) LOZENGE MM PRN (17:48)
[2023-01-02] MEDS ORDERED: ALBUTEROL SO4 HFA INHALER IH PRN (17:54)
[2023-01-02] MEDS: THIAMINE HCL 100 MG TABLET (FP) PO SCH (22:31)
[2023-01-02] MEDS: MELATONIN 5 MG TABLETS PO SCH (22:31)
[2023-01-02] MEDS: chlordiazePOXIDE HCL 25 MG CAPSULE PO SCH (22:31)
[2023-01-03] MEDS: chlordiazePOXIDE HCL 25 MG CAPSULE PO SCH ×4 (06:00→22:12)
[2023-01-03] MEDS ORDERED: COLLOIDAL OATMEAL 1 BAR EACH TP PRN (09:34)
[2023-01-03] MEDS ORDERED: PRENATAL VITAMINS W/ FOLIC ACID TABLET (FP) PO SCH (10:00)
[2023-01-03] MEDS: BUDESONIDE/FORMETEROL FUMARATE 160/4.5 mcg INHALER IH SCH ×2 (10:49→22:12)
[2023-01-03] MEDS: DORZOLAMIDE 2% HCL OPHTHALMIC SOLUTION 10 ML BOTTLE OU SCH ×2 (10:50→22:16)
[2023-01-03 11:25] LABS: HEMATOCRIT 39.8 % (35.4-49); HEMOGLOBIN 13.4 GM/dL (11.7-16.9); MCH 29.7 pg (25.7-33.7); MCHC 33.6 g/dl (32.0-35.9); MEAN CELL VOLUME 88.4 fl (80-96); MEAN PLT VOLUME 9.2 fl (7.5-11.1); PLATELET COUNT 242 10^3/uL (134-434); RDW 13.6 % (11.9-15.9); WHITE BLOOD COUNT 5.8 K/mm3 (4.0-10.0)
[2023-01-03 11:27] LABS: ALBUMIN 3.9 g/dl (3.4-5.0); BLOOD UREA NITROGEN 15.8 mg/dL (7-18); CALCIUM 9.5 mg/dL (8.5-10.1)
[2023-01-03 11:32] LABS: BILIRUBIN,TOTAL 0.9 mg/dL (0.2-1); TOT PROT 6.8 g/dl (6.4-8.2)
[2023-01-03] MEDS: BRIMONIDINE TARTRATE 0.15% OPHTHALMIC 5 ML BOTTLE OU SCH ×2 (14:46→22:16)
[2023-01-03] MEDS ORDERED: TIMOLOL 0.5% OPHTHALMIC SOL 5 ML BOTTLE OU SCH (22:00)
[2023-01-03] MEDS ORDERED: LATANOPROST 0.005% OPHTH SOLN 2.5ML BOTTLE OU SCH (22:00)
[2023-01-03] MEDS: AMMONIUM LACTATE 12% LOTION 225 GM BOTTLE TP PRN (22:10)
[2023-01-03] MEDS: MELATONIN 5 MG TABLETS PO SCH (22:12)
[2023-01-03] MEDS: THIAMINE HCL 100 MG TABLET (FP) PO SCH (22:12)
[2023-01-04] MEDS ORDERED: chlordiazePOXIDE HCL 25 MG CAPSULE PO SCH (05:00)
[2023-01-04] MEDS: BRIMONIDINE TARTRATE 0.15% OPHTHALMIC 5 ML BOTTLE OU SCH (05:32)
[2023-01-04] MEDS: AMMONIUM LACTATE 12% LOTION 225 GM BOTTLE TP PRN (05:42)
[2023-01-04 06:23] VITALS: BP 121/70; PULSE 74; RESP 16; TEMP 97.7
[2023-01-05] MEDS ORDERED: chlordiazePOXIDE HCL 10 MG CAPSULE PO PRN
[2023-01-05] MEDS ORDERED: chlordiazePOXIDE HCL 10 MG CAPSULE PO SCH (05:00)
[2023-01-06] MEDS ORDERED: chlordiazePOXIDE HCL 10 MG CAPSULE PO SCH (05:00)
[2023-01-07] MEDS ORDERED: chlordiazePOXIDE HCL 10 MG CAPSULE PO ONE (05:00)
== END 2023-01-04 08:37 | disposition left against medical advice (07) | DRG 770 ==
LOC: YASAS 14:37 → Y3N 18:11
PROVIDERS: ADMIT Allergy & Immunology; ATTEND Surgery
PROC: HZ2ZZZZ Detoxification Services for Substance Abuse Treatment (ICD-10-PCS; principal; 2023-01-02)
DX: F10.20 Alcohol dependence, uncomplicated (principal); H40.9 Unspecified glaucoma; J45.909 Unspecified asthma, uncomplicated
CPT/HCPCS: 36415; 71046-TC-FY; 80053; 85027; 86780; 87811; C9803-CS; U0003; U0005

== ENCOUNTER 2023-01-28 10:55 | Inpatient (IN) | payer OTHER ==
[2023-01-28 11:29] VITALS: BMI 33.9
[2023-01-28] MEDS ORDERED: NICOTINE 10 MG CARTRIDGE (INHALER) IH PRN (12:20)
[2023-01-28] MEDS ORDERED: IBUPROFEN 400 MG TABLET (FP) PO PRN (12:20)
[2023-01-28] MEDS ORDERED: BENZOCAINE/MENTHOL (CHLORASEPTIC ) LOZENGE MM PRN (12:20)
[2023-01-28] MEDS ORDERED: BENZONATATE 200 MG CAPSULE PO PRN (12:20)
[2023-01-28] MEDS ORDERED: DICYCLOMINE HCL 10 MG CAPSULE PO PRN (12:20)
[2023-01-28] MEDS ORDERED: hydrOXYzine PAMOATE 25 MG CAPSULE (FP) PO PRN (12:20)
[2023-01-28] MEDS ORDERED: ACETAMINOPHEN 325 MG TABLET (FP) PO PRN (12:20)
[2023-01-28] MEDS ORDERED: guaiFENesin 600 MG TABLET.ER (FP) PO PRN (12:20)
[2023-01-28] MEDS ORDERED: LOPERAMIDE HCL 2 MG CAPSULE PO PRN (12:20)
[2023-01-28] MEDS ORDERED: MAG HYDROX/AL HYDROX/SIMETH 30 ML UNIT-DOSE CUP PO PRN (12:20)
[2023-01-28] MEDS ORDERED: METHOCARBAMOL 500 MG TABLET PO PRN (12:20)
[2023-01-28] MEDS ORDERED: MAGNESIUM HYDROX 2400MG/30ML ORAL SUSPENSION 30 ML CUP PO PRN (12:20)
[2023-01-28] MEDS ORDERED: ONDANSETRON *ODT* 4 MG TABLET SL PRN (12:20)
[2023-01-28] MEDS ORDERED: IBUPROFEN 600 MG TABLET (FP) PO PRN (12:20)
[2023-01-28] MEDS ORDERED: NALOXONE HCL (KLOXXADO) 8 MG SPRAY NS PRN (12:20)
[2023-01-28] MEDS ORDERED: POLYETHYLENE GLYCOL (HEALTHYLAX) 3350 17 GM PACKET PO PRN (12:20)
[2023-01-28] MEDS ORDERED: BISMUTH SUBSALICYLATE 262 MG/15 ML BTL PO PRN (12:20)
[2023-01-28] MEDS ORDERED: chlordiazePOXIDE HCL 25 MG CAPSULE PO PRN (12:20)
[2023-01-28] MEDS ORDERED: NALOXONE HCL 0.4 MG/ML VIAL IM PRN (12:20)
[2023-01-28] MEDS ORDERED: ALBUTEROL SO4 HFA INHALER IH PRN (12:25)
[2023-01-28] MEDS: PRENATAL VITAMINS W/ FOLIC ACID TABLET (FP) PO SCH (13:11)
[2023-01-28] MEDS: NICOTINE 14 MG/24 HOURS TOPICAL PATCH TD SCH (13:11)
[2023-01-28] MEDS: TIMOLOL 0.5% OPHTHALMIC SOL 5 ML BOTTLE OU SCH ×2 (14:52→22:16)
[2023-01-28] MEDS: BRIMONIDINE TARTRATE 0.15% OPHTHALMIC 5 ML BOTTLE OU SCH ×2 (14:57→22:15)
[2023-01-28 16:30] LABS: HEMATOCRIT 41.9 % (35.4-49); HEMOGLOBIN 14.1 GM/dL (11.7-16.9); MCH 29.8 pg (25.7-33.7); MCHC 33.7 g/dl (32.0-35.9); MEAN CELL VOLUME 88.4 fl (80-96); MEAN PLT VOLUME 8.9 fl (7.5-11.1); PLATELET COUNT 277 10^3/uL (134-434); RBC 4.74 M/mm3 (4.00-5.60)
[2023-01-28 16:36] LABS: POTASSIUM 3.4 mmol/L (3.5-5.1)
[2023-01-28 16:40] LABS: ALBUMIN 4.4 g/dl (3.4-5.0); CALCIUM 9.5 mg/dL (8.5-10.1)
[2023-01-28 16:41] LABS: BLOOD UREA NITROGEN 15.1 mg/dL (7-18)
[2023-01-28 16:45] LABS: BILIRUBIN,TOTAL 1.6 mg/dL (0.2-1); TOT PROT 7.6 g/dl (6.4-8.2)
[2023-01-28] MEDS: chlordiazePOXIDE HCL 25 MG CAPSULE PO SCH ×2 (17:24→22:13)
[2023-01-28] MEDS ORDERED: THIAMINE HCL 100 MG TABLET (FP) PO SCH (22:00)
[2023-01-28] MEDS ORDERED: LATANOPROST 0.005% OPHTH SOLN 2.5ML BOTTLE OU SCH (22:00)
[2023-01-28] MEDS ORDERED: MELATONIN 5 MG TABLETS PO SCH (22:00)
[2023-01-28] MEDS: DORZOLAMIDE 2% HCL OPHTHALMIC SOLUTION 10 ML BOTTLE OU SCH (22:12)
[2023-01-28] MEDS: BUDESONIDE/FORMETEROL FUMARATE 160/4.5 mcg INHALER IH SCH (22:14)
[2023-01-29] MEDS: chlordiazePOXIDE HCL 25 MG CAPSULE PO SCH ×2 (05:36→10:42)
[2023-01-29] MEDS: BRIMONIDINE TARTRATE 0.15% OPHTHALMIC 5 ML BOTTLE OU SCH (05:41)
[2023-01-29] MEDS ORDERED: HYDROCHLOROTHIAZIDE 25 MG TABLET (FP) PO SCH (10:00)
[2023-01-29] MEDS ORDERED: CHOLECALCIFEROL (VIT D3) 1,000 UNIT (25 MCG) TABLET PO SCH (10:00)
[2023-01-29 10:02] VITALS: BP 137/89; PULSE 79; RESP 19; TEMP 98.4
[2023-01-29] MEDS ORDERED: POTASSIUM CHLORIDE ORAL LIQUID 20 MEQ/15 ML PO SCH (10:30)
[2023-01-29] MEDS: NICOTINE 14 MG/24 HOURS TOPICAL PATCH TD SCH (10:39)
[2023-01-29] MEDS: PRENATAL VITAMINS W/ FOLIC ACID TABLET (FP) PO SCH (10:39)
[2023-01-29] MEDS: BUDESONIDE/FORMETEROL FUMARATE 160/4.5 mcg INHALER IH SCH (10:39)
[2023-01-29] MEDS: TIMOLOL 0.5% OPHTHALMIC SOL 5 ML BOTTLE OU SCH (10:40)
[2023-01-29] MEDS: DORZOLAMIDE 2% HCL OPHTHALMIC SOLUTION 10 ML BOTTLE OU SCH (10:40)
[2023-01-30] MEDS ORDERED: chlordiazePOXIDE HCL 25 MG CAPSULE PO SCH (05:00)
[2023-01-31] MEDS ORDERED: chlordiazePOXIDE HCL 10 MG CAPSULE PO PRN
[2023-01-31] MEDS ORDERED: chlordiazePOXIDE HCL 10 MG CAPSULE PO SCH (05:00)
[2023-02-01] MEDS ORDERED: chlordiazePOXIDE HCL 10 MG CAPSULE PO SCH (05:00)
[2023-02-02] MEDS ORDERED: chlordiazePOXIDE HCL 10 MG CAPSULE PO ONE (05:00)
== END 2023-01-29 12:47 | disposition left against medical advice (07) | DRG 770 ==
LOC: YASAS 10:55 → Y3N 12:46
PROVIDERS: ADMIT Allergy & Immunology; ATTEND Surgery
PROC: HZ2ZZZZ Detoxification Services for Substance Abuse Treatment (ICD-10-PCS; principal; 2023-01-28)
DX: F10.230 Alcohol dependence with withdrawal, uncomplicated (principal); F12.20 Cannabis dependence, uncomplicated; F17.210 Nicotine dependence, cigarettes, uncomplicated; F20.0 Paranoid schizophrenia; F10.280 Alcohol dependence with alcohol-induced anxiety disorder; F10.282 Alcohol dependence with alcohol-induced sleep disorder; F41.1 Generalized anxiety disorder; E87.6 Hypokalemia; H40.9 Unspecified glaucoma; I10 Essential (primary) hypertension; K21.9 Gastro-esophageal reflux disease without esophagitis; J45.909 Unspecified asthma, uncomplicated; E66.9 Obesity, unspecified; Z68.33 Body mass index [BMI] 33.0-33.9, adult; Z86.59 Personal history of other mental and behavioral disorders
CPT/HCPCS: 36415; 80053; 85027; 86780; C9803-CS; U0003; U0005

== ENCOUNTER 2023-03-26 13:39 | Inpatient (IN) | payer OTHER ==
[2023-03-26 14:22] VITALS: BMI 34.7
[2023-03-26] MEDS ORDERED: chlordiazePOXIDE HCL 25 MG CAPSULE PO PRN (15:55)
[2023-03-26] MEDS: chlordiazePOXIDE HCL 25 MG CAPSULE PO SCH ×2 (16:59→22:48)
[2023-03-26] MEDS ORDERED: chlordiazePOXIDE HCL 25 MG CAPSULE ONE (17:02)
[2023-03-26] MEDS ORDERED: IBUPROFEN 600 MG TABLET (FP) PO PRN (17:09)
[2023-03-26] MEDS ORDERED: BISMUTH SUBSALICYLATE 524 MG/30 ML PO PRN (17:09)
[2023-03-26] MEDS ORDERED: ACETAMINOPHEN 325 MG TABLET (FP) PO PRN (17:09)
[2023-03-26] MEDS ORDERED: POLYETHYLENE GLYCOL (HEALTHYLAX) 3350 17 GM PACKET PO PRN (17:09)
[2023-03-26] MEDS ORDERED: ONDANSETRON *ODT* 4 MG TABLET SL PRN (17:09)
[2023-03-26] MEDS ORDERED: MAGNESIUM HYDROX 2400MG/30ML ORAL SUSPENSION 30 ML CUP PO PRN (17:09)
[2023-03-26] MEDS ORDERED: BENZONATATE 200 MG CAPSULE PO PRN (17:09)
[2023-03-26] MEDS ORDERED: hydrOXYzine PAMOATE 25 MG CAPSULE (FP) PO PRN (17:09)
[2023-03-26] MEDS ORDERED: METHOCARBAMOL 500 MG TABLET PO PRN (17:09)
[2023-03-26] MEDS ORDERED: NALOXONE HCL 0.4 MG/ML VIAL IM PRN (17:09)
[2023-03-26] MEDS ORDERED: IBUPROFEN 400 MG TABLET (FP) PO PRN (17:09)
[2023-03-26] MEDS ORDERED: LOPERAMIDE HCL 2 MG CAPSULE PO PRN (17:09)
[2023-03-26] MEDS ORDERED: NALOXONE HCL (KLOXXADO) 8 MG SPRAY NS PRN (17:09)
[2023-03-26] MEDS ORDERED: guaiFENesin 600 MG TABLET.ER (FP) PO PRN (17:09)
[2023-03-26] MEDS ORDERED: MAG HYDROX/AL HYDROX/SIMETH 30 ML UNIT-DOSE CUP PO PRN (17:09)
[2023-03-26] MEDS ORDERED: DICYCLOMINE HCL 10 MG CAPSULE PO PRN (17:09)
[2023-03-26] MEDS ORDERED: BENZOCAINE/MENTHOL (CHLORASEPTIC ) LOZENGE MM PRN (17:09)
[2023-03-26] MEDS ORDERED: ALBUTEROL SO4 HFA INHALER IH PRN (17:16)
[2023-03-26] MEDS: LATANOPROST 0.005% OPHTH SOLN 2.5ML BOTTLE OU SCH (22:41)
[2023-03-26] MEDS: BUDESONIDE/FORMETEROL FUMARATE 160/4.5 mcg INHALER IH SCH (22:43)
[2023-03-26] MEDS: BRIMONIDINE TARTRATE 0.15% OPHTHALMIC 5 ML BOTTLE OD SCH (22:46)
[2023-03-26] MEDS: MELATONIN 5 MG TABLETS PO SCH (22:48)
[2023-03-26] MEDS: THIAMINE HCL 100 MG TABLET (FP) PO SCH (22:48)
[2023-03-26] MEDS: TIMOLOL 0.5% OPHTHALMIC SOL 5 ML BOTTLE OU SCH (22:50)
[2023-03-26] MEDS: DORZOLAMIDE 2% HCL OPHTHALMIC SOLUTION 10 ML BOTTLE OU SCH (22:53)
[2023-03-27] MEDS: chlordiazePOXIDE HCL 25 MG CAPSULE PO SCH ×4 (05:36→22:38)
[2023-03-27] MEDS: BRIMONIDINE TARTRATE 0.15% OPHTHALMIC 5 ML BOTTLE OD SCH ×3 (05:39→22:37)
[2023-03-27] MEDS: HYDROCHLOROTHIAZIDE 25 MG TABLET (FP) PO SCH (10:29)
[2023-03-27] MEDS: PRENATAL VITAMINS W/ FOLIC ACID TABLET (FP) PO SCH (10:29)
[2023-03-27] MEDS: BUDESONIDE/FORMETEROL FUMARATE 160/4.5 mcg INHALER IH SCH ×2 (10:30→22:36)
[2023-03-27] MEDS: TIMOLOL 0.5% OPHTHALMIC SOL 5 ML BOTTLE OU SCH ×2 (10:31→22:36)
[2023-03-27] MEDS: DORZOLAMIDE 2% HCL OPHTHALMIC SOLUTION 10 ML BOTTLE OU SCH ×2 (10:31→22:37)
[2023-03-27] MEDS: CHOLECALCIFEROL (VIT D3) 1,000 UNIT (25 MCG) TABLET PO SCH (10:33)
[2023-03-27 12:01] LABS: HEMATOCRIT 40.2 % (35.4-49); MCH 29.1 pg (25.7-33.7); MCHC 32.2 g/dl (32.0-35.9); MEAN CELL VOLUME 90.4 fl (80-96); MEAN PLT VOLUME 10.2 fl (7.5-11.1); PLATELET COUNT 208 10^3/uL (134-434); RBC 4.45 M/mm3 (4.00-5.60); RDW 13.5 % (11.9-15.9)
[2023-03-27 12:14] LABS: POTASSIUM 3.7 mmol/L (3.5-5.1)
[2023-03-27 12:26] LABS: CALCIUM 9.7 mg/dL (8.5-10.1)
[2023-03-27 12:27] LABS: ALBUMIN 3.6 g/dl (3.4-5.0); BLOOD UREA NITROGEN 14.8 mg/dL (7-18)
[2023-03-27 12:30] LABS: CREATININE 0.9 mg/dL (0.55-1.3)
[2023-03-27 12:32] LABS: TOT PROT 6.5 g/dl (6.4-8.2)
[2023-03-27 21:54] VITALS: RESP 18; TEMP 97.7
[2023-03-27] MEDS: LATANOPROST 0.005% OPHTH SOLN 2.5ML BOTTLE OU SCH (22:36)
[2023-03-27] MEDS: MELATONIN 5 MG TABLETS PO SCH (22:38)
[2023-03-27] MEDS: THIAMINE HCL 100 MG TABLET (FP) PO SCH (22:38)
[2023-03-28] MEDS: chlordiazePOXIDE HCL 25 MG CAPSULE PO SCH ×2 (06:08→10:20)
[2023-03-28] MEDS: BRIMONIDINE TARTRATE 0.15% OPHTHALMIC 5 ML BOTTLE OD SCH (06:09)
[2023-03-28 06:45] VITALS: BP 104/57; PULSE 60
[2023-03-28] MEDS: TIMOLOL 0.5% OPHTHALMIC SOL 5 ML BOTTLE OU SCH (09:57)
[2023-03-28] MEDS: BUDESONIDE/FORMETEROL FUMARATE 160/4.5 mcg INHALER IH SCH (09:57)
[2023-03-28] MEDS: PRENATAL VITAMINS W/ FOLIC ACID TABLET (FP) PO SCH (09:57)
[2023-03-28] MEDS: DORZOLAMIDE 2% HCL OPHTHALMIC SOLUTION 10 ML BOTTLE OU SCH (09:57)
[2023-03-28] MEDS: CHOLECALCIFEROL (VIT D3) 1,000 UNIT (25 MCG) TABLET PO SCH (09:57)
[2023-03-28] MEDS: HYDROCHLOROTHIAZIDE 25 MG TABLET (FP) PO SCH (09:57)
[2023-03-29] MEDS ORDERED: chlordiazePOXIDE HCL 10 MG CAPSULE PO PRN
[2023-03-29] MEDS ORDERED: chlordiazePOXIDE HCL 10 MG CAPSULE PO SCH (05:00)
[2023-03-30] MEDS ORDERED: chlordiazePOXIDE HCL 10 MG CAPSULE PO SCH (05:00)
[2023-03-31] MEDS ORDERED: chlordiazePOXIDE HCL 10 MG CAPSULE PO ONE (05:00)
== END 2023-03-28 08:56 | disposition left against medical advice (07) | DRG 770 ==
LOC: YASAS 13:39 → Y3N 15:57
PROVIDERS: ADMIT Allergy & Immunology; ATTEND Surgery
PROC: HZ2ZZZZ Detoxification Services for Substance Abuse Treatment (ICD-10-PCS; principal; 2023-03-26)
DX: F10.230 Alcohol dependence with withdrawal, uncomplicated (principal); F14.20 Cocaine dependence, uncomplicated; F17.210 Nicotine dependence, cigarettes, uncomplicated; F41.1 Generalized anxiety disorder; E78.5 Hyperlipidemia, unspecified; I10 Essential (primary) hypertension; H40.9 Unspecified glaucoma; K21.9 Gastro-esophageal reflux disease without esophagitis; M54.50 Low back pain, unspecified; G89.29 Other chronic pain; Z91.148 Patient's other noncompliance with medication regimen for other reason
CPT/HCPCS: 36415; 80053; 85027; 86780; 87635

== ENCOUNTER 2023-06-30 14:53 | Inpatient (IN) | payer OTHER ==
[2023-06-30 15:17] VITALS: BMI 33.5
[2023-06-30] MEDS ORDERED: ALBUTEROL SO4 HFA INHALER IH PRN (17:18)
[2023-06-30] MEDS ORDERED: guaiFENesin 600 MG TABLET.ER (FP) PO PRN (17:27)
[2023-06-30] MEDS ORDERED: ACETAMINOPHEN 325 MG TABLET (FP) PO PRN (17:27)
[2023-06-30] MEDS ORDERED: METHOCARBAMOL 500 MG TABLET PO PRN (17:27)
[2023-06-30] MEDS ORDERED: BISMUTH SUBSALICYLATE 524 MG/30 ML PO PRN (17:27)
[2023-06-30] MEDS ORDERED: P-EPHED 60MG/TRIPROLIDI 2.5MG TABLET PO PRN (17:27)
[2023-06-30] MEDS ORDERED: POLYETHYLENE GLYCOL (HEALTHYLAX) 3350 17 GM PACKET PO PRN (17:27)
[2023-06-30] MEDS ORDERED: MAG HYDROX/AL HYDROX/SIMETH 30 ML UNIT-DOSE CUP PO PRN (17:27)
[2023-06-30] MEDS ORDERED: hydrOXYzine PAMOATE 25 MG CAPSULE (FP) PO PRN (17:27)
[2023-06-30] MEDS ORDERED: IBUPROFEN 600 MG TABLET (FP) PO PRN (17:27)
[2023-06-30] MEDS ORDERED: IBUPROFEN 400 MG TABLET (FP) PO PRN (17:27)
[2023-06-30] MEDS ORDERED: LOPERAMIDE HCL 2 MG CAPSULE PO PRN (17:27)
[2023-06-30] MEDS ORDERED: DICYCLOMINE HCL 10 MG CAPSULE PO PRN (17:27)
[2023-06-30] MEDS ORDERED: MAGNESIUM HYDROX 2400MG/30ML ORAL SUSPENSION 30 ML CUP PO PRN (17:27)
[2023-06-30] MEDS ORDERED: BENZONATATE 200 MG CAPSULE PO PRN (17:27)
[2023-06-30] MEDS ORDERED: ONDANSETRON *ODT* 4 MG TABLET SL PRN (17:27)
[2023-06-30] MEDS ORDERED: BENZOCAINE/MENTHOL (CHLORASEPTIC ) LOZENGE MM PRN (17:27)
[2023-06-30] MEDS ORDERED: diazePAM 5 MG TABLET PO PRN (17:30)
[2023-06-30] MEDS: MELATONIN 5 MG TABLETS PO SCH (22:26)
[2023-06-30] MEDS: LATANOPROST 0.005% OPHTH SOLN 2.5ML BOTTLE OU SCH (22:26)
[2023-06-30] MEDS: BUDESONIDE/FORMETEROL FUMARATE 160/4.5 mcg INHALER IH SCH (22:26)
[2023-06-30] MEDS: diazePAM 5 MG TABLET PO SCH (22:27)
[2023-06-30] MEDS: THIAMINE HCL 100 MG TABLET (FP) PO SCH (22:27)
[2023-06-30] MEDS: TIMOLOL 0.5% OPHTHALMIC SOL 5 ML BOTTLE OU SCH (23:47)
[2023-06-30] MEDS: BRIMONIDINE TARTRATE 0.15% OPHTHALMIC 5 ML BOTTLE OD SCH (23:47)
[2023-06-30] MEDS: DORZOLAMIDE 2% HCL OPHTHALMIC SOLUTION 10 ML BOTTLE OU SCH (23:48)
[2023-07-01] MEDS: diazePAM 5 MG TABLET PO SCH ×4 (05:58→22:43)
[2023-07-01] MEDS: BRIMONIDINE TARTRATE 0.15% OPHTHALMIC 5 ML BOTTLE OD SCH ×3 (06:30→22:41)
[2023-07-01] MEDS ORDERED: COLLOIDAL OATMEAL 1 BAR EACH TP PRN (08:48)
[2023-07-01] MEDS ORDERED: PRENATAL VITAMINS W/ FOLIC ACID TABLET (FP) PO SCH (10:00)
[2023-07-01] MEDS ORDERED: HYDROCHLOROTHIAZIDE 50 MG TABLET PO SCH (10:00)
[2023-07-01] MEDS ORDERED: HYDROCHLOROTHIAZIDE 25 MG TABLET (FP) PO SCH (10:00)
[2023-07-01] MEDS ORDERED: CHOLECALCIFEROL (VIT D3) 1,000 UNIT (25 MCG) TABLET PO SCH (10:00)
[2023-07-01] MEDS: TIMOLOL 0.5% OPHTHALMIC SOL 5 ML BOTTLE OU SCH ×2 (10:24→22:41)
[2023-07-01] MEDS: BUDESONIDE/FORMETEROL FUMARATE 160/4.5 mcg INHALER IH SCH ×2 (10:25→22:41)
[2023-07-01] MEDS: DORZOLAMIDE 2% HCL OPHTHALMIC SOLUTION 10 ML BOTTLE OU SCH ×2 (10:26→22:40)
[2023-07-01 11:12] LABS: ALBUMIN 3.9 g/dl (3.4-5.0); CALCIUM 8.9 mg/dL (8.5-10.1)
[2023-07-01 11:13] LABS: BLOOD UREA NITROGEN 14.3 mg/dL (7-18)
[2023-07-01 11:16] LABS: CREATININE 0.8 mg/dL (0.55-1.3); TOT PROT 7.1 g/dl (6.4-8.2)
[2023-07-01 11:17] LABS: BILIRUBIN,TOTAL 1.2 mg/dL (0.2-1)
[2023-07-01] MEDS ORDERED: GLY/DIMETH/PETROLAT,WHT/WATER (AVEENO) CREAM TP SCH (11:30)
[2023-07-01 11:51] LABS: HEMATOCRIT 41.6 % (35.4-49); HEMOGLOBIN 13.3 GM/dL (11.7-16.9); MCH 28.7 pg (25.7-33.7); MCHC 32.1 g/dl (32.0-35.9); MEAN CELL VOLUME 89.5 fl (80-96); PLATELET COUNT 217 10^3/uL (134-434); RBC 4.65 M/mm3 (4.00-5.60); RDW 13.8 % (11.9-15.9); WHITE BLOOD COUNT 7.3 K/mm3 (4.0-10.0)
[2023-07-01] MEDS: LATANOPROST 0.005% OPHTH SOLN 2.5ML BOTTLE OU SCH (22:40)
[2023-07-01] MEDS: MELATONIN 5 MG TABLETS PO SCH (22:41)
[2023-07-01] MEDS: THIAMINE HCL 100 MG TABLET (FP) PO SCH (22:43)
[2023-07-02] MEDS: BRIMONIDINE TARTRATE 0.15% OPHTHALMIC 5 ML BOTTLE OD SCH (05:32)
[2023-07-02] MEDS ORDERED: diazePAM 5 MG TABLET PO SCH (06:00)
[2023-07-02 07:22] VITALS: RESP 16
[2023-07-02 10:35] VITALS: BP 149/85; PULSE 67; TEMP 98
[2023-07-03] MEDS ORDERED: diazePAM 5 MG TABLET PO ONE (06:00)
== END 2023-07-02 09:48 | disposition home or self-care (01) | DRG 774 ==
LOC: YASAS 14:53 → Y6N 17:26
PROVIDERS: ADMIT Allergy & Immunology; ATTEND Surgery
PROC: HZ2ZZZZ Detoxification Services for Substance Abuse Treatment (ICD-10-PCS; principal; 2023-06-30)
DX: F10.230 Alcohol dependence with withdrawal, uncomplicated (principal); F14.20 Cocaine dependence, uncomplicated; F17.210 Nicotine dependence, cigarettes, uncomplicated; E78.5 Hyperlipidemia, unspecified; I10 Essential (primary) hypertension; K21.9 Gastro-esophageal reflux disease without esophagitis
CPT/HCPCS: 36415; 80053; 83036; 85027; 86780; 87635

== ENCOUNTER 2023-11-04 16:50 | Inpatient (IN) | payer OTHER ==
[2023-11-04 18:12] VITALS: BMI 35.5
[2023-11-04] MEDS ORDERED: ALBUTEROL SO4 2.5/IPRATROPIUM 0.5 INH SOL 3 ML VIAL.NEB. NEB ONE (20:55)
[2023-11-04] MEDS: ALBUTEROL SO4 2.5/IPRATROPIUM 0.5 INH SOL 3 ML VIAL.NEB. NEB ONE (21:47)
[2023-11-04] MEDS ORDERED: guaiFENesin 600 MG TABLET.ER (FP) PO PRN (23:08)
[2023-11-04] MEDS ORDERED: BENZONATATE 200 MG CAPSULE PO PRN (23:08)
[2023-11-04] MEDS ORDERED: LOPERAMIDE HCL 2 MG CAPSULE PO PRN (23:08)
[2023-11-04] MEDS ORDERED: POLYETHYLENE GLYCOL (HEALTHYLAX) 3350 17 GM PACKET PO PRN (23:08)
[2023-11-04] MEDS ORDERED: P-EPHED 60MG/TRIPROLIDI 2.5MG TABLET PO PRN (23:08)
[2023-11-04] MEDS ORDERED: DICYCLOMINE HCL 10 MG CAPSULE PO PRN (23:08)
[2023-11-04] MEDS ORDERED: ACETAMINOPHEN 325 MG TABLET (FP) PO PRN (23:08)
[2023-11-04] MEDS ORDERED: BENZOCAINE/MENTHOL (CHLORASEPTIC ) LOZENGE MM PRN (23:08)
[2023-11-04] MEDS ORDERED: MAGNESIUM HYDROX 2400MG/30ML ORAL SUSPENSION 30 ML CUP PO PRN (23:08)
[2023-11-04] MEDS ORDERED: BISMUTH SUBSALICYLATE 524 MG/30 ML PO PRN (23:08)
[2023-11-04] MEDS ORDERED: NICOTINE POLACRILEX 2 MG GUM BUC PRN (23:08)
[2023-11-04] MEDS ORDERED: MAG HYDROX/AL HYDROX/SIMETH 30 ML UNIT-DOSE CUP PO PRN (23:08)
[2023-11-04] MEDS ORDERED: diazePAM 5 MG TABLET PO PRN (23:11)
[2023-11-05] MEDS ORDERED: diazePAM 5 MG TABLET ONE (00:01)
[2023-11-05] MEDS: diazePAM 5 MG TABLET PO SCH (00:03)
[2023-11-05] MEDS: BUDESONIDE/FORMETEROL FUMARATE 160/4.5 mcg INHALER IH SCH (00:04)
[2023-11-05] MEDS: IBUPROFEN 600 MG TABLET (FP) PO PRN (06:20)
[2023-11-05] MEDS: ONDANSETRON *ODT* 4 MG TABLET SL PRN (06:20)
[2023-11-05] MEDS: ALBUTEROL SO4 HFA INHALER IH PRN (06:24)
[2023-11-05] MEDS: PRENATAL VITAMINS W/ FOLIC ACID TABLET (FP) PO SCH (10:13)
[2023-11-05] MEDS: HYDROCHLOROTHIAZIDE 25 MG TABLET (FP) PO SCH (10:13)
[2023-11-05] MEDS: CHOLECALCIFEROL (VIT D3) 1,000 UNIT (25 MCG) TABLET PO SCH (10:14)
[2023-11-05] MEDS: BRIMONIDINE TARTRATE 0.15% OPHTHALMIC 5 ML BOTTLE OD SCH (10:53)
[2023-11-05] MEDS: TIMOLOL 0.5% OPHTHALMIC SOL 5 ML BOTTLE OU SCH (11:23)
[2023-11-05] MEDS: DORZOLAMIDE 2% HCL OPHTHALMIC SOLUTION 10 ML BOTTLE OU SCH (11:23)
[2023-11-05 13:37] LABS: POTASSIUM 4.6 mmol/L (3.5-5.1)
[2023-11-05 13:39] LABS: CALCIUM 9.9 mg/dL (8.5-10.1)
[2023-11-05 13:40] LABS: ALBUMIN 4.2 g/dl (3.4-5.0); BLOOD UREA NITROGEN 14.2 mg/dL (7-18)
[2023-11-05 13:43] LABS: CREATININE 0.8 mg/dL (0.55-1.3)
[2023-11-05 13:45] LABS: BILIRUBIN,TOTAL 0.7 mg/dL (0.2-1); TOT PROT 7.1 g/dl (6.4-8.2)
[2023-11-05 13:48] LABS: HEMATOCRIT 40.2 % (35.4-49); HEMOGLOBIN 13.3 GM/dL (11.7-16.9); MCH 29.9 pg (25.7-33.7); MEAN CELL VOLUME 90.6 fl (80-96); MEAN PLT VOLUME 9.2 fl (7.5-11.1); PLATELET COUNT 234 10^3/uL (134-434); RBC 4.43 M/mm3 (4.00-5.60); RDW 13.6 % (11.9-15.9); WHITE BLOOD COUNT 8.2 K/mm3 (4.0-10.0)
[2023-11-05] MEDS: BRIMONIDINE TARTRATE 0.1% OPHTHALMIC 5 ML BOTTLE OU SCH (14:53)
[2023-11-05] MEDS: IBUPROFEN 400 MG TABLET (FP) PO PRN (17:39)
[2023-11-05 20:57] VITALS: RESP 18
[2023-11-05] MEDS: MELATONIN 5 MG TABLETS PO SCH (22:46)
[2023-11-05] MEDS: THIAMINE HCL 100 MG TABLET (FP) PO SCH (22:46)
[2023-11-05] MEDS: LATANOPROST 0.005% OPHTH SOLN 2.5ML BOTTLE OU SCH (22:49)
[2023-11-06] MEDS: diazePAM 5 MG TABLET PO SCH (05:53)
[2023-11-07] MEDS: diazePAM 5 MG TABLET PO ONE (05:55)
[2023-11-07 06:36] VITALS: BP 130/80; PULSE 60; TEMP 97.7
== END 2023-11-07 08:55 | disposition home or self-care (01) | DRG 774 ==
LOC: YASAS 16:50 → Y3N 11-05 01:58
PROVIDERS: ADMIT Allergy & Immunology; ATTEND Surgery
PROC: HZ2ZZZZ Detoxification Services for Substance Abuse Treatment (ICD-10-PCS; principal; 2023-11-05)
DX: F10.230 Alcohol dependence with withdrawal, uncomplicated (principal); F14.20 Cocaine dependence, uncomplicated; F17.210 Nicotine dependence, cigarettes, uncomplicated; F10.282 Alcohol dependence with alcohol-induced sleep disorder; E78.5 Hyperlipidemia, unspecified; I10 Essential (primary) hypertension; H40.9 Unspecified glaucoma; R94.31 Abnormal electrocardiogram [ECG] [EKG]; Z86.59 Personal history of other mental and behavioral disorders
CPT/HCPCS: 36415; 80053; 85027; 86780; 87635; 93005; 93010; 94640; Q0162

== ENCOUNTER 2023-12-13 14:13 | Inpatient (IN) | payer OTHER ==
[2023-12-13 15:43] VITALS: BMI 38.2
[2023-12-13] MEDS ORDERED: BENZONATATE 200 MG CAPSULE PO PRN (17:11)
[2023-12-13] MEDS ORDERED: LOPERAMIDE HCL 2 MG CAPSULE PO PRN (17:11)
[2023-12-13] MEDS ORDERED: guaiFENesin 600 MG TABLET.ER (FP) PO PRN (17:11)
[2023-12-13] MEDS ORDERED: ACETAMINOPHEN 325 MG TABLET (FP) PO PRN (17:11)
[2023-12-13] MEDS ORDERED: BENZOCAINE/MENTHOL (CHLORASEPTIC ) LOZENGE MM PRN (17:11)
[2023-12-13] MEDS ORDERED: hydrOXYzine PAMOATE 25 MG CAPSULE (FP) PO PRN (17:11)
[2023-12-13] MEDS ORDERED: NICOTINE POLACRILEX 2 MG LOZENGE BC PRN (17:11)
[2023-12-13] MEDS ORDERED: NICOTINE POLACRILEX 2 MG GUM BUC PRN (17:11)
[2023-12-13] MEDS ORDERED: P-EPHED 60MG/TRIPROLIDI 2.5MG TABLET PO PRN (17:11)
[2023-12-13] MEDS ORDERED: MAG HYDROX/AL HYDROX/SIMETH 30 ML UNIT-DOSE CUP PO PRN (17:11)
[2023-12-13] MEDS ORDERED: POLYETHYLENE GLYCOL (HEALTHYLAX) 3350 17 GM PACKET PO PRN (17:11)
[2023-12-13] MEDS: ALBUTEROL SO4 HFA INHALER IH PRN (21:29)
[2023-12-13] MEDS: MELATONIN 5 MG TABLETS PO SCH (21:30)
[2023-12-13] MEDS: LATANOPROST 0.005% OPHTH SOLN 2.5ML BOTTLE OU SCH (21:30)
[2023-12-13] MEDS: IBUPROFEN 600 MG TABLET (FP) PO PRN (21:30)
[2023-12-13] MEDS: THIAMINE HCL 100 MG TABLET (FP) PO SCH (21:30)
[2023-12-13] MEDS: BRIMONIDINE TARTRATE 0.15% OPHTHALMIC 5 ML BOTTLE OU SCH (21:58)
[2023-12-13] MEDS: TIMOLOL 0.5% OPHTHALMIC SOL 5 ML BOTTLE OU SCH (22:28)
[2023-12-13] MEDS: DORZOLAMIDE 2% HCL OPHTHALMIC SOLUTION 10 ML BOTTLE OU SCH (22:55)
[2023-12-14] MEDS: MAGNESIUM HYDROX 2400MG/30ML ORAL SUSPENSION 30 ML CUP PO PRN (01:11)
[2023-12-14] MEDS: PRENATAL VITAMINS W/ FOLIC ACID TABLET (FP) PO SCH (09:12)
[2023-12-14] MEDS: HYDROCHLOROTHIAZIDE 25 MG TABLET (FP) PO SCH (09:12)
[2023-12-14 09:49] VITALS: BP 158/90; PULSE 79; RESP 19; TEMP 98.2
[2023-12-14] MEDS: CHOLECALCIFEROL (VIT D3) 1,000 UNIT (25 MCG) TABLET PO SCH (10:13)
[2023-12-14 11:35] LABS: HEMATOCRIT 41.1 % (35.4-49); HEMOGLOBIN 13.2 GM/dL (11.7-16.9); MCH 29.3 pg (25.7-33.7); MCHC 32.2 g/dl (32.0-35.9); MEAN PLT VOLUME 9.4 fl (7.5-11.1); PLATELET COUNT 232 10^3/uL (134-434); RBC 4.52 M/mm3 (4.00-5.60); RDW 13.8 % (11.9-15.9); WHITE BLOOD COUNT 6.1 K/mm3 (4.0-10.0)
[2023-12-14 11:38] LABS: PH,URINE 7.5 (5.0-8.0); URINE APPEARANCE Error; URINE BILIRUBIN NEGATIVE (NEGATIVE); URINE COLOR YELLOW; URINE GLUCOSE (UA) NEGATIVE (NEGATIVE); URINE KETONE NEGATIVE (NEGATIVE); URINE LEUK ESTERASE NEGATIVE (NEGATIVE); URINE NITRITE NEGATIVE (NEGATIVE); URINE PROTEIN TRACE (NEGATIVE); URINE UROBILINOGEN 0.2 mg/dL (0.2-1.0)
[2023-12-14 11:48] LABS: POTASSIUM 4.1 mmol/L (3.5-5.1)
[2023-12-14 11:54] LABS: BLOOD UREA NITROGEN 11.6 mg/dL (7-18); CALCIUM 9.2 mg/dL (8.5-10.1)
[2023-12-14 11:55] LABS: ALBUMIN 3.7 g/dl (3.4-5.0)
[2023-12-14 11:57] LABS: CREATININE 0.9 mg/dL (0.55-1.3)
[2023-12-14 11:58] LABS: BILIRUBIN,TOTAL 1.1 mg/dL (0.2-1)
[2023-12-14 11:59] LABS: TOT PROT 6.5 g/dl (6.4-8.2)
== END 2023-12-14 11:33 | disposition home or self-care (01) | DRG 772 ==
LOC: YASAS 14:13 → Y3NR 19:59
PROVIDERS: ADMIT Allergy & Immunology; ATTEND Psychiatry & Neurology Pain Medicine
PROC: HZ42ZZZ Group Counseling for Substance Abuse Treatment, Cognitive-Behavioral (ICD-10-PCS; principal; 2023-12-13)
DX: F10.20 Alcohol dependence, uncomplicated (principal); F14.20 Cocaine dependence, uncomplicated; F17.210 Nicotine dependence, cigarettes, uncomplicated; F10.280 Alcohol dependence with alcohol-induced anxiety disorder; F10.282 Alcohol dependence with alcohol-induced sleep disorder; E78.5 Hyperlipidemia, unspecified; I10 Essential (primary) hypertension; K21.9 Gastro-esophageal reflux disease without esophagitis; M54.50 Low back pain, unspecified; G89.29 Other chronic pain; Z86.59 Personal history of other mental and behavioral disorders
CPT/HCPCS: 36415; 80053; 80305; 81003; 85027; 86780; 87635

== ENCOUNTER 2024-03-01 20:10 | Inpatient (IN) | payer OTHER ==
[2024-03-01 21:00] VITALS: BMI 35.5
[2024-03-01] MEDS ORDERED: METHOCARBAMOL 500 MG TABLET PO PRN (23:46)
[2024-03-01] MEDS ORDERED: NALOXONE (NARCAN) HCL 4 MG/0.1 ML SPRAY NS PRN (23:46)
[2024-03-01] MEDS ORDERED: guaiFENesin 600 MG TABLET.ER (FP) PO PRN (23:46)
[2024-03-01] MEDS ORDERED: MAGNESIUM HYDROX 2400MG/30ML ORAL SUSPENSION 30 ML CUP PO PRN (23:46)
[2024-03-01] MEDS ORDERED: NICOTINE POLACRILEX 2 MG GUM BUC PRN (23:46)
[2024-03-01] MEDS ORDERED: DICYCLOMINE HCL 10 MG CAPSULE PO PRN (23:46)
[2024-03-01] MEDS ORDERED: hydrOXYzine PAMOATE 25 MG CAPSULE (FP) PO PRN (23:46)
[2024-03-01] MEDS ORDERED: NALOXONE HCL 0.4 MG/ML VIAL IM PRN (23:46)
[2024-03-01] MEDS ORDERED: IBUPROFEN 400 MG TABLET (FP) PO PRN (23:46)
[2024-03-01] MEDS ORDERED: POLYETHYLENE GLYCOL (HEALTHYLAX) 3350 17 GM PACKET PO PRN (23:46)
[2024-03-01] MEDS ORDERED: BENZOCAINE/MENTHOL (CHLORASEPTIC ) LOZENGE MM PRN (23:46)
[2024-03-01] MEDS ORDERED: LOPERAMIDE HCL 2 MG CAPSULE PO PRN (23:46)
[2024-03-01] MEDS ORDERED: BENZONATATE 200 MG CAPSULE PO PRN (23:46)
[2024-03-01] MEDS ORDERED: MAG HYDROX/AL HYDROX/SIMETH 30 ML UNIT-DOSE CUP PO PRN (23:46)
[2024-03-01] MEDS ORDERED: ONDANSETRON *ODT* 4 MG TABLET SL PRN (23:46)
[2024-03-01] MEDS ORDERED: BISMUTH SUBSALICYLATE 524 MG/30 ML PO PRN (23:46)
[2024-03-01] MEDS ORDERED: chlordiazePOXIDE HCL 25 MG CAPSULE PO PRN (23:50)
[2024-03-02] MEDS ORDERED: IBUPROFEN 600 MG TABLET (FP) PO ONE (00:41)
[2024-03-02] MEDS ORDERED: chlordiazePOXIDE HCL 25 MG CAPSULE ONE (00:44)
[2024-03-02] MEDS: chlordiazePOXIDE HCL 25 MG CAPSULE PO SCH ×2 (00:47→06:00)
[2024-03-02] MEDS: IBUPROFEN 600 MG TABLET (FP) PO PRN (00:56)
[2024-03-02] MEDS: ALBUTEROL SO4 HFA INHALER IH PRN (01:55)
[2024-03-02] MEDS: BRIMONIDINE TARTRATE 0.15% OPHTHALMIC 5 ML BOTTLE OU SCH (07:00)
[2024-03-02] MEDS: CHOLECALCIFEROL (VIT D3) 1,000 UNIT (25 MCG) TABLET PO SCH (10:23)
[2024-03-02] MEDS: PRENATAL VITAMINS W/ FOLIC ACID TABLET (FP) PO SCH (10:23)
[2024-03-02] MEDS: HYDROCHLOROTHIAZIDE 25 MG TABLET (FP) PO SCH (10:23)
[2024-03-02] MEDS: NICOTINE 14 MG/24 HOURS TOPICAL PATCH TD SCH (10:23)
[2024-03-02 10:30] LABS: CHLORIDE 110 mmol/L (98-107); POTASSIUM 3.8 mmol/L (3.5-5.1); SODIUM 139 mmol/L (136-145)
[2024-03-02 10:31] LABS: HEMATOCRIT 36.8 % (35.4-49); HEMOGLOBIN 12.2 GM/dL (11.7-16.9); MCH 30.3 pg (25.7-33.7); MCHC 33.3 g/dl (32.0-35.9); MEAN PLT VOLUME 8.6 fl (7.5-11.1); PLATELET COUNT 220 10^3/uL (134-434); RBC 4.04 M/mm3 (4.00-5.60); RDW 14.1 % (11.9-15.9); WHITE BLOOD COUNT 7.8 K/mm3 (4.0-10.0)
[2024-03-02 10:32] LABS: CALCIUM 8.9 mg/dL (8.5-10.1)
[2024-03-02 10:33] LABS: ALBUMIN 3.5 g/dl (3.4-5.0); ANION GAP 5 mmol/L (4-13); BLOOD UREA NITROGEN 21.7 mg/dL (7-18); CO2 24 mmol/L (21-32); GLUCOSE,RANDOM 129 mg/dL (74-106)
[2024-03-02 10:36] LABS: CREATININE 0.9 mg/dL (0.55-1.3); SGOT/AST 34 U/L (15-37); SGPT/ALT 56 U/L (13-61)
[2024-03-02 10:37] LABS: BILIRUBIN,TOTAL 0.7 mg/dL (0.2-1); TOT PROT 6.5 g/dl (6.4-8.2)
[2024-03-02 10:39] LABS: ALK PHOS 77 U/L (45-117)
[2024-03-02] MEDS: DORZOLAMIDE 2% HCL OPHTHALMIC SOLUTION 10 ML BOTTLE OU SCH (10:46)
[2024-03-02] MEDS: TIMOLOL 0.5% OPHTHALMIC SOL 5 ML BOTTLE OU SCH ×2 (10:48→23:14)
[2024-03-02] MEDS ORDERED: BUDESONIDE/FORMETEROL FUMARATE 80/4.5 mcg INHALER IH PRN (12:05)
[2024-03-02] MEDS ORDERED: BUDESONIDE/FORMETEROL FUMARATE 80/4.5 mcg INHALER IH SCH (13:44)
[2024-03-02] MEDS: METOPROLOL TARTRATE 25 MG TABLET (FP) PO ONE (13:48)
[2024-03-02] MEDS: BUDESONIDE/FORMETEROL FUMARATE 80/4.5 mcg INHALER IH SCH (13:48)
[2024-03-02] MEDS: ACETAMINOPHEN 325 MG TABLET (FP) PO PRN (17:35)
[2024-03-02] MEDS: LATANOPROST 0.005% OPHTH SOLN 2.5ML BOTTLE OU SCH (22:46)
[2024-03-02] MEDS: MELATONIN 5 MG TABLETS PO SCH (22:47)
[2024-03-02] MEDS: THIAMINE 100 MG TABLET PO SCH (22:47)
[2024-03-03] MEDS ORDERED: chlordiazePOXIDE HCL 10 MG CAPSULE PO PRN
[2024-03-03] MEDS: chlordiazePOXIDE HCL 10 MG CAPSULE PO SCH (05:42)
[2024-03-04] MEDS: chlordiazePOXIDE HCL 10 MG CAPSULE PO SCH (06:00)
[2024-03-04 06:41] VITALS: BP 115/79; PULSE 63; RESP 16; TEMP 99.5
[2024-03-05] MEDS ORDERED: chlordiazePOXIDE HCL 10 MG CAPSULE PO ONE (05:00)
== END 2024-03-04 08:56 | disposition home or self-care (01) | DRG 775 ==
LOC: YASAS 20:10 → Y3N 23:14
PROVIDERS: ADMIT Allergy & Immunology; ATTEND Surgery
PROC: HZ2ZZZZ Detoxification Services for Substance Abuse Treatment (ICD-10-PCS; principal; 2024-03-01)
DX: F10.230 Alcohol dependence with withdrawal, uncomplicated (principal); F17.210 Nicotine dependence, cigarettes, uncomplicated; F20.0 Paranoid schizophrenia; F41.9 Anxiety disorder, unspecified; G47.00 Insomnia, unspecified; H40.9 Unspecified glaucoma; I10 Essential (primary) hypertension; J45.909 Unspecified asthma, uncomplicated; K21.9 Gastro-esophageal reflux disease without esophagitis; M17.0 Bilateral primary osteoarthritis of knee; R76.11 Nonspecific reaction to tuberculin skin test without active tuberculosis
CPT/HCPCS: 36415; 71046-TC-FY; 80053; 80305; 80307; 85027; 86780; 93005; 93010

== ENCOUNTER 2024-04-16 21:51 | Inpatient (IN) | payer OTHER ==
[2024-04-16 22:39] VITALS: BMI 37.4
[2024-04-16] MEDS ORDERED: BISMUTH SUBSALICYLATE 524 MG/30 ML PO PRN (23:23)
[2024-04-16] MEDS ORDERED: BENZOCAINE/MENTHOL (CHLORASEPTIC ) LOZENGE MM PRN (23:23)
[2024-04-16] MEDS ORDERED: IBUPROFEN 600 MG TABLET (FP) PO PRN (23:23)
[2024-04-16] MEDS ORDERED: NALOXONE (NARCAN) HCL 4 MG/0.1 ML SPRAY NS PRN (23:23)
[2024-04-16] MEDS ORDERED: BENZONATATE 200 MG CAPSULE PO PRN (23:23)
[2024-04-16] MEDS ORDERED: MAGNESIUM HYDROX 2400MG/30ML ORAL SUSPENSION 30 ML CUP PO PRN (23:23)
[2024-04-16] MEDS ORDERED: ACETAMINOPHEN 325 MG TABLET (FP) PO PRN (23:23)
[2024-04-16] MEDS ORDERED: POLYETHYLENE GLYCOL (HEALTHYLAX) 3350 17 GM PACKET PO PRN (23:23)
[2024-04-16] MEDS ORDERED: LOPERAMIDE HCL 2 MG CAPSULE PO PRN (23:23)
[2024-04-16] MEDS ORDERED: IBUPROFEN 400 MG TABLET (FP) PO PRN (23:23)
[2024-04-16] MEDS ORDERED: ONDANSETRON *ODT* 4 MG TABLET SL PRN (23:23)
[2024-04-16] MEDS ORDERED: guaiFENesin 600 MG TABLET.ER (FP) PO PRN (23:23)
[2024-04-16] MEDS ORDERED: NALOXONE HCL 0.4 MG/ML VIAL IM PRN (23:23)
[2024-04-16] MEDS ORDERED: MAG HYDROX/AL HYDROX/SIMETH 30 ML UNIT-DOSE CUP PO PRN (23:23)
[2024-04-16] MEDS ORDERED: DICYCLOMINE HCL 10 MG CAPSULE PO PRN (23:23)
[2024-04-16] MEDS ORDERED: NICOTINE POLACRILEX 2 MG GUM BUC PRN (23:38)
[2024-04-17] MEDS ORDERED: cloNIDine HCL 0.1 MG TABLET ONE (00:32)
[2024-04-17] MEDS: cloNIDine HCL 0.1 MG TABLET PO ONE (00:34)
[2024-04-17] MEDS: ALBUTEROL SO4 HFA INHALER IH PRN (01:02)
[2024-04-17] MEDS: BRIMONIDINE TARTRATE 0.15% OPHTHALMIC 5 ML BOTTLE OU SCH (07:03)
[2024-04-17] MEDS: PRENATAL VITAMINS W/ FOLIC ACID TABLET (FP) PO SCH (10:25)
[2024-04-17] MEDS: NICOTINE 21 MG/24 HOURS TOPICAL PATCH TD SCH (10:25)
[2024-04-17] MEDS: TIMOLOL 0.5% OPHTHALMIC SOL 5 ML BOTTLE OU SCH (10:26)
[2024-04-17] MEDS: HYDROCHLOROTHIAZIDE 25 MG TABLET (FP) PO SCH (10:27)
[2024-04-17 11:42] LABS: HEMATOCRIT 39.6 % (35.4-49); HEMOGLOBIN 13.4 GM/dL (11.7-16.9); MCH 30.4 pg (25.7-33.7); MCHC 33.7 g/dl (32.0-35.9); MEAN CELL VOLUME 90.3 fl (80-96); MEAN PLT VOLUME 8.8 fl (7.5-11.1); PLATELET COUNT 258 10^3/uL (134-434); RBC 4.39 M/mm3 (4.00-5.60); RDW 13.9 % (11.9-15.9); WHITE BLOOD COUNT 7.6 K/mm3 (4.0-10.0)
[2024-04-17 11:50] LABS: CHLORIDE 102 mmol/L (98-107); POTASSIUM 3.8 mmol/L (3.5-5.1); SODIUM 138 mmol/L (136-145)
[2024-04-17 11:56] LABS: ALBUMIN 4.3 g/dl (3.4-5.0); ANION GAP 7 mmol/L (4-13); BLOOD UREA NITROGEN 13.9 mg/dL (7-18); CALCIUM 9.8 mg/dL (8.5-10.1); CO2 30 mmol/L (21-32)
[2024-04-17 11:57] LABS: GLUCOSE,RANDOM 101 mg/dL (74-106)
[2024-04-17 11:59] LABS: SGPT/ALT 40 U/L (13-61)
[2024-04-17 12:00] LABS: CREATININE 0.9 mg/dL (0.55-1.3); SGOT/AST 21 U/L (15-37)
[2024-04-17 12:01] LABS: BILIRUBIN,TOTAL 1.1 mg/dL (0.2-1); TOT PROT 7.3 g/dl (6.4-8.2)
[2024-04-17 12:02] LABS: ALK PHOS 58 U/L (45-117)
[2024-04-17] MEDS: DORZOLAMIDE 2% HCL OPHTHALMIC SOLUTION 10 ML BOTTLE OU SCH (12:52)
[2024-04-17] MEDS: LATANOPROST 0.005% OPHTH SOLN 2.5ML BOTTLE OU SCH (22:01)
[2024-04-17] MEDS: MELATONIN 5 MG TABLETS PO SCH (22:19)
[2024-04-17] MEDS: METHOCARBAMOL 500 MG TABLET PO PRN (22:19)
[2024-04-17] MEDS: THIAMINE 100 MG TABLET PO SCH (22:19)
[2024-04-17] MEDS: hydrOXYzine PAMOATE 25 MG CAPSULE (FP) PO PRN (22:19)
[2024-04-18 06:15] VITALS: TEMP 97.7
[2024-04-18 14:07] VITALS: BP 129/91; PULSE 69; RESP 17
== END 2024-04-18 13:13 | disposition home or self-care (01) | DRG 774 ==
LOC: YASAS 21:51 → Y3N 23:03
PROVIDERS: ADMIT Allergy & Immunology; ATTEND Surgery
PROC: HZ2ZZZZ Detoxification Services for Substance Abuse Treatment (ICD-10-PCS; principal; 2024-04-16)
DX: F10.230 Alcohol dependence with withdrawal, uncomplicated (principal); F14.20 Cocaine dependence, uncomplicated; F17.210 Nicotine dependence, cigarettes, uncomplicated; F20.0 Paranoid schizophrenia; F41.1 Generalized anxiety disorder; E78.5 Hyperlipidemia, unspecified; H40.9 Unspecified glaucoma; I10 Essential (primary) hypertension; K21.9 Gastro-esophageal reflux disease without esophagitis; J45.909 Unspecified asthma, uncomplicated; M17.0 Bilateral primary osteoarthritis of knee; M54.50 Low back pain, unspecified; G89.29 Other chronic pain; Z99.89 Dependence on other enabling machines and devices
CPT/HCPCS: 36415; 80053; 80305; 80307; 85027; 86780; 93005; 93010

== ENCOUNTER 2025-04-10 09:54 | Inpatient (IN) | payer OTHER ==
[2025-04-10 10:14] VITALS: BMI 37.8
[2025-04-10] MEDS ORDERED: MAGNESIUM HYDROX 2400MG/30ML ORAL SUSPENSION 30 ML CUP PO PRN (10:34)
[2025-04-10] MEDS ORDERED: ONDANSETRON *ODT* 4 MG TABLET SL PRN (10:34)
[2025-04-10] MEDS ORDERED: IBUPROFEN 600 MG TABLET (FP) PO PRN (10:34)
[2025-04-10] MEDS ORDERED: DICYCLOMINE HCL 10 MG CAPSULE PO PRN (10:34)
[2025-04-10] MEDS ORDERED: BENZONATATE 200 MG CAPSULE PO PRN (10:34)
[2025-04-10] MEDS ORDERED: ACETAMINOPHEN 325 MG TABLET (FP) PO PRN (10:34)
[2025-04-10] MEDS ORDERED: LOPERAMIDE HCL 2 MG CAPSULE PO PRN (10:34)
[2025-04-10] MEDS ORDERED: hydrOXYzine PAMOATE 25 MG CAPSULE (FP) PO PRN (10:34)
[2025-04-10] MEDS ORDERED: BISMUTH SUBSALICYLATE 262 MG/15 ML BTL PO PRN (10:34)
[2025-04-10] MEDS ORDERED: MAG HYDROX/AL HYDROX/SIMETH 30 ML UNIT-DOSE CUP PO PRN (10:34)
[2025-04-10] MEDS ORDERED: POLYETHYLENE GLYCOL (HEALTHYLAX) 3350 17 GM PACKET PO PRN (10:34)
[2025-04-10] MEDS ORDERED: METHOCARBAMOL 500 MG TABLET PO PRN (10:34)
[2025-04-10] MEDS ORDERED: guaiFENesin 600 MG TABLET.ER (FP) PO PRN (10:34)
[2025-04-10] MEDS ORDERED: NALOXONE (NARCAN) HCL 4 MG/0.1 ML SPRAY NS PRN (10:34)
[2025-04-10] MEDS ORDERED: BENZOCAINE/MENTHOL (CHLORASEPTIC ) LOZENGE MM PRN (10:34)
[2025-04-10] MEDS ORDERED: NICOTINE POLACRILEX 2 MG GUM BUC PRN (10:34)
[2025-04-10] MEDS ORDERED: IBUPROFEN 400 MG TABLET (FP) PO PRN (10:34)
[2025-04-10] MEDS ORDERED: BUDESONIDE/FORMETEROL FUMARATE 80/4.5 mcg INHALER IH PRN (10:38)
[2025-04-10] MEDS ORDERED: HYDROCHLOROTHIAZIDE 12.5 MG CAPSULE (FP) ONE (11:44)
[2025-04-10] MEDS: HYDROCHLOROTHIAZIDE 25 MG TABLET (FP) PO SCH (11:45)
[2025-04-10] MEDS: BRIMONIDINE TARTRATE 0.15% OPHTHALMIC 5 ML BOTTLE OU SCH (15:28)
[2025-04-10] MEDS: ALBUTEROL SO4 HFA INHALER IH PRN (17:32)
[2025-04-10] MEDS: THIAMINE 100 MG TABLET PO SCH (22:34)
[2025-04-10] MEDS: TIMOLOL 0.5% OPHTHALMIC SOL 5 ML BOTTLE OU SCH (22:35)
[2025-04-10] MEDS: LATANOPROST 0.005% OPHTH SOLN 2.5ML BOTTLE OU SCH (22:35)
[2025-04-10] MEDS: DORZOLAMIDE 2% HCL OPHTHALMIC SOLUTION 10 ML BOTTLE OU SCH (22:35)
[2025-04-10] MEDS: MELATONIN 5 MG TABLETS PO SCH (22:36)
[2025-04-11 08:43] VITALS: BP 146/85; PULSE 81; RESP 17; TEMP 97.1
[2025-04-11] MEDS: PRENATAL VITAMINS W/ FOLIC ACID TABLET (FP) PO SCH (10:02)
[2025-04-11] MEDS: NALTREXONE HCL 50 MG TABLET PO SCH (10:03)
[2025-04-11 12:21] LABS: MEAN CELL VOLUME 92.0 fl (79.0-92.2); RDW 13.1 % (12.2-16.4)
[2025-04-11 12:23] LABS: MCHC 31.4 g/dl (32.3-36.5)
[2025-04-11 12:47] LABS: CO2 27.0 mmol/L (21-32); GLUCOSE,RANDOM 133.0 mg/dL (74-106)
[2025-04-11 12:50] LABS: CREATININE 1.1 mg/dL (0.55-1.3); SGOT/AST 32.0 U/L (15-37); SGPT/ALT 43.0 U/L (13-61)
[2025-04-11 12:51] LABS: TOT PROT 7.7 g/dl (6.4-8.2)
[2025-04-11 12:53] LABS: ALK PHOS 70.0 U/L (45-117)
== END 2025-04-11 11:25 | disposition left against medical advice (07) | DRG 770 ==
LOC: YASAS 09:54 → Y6N 11:21
PROVIDERS: ADMIT Family Medicine; ATTEND Allergy & Immunology
PROC: HZ2ZZZZ Detoxification Services for Substance Abuse Treatment (ICD-10-PCS; principal; 2025-04-10)
DX: F10.230 Alcohol dependence with withdrawal, uncomplicated (principal); F17.210 Nicotine dependence, cigarettes, uncomplicated; F20.9 Schizophrenia, unspecified; F10.280 Alcohol dependence with alcohol-induced anxiety disorder; F41.9 Anxiety disorder, unspecified; E78.5 Hyperlipidemia, unspecified; I10 Essential (primary) hypertension; K21.9 Gastro-esophageal reflux disease without esophagitis; H40.9 Unspecified glaucoma; M19.90 Unspecified osteoarthritis, unspecified site; M54.50 Low back pain, unspecified; G89.29 Other chronic pain
CPT/HCPCS: 36415; 80053; 80305; 80307; 85027; 86780; 93005; 93010